=== PATIENT | male | born 1950 | race Caucasian/White ===

== ENCOUNTER 2018-03-16 14:36 | Outpatient (RCR) | payer MEDICARE, SELFPAY ==
[2018-03-16 16:04] LABS: AST(SGOT) 15 U/L (15-37); Alanine Aminotransfer ALT/SGPT 21 U/L (16-61); Albumin, Serum 3.5 g/dL (3.2-5.0); Alkaline Phosphatase 98 U/L (45-117); Bilirubin, Direct 0.08 mg/dL (0.00-0.30); Cholesterol 168 mg/dL (200); High Density Lipoprotein 34 mg/dL; Protein, Total 7.5 g/dL (6.4-8.2); Triglycerides 150 mg/dL; Very Low Density Lipoprotein 30 mg/dL (5-40)
== END 2018-03-30 23:59 ==
LOC: INT LAB 14:36
PROVIDERS: Family Provider Family Medicine; PCP Family Medicine; Visit Provider Physician Assistant Medical
DX: E78.5 Hyperlipidemia, unspecified (principal); Z79.899 Other long term (current) drug therapy
CPT/HCPCS: 36415; 80061; 80076

== ENCOUNTER → 2018-09-01 10:59 | Outpatient (CLI) | payer MEDICARE, SELFPAY ==
[2018-09-01 12:08] LABS: Absolute Lymphocyte Count 0.77 X10^3/ul (0.83-4.51); Absolute Neutrophil Count 3.5 X10^3/uL (2.0-7.7); Basophil# 0.01 X10^3/uL; Basophil% 0.2 % (0-1); Eosinophil# 0.18 X10^3/uL; Eosinophils% 3.6 % (0-5); Hematocrit 28.9 % (40-54); Hemoglobin 9.3 g/dl (13.0-16.5); Lymphocyte # 0.77 X10^3/ul (4.0); Lymphocyte % 15.6 % (19-41); Mean Corp Hgb Conc 32.2 g/gl (32-36); Mean Corpuscular Hgb 30.6 pg (27.0-32.0); Mean Corpuscular Volume 95.1 fL (80-94); Mean Platelet Vol. 10.5 fl (6.2-12.0); Monocyte# 0.44 X10^3/uL; Monocyte% 8.9 % (0-10); Neutrophil # 3.52 X10^3/uL (2.7-7.7); Neutrophil % 71.3 % (47-70); Platelet Count 175 K/mm3 (150-450); RBC Distribution Width CV 13.5 % (11.6-14.6); RBC Distribution Width SD 46.6 fl (35.1-43.9); Red Blood Count 3.04 M/mm3 (4.6-6.2); White Blood Count 4.9 K/mm3 (4.4-11.0)
[2018-09-01 12:10] LABS: POSITIVE COUNT NO; POSITIVE DIFFERENTIAL NO; POSITIVE MORPHOLOGY NO
[2018-09-01 12:13] LABS: Prothrombin Time (Protime)PT. 31.3 SECONDS (11.7-14.9)
[2018-09-01 12:27] LABS: Hemoglobin A1c 7.1 % (4.2-6.3)
[2018-09-01 12:28] LABS: AST(SGOT) 17 U/L (15-37); Alanine Aminotransfer ALT/SGPT 22 U/L (16-61); Albumin, Serum 3.2 g/dL (3.2-5.0); Alkaline Phosphatase 95 U/L (45-117); Anion Gap 9 (5-15); BUN 60 mg/dL (7-18); BUN/Creat Ratio 19.9 RATIO (10-20); Calcium,Total 8.3 mg/dL (8.5-10.1); Chloride 108 mmol/L (98-107); Cholesterol 144 mg/dL (200); Creatinine, Serum 3.01 mg/dL (0.70-1.30); EST Glomerular Filtration Rate 22 mL/min (>60); Est Glom Filt Rate - Afr Amer 27 mL/min (>60); Globulin 3.3 g/dL (2.2-4.2); Glucose 257 mg/dL (74-106); High Density Lipoprotein 28 mg/dL; Potassium 4.9 mmol/L (3.5-5.1); Protein, Total 6.5 g/dL (6.4-8.2); Sodium Level 142 mmol/L (136-145); Triglycerides 183 mg/dL; Very Low Density Lipoprotein 37 mg/dL (5-40)
== END ==
PROVIDERS: Internal Medicine Cardiovascular Disease; Physician Assistant Medical; Family Provider Family Medicine; PCP Family Medicine; Referring Provider Family Medicine; Visit Provider Family Medicine
DX: E11.59 Type 2 diabetes mellitus with other circulatory complications (principal); E66.01 Morbid (severe) obesity due to excess calories; E78.5 Hyperlipidemia, unspecified; N18.9 Chronic kidney disease, unspecified; D63.1 Anemia in chronic kidney disease; I12.9 Hypertensive chronic kidney disease with stage 1 through stage 4 chronic kidney disease, or unspecified chronic kidney disease; I48.0 Paroxysmal atrial fibrillation; Z79.01 Long term (current) use of anticoagulants
CPT/HCPCS: 80053; 80061; 82248; 83036; 85025; 85610

== ENCOUNTER → 2019-01-29 12:04 | Outpatient (CLI) | payer MEDICARE, SELFPAY ==
[2019-01-29 14:32] LABS: Hematocrit 34.6 % (40-54); Hemoglobin 11.4 g/dl (13.0-16.5); Mean Corp Hgb Conc 32.9 g/gl (32-36); Mean Corpuscular Hgb 31.2 pg (27.0-32.0); Mean Corpuscular Volume 94.8 fL (80-94); Mean Platelet Vol. 10.6 fl (6.2-12.0); Platelet Count 233 K/mm3 (150-450); RBC Distribution Width CV 12.5 % (11.6-14.6); Red Blood Count 3.65 M/mm3 (4.6-6.2); White Blood Count 6.8 K/mm3 (4.4-11.0)
[2019-01-29 14:33] LABS: Albumin, Serum 3.1 g/dL (3.2-5.0); BUN 63 mg/dL (7-18); Calcium,Total 8.7 mg/dL (8.5-10.1); Chloride 103 mmol/L (98-107); Creatinine, Serum 3.32 mg/dL (0.70-1.30); EST Glomerular Filtration Rate 20 mL/min (>60); Est Glom Filt Rate - Afr Amer 24 mL/min (>60); Glucose 79 mg/dL (74-106); Phosphorus 5.5 mg/dL (2.5-4.9); Sodium Level 140 mmol/L (136-145)
[2019-01-29 14:35] LABS: Scan Indicated on CBC? Y/N NO
[2019-01-29 14:37] LABS: PTHIN 242.8 pg/mL (18.4-80.1)
[2019-01-29 14:37] LABS: Vitamin D,25 Hydroxy 14.1 ng/mL (29.95-100.01)
== END ==
LOC: MTLAB 12:06
PROVIDERS: Family Provider Family Medicine; PCP Family Medicine; Referring Provider Internal Medicine Nephrology; Visit Provider Internal Medicine Nephrology
DX: N18.3 Chronic kidney disease, stage 3 (moderate) (principal)
CPT/HCPCS: 36415; 80069; 82043; 82306; 82570; 83970; 85027

== ENCOUNTER 2019-02-18 09:16 | Outpatient (RCR) | payer MEDICARE, SELFPAY ==
[2019-02-10 11:33] VITALS: BMI 38.0
[2019-02-11 17:02] LABS: International Normalized Ratio 1.8; Prothrombin Time (Protime)PT. 20.7 SECONDS (11.7-14.9)
[2019-02-18 10:00] LABS: International Normalized Ratio 1.9; Prothrombin Time (Protime)PT. 21.9 SECONDS (11.7-14.9)
== END 2019-02-18 10:00 | disposition home or self-care (01) ==
LOC: MTLAB 09:16
PROVIDERS: Family Provider Family Medicine; PCP Family Medicine; Referring Provider Internal Medicine Cardiovascular Disease; Visit Provider Internal Medicine Cardiovascular Disease
DX: I48.0 Paroxysmal atrial fibrillation (principal); Z79.01 Long term (current) use of anticoagulants
CPT/HCPCS: 36415; 85610

== ENCOUNTER → 2019-04-20 14:04 | Outpatient (CLI) | payer MEDICARE, SELFPAY ==
[2019-02-10 11:33] VITALS: BMI 38.0
--- NOTE | 2019-04-20 14:25 | US_ITS ---
STUDY: RENAL ULTRASOUND - COMPLETE REASON FOR EXAM: Male, 68 years old. Stage III chronic kidney disease. TECHNIQUE: Ultrasound evaluation of the kidneys was performed with real-time and static hawk-scale imaging. COMPARISON: April 04, 2015. FINDINGS: RIGHT KIDNEY: Normal location of the right kidney, which is normal in size. The right kidney measures 10.9 x 4.6 x 6.5 cm. There is a normal cortex of the right kidney. The renal cortex measures 1.6 cm. Right simple renal cysts measuring 2.6 x 2.3 x 2.3 cm and 2.3 x 2.2 x 1.9 cm.. 4 mm nonobstructing renal calculus. There is no right hydronephrosis. DISTAL RIGHT URETER: There is non-visualization of the distal right ureter. There is no demonstrated right ureterovesical junction calculus. There is a visualized right ureteral jet. LEFT KIDNEY: Normal location of the left kidney, which is normal in size. The left kidney measures 11.8 x 5.0 x 6.0 cm. There is a normal cortex of the left kidney. The renal cortex measures 1.7 cm. Left simple renal cyst measuring 4.0 x 3.9 x 3.2 cm. There are no left renal calculi. There is no left hydronephrosis. DISTAL LEFT URETER: There is non-visualization of the distal left ureter. There is no demonstrated left ureterovesical junction calculus. There is a visualized left ureteral jet. BLADDER: The distended urinary bladder has a volume of 271 ml. The empty urinary bladder has a volume of 297 ml. Debris is present within the bladder. There is a normal wall thickness of the distended urinary bladder. There is no demonstrated mass within the urinary bladder. There are no demonstrated bladder calculi. Prostate gland is enlarged measuring 5.2 x 4.8 x 4.0 cm. Prostate nodule measuring 1.7 x 1.4 x 1.4 cm. Splenomegaly with the spleen measuring 14.3 x 5.2 x 4.9 cm. Splenic calcifications suggestive of granulomas. US/Kidney and Bladder IMPRESSION: No hydronephrosis. Size of the kidneys not significantly changed since the prior study. Bilateral simple renal cysts. Small nonobstructing right renal calculus. Prostate gland enlargement. 1.7 cm prostate nodule. Consider correlation with prostate ultrasound or MRI. Significant post void residual. Debris is present within the bladder which could represent cystitis. Patient was unable to void as per senior mortgage loan processor worksheet. Mild splenomegaly. Electronically Signed: Bob Reis MD at 4:30 EDT , Service support ,
[2019-04-20 16:16] LABS: Anion Gap 10 (5-15); BUN 50 mg/dL (7-18); BUN/Creat Ratio 11.2 RATIO (10-20); Calcium,Total 8.8 mg/dL (8.5-10.1); Chloride 106 mmol/L (98-107); Creatinine, Serum 4.46 mg/dL (0.70-1.30); EST Glomerular Filtration Rate 14 mL/min (>60); Est Glom Filt Rate - Afr Amer 17 mL/min (>60); Glucose 166 mg/dL (74-106); Potassium 4.4 mmol/L (3.5-5.1); Sodium Level 139 mmol/L (136-145)
== END ==
LOC: US 14:06
PROVIDERS: Family Provider Family Medicine; PCP Family Medicine; Referring Provider Internal Medicine Nephrology; Visit Provider Internal Medicine Nephrology
DX: N18.3 Chronic kidney disease, stage 3 (moderate) (principal); Z79.01 Long term (current) use of anticoagulants; I48.0 Paroxysmal atrial fibrillation
CPT/HCPCS: 36415; 76770; 80048; 85610

== ENCOUNTER 2019-04-20 14:07 | Outpatient (RCR) | payer MEDICARE, SELFPAY ==
[2019-02-10 11:33] VITALS: BMI 38.0
[2019-04-20 16:00] LABS: Prothrombin Time (Protime)PT. 41.3 SECONDS (11.7-14.9)
[2019-04-20 16:10] LABS: International Normalized Ratio 4.2
== END 2019-04-20 15:00 | disposition home or self-care (01) ==
LOC: MTLAB 14:07
PROVIDERS: Family Provider Family Medicine; PCP Family Medicine; Referring Provider Internal Medicine Cardiovascular Disease; Visit Provider Internal Medicine Cardiovascular Disease
DX: I48.0 Paroxysmal atrial fibrillation (principal); Z79.01 Long term (current) use of anticoagulants
CPT/HCPCS: 85610

== ENCOUNTER 2019-04-26 13:55 | Inpatient (IN) | payer MEDICARE, SELFPAY ==
[2019-02-10 11:33] VITALS: BMI 38.0
[2019-04-26] VITALS (12 sets, daily range): BP systolic 110–150; BP diastolic 57–91; PULSE 65–123; RESP 14–20; TEMP 36.8–37.3; O2SAT 96–99; BMI 36.2; BMI 36.8
[2019-04-26] MEDS: 0.9% Normal Saline 1,000 ML 1000 ML IV (14:26)
[2019-04-26] MEDS: morphine 8 MG/ML Syringe IV (14:27)
[2019-04-26] MEDS: Ondansetron 4 MG/2 ML Vial IV (14:27)
--- NOTE | 2019-04-26 14:33 | RAD_ITS ---
STUDY: X-RAY - LEFT FOOT CLINICAL: Male, 68 years old. Injury. Pain and discoloration great toe. TECHNIQUE: 3 view(s) of the foot. COMPARISON: None. FINDINGS: Normal talus, calcaneus, and tarsal bones. Possible degenerative arthrosis at the first tarsometatarsal articulation Normal visualized subtalar, talonavicular, calcaneocuboid, tarsal and remaining tarsometatarsal articulations. Normal metatarsi. There is degenerative arthrosis of the metatarsophalangeal joint of the hallux with lateral periarticular spurring. Normal tibial and fibular sesamoid bones. Normal interphalangeal joint of the great toe. There is gas in the plantar aspect of the first distal phalanx, as well as generalized swelling of the great toe. Normal distal phalanx of the great toe. Normal second through fifth metatarsophalangeal joints. Normal interphalangeal joints and phalanges of the lesser toes. Mild soft tissue swelling also noted in the forefoot. Atherosclerotic vascular calcifications are present. There is no demonstrated fracture. RAD/Foot min 3 Views IMPRESSION: 1. Soft tissue swelling of the great toe with gas in the deep plantar soft tissues of the distal phalanx. There is no demonstrated acute fracture. 2. Atherosclerotic vascular calcifications noted. 3. 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 Electronically Signed: Jr Lynn MD at 15:15 EDT , Service support ,
--- NOTE | 2019-04-26 14:33 | RAD_ITS ---
STUDY: X-RAY CHEST REASON FOR EXAM: Male, 68 years old. Pain. TECHNIQUE: Single AP portable upright view of the chest. The patient is mildly rotated to the right and seen in a mildly more lordotic position today. COMPARISON: PA and lateral chest x-ray April 10, 2016. FINDINGS: The lungs are clear and moderately expanded. There is no demonstrated pleural abnormality. Normal size heart. Normal mediastinum and neftaly. Normal visualized pulmonary arteries. There is stable tortuosity of the descending thoracic aorta are parallel spinal curvature. Significant levoscoliosis of the lower thoracic spine again noted. There is stable mild degenerative osteoarthritis of the bilateral shoulders. There is no demonstrated abnormality of the visualized soft tissue structures of the upper abdomen. RAD/Chest 1 View (Portable) IMPRESSION: No acute cardiopulmonary disease. Stable lower thoracic levoscoliosis. Electronically Signed: Jr Lynn MD at 15:17 EDT , Service support ,
--- NOTE | 2019-04-26 14:34 | ED.VISSUMM ---
- ER Visit Summary Date of Service: 04/26/19 Chief Complaint: [] infected draining left great toe diabetes trauma 2 weeks ago History of Present Illness: The patient is a 68 M [] he has diabetes indicates 2 weeks ago he basically stumbled and fell at home suffered an injury to the left great toe, the toenail was very tender there is yellow fluid draining from a small pinhole the tip of the toe appears black and the pain is intractable, he also complains of diffuse whole body pain related to multiple chronic conditions, he has had no obvious fever no cough no chest pain no abdominal pain indicates he was 2 feet up working at home when he fell Physical Examination: [] Heart rate is 130 the vital signs are unremarkable temperature 99.1 General, no distress, but he is complaining of pain to the toe. Of any type of palpation or movement, he generally appears to have poor general conditioning and hygiene indicates he lives alone at home HEENT is generally unremarkable The neck is supple no adenopathy Cardiovascular, regular rate and rhythm Lungs, clear bilateral with decreased excursion Abdomen, soft nontender distended nontender Extremities, has brawny chronic edema to both lower extremities, the left great toe there appears to be a small pinhole draining yellow fluid, the toe was surrounded with yellow fluid it appears pale, it is quite tender the nail is abnormal, he cannot move the IP joint, the foot is otherwise unremarkable with no gross abnormalities,, one part of the tip of the toe appears black Neurologic, awake alert answering questions appropriately moving all 4 extremities Test Results: [] His white count is unremarkable, his hemoglobin is 9, off his baseline, the x-ray of the foot shows gas in the region of the great toe, IV antibiotics were started contact the hospitalist for admission podiatry will be seeing the patient shortly patient remains hemodynamic with stable Emergency Department Course and Treatment: [] Differentials rather extensive would certainly include sepsis necrosis infection complications from diabetes we have started IV fluids IV antibiotic screening labs I spoke with Dr. Hennessy and podiatry the plan is to continue the ED evaluation admit to medicine and podiatry will be seeing him in short order Treatment Plan: [] Disposition: [] Admit Impression: [] Sepsis, gas gangrene, left great toe, diabetic foot infection intractable pain This note was generated with [employer] software. It may contain incorrect words, spelling, and punctuation that were not noted in review of the chart prior to signing ED Disposition - Plan for ED Patient: Referrals: Billy Jaramillo DO [Primary Care Provider] -
[2019-04-26 14:48] LABS: Absolute Lymphocyte Count 0.54 X10^3/ul (0.83-4.51); Absolute Neutrophil Count 7.1 X10^3/uL (2.0-7.7); Basophil# 0.02 X10^3/uL; Basophil% 0.2 % (0-1); Differential Indicated SCAN CRITERIA MET; Eosinophil# 0.13 X10^3/uL; Eosinophils% 1.5 % (0-5); Hematocrit 27.2 % (40-54); Hemoglobin 8.9 g/dl (13.0-16.5); Lymphocyte # 0.54 X10^3/ul (4.0); Lymphocyte % 6.4 % (19-41); Mean Corp Hgb Conc 32.7 g/gl (32-36); Mean Corpuscular Hgb 29.6 pg (27.0-32.0); Mean Corpuscular Volume 90.4 fL (80-94); Mean Platelet Vol. 8.9 fl (6.2-12.0); Monocyte# 0.65 X10^3/uL; Monocyte% 7.7 % (0-10); Neutrophil % 83.8 % (47-70); POSITIVE COUNT NO; POSITIVE DIFFERENTIAL YES; POSITIVE MORPHOLOGY NO; Platelet Count 278 K/mm3 (150-450); RBC Distribution Width CV 13.2 % (11.6-14.6); RBC Distribution Width SD 43.8 fl (35.1-43.9); Red Blood Count 3.01 M/mm3 (4.6-6.2); White Blood Count 8.5 K/mm3 (4.4-11.0)
[2019-04-26 14:52] LABS: International Normalized Ratio 2.3; Prothrombin Time (Protime)PT. 25.2 SECONDS (11.7-14.9)
[2019-04-26 15:03] LABS: Anion Gap 9 (5-15); BUN 56 mg/dL (7-18); Calcium,Total 8.5 mg/dL (8.5-10.1); Chloride 108 mmol/L (98-107); Creatinine, Serum 4.67 mg/dL (0.70-1.30); EST Glomerular Filtration Rate 13 mL/min (>60); Est Glom Filt Rate - Afr Amer 16 mL/min (>60); Estimated Creatinine Clearance 11.69 ml/min; Glucose 180 mg/dL (74-106); Potassium 4.5 mmol/L (3.5-5.1); Sodium Level 140 mmol/L (136-145)
[2019-04-26 15:18] LABS: Lactic Acid 1.2 mmol/L (0.4-2.0)
[2019-04-26 15:38] LABS: Differential Comment SCANNED
--- NOTE | 2019-04-26 16:22 | EKG12_ITS ---
Test Reason : WOUND Blood Pressure : / mmHG Vent. Rate : 079 BPM Atrial Rate : 079 BPM P-R Int : 000 ms QRS Dur : 136 ms QT Int : 388 ms P-R-T Axes : 000 141 017 degrees QTc Int : 444 ms Atrial Flutter Low voltage QRS (Limb Leads) Right bundle branch block Abnormal ECG Confirmed by MACIEJ YOST, KIRSTEN ([id number]), fan mail editor MAINE HECTOR ([id number]) on 04/28/2019 9:22:39 AM Referred By: DANILO Confirmed By:KIRSTEN WING MD
--- NOTE | 2019-04-26 16:34 | PCM.HP.STD ---
Problem List (1) Diabetes mellitus Status: Acute Qualifiers: Diabetes mellitus type: type 2 Diabetes mellitus terminal system operator insulin use: without care home use Diabetes mellitus complication status: with unspecified complications Qualified Code(s): E11.8 - Type 2 diabetes mellitus with unspecified complications (2) Essential (primary) hypertension Status: Chronic (3) long-term (current) use of anticoagulants Status: Chronic (4) Paroxysmal atrial fibrillation Status: Chronic (5) Hyperlipidemia Status: Chronic Qualifiers: Hyperlipidemia type: unspecified Qualified Code(s): E78.5 - Hyperlipidemia, unspecified (6) Left foot infection Status: Acute (7) Gas gangrene Status: Acute History of Present Illness Date of Admission: 04/26/19 Chief Complaint: Left foot pain, swelling - 2 weeks The patient is a 68 year old M with past medical history of type II DM, hypertension, CKD stage III, paroxysmal atrial fibrillation on Coumadin, who fell off his trailer as he was trying to load a mower. Patient sustained pain to his left foot as well as to his back and neck. He noticed some pain and swelling of the left foot and did not pay attention to it. He went to visit in [place] and was advised to go to the hospital by a friend. He denied any fever but admits to chills. Denied any nausea or vomiting. Denied any discharge from the food. Admits to pain on ambulation. He states he has a high tolerance for pain and at the moment was lying it was not that bad. Denied any peripheral neuropathy or complications from diabetes. His last HbA1c was 8.7. Vitals in the ED show temperature of 90 8.5F, heart rate 81, blood pressure 110/57, respiratory rate was 15, SPO2 is 97% on room air. Admitting blood work showed RBC count of 8.5, hemoglobin 8.9, platelet count 278, INR 2.3, sodium 140, potassium 4.5, chloride 108, bicarbonate 23, BUN 56, creatinine 4.67, baseline creatinine 3.3, calcium is 1.2, troponin 0 0.015 Admitting chest x-ray shows no acute cardiopulmonary process. History of the left foot shows soft tissue swelling of the great toe with gas in the deep plantar soft tissues of the distal phalanx, no fracture seen. Past Medical History Past Medical History (Chronic Problems): Chronic Problems (Last Reviewed 02/10/19 @ 13:22 by Yousif Clark MD) Right bundle branch block (RBBB) (Chronic) Essential (primary) hypertension (Chronic) terminal system operator (current) use of anticoagulants (Chronic) Paroxysmal atrial fibrillation (Chronic) Hyperlipidemia (Chronic) Medical History: Medical History (Last Reviewed 02/10/19 @ 13:22 by Yousif Clark MD) Right bundle branch block (RBBB) (Chronic) I45.10 Essential (primary) hypertension (Chronic) I10 Paroxysmal atrial fibrillation (Chronic) I48.0 Hyperlipidemia (Chronic) E78.5 Arthritis M19.90 BPH (benign prostatic hyperplasia) N40.0 COPD (chronic obstructive pulmonary disease) J44.9 Chronic kidney disease, stage 3 N18.3 Chronic pain G89.29 Diabetic retinopathy E11.319 Obesity E66.9 Type 2 diabetes mellitus E11.9 Venous stasis dermatitis I87.2 Allergies No Known Allergies Allergy (Verified 04/26/19 13:56) Home Medications: Ambulatory Orders Medication Instructions Recorded albuterol sulfate 2.5 mg/3 mL 1.25 mg INHALATION Q4H PRN 01/30/19 (0.083 %) solution for nebulization clonidine HCl 0.1 mg tablet 0.1 mg PO BID 90 Days #180 tab 01/30/19 doxazosin 8 mg tablet 8 mg PO DAILY 30 Days #30 tab 01/30/19 furosemide 40 mg tablet 40 mg PO DAILY 90 Days #90 tab 01/30/19 glipizide 10 mg tablet 10 mg PO DAILY 01/30/19 hydrochlorothiazide 12.5 mg capsule 12.5 mg PO DAILY 30 Days #30 cap 01/30/19 hydrocodone 7.5 mg-acetaminophen 1 tab PO Q6H PRN 30 Days tab 01/30/19 750 mg tablet metoprolol tartrate 50 mg tablet 50 mg PO BID 90 Days #180 tab 01/30/19 theophylline ER 400 mg 400 mg PO DAILY 01/30/19 capsule,extended release 24 hr amlodipine 5 mg tablet 5 mg PO DAILY #90 tab 02/10/19 multivitamin tablet 1 tab PO DAILY 02/10/19 saw palmetto 500 mg capsule 500 mg PO BID 02/10/19 warfarin 2.5 mg tablet 2.5 mg PO .COMPLEX 02/18/19 Surgical History: Surgical History (Last Reviewed 02/10/19 @ 13:22 by Yousif Clark MD) History of cardioversion Onset Date: 05/30/14 Z98.890 History of tonsillectomy Z90.89 Surgical History: noncontributory Psychiatric History: No pertinent psych hx Lives: Alone Smoking Status: Current every day smoker Tobacco Use: Non-smoker Alcohol: None Drugs: None - *Family History Maternal History Items: Cancer - lung Paternal History Items: Unknown Sibling History Items: Cancer - sister had pancreatic cancer Review of Systems Constitutional: Reports: Chills, Malaise, Weakness, Fatigue. Denies: Fever, Weight Change Eyes: Denies: Blurred vision, Cataracts, Conjunctivae Inflammation, Pain, Redness, Vision Change HEENT: Denies: Difficulty Swallowing, Head Aches, Hearing Changes, Sinus Congestion, Sinus Drainage Cardiovascular: Denies: Chest Pain, Claudication, Orthopnea, Palpitations, Paroxysmal Noc. Dyspnea Respiratory: Denies: Cough, Hemoptysis, Shortness of breath at rest, Shortness of breath upon exertion, Sputum production Gastrointestinal: Denies: Abdominal Pain, Constipation, Hematemesis, Hematochezia, Nausea, Vomiting Genitourinary: Denies: Dysuria Musculoskeletal: Reports: Foot Pain, Joint stiffness, Joint swelling, Joint Tenderness. Denies: Joint Pain Skin: Denies: Dryness, Pruritis, Rash, Wounds Neurological: Denies: Difficulty swallowing, Focal weakness, Numbness, Tingling Psychiatric: Denies: Anxiety, Depression, Homicidal Ideations, Suicidal Ideations Hematologic/ Lymphatic: Denies: Easy Bruising, Easy Bleeding VTE Information - Inpt Only VTE Present on Admission: No VTE Pharm Prophylaxis ordered?: Yes Patient Problems: Active and Suspected Problems (Last Reviewed 02/10/19 @ 13:22 by Yousif Clark MD) Diabetes mellitus (Acute) Left foot infection (Acute) Gas gangrene (Acute) - Physical Exam General: Alert, Oriented x3, Cooperative, No apparent distress, - - obese HEENT: Atraumatic, PERRLA, EOMI, Normocephalic Oral: Moist Mucosa Neck: Supple Lungs: Normal air movement, Diminished - at the lung bases Cardiovascular: Regular rate, Regular Rhythm, Normal S1, Normal S2, No murmurs Abdomen: Bowel Sounds Present, Soft, Non Tender, No Hepato-splenomegaly, Obese Extremities: Edema - bilateral +1-2, Tenderness - and erythema of the left great toe with wound, gangrene and pus-filled swelling at the plantar surface of the distal phalange of 1st left toe. No extension of erythema beyonf the proximal phalange of 1st toe. Skin: No breakdown Musculoskeletal: No Tenderness to Palpation of Joints or Extremities Lymphatic: No Cervical, Supraclavicular, or Inguinal Adenopathy Neurological: Cranial nerves II-XII grossly intact, Neuro grossly intact Psych/Mental Status: Normal Affect, Appropriate Vital Signs Temp Pulse Resp BP Pulse Ox 98.5 F 81 15 110/57 L 97 04/26/19 16:23 04/26/19 16:23 04/26/19 16:23 04/26/19 16:23 04/26/19 16:23 Oxygen Delivery Method Room Air Weight: 89.811 kg Body Mass Index (BMI) 36.2 Laboratory Tests Past 24 Hrs 04/26/19 04/26/19 04/26/19 14:28 14:28 14:28 WBC 8.5 RBC 3.01 L Hgb 8.9 L Hct 27.2 L MCV 90.4 MCH 29.6 MCHC 32.7 RDW 13.2 RDW Differential 43.8 Plt Count 278 MPV 8.9 Immature Gran % (Auto) 0.400 Neut % (Auto) 83.8 H Lymph % (Auto) 6.4 L Barry % (Auto) 7.7 Eos % (Auto) 1.5 Baso % (Auto) 0.2 Absolute Neuts (auto) 7.1 Absolute Lymphs (auto) 0.54 L Total Counted Not Reportable Differential Comment SCANNED PT 25.2 H INR 2.3 Sodium 140 Potassium 4.5 Chloride 108 H Carbon Dioxide 23.0 Anion Gap 9 BUN 56 H Creatinine 4.67 H Estim Creat Clear Calc 11.69 Est GFR (MDRD) Af Amer 16 L Est GFR (MDRD) Non-Af 13 L BUN/Creatinine Ratio 12.0 Glucose 180 H Lactic Acid Calcium 8.5 Troponin I < 0.015 04/26/19 14:28 WBC RBC Hgb Hct MCV MCH MCHC RDW RDW Differential Plt Count MPV Immature Gran % (Auto) Neut % (Auto) Lymph % (Auto) Barry % (Auto) Eos % (Auto) Baso % (Auto) Absolute Neuts (auto) Absolute Lymphs (auto) Total Counted Differential Comment PT INR Sodium Potassium Chloride Carbon Dioxide Anion Gap BUN Creatinine Estim Creat Clear Calc Est GFR (MDRD) Af Amer Est GFR (MDRD) Non-Af BUN/Creatinine Ratio Glucose Lactic Acid 1.2 Calcium Troponin I Assessment/Plan All Active Problems (Last Reviewed 02/10/19 @ 13:22 by Yousif Clark MD) Diabetes mellitus (Acute) Left foot infection (Acute) Gas gangrene (Acute) 68 year old M with past medical history of type II DM, hypertension, CKD stage III, paroxysmal atrial fibrillation on Coumadin, who fell off his trailer as he was trying to load a mower who comes in with complaints of left 1st toe pain and swelling. 1. Acute left 1st toe diabetic foot infection with gas-gangrene, possible necrotising fascitis, no signs of sepsis Plan: Admit to PCU, monitor on telemetry, podiatry consult, IV fluids, IV antibiotics Will follow podiatry recommendations. Possible surgery tonight. Will get an EKG Patient is low-moderate risk for planned intervention; Revised cardiac risk score is 0.9%, Rodgers perioperative score of 0.31% 2. TYLOR on CKD stage III, likely prerenal secondary to dehydration/foot infection/medication side effect possible post renal TYLOR also with h/o BPH; plan creatinine is around 3.3 Home Lasix, hydrochlorothiazide on hold Plan: Continue on IV fluids, ultrasound of the kidneys and bladder, bladder scan, strict I's and O's, repeat blood work in a.m. 3. Microcytic microchromic anemia, unclear etiology, previous hemoglobin was 11.4 Plan: Stool for occult blood, trend H&H every 6, type and hold 2 units of blood 4. Type II DM, on oral hypoglycemic, blood sugars appear controlled will hold oral hypoglycemics, continue with Accu-Cheks with insulin sliding scale 5. Hypertension, continue on clonidine, amlodipine, metoprolol; hydrochlorothiazide on hold, will monitor vitals closely. 6. Paroxysmal atrial fibrillation, rate controlled, continue on metoprolol, hold warfarin 7. DVT prophylaxis -INR is therapeutic, will continue to hold Coumadin, repeat INR in a.m. Code Visit Inpatient E&M: 25846 Init Hosp L3
--- NOTE | 2019-04-26 17:09 | PCM.CONS.GEN ---
Problem List (1) Gas gangrene Status: Acute (2) Left foot infection Status: Acute (3) Type 2 diabetes mellitus with diabetic polyneuropathy Status: Chronic (4) Other specified peripheral vascular diseases Status: Suspected (5) Non-pressure chronic ulcer of other part of left foot with fat layer exposed Status: Acute Reason for Consult Date of Consultation: 04/26/19 Reason for Consultation: Infected left toe History of Present Illness: The patient is a 68 year old M was seen bedside for left foot infection. He reports a remote injury of approximately 1 week ago when he was loading a trailer into a truck. He fell and hit his foot including his toe. He denies known drainage or ulcer formation. He reports mild pain. He denies fever, chill, nausea, vomiting. He was prompted to go to the emergency room for evaluation when he was visiting his friend earlier today who noticed some discoloration of his toe. He is unable to bear weight on his forefoot due to discomfort. He denies claudication. He does have some loss of sensation. He denies previous ulcer formation. He reports his last hemoglobin A1c that he is aware was 8.5%. Past Medical History Past Medical History (Chronic Problems): Chronic Problems (Last Reviewed 02/10/19 @ 13:22 by Yousif Clark MD) Type 2 diabetes mellitus with diabetic polyneuropathy (Chronic) Right bundle branch block (RBBB) (Chronic) Essential (primary) hypertension (Chronic) [facility] (current) use of anticoagulants (Chronic) Paroxysmal atrial fibrillation (Chronic) Hyperlipidemia (Chronic) Medical History: Medical History (Last Reviewed 02/10/19 @ 13:22 by Yousif Clark MD) Right bundle branch block (RBBB) (Chronic) I45.10 Essential (primary) hypertension (Chronic) I10 Paroxysmal atrial fibrillation (Chronic) I48.0 Hyperlipidemia (Chronic) E78.5 Arthritis M19.90 BPH (benign prostatic hyperplasia) N40.0 COPD (chronic obstructive pulmonary disease) J44.9 Chronic kidney disease, stage 3 N18.3 Chronic pain G89.29 Diabetic retinopathy E11.319 Obesity E66.9 Type 2 diabetes mellitus E11.9 Venous stasis dermatitis I87.2 Allergies No Known Allergies Allergy (Verified 04/26/19 13:56) Home Medications: Ambulatory Orders Medication Instructions Recorded albuterol sulfate 2.5 mg/3 mL 1.25 mg INHALATION Q4H PRN 01/30/19 (0.083 %) solution for nebulization clonidine HCl 0.1 mg tablet 0.1 mg PO BID 90 Days #180 tab 01/30/19 doxazosin 8 mg tablet 8 mg PO DAILY 30 Days #30 tab 01/30/19 furosemide 40 mg tablet 40 mg PO DAILY 90 Days #90 tab 01/30/19 glipizide 10 mg tablet 10 mg PO DAILY 01/30/19 hydrochlorothiazide 12.5 mg capsule 12.5 mg PO DAILY 30 Days #30 cap 01/30/19 hydrocodone 7.5 mg-acetaminophen 1 tab PO Q6H PRN 30 Days tab 01/30/19 750 mg tablet metoprolol tartrate 50 mg tablet 50 mg PO BID 90 Days #180 tab 01/30/19 theophylline ER 400 mg 400 mg PO DAILY 01/30/19 capsule,extended release 24 hr amlodipine 5 mg tablet 5 mg PO DAILY #90 tab 02/10/19 multivitamin tablet 1 tab PO DAILY 02/10/19 saw palmetto 500 mg capsule 500 mg PO BID 02/10/19 warfarin 2.5 mg tablet 2.5 mg PO .COMPLEX 02/18/19 Surgical History: Surgical History (Last Reviewed 02/10/19 @ 13:22 by Yousif Clark MD) History of cardioversion Onset Date: 05/30/14 Z98.890 History of tonsillectomy Z90.89 Surgical History: noncontributory, tonsillectomy Psychiatric History: No pertinent psych hx Lives: Alone Smoking Status: Never smoker Tobacco Use: Non-smoker Alcohol: None Drugs: None - *Family History Maternal History Items: Cancer - lung, - - Denies known cardiac history Paternal History Items: Unknown Sibling History Items: Cancer - sister had pancreatic cancer Review of Systems Constitutional: Denies: Chills, Fever, Fatigue HEENT: Denies: Sore Throat Cardiovascular: Denies: Chest Pain, Claudication, Orthopnea Respiratory: Denies: Shortness of Breath Gastrointestinal: Denies: Constipation, Nausea, Vomiting Musculoskeletal: Reports: Foot Pain. Denies: Joint Tenderness, Leg Pain Skin: Reports: Skin Changes. Denies: Wounds Hematologic/ Lymphatic: Reports: Easy Bruising, Easy Bleeding Patient Problems: Active and Suspected Problems (Last Reviewed 02/10/19 @ 13:22 by Yousif Clark MD) Diabetes mellitus (Acute) Left foot infection (Acute) Gas gangrene (Acute) Other specified peripheral vascular diseases (Suspected) Non-pressure chronic ulcer of other part of left foot with fat layer exposed (Acute) - Physical Exam General: Alert HEENT: Atraumatic Extremities: Capillary Refill Less than 3 Seconds, No Calf Tenderness - Negative Yany and Demarco signs bilateral, Diminished Peripheral Pulses - 1/2 DP pulses bilateral and 0 / 2 PT pulses bilateral, Edema - Mild bilateral lower extremities, - - There is cyanosis to the distal plantar left hallux Skin: Ulcer/ Wound - There is deep ecchymotic fluctuance to the distal hallux plantar aspect with peripheral bulla formation. There is a small area of skin discontinuity that that probes into this site. Upon incision and drainage there is foul-smelling necrotic adipose plug. The post debridement measurement was 2.0 cm x 1.8 cm x 0.6 cm. After excisional debridement of fibronecrotic plug, biofilm, slough, devitalized subcutaneous tissue and irrigation there was hematogenous drainage noted and no additional purulence on expression. The bone was not exposed., - - No onycholysis of the left hallux Musculoskeletal: No Tenderness to Palpation of Joints or Extremities, Muscle Wasting - There is some bogginess and fluctuance to the distal plantar aspect of the hallux and not to the proximal part of the foot. The compartments to the left foot remains soft and also to the leg. Neurological: - - lack of epicritic sensation via light touch consistent with neuropathy Psych/Mental Status: Normal Affect, Appropriate Vital Signs Temp Pulse Resp BP Pulse Ox 98.5 F 81 15 110/57 L 97 04/26/19 16:23 04/26/19 16:23 04/26/19 16:23 04/26/19 16:23 04/26/19 16:23 Oxygen Delivery Method Room Air Weight: 89.811 kg Body Mass Index (BMI) 36.2 Laboratory Tests Past 24 Hrs 04/26/19 04/26/19 04/26/19 14:28 14:28 14:28 WBC 8.5 RBC 3.01 L Hgb 8.9 L Hct 27.2 L MCV 90.4 MCH 29.6 MCHC 32.7 RDW 13.2 RDW Differential 43.8 Plt Count 278 MPV 8.9 Immature Gran % (Auto) 0.400 Neut % (Auto) 83.8 H Lymph % (Auto) 6.4 L [place] % (Auto) 7.7 Eos % (Auto) 1.5 Baso % (Auto) 0.2 Absolute Neuts (auto) 7.1 Absolute Lymphs (auto) 0.54 L Total Counted Not Reportable Differential Comment SCANNED PT 25.2 H INR 2.3 Sodium 140 Potassium 4.5 Chloride 108 H Carbon Dioxide 23.0 Anion Gap 9 BUN 56 H Creatinine 4.67 H Estim Creat Clear Calc 11.69 Est GFR (MDRD) Af Amer 16 L Est GFR (MDRD) Non-Af 13 L BUN/Creatinine Ratio 12.0 Glucose 180 H Lactic Acid Calcium 8.5 Troponin I < 0.015 04/26/19 14:28 WBC RBC Hgb Hct MCV MCH MCHC RDW RDW Differential Plt Count MPV Immature Gran % (Auto) Neut % (Auto) Lymph % (Auto) [place] % (Auto) Eos % (Auto) Baso % (Auto) Absolute Neuts (auto) Absolute Lymphs (auto) Total Counted Differential Comment PT INR Sodium Potassium Chloride Carbon Dioxide Anion Gap BUN Creatinine Estim Creat Clear Calc Est GFR (MDRD) Af Amer Est GFR (MDRD) Non-Af BUN/Creatinine Ratio Glucose Lactic Acid 1.2 Calcium Troponin I Assessment/Plan All Active Problems (Last Reviewed 02/10/19 @ 13:22 by Yousif Clark MD) Diabetes mellitus (Acute) Left foot infection (Acute) Gas gangrene (Acute) Non-pressure chronic ulcer of other part of left foot with fat layer exposed (Acute) Left hallux infection including gas gangrene of the distal plantar aspect; this is a limb threatening Now left hallux ulcer with fat layer exposed Diabetes with neuropathy Peripheral vascular disease suspected Malnutrition suspected multiple comorbidities noted I reviewed and discussed his case. He appears to be running a low-grade temperature with tachycardia and otherwise his vital signs are stable. He does not demonstrate leukocytosis WBC 8.5), ESR 53, CRP pending, hemoglobin A1C 7.1%. Radiographs reveal soft tissue emphysema to the distal plantar aspect of the left hallux. There is no adjacent osseous destruction or acute fractures or dislocations noted. The soft tissue emphysema appears to be limited to the distal half of the hallux. Clinically, the distal plantar left hallux appears to be necrotic and infected. There is also a dysvascular appearance of the toe. Verbal and written consent was obtained for incision and drainage of the left hallux with debridement of nonviable soft tissue and irrigation. The preprocedure indications, planned procedure, benefits, risks, complications, and anticipated healing time and management were discussed in detail with the patient. No guarantees were made. He understands risks and complications include but are not limited to the following: Pain, swelling, scarring, delayed or nonhealing, continued infection, loss of limb, function, life, blood clot, allergic reaction, need for staged procedure is likely. I answered all his questions. The procedural consent and limb were signed and the limb was thoroughly cleansed with antimicrobial agent. A 15 blade scalpel was used to perform a 2 cm linear incision to the distal plantar aspect of the left hallux and blunt dissection was performed down to the necrotic area that corresponded with the soft tissue emphysema on x-ray. To follow odor and devitalized fibrous necrotic tissue was appreciated. This was excised with a 15 blade and forcep and was sent to microbiology for aerobic, anaerobic, acid-fast, fungal, and more MRSA PCR testing. The adjacent area was further excised of any devitalized and nonviable odorous tissues. Pressure was applied to maintain hemostasis. He tolerated this well and did not have any discomfort throughout the procedure due to his apparent neuropathy. Copious irrigation with 1 L of normal saline was next performed. He was having some hematogenous drainage however it was not uncontrolled. A dressing consisting of Betadine soaked wet-to-dry, Kerlix, and Aydin wrap were applied. I recommend proceeding with his admission for IV antibiotics and blood cultures. He was started on broad-spectrum coverage including vancomycin and Zosyn. Infectious disease will also be consulted which is greatly appreciated. He is a very immunocompromised patient given his diabetic and advanced kidney disease, and remains at risk for further limb loss and progressive systemic illness due to this condition. He understands he may require an operating room staged procedure for further debridement or amputation of part of the foot pending his clinical response over the next 1 to 3 days which will allow the tissue to demarcate, and noninvasive vascular studies. The noninvasive vascular studies will include thigh and leg pressures, ABIs, and systolic toe pressures and will be ordered while he is an inpatient. 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 I recommend heel weightbearing to the left foot with a surgical shoe; this will be ordered. To keep dressing clean, dry, and intact. To proceed with proper glycemic control and nutritional supplementation to optimize healing. Medical management and DVT prophylaxis per hospitalist is greatly appreciated. This case and care plan was discussed with Dr. Vu. I will follow him close while in house. Jael Paredes DPM, [facility] [phone]
--- NOTE | 2019-04-26 18:11 | ART_ITS ---
Reason For Study: PVD Procedure A bilateral lower extremity continuous wave Doppler with analog waveform analysis,segmental pressures,and ankle brachial indexes without exercise. Left Segmental Pressures Left brachial= 145mmHg. Left posterior tibial artery = 178mmHg. Left dorsalis pedis artery = >254mmHg. The left dorsalis pedis waveforms are triphasic. The left posterior tibial artery waveforms are triphasic. Right Segmental Pressures Right brachial= 142mmHg. Right posterior tibial artery = >254mmHg. Right dorsalis pedis artery = >254mmHg. Right digit = 152 mmHg. The right dorsalis pedis waveforms are triphasic. The right posterior tibial artery waveforms are triphasic. Indices The right ankle brachial index by the dorsalis pedis is NC. The right ankle brachial index by the posterior tibial artery is NC. The right digital-brachial index is 1.05. The left ankle brachial index by the dorsalis pedis is NC. The left ankle brachial index by the posterior tibial artery is 1.23. Interpretation Summary Triphasic Doppler waveforms are noted at ankle level bilaterally. Pulse-volume recording waveform amplitudes appear satisfactory at low-thigh, calf, and ankle levels bilaterally. Pulse-volume recording waveform amplitude at digital level appears satisfactory on the right, but was not determined on the left due to the presence of bandages. The resting right ankle-brachial index could not be determined due to the non-compressibility of the vasculature. The resting left ankle-brachial index is normal. The right digital-brachial index is normal. The left digital-brachial index could not be determined due to the presence of bandages. There is evidence of arterial calcification bilaterally, particularly on the right. However, arterial flow appears to be normal at all levels bilaterally, though the arterial status at digital level on the left was not assessed due to the presence of bandages. Ordering Physician: Jael Paredes Referring Physician: Billy Jaramillo Performed By: Alycia Leos RVT
--- NOTE | 2019-04-26 18:40 | PCM.RX.CS ---
Consult Pharmacy has been consulted to manage selected antiobiotic: Vancomycin Type of Consult: New start Suspected Infection: Other Prior Doses of Antibiotics Received/Current Regimen: Received 1250mg IV x1 in E.R. at 15:47 today Labs: Sodium 140 mmol/L (136-145) 04/26/19 14:28 Potassium 4.5 mmol/L (3.5-5.1) 04/26/19 14:28 Chloride 108 mmol/L (98-107) H 04/26/19 14:28 Carbon Dioxide 23.0 mmol/L (21.0-32.0) 04/26/19 14:28 Anion Gap 9 (5-15) 04/26/19 14:28 BUN 56 mg/dL (7-18) H 04/26/19 14:28 Creatinine 4.67 mg/dL (0.70-1.30) H 04/26/19 14:28 Est GFR (MDRD) Af Amer 16 mL/min (>60) L 04/26/19 14:28 Est GFR (MDRD) Non-Af 13 mL/min (>60) L 04/26/19 14:28 BUN/Creatinine Ratio 12.0 RATIO (10-20) 04/26/19 14:28 Glucose 180 mg/dL (74-106) H 04/26/19 14:28 Weight used for dosin kg Estimated Creatinine Clearance: 12 ml/min Goal Trough: 15-20 mcg/mL Pharmacy Plan for Drug Dosing: Following our protocol for patients with CrCl < 20ml/min (not on dialysis), we will get a random level in the morning of 04/28/19 and redose from there. Pharmacy Service will continue to monitor and adjust dosing as required. Follow-Up Labs: Trough Vancomycin - random level Labs to be done on [date and time ordered]: 04/28/19 06:00
[2019-04-26 18:42] LABS: Hematocrit 26.2 % (40-54); Hemoglobin 8.6 g/dl (13.0-16.5)
[2019-04-26 18:46] LABS: Ferritin 283 ng/mL (26-388); Iron 38 ug/dL (65-175); Iron Binding Capacity,Total 156 ug/dL (250-450); PERCENT IRON SATURATION 24.4 % (15.0-55.0)
[2019-04-26 18:49] LABS: Hemoglobin A1c 8.2 % (4.2-6.3)
[2019-04-26 19:06] LABS: M R Staph aureus DNA By PCR Negative (Negative); Probe Check PASS; Specimen Processing Control PASS; Staph aureus DNA By PCR NEGATIVE (Negative)
[2019-04-26] MEDS: 0.9% Normal Saline 1,000 ML 100 ML IV (19:13)
[2019-04-26 19:21] LABS: Bedside Glucose 138 mg/dL (70-110)
[2019-04-26 19:47] LABS: Bacteria 0 SEEN /hpf (None Seen); Mucous, Urine 0 SEEN /hpf (<or=2+); Red Blood Cells-Urine 0 SEEN /hpf (0-5); Squamous Epithelial Cells - UA 0 SEEN /hpf (0-5)
[2019-04-26 19:51] LABS: Color, Urine Yellow (Yellow); Glucose, Dipstick 50 mg/dl (Normal); Ketone-Dipstick Negative (Negative); Leukocyte Esterase-Dipstick 500 /ul (Negative); Nitrite-Dipstick Negative (Negative); Occult Blood-Urine 50 /ul (Negative); Protein-Dipstick 500 mg/dl (Negative); Specific Gravity, Urine 1.015 (1.002-1.030); Urine Bilirubin Dipstick Negative (Negative); Urine Clarity Cloudy (Clear); Urine Urobilinogen Normal (Normal)
[2019-04-26 19:57] LABS: White Blood Cells >100 SEEN /hpf (0-5)
[2019-04-26] MEDS: Metoprolol Tartrate 50 MG Tablet PO (22:23)
[2019-04-26] MEDS: cloNIDine HCl 0.1 MG Tablet PO (22:23)
[2019-04-26 22:36] LABS: Bedside Glucose 148 mg/dL (70-110)
[2019-04-27] VITALS (12 sets, daily range): BP systolic 123–153; BP diastolic 67–96; PULSE 74–120; RESP 16–18; TEMP 36.6–37.1; O2SAT 94–99
[2019-04-27 00:43] LABS: Hematocrit 26.4 % (40-54); Hemoglobin 8.8 g/dl (13.0-16.5)
--- NOTE | 2019-04-27 05:55 | US_ITS ---
STUDY: RENAL ULTRASOUND - COMPLETE REASON FOR EXAM: Male, 68 years old. Acute renal failure. TECHNIQUE: Ultrasound evaluation of the kidneys was performed with real-time and static hawk-scale imaging. COMPARISON: Ultrasound kidneys 04/04/2015 FINDINGS: RIGHT KIDNEY: 10.8 x 5.0 x 5.5 cm. Normal renal cortical thickness 1.3 cm. Normal echotexture. Right renal cyst measuring 2.3 cm, and 2.3 cm respectively. Simple cystic features. There is no apparent mass, or hydronephrosis. There is a 4 mm mid to lower pole nonobstructing calyceal calculus. LEFT KIDNEY: 12.1 x 4.4 x 5.5 cm. Normal renal cortical thickness 2.2 cm, normal echotexture. There is no mass, calculus or hydronephrosis. Left renal cyst measuring 4 x 4 x 2.7 cm. Simple cystic features. BLADDER: The urinary bladder is distended up to 325 mL, thickness of the wall 3 mm, normal. Minimal layering debris within the urinary bladder. The prostate measures up to 5.5 cm transverse, prostatomegaly. US/Kidney and Bladder IMPRESSION: Minimal urinary bladder debris. Correlate clinically for any evidence of microhematuria, or UTI. Bilateral sonographically simple appearing renal cysts. Nonobstructing calyceal calculus of the right kidney. Bilaterally no hydronephrosis, normal renal cortical thickness and echotexture. Electronically Signed: Donaldo Harp MD at 16:11 EDT Tel , Service support ,
[2019-04-27] MEDS: 0.9% Normal Saline 1,000 ML 100 ML IV (06:03)
[2019-04-27 07:06] LABS: Bedside Glucose 105 mg/dL (70-110)
[2019-04-27 07:46] LABS: International Normalized Ratio 2.6
[2019-04-27 07:48] LABS: Absolute Lymphocyte Count 0.76 X10^3/ul (0.83-4.51); Absolute Neutrophil Count 5.1 X10^3/uL (2.0-7.7); Basophil# 0.03 X10^3/uL; Basophil% 0.4 % (0-1); Eosinophil# 0.27 X10^3/uL; Eosinophils% 3.9 % (0-5); Hematocrit 25.9 % (40-54); Hemoglobin 8.2 g/dl (13.0-16.5); Lymphocyte # 0.76 X10^3/ul (4.0); Mean Corp Hgb Conc 31.7 g/gl (32-36); Mean Corpuscular Hgb 29.4 pg (27.0-32.0); Mean Corpuscular Volume 92.8 fL (80-94); Mean Platelet Vol. 9.3 fl (6.2-12.0); Monocyte# 0.66 X10^3/uL; Monocyte% 9.6 % (0-10); Neutrophil % 74.2 % (47-70); Platelet Count 281 K/mm3 (150-450); RBC Distribution Width CV 13.2 % (11.6-14.6); RBC Distribution Width SD 43.2 fl (35.1-43.9); Red Blood Count 2.79 M/mm3 (4.6-6.2); White Blood Count 6.9 K/mm3 (4.4-11.0)
[2019-04-27 07:56] LABS: POSITIVE COUNT NO; POSITIVE DIFFERENTIAL NO; POSITIVE MORPHOLOGY NO
[2019-04-27 08:04] LABS: ALB/GLOB Ratio 0.6 RATIO (0.9-2.4); AST(SGOT) 15 U/L (15-37); Alanine Aminotransfer ALT/SGPT 21 U/L (16-61); Albumin, Serum 2.4 g/dL (3.2-5.0); Alkaline Phosphatase 76 U/L (45-117); Anion Gap 8 (5-15); BUN 57 mg/dL (7-18); BUN/Creat Ratio 13.3 RATIO (10-20); Calcium,Total 8.2 mg/dL (8.5-10.1); Chloride 111 mmol/L (98-107); Creatinine, Serum 4.28 mg/dL (0.70-1.30); EST Glomerular Filtration Rate 15 mL/min (>60); Est Glom Filt Rate - Afr Amer 18 mL/min (>60); Estimated Creatinine Clearance 12.22 ml/min; Globulin 4.1 g/dL (2.2-4.2); Glucose 106 mg/dL (74-106); Potassium 4.5 mmol/L (3.5-5.1); Protein, Total 6.5 g/dL (6.4-8.2); Sodium Level 140 mmol/L (136-145)
[2019-04-27] MEDS: Metoprolol Tartrate 50 MG Tablet PO ×2 (10:13→22:17)
[2019-04-27] MEDS: Doxazosin 4 MG Tablet 8 MG PO (10:14)
[2019-04-27] MEDS: Multivitamins,Therapeutic Tablet 1 TABLET PO (10:14)
[2019-04-27] MEDS: amLODIPine 5 MG Tablet PO (10:15)
[2019-04-27] MEDS: cloNIDine HCl 0.1 MG Tablet PO ×2 (10:15→22:18)
--- NOTE | 2019-04-27 11:23 | CON.PCM_ITS ---
Problem List (1) Gas gangrene Status: Acute Reason for Consult: gas gangrene Consulted by: Dr. Sherman History of Present Illness: The patient is a 68 year old M who presented with 2 weeks of L toe pain, redness, swelling, and acute purulent drainage. No fever. Hurt his toe on his trailer when this all started. No recent abx. Came to ED, xray showed gas gangrene, admitted on vanc/zosyn, podiatry did bedside I&D. Feeling better. Full ROS performed and neg except as noted above. - Medical History Past Medical History (Chronic Problems): Chronic Problems (Last Reviewed 02/10/19 @ 13:22 by Yousif Clark MD) Type 2 diabetes mellitus with diabetic polyneuropathy (Chronic) Right bundle branch block (RBBB) (Chronic) Essential (primary) hypertension (Chronic) senior living (current) use of anticoagulants (Chronic) Paroxysmal atrial fibrillation (Chronic) Hyperlipidemia (Chronic) Allergies/Adverse Reactions: Allergies No Known Allergies Allergy (Verified 04/26/19 13:56) Home Medications: Ambulatory Orders Medication Instructions Recorded albuterol sulfate 2.5 mg/3 mL 1.25 mg INHALATION Q4H PRN 01/30/19 (0.083 %) solution for nebulization clonidine HCl 0.1 mg tablet 0.1 mg PO BID 90 Days #180 tab 01/30/19 doxazosin 8 mg tablet 8 mg PO DAILY 30 Days #30 tab 01/30/19 furosemide 40 mg tablet 40 mg PO DAILY 90 Days #90 tab 01/30/19 glipizide 10 mg tablet 10 mg PO DAILY 01/30/19 hydrochlorothiazide 12.5 mg capsule 12.5 mg PO DAILY 30 Days #30 cap 01/30/19 hydrocodone 7.5 mg-acetaminophen 1 tab PO Q6H PRN 30 Days tab 01/30/19 750 mg tablet metoprolol tartrate 50 mg tablet 50 mg PO BID 90 Days #180 tab 01/30/19 theophylline ER 400 mg 400 mg PO DAILY 01/30/19 capsule,extended release 24 hr amlodipine 5 mg tablet 5 mg PO DAILY #90 tab 02/10/19 multivitamin tablet 1 tab PO DAILY 02/10/19 saw palmetto 500 mg capsule 450 mg PO BID 02/10/19 warfarin 2.5 mg tablet 2.5 mg PO .COMPLEX 02/18/19 - Social History Tobacco Use: non-smoker Vital Signs Temp Pulse Resp BP Pulse Ox 98 F 116 H 16 143/88 H 99 04/27/19 09:56 04/27/19 10:13 04/27/19 09:56 04/27/19 10:13 04/27/19 09:56 Oxygen Delivery Method Room Air Weight: 92.7 kg Body Mass Index (BMI) 36.8 Microbiology Past 72 Hours 04/26/19 17:15 Gram Stain - Final Wound Abcess - Aerobic & Anaerobic Swabs 04/26/19 14:15 Gram Stain - Final Wound - Toe Laboratory Tests Past 24 Hrs 04/26/19 04/26/19 04/26/19 14:28 14:28 14:28 WBC 8.5 RBC 3.01 L Hgb 8.9 L Hct 27.2 L MCV 90.4 MCH 29.6 MCHC 32.7 RDW 13.2 RDW Differential 43.8 Plt Count 278 MPV 8.9 Immature Gran % (Auto) 0.400 Neut % (Auto) 83.8 H Lymph % (Auto) 6.4 L Love % (Auto) 7.7 Eos % (Auto) 1.5 Baso % (Auto) 0.2 Absolute Neuts (auto) 7.1 Absolute Lymphs (auto) 0.54 L Total Counted Not Reportable Differential Comment SCANNED PT 25.2 H INR 2.3 Sodium 140 Potassium 4.5 Chloride 108 H Carbon Dioxide 23.0 Anion Gap 9 BUN 56 H Creatinine 4.67 H Estim Creat Clear Calc 11.69 Est GFR (MDRD) Af Amer 16 L Est GFR (MDRD) Non-Af 13 L BUN/Creatinine Ratio 12.0 Glucose 180 H Hemoglobin A1c Lactic Acid Calcium 8.5 Iron TIBC Iron Saturation Ferritin Total Bilirubin AST ALT Alkaline Phosphatase Troponin I < 0.015 C-React Prot Ext Range Total Protein Albumin Globulin Albumin/Globulin Ratio Urine Color Urine Clarity Urine pH Ur Specific [place] Urine Protein Urine Glucose (UA) Urine Ketones Urine Occult Blood Urine Nitrite Urine Bilirubin Urine Urobilinogen Ur Leukocyte Esterase Urine RBC Urine WBC Ur Squamous Epith Cells Urine Bacteria Urine Mucus S.aureus Protein A PCR MRSA (PCR) Blood Type Antibody Screen Crossmatch 04/26/19 04/26/19 04/26/19 14:28 14:28 14:28 WBC RBC Hgb Hct MCV MCH MCHC RDW RDW Differential Plt Count MPV Immature Gran % (Auto) Neut % (Auto) Lymph % (Auto) Love % (Auto) Eos % (Auto) Baso % (Auto) Absolute Neuts (auto) Absolute Lymphs (auto) Total Counted Differential Comment PT INR Sodium Potassium Chloride Carbon Dioxide Anion Gap BUN Creatinine Estim Creat Clear Calc Est GFR (MDRD) Af Amer Est GFR (MDRD) Non-Af BUN/Creatinine Ratio Glucose Hemoglobin A1c 8.2 H Lactic Acid 1.2 Calcium Iron 38 L TIBC 156 L Iron Saturation 24.4 Ferritin 283 Total Bilirubin AST ALT Alkaline Phosphatase Troponin I C-React Prot Ext Range 84.80 H Total Protein Albumin Globulin Albumin/Globulin Ratio Urine Color Urine Clarity Urine pH Ur Specific [place] Urine Protein Urine Glucose (UA) Urine Ketones Urine Occult Blood Urine Nitrite Urine Bilirubin Urine Urobilinogen Ur Leukocyte Esterase Urine RBC Urine WBC Ur Squamous Epith Cells Urine Bacteria Urine Mucus S.aureus Protein A PCR MRSA (PCR) Blood Type Antibody Screen Crossmatch 04/26/19 04/26/19 04/26/19 17:15 18:32 18:32 WBC RBC Hgb 8.6 L Hct 26.2 L MCV MCH MCHC RDW RDW Differential Plt Count MPV Immature Gran % (Auto) Neut % (Auto) Lymph % (Auto) Love % (Auto) Eos % (Auto) Baso % (Auto) Absolute Neuts (auto) Absolute Lymphs (auto) Total Counted Differential Comment PT INR Sodium Potassium Chloride Carbon Dioxide Anion Gap BUN Creatinine Estim Creat Clear Calc Est GFR (MDRD) Af Amer Est GFR (MDRD) Non-Af BUN/Creatinine Ratio Glucose Hemoglobin A1c Lactic Acid Calcium Iron TIBC Iron Saturation Ferritin Total Bilirubin AST ALT Alkaline Phosphatase Troponin I C-React Prot Ext Range Total Protein Albumin Globulin Albumin/Globulin Ratio Urine Color Urine Clarity Urine pH Ur Specific [place] Urine Protein Urine Glucose (UA) Urine Ketones Urine Occult Blood Urine Nitrite Urine Bilirubin Urine Urobilinogen Ur Leukocyte Esterase Urine RBC Urine WBC Ur Squamous Epith Cells Urine Bacteria Urine Mucus S.aureus Protein A PCR NEGATIVE MRSA (PCR) Negative Blood Type O POSITIVE Antibody Screen NEGATIVE Crossmatch See Detail 04/26/19 04/27/19 04/27/19 19:41 00:20 07:15 WBC 6.9 RBC 2.79 L Hgb 8.8 L 8.2 L Hct 26.4 L 25.9 L MCV 92.8 MCH 29.4 MCHC 31.7 L RDW 13.2 RDW Differential 43.2 Plt Count 281 MPV 9.3 Immature Gran % (Auto) 0.900 Neut % (Auto) 74.2 H Lymph % (Auto) 11.0 L Love % (Auto) 9.6 Eos % (Auto) 3.9 Baso % (Auto) 0.4 Absolute Neuts (auto) 5.1 Absolute Lymphs (auto) 0.76 L Total Counted Not Reportable Differential Comment PT INR Sodium Potassium Chloride Carbon Dioxide Anion Gap BUN Creatinine Estim Creat Clear Calc Est GFR (MDRD) Af Amer Est GFR (MDRD) Non-Af BUN/Creatinine Ratio Glucose Hemoglobin A1c Lactic Acid Calcium Iron TIBC Iron Saturation Ferritin Total Bilirubin AST ALT Alkaline Phosphatase Troponin I C-React Prot Ext Range Total Protein Albumin Globulin Albumin/Globulin Ratio Urine Color Yellow Urine Clarity Cloudy Urine pH 6.0 Ur Specific [place] 1.015 Urine Protein 500 H Urine Glucose (UA) 50 H Urine Ketones Negative Urine Occult Blood 50 H Urine Nitrite Negative Urine Bilirubin Negative Urine Urobilinogen Normal Ur Leukocyte Esterase 500 H Urine RBC 0 SEEN Urine WBC >100 SEEN Ur Squamous Epith Cells 0 SEEN Urine Bacteria 0 SEEN Urine Mucus 0 SEEN S.aureus Protein A PCR MRSA (PCR) Blood Type Antibody Screen Crossmatch 04/27/19 04/27/19 07:15 07:15 WBC RBC Hgb Hct MCV MCH MCHC RDW RDW Differential Plt Count MPV Immature Gran % (Auto) Neut % (Auto) Lymph % (Auto) Love % (Auto) Eos % (Auto) Baso % (Auto) Absolute Neuts (auto) Absolute Lymphs (auto) Total Counted Differential Comment PT 28.0 H INR 2.6 Sodium 140 Potassium 4.5 Chloride 111 H Carbon Dioxide 21.0 Anion Gap 8 BUN 57 H Creatinine 4.28 H Estim Creat Clear Calc 12.22 Est GFR (MDRD) Af Amer 18 L Est GFR (MDRD) Non-Af 15 L BUN/Creatinine Ratio 13.3 Glucose 106 Hemoglobin A1c Lactic Acid Calcium 8.2 L Iron TIBC Iron Saturation Ferritin Total Bilirubin 0.40 AST 15 ALT 21 Alkaline Phosphatase 76 Troponin I C-React Prot Ext Range Total Protein 6.5 Albumin 2.4 L Globulin 4.1 Albumin/Globulin Ratio 0.6 L Urine Color Urine Clarity Urine pH Ur Specific [place] Urine Protein Urine Glucose (UA) Urine Ketones Urine Occult Blood Urine Nitrite Urine Bilirubin Urine Urobilinogen Ur Leukocyte Esterase Urine RBC Urine WBC Ur Squamous Epith Cells Urine Bacteria Urine Mucus S.aureus Protein A PCR MRSA (PCR) Blood Type Antibody Screen Crossmatch - Other Studies Radiology: [] reviewed Other Studies: [] Route of nutrition/ use of supplements: [] Nutritional Intake: [] IV Site: [] Estrella Catheter: [] - Physical Exam General: Alert, Oriented x3, Cooperative, No apparent distress HEENT: Atraumatic, PERRLA, EOMI Neck: Supple, No Nodes Lungs: Clear to auscultation, Normal air movement Cardiovascular: Regular rate, Regular Rhythm Abdomen: Soft, Non Tender, Non-Distended Extremities: Edema - mild Skin: Ulcer/ Wound - L foot wrapped s/p I&D IV Site: Peripheral, without redness Musculoskeletal: No Tenderness to Palpation of Joints or Extremities Neurological: Cranial nerves II-XII grossly intact - Assessment/Plan Antibiotics: [] Assessment/Plan: [] Active and Suspected Problems (Last Reviewed 02/10/19 @ 13:22 by Yousif Clark MD) Diabetes mellitus (Acute) Left foot infection (Acute) Gas gangrene (Acute) Other specified peripheral vascular diseases (Suspected) Non-pressure chronic ulcer of other part of left foot with fat layer exposed (Acute) L 1st toe gas gangrene - had bedside I&D by Dr. Lezama today. cxs pending. On vanc/zosyn, will add clinda for toxin effect. Will consult wound care for ongoing assistance. Staph pcr was neg. Will follow, thank you.
[2019-04-27] MEDS: Insulin Lispro 100 UNIT/ML INSULN.PEN SQ ×3 (12:36→22:19)
[2019-04-27 12:45] LABS: Bedside Glucose 203 mg/dL (70-110)
--- NOTE | 2019-04-27 12:55 | PCM.PN.HOSP ---
Patient Problems: Active and Suspected Problems (Last Reviewed 02/10/19 @ 13:22 by Yousif Clark MD) Diabetes mellitus (Acute) Left foot infection (Acute) Gas gangrene (Acute) Other specified peripheral vascular diseases (Suspected) Non-pressure chronic ulcer of other part of left foot with fat layer exposed (Acute) Subjective: Patient seen and examined. He was admitted with a complaint of left first toe pain and swelling. X-ray showed gas gangrene of the toe and he had bedside I&D done by podiatry. She is on IV vancomycin and Zosyn. ID consulted. Patient seen and examined. He has no complaints and feels well. Pain is well controlled. Review of systems otherwise negative. Labs and vitals reviewed. Vitals/I&O's: Vital Signs Temp Pulse Resp BP Pulse Ox 98 F 116 H 16 143/88 H 99 04/27/19 09:56 04/27/19 10:13 04/27/19 09:56 04/27/19 10:13 04/27/19 09:56 Oxygen Delivery Method Room Air Weight: 204 lb 5.896 oz Body Mass Index (BMI) 36.8 Intake and Output for Last 24 Hours 04/25/19 04/26/19 04/27/19 23:59 23:59 23:59 Intake Total 967.6 / 967.6 1251.3 / 1251.3 Output Total 525 / 525 520 / 520 Balance 442.6 / 442.6 731.3 / 731.3 General: Alert, Oriented x3, Cooperative, No apparent distress HEENT: Atraumatic, PERRLA, EOMI, Normocephalic Oral: Moist Mucosa Neck: Supple, No JVD, Negative Carotid Bruits Lungs: Clear to auscultation, Normal air movement, No rhonchi, No wheeze, No rales Cardiovascular: Regular rate, Regular Rhythm, Normal S1, Normal S2, No murmurs Abdomen: Bowel Sounds Present, Soft, Non Tender, Non-Distended, No Hepato-splenomegaly Extremities: No clubbing, No cyanosis, No edema, Capillary Refill Less than 3 Seconds Musculoskeletal: - - dressing intact on left foot Lymphatic: No Cervical, Supraclavicular, or Inguinal Adenopathy Neurological: Cranial nerves II-XII grossly intact Psych/Mental Status: Normal Affect, Appropriate, Alert and oriented to time, place, person, mood and affect Microbiology Past 72 Hours 04/26/19 17:15 Wound Abcess - Aerobic & Anaerobic Swabs Gram Stain - Final 04/26/19 17:15 Wound Abcess - Aerobic & Anaerobic Swabs Wound Culture - Preliminary Gram positive organism 04/26/19 14:15 Wound - Toe Gram Stain - Final 04/26/19 14:15 Wound - Toe Wound Culture - Preliminary Staphylococcus aureus Laboratory Results 04/26/19 14:28: WBC 8.5, RBC 3.01 L, Hgb 8.9 L, Hct 27.2 L, MCV 90.4, MCH 29.6, MCHC 32.7, RDW 13.2, RDW Differential 43.8, Plt Count 278, MPV 8.9, Immature Gran % (Auto) 0.400, Neut % (Auto) 83.8 H, Lymph % (Auto) 6.4 L, [place] % (Auto) 7.7, Eos % (Auto) 1.5, Baso % (Auto) 0.2, Absolute Neuts (auto) 7.1, Absolute Lymphs (auto) 0.54 L, Total Counted Not Reportable, Differential Comment SCANNED 04/26/19 14:28: PT 25.2 H, INR 2.3 04/26/19 14:28: Sodium 140, Potassium 4.5, Chloride 108 H, Carbon Dioxide 23.0, Anion Gap 9, BUN 56 H, Creatinine 4.67 H, Estim Creat Clear Calc 11.69, Est GFR (MDRD) Af Amer 16 L, Est GFR (MDRD) Non-Af 13 L, BUN/Creatinine Ratio 12.0, Glucose 180 H, Calcium 8.5, Troponin I < 0.015 04/26/19 14:28: Lactic Acid 1.2 04/26/19 14:28: Hemoglobin A1c 8.2 H 04/26/19 14:28: Iron 38 L, TIBC 156 L, Iron Saturation 24.4, Ferritin 283, C-React Prot Ext Range 84.80 H 04/26/19 17:15: S.aureus Protein A PCR NEGATIVE, MRSA (PCR) Negative 04/26/19 18:32: Blood Type O POSITIVE, Antibody Screen NEGATIVE, Crossmatch See Detail 04/26/19 18:32: Hgb 8.6 L, Hct 26.2 L 04/26/19 19:07: POC Glucose 138 H 04/26/19 19:41: Urine Color Yellow, Urine Clarity Cloudy, Urine pH 6.0, Ur Specific [place] 1.015, Urine Protein 500 H, Urine Glucose (UA) 50 H, Urine Ketones Negative, Urine Occult Blood 50 H, Urine Nitrite Negative, Urine Bilirubin Negative, Urine Urobilinogen Normal, Ur Leukocyte Esterase 500 H, Urine RBC 0 SEEN, Urine WBC >100 SEEN, Ur Squamous Epith Cells 0 SEEN, Urine Bacteria 0 SEEN, Urine Mucus 0 SEEN 04/26/19 22:18: POC Glucose 148 H 04/27/19 00:20: Hgb 8.8 L, Hct 26.4 L 04/27/19 06:48: POC Glucose 105 04/27/19 07:15: WBC 6.9, RBC 2.79 L, Hgb 8.2 L, Hct 25.9 L, MCV 92.8, MCH 29.4, MCHC 31.7 L, RDW 13.2, RDW Differential 43.2, Plt Count 281, MPV 9.3, Immature Gran % (Auto) 0.900, Neut % (Auto) 74.2 H, Lymph % (Auto) 11.0 L, [place] % (Auto) 9.6, Eos % (Auto) 3.9, Baso % (Auto) 0.4, Absolute Neuts (auto) 5.1, Absolute Lymphs (auto) 0.76 L, Total Counted Not Reportable 04/27/19 07:15: PT 28.0 H, INR 2.6 04/27/19 07:15: Sodium 140, Potassium 4.5, Chloride 111 H, Carbon Dioxide 21.0, Anion Gap 8, BUN 57 H, Creatinine 4.28 H, Estim Creat Clear Calc 12.22, Est GFR (MDRD) Af Amer 18 L, Est GFR (MDRD) Non-Af 15 L, BUN/Creatinine Ratio 13.3, Glucose 106, Calcium 8.2 L, Total Bilirubin 0.40, AST 15, ALT 21, Alkaline Phosphatase 76, Total Protein 6.5, Albumin 2.4 L, Globulin 4.1, Albumin/Globulin Ratio 0.6 L 04/27/19 12:27: POC Glucose 203 H Diagnostic Data Chest X-Ray 04/26/19 14:33 IMPRESSION: No acute cardiopulmonary disease. Stable lower thoracic levoscoliosis. Electronically Signed: Jr Lynn MD at 15:17 EDT , Service support , Foot X-Ray 04/26/19 14:33 IMPRESSION: 1. Soft tissue swelling of the great toe with gas in the deep plantar soft tissues of the distal phalanx. There is no demonstrated acute fracture. 2. Atherosclerotic vascular calcifications noted. 3. 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 Electronically Signed: Jr Lynn MD at 15:15 EDT , Service support , Current Medications Acetaminophen (Tylenol) 650 mg PO Q6H PRN PRN PRN Reason: Mild pain 1-3/Temp > 100.7 F Albuterol Sulfate (Ventolin Aerosols) 1.25 mg INHALATION Q4H PRN PRN Reason: SOB &/OR WHEEZING Amlodipine Besylate (Norvasc) 5 mg PO DAILY [facility] Last Admin: 04/27/19 10:15 Dose: 5 mg Clonidine (Catapres) 0.1 mg PO BID [facility] Last Admin: 04/27/19 10:15 Dose: 0.1 mg Dextrose (D50w Syringe) 0 gm IV X1 PRN; Protocol PRN Reason: Hypoglycemia Doxazosin Mesylate (Cardura) 8 mg PO DAILY [facility] Last Admin: 04/27/19 10:14 Dose: 8 mg Glucagon () 1 mg IM .X1 PRN PRN Reason: Hypoglycemia Piperacillin Sod/Tazobactam (Sod 3.375 gm/ Sodium Chloride) 50 mls @ 12.5 mls/hr IV Q12 [facility] Last Admin: 04/27/19 10:15 Dose: 12.5 mls/hr Vancomycin IV Pharmacy to Dose (1 ea/ Sodium Chloride) 500 mls @ 250 mls/hr IV X1 PRN; Protocol PRN Reason: Rx to Dose Clindamycin Phosphate 600 mg/ (Dextrose) 54 mls @ 100 mls/hr IV Q8 [facility] Insulin Human Lispro (Humalog Kwikpen (Bkc)) 0 unit SQ ACHS [facility]; Protocol Last Admin: 04/27/19 12:36 Dose: 1 u Metoprolol Tartrate (Lopressor (Beta Ester)) 50 mg PO BID [facility] Last Admin: 04/27/19 10:13 Dose: 50 mg Morphine Sulfate () 1 mg IV Q4H PRN PRN PRN Reason: Severe Pain (7-10/10) Multivitamins (Multivitamin) 1 tablet PO DAILY@0800 [facility] Last Admin: 04/27/19 10:14 Dose: 1 tablet Non-Formulary Medication (Theophylline Anhydrous [Juni-24]) 400 mg PO DAILY [facility] Nutritional Formula (Terry - Campbell Flavor) [facility] Last Admin: 04/27/19 10:13 Dose: 1 packet Ondansetron HCl (Zofran) 4 mg IV Q8H PRN PRN PRN Reason: NAUSEA/VOMITING Oxycodone HCl (Oxyir) 5 mg PO Q4H PRN PRN PRN Reason: Moderate Pain (4-6/10) Medical Necessity - Tobacco Use Smoking Status: Never smoker Tobacco Use: Non-smoker Assessment/Plan All Active Problems (Last Reviewed 02/10/19 @ 13:22 by Yousif Clark MD) Diabetes mellitus (Acute) Left foot infection (Acute) Gas gangrene (Acute) Non-pressure chronic ulcer of other part of left foot with fat layer exposed (Acute) 1. Acute left big toe infection and gas gangrene s/p bedside I&D by podiatry ID on board on IV vancomycin and IV zosyn; IV clindamycin added on blood and wound cultures pending staph PCR was negative MRI of foot ordred and is pending 2. Tylor on CKD 3 baseline CR is ~ 3.2. Cr was 4.67 on admission, and is now 4.28 also has BPH, which could be contributing to TYLOR on CKDlasix and HCTZ on hold renal USG ordered and is pending being hydrated with IVF 3. Anemia: Hemoglobin is 8.8 today. Was 8.6 on admission Hemoglobin is ~10 stool for occult blood ordered and is pending. will check iron panel. 2 units of PRBC ordered at admission and is on hold 4. Type 2 diabetes mellitus: home meds on hold. ISS. Accuchecks ACHS 5. Hypertension: Fairly controlled. On metoprolol, amlodipine and clonidine. HCTZ on hold on account of TYLOR. 6. Paroxysmal A. fib: Rate controlled. On metoprolol. Coumadin on hold account of I&D. INR today is 2.6. Code Visit Inpatient E&M: 76255 Subs Hosp L3
--- NOTE | 2019-04-27 13:01 | PN_ITS ---
Patient Problems: Active and Suspected Problems (Last Reviewed 02/10/19 @ 13:22 by Yousif Clark MD) Diabetes mellitus (Acute) Left foot infection (Acute) Gas gangrene (Acute) Other specified peripheral vascular diseases (Suspected) Non-pressure chronic ulcer of other part of left foot with fat layer exposed (Acute) Subjective: Patient seen and examined. He was admitted with a complaint of left first toe pain and swelling. X-ray showed gas gangrene of the toe and he had bedside I&D done by podiatry. She is on IV vancomycin and Zosyn. ID consulted. Patient seen and examined. He has no complaints and feels well. Pain is well controlled. Review of systems otherwise negative. Labs and vitals reviewed. Vitals/I&O's: Vital Signs Temp Pulse Resp BP Pulse Ox 98 F 116 H 16 143/88 H 99 04/27/19 09:56 04/27/19 10:13 04/27/19 09:56 04/27/19 10:13 04/27/19 09:56 Oxygen Delivery Method Room Air Weight: 204 lb 5.896 oz Body Mass Index (BMI) 36.8 Intake and Output for Last 24 Hours 04/25/19 04/26/19 04/27/19 23:59 23:59 23:59 Intake Total 967.6 / 967.6 1251.3 / 1251.3 Output Total 525 / 525 520 / 520 Balance 442.6 / 442.6 731.3 / 731.3 General: Alert, Oriented x3, Cooperative, No apparent distress HEENT: Atraumatic, PERRLA, EOMI, Normocephalic Oral: Moist Mucosa Neck: Supple, No JVD, Negative Carotid Bruits Lungs: Clear to auscultation, Normal air movement, No rhonchi, No wheeze, No rales Cardiovascular: Regular rate, Regular Rhythm, Normal S1, Normal S2, No murmurs Abdomen: Bowel Sounds Present, Soft, Non Tender, Non-Distended, No Hepato- splenomegaly Extremities: No clubbing, No cyanosis, No edema, Capillary Refill Less than 3 Seconds Musculoskeletal: - - dressing intact on left foot Lymphatic: No Cervical, Supraclavicular, or Inguinal Adenopathy Neurological: Cranial nerves II-XII grossly intact Psych/Mental Status: Normal Affect, Appropriate, Alert and oriented to time, place, person, mood and affect Microbiology Past 72 Hours 04/26/19 17:15 Wound Abcess - Aerobic & Anaerobic Swabs Gram Stain - Final 04/26/19 17:15 Wound Abcess - Aerobic & Anaerobic Swabs Wound Culture - Preliminary Gram positive organism 04/26/19 14:15 Wound - Toe Gram Stain - Final 04/26/19 14:15 Wound - Toe Wound Culture - Preliminary Staphylococcus aureus Laboratory Results 04/26/19 14:28: WBC 8.5, RBC 3.01 L, Hgb 8.9 L, Hct 27.2 L, MCV 90.4, MCH 29.6, MCHC 32.7, RDW 13.2, RDW Differential 43.8, Plt Count 278, MPV 8.9, Immature Gran % (Auto) 0.400, Neut % (Auto) 83.8 H, Lymph % (Auto) 6.4 L, [place] % (Auto) 7.7, Eos % (Auto) 1.5, Baso % (Auto) 0.2, Absolute Neuts (auto) 7.1, Absolute Lymphs (auto) 0.54 L, Total Counted Not Reportable, Differential Comment SCANNED 04/26/19 14:28: PT 25.2 H, INR 2.3 04/26/19 14:28: Sodium 140, Potassium 4.5, Chloride 108 H, Carbon Dioxide 23.0, Anion Gap 9, BUN 56 H, Creatinine 4.67 H, Estim Creat Clear Calc 11.69, Est GFR (MDRD) Af Amer 16 L, Est GFR (MDRD) Non-Af 13 L, BUN/Creatinine Ratio 12.0, Glucose 180 H, Calcium 8.5, Troponin I < 0.015 04/26/19 14:28: Lactic Acid 1.2 04/26/19 14:28: Hemoglobin A1c 8.2 H 04/26/19 14:28: Iron 38 L, TIBC 156 L, Iron Saturation 24.4, Ferritin 283, C- React Prot Ext Range 84.80 H 04/26/19 17:15: S.aureus Protein A PCR NEGATIVE, MRSA (PCR) Negative 04/26/19 18:32: Blood Type O POSITIVE, Antibody Screen NEGATIVE, Crossmatch See Detail 04/26/19 18:32: Hgb 8.6 L, Hct 26.2 L 04/26/19 19:07: POC Glucose 138 H 04/26/19 19:41: Urine Color Yellow, Urine Clarity Cloudy, Urine pH 6.0, Ur Specific [place] 1.015, Urine Protein 500 H, Urine Glucose (UA) 50 H, Urine Ketones Negative, Urine Occult Blood 50 H, Urine Nitrite Negative, Urine Bilirubin Negative, Urine Urobilinogen Normal, Ur Leukocyte Esterase 500 H, Urine RBC 0 SEEN, Urine WBC >100 SEEN, Ur Squamous Epith Cells 0 SEEN, Urine Bacteria 0 SEEN, Urine Mucus 0 SEEN 04/26/19 22:18: POC Glucose 148 H 04/27/19 00:20: Hgb 8.8 L, Hct 26.4 L 04/27/19 06:48: POC Glucose 105 04/27/19 07:15: WBC 6.9, RBC 2.79 L, Hgb 8.2 L, Hct 25.9 L, MCV 92.8, MCH 29.4, MCHC 31.7 L, RDW 13.2, RDW Differential 43.2, Plt Count 281, MPV 9.3, Immature Gran % (Auto) 0.900, Neut % (Auto) 74.2 H, Lymph % (Auto) 11.0 L, [place] % (Auto) 9.6, Eos % (Auto) 3.9, Baso % (Auto) 0.4, Absolute Neuts (auto) 5.1, Absolute Lymphs (auto) 0.76 L, Total Counted Not Reportable 04/27/19 07:15: PT 28.0 H, INR 2.6 04/27/19 07:15: Sodium 140, Potassium 4.5, Chloride 111 H, Carbon Dioxide 21.0, Anion Gap 8, BUN 57 H, Creatinine 4.28 H, Estim Creat Clear Calc 12.22, Est GFR (MDRD) Af Amer 18 L, Est GFR (MDRD) Non-Af 15 L, BUN/Creatinine Ratio 13.3, Glucose 106, Calcium 8.2 L, Total Bilirubin 0.40, AST 15, ALT 21, Alkaline Phosphatase 76, Total Protein 6.5, Albumin 2.4 L, Globulin 4.1, Albumin/Globulin Ratio 0.6 L 04/27/19 12:27: POC Glucose 203 H Diagnostic Data Chest X-Ray 04/26/19 14:33 IMPRESSION: No acute cardiopulmonary disease. Stable lower thoracic levoscoliosis. Electronically Signed: Jr Lynn MD at 15:17 EDT , Service support , Foot X-Ray 04/26/19 14:33 IMPRESSION: 1. Soft tissue swelling of the great toe with gas in the deep plantar soft tissues of the distal phalanx. There is no demonstrated acute fracture. 2. Atherosclerotic vascular calcifications noted. 3. 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 Electronically Signed: Jr Lynn MD at 15:15 EDT , Service support , Current Medications Acetaminophen (Tylenol) 650 mg PO Q6H PRN PRN PRN Reason: Mild pain 1-3/Temp > 100.7 F Albuterol Sulfate (Ventolin Aerosols) 1.25 mg INHALATION Q4H PRN PRN Reason: SOB &/OR WHEEZING Amlodipine Besylate (Norvasc) 5 mg PO DAILY [facility] Last Admin: 04/27/19 10:15 Dose: 5 mg Clonidine (Catapres) 0.1 mg PO BID [facility] Last Admin: 04/27/19 10:15 Dose: 0.1 mg Dextrose (D50w Syringe) 0 gm IV X1 PRN; Protocol PRN Reason: Hypoglycemia Doxazosin Mesylate (Cardura) 8 mg PO DAILY [facility] Last Admin: 04/27/19 10:14 Dose: 8 mg Glucagon () 1 mg IM .X1 PRN PRN Reason: Hypoglycemia Piperacillin Sod/Tazobactam (Sod 3.375 gm/ Sodium Chloride) 50 mls @ 12.5 mls/hr IV Q12 [facility] Last Admin: 04/27/19 10:15 Dose: 12.5 mls/hr Vancomycin IV Pharmacy to Dose (1 ea/ Sodium Chloride) 500 mls @ 250 mls/hr IV X1 PRN; Protocol PRN Reason: Rx to Dose Clindamycin Phosphate 600 mg/ (Dextrose) 54 mls @ 100 mls/hr IV Q8 [facility] Insulin Human Lispro (Humalog Kwikpen (Bkc)) 0 unit SQ ACHS [facility]; Protocol Last Admin: 04/27/19 12:36 Dose: 1 u Metoprolol Tartrate (Lopressor (Beta Ester)) 50 mg PO BID [facility] Last Admin: 04/27/19 10:13 Dose: 50 mg Morphine Sulfate () 1 mg IV Q4H PRN PRN PRN Reason: Severe Pain (7-10/10) Multivitamins (Multivitamin) 1 tablet PO DAILY@0800 [facility] Last Admin: 04/27/19 10:14 Dose: 1 tablet Non-Formulary Medication (Theophylline Anhydrous [Juni-24]) 400 mg PO DAILY [facility] Nutritional Formula (Terry - Brooke Flavor) 1 packet PO BIDCM [facility] Last Admin: 04/27/19 10:13 Dose: 1 packet Ondansetron HCl (Zofran) 4 mg IV Q8H PRN PRN PRN Reason: NAUSEA/VOMITING Oxycodone HCl (Oxyir) 5 mg PO Q4H PRN PRN PRN Reason: Moderate Pain (4-6/10) Medical Necessity - Tobacco Use Smoking Status: Never smoker Tobacco Use: Non-smoker Assessment/Plan All Active Problems (Last Reviewed 02/10/19 @ 13:22 by Yousif Clark MD) Diabetes mellitus (Acute) Left foot infection (Acute) Gas gangrene (Acute) Non-pressure chronic ulcer of other part of left foot with fat layer exposed (Acute) 1. Acute left big toe infection and gas gangrene * s/p bedside I&D by podiatry * ID on board * on IV vancomycin and IV zosyn; IV clindamycin added on * blood and wound cultures pending * staph PCR was negative * MRI of foot ordred and is pending * 2. Tylor on CKD 3 * baseline CR is ~ 3.2. Cr was 4.67 on admission, and is now 4.28 * also has BPH, which could be contributing to TYLOR on CKDlasix and HCTZ on hold * renal USG ordered and is pending * being hydrated with IVF * 3. Anemia: * Hemoglobin is 8.8 today. Was 8.6 on admission * Hemoglobin is ~10 * stool for occult blood ordered and is pending. * will check iron panel. 2 units of PRBC ordered at admission and is on hold * 4. Type 2 diabetes mellitus: home meds on hold. ISS. Accuchecks ACHS 5. Hypertension: Fairly controlled. On metoprolol, amlodipine and clonidine. HCTZ on hold on account of TYLOR. 6. Paroxysmal A. fib: Rate controlled. On metoprolol. Coumadin on hold account of I&D. INR today is 2.6. Code Visit Inpatient E&M: 13392 Subs Hosp L3
--- NOTE | 2019-04-27 15:30 | CASEMGMT ---
JORDYN BAE TIMBER RIDER CM to room to meet with patient for initial transition planning/care coordination assessment. JORDYN BAE introduced self and role at [facility]. Pt voices understanding and consents to assessment at this time. Pt resting in bed in no distress at this time. Pt is A/O at this time and answers all questions appropriately. Care providers, pharmacy, and demographics verified/updated at this time. PCP: Dr Jaramillo Specialists: [facility] [place]phrology Preferred Pharmacy: [facility] Insurance: [employer] [facility] Prescription Benefit: Living Will/HPOA: Yes Pt does not currently have LW/HCPOA and declines info at this time. LNOK: No contact number/names listed on demographics. Pt stated, I don't have anyone. I am all by myself. Did state he has a niece who lives in [place]. Pt did not want her listed as contact lens manufacturer. Gave name/number of friend/daron Bernardino Bear, who lives close to him, to list as emergency contact. Demographics updated. Living Arrangements: Lives alone in mobile home w/5 steps to enter. States is independent with ADL's. Transportation: Pt states drives self and states no transportation concerns at this time. States Lebron told him he could drive him home on discharge. DME: has the following DME: shower chair, cane, rails/grab bars, hand held shower, walker, nebulizer. Also has a glucometer. He states he has all the supplies need for it but that he has not used it for about 3 months. Pt states no need for further DME at this time. HHC/SNF: Has never been to a SNF or used HHC. Per Dr Sherman, pt will most likely need IV atb's on discharge. Awaiting blood and wound cultures. Discussed options for IV atb's. Pt states he wants to go home. Discussed HHC. Pt states he does not want anyone coming into his home, stating, My house is a pigpen. If they would walk in my home, they would condemn it. Pt states he would be interested in going to an out-pt facility for IV atb's, depending upon the frequency of atb's. Pt also states does not want to go to a SNF, stating, I want to go home to my babies. My puppies. Pt became tearful as he talked about 2 dogs he has, ages 10 and 17, and stated, my 10-yr-old puppy has never spent the night away from me before last night. Pt then stated, I should have not come to the hospital. I should have just went home with my puppies and . Pt then became tearful again, stating, My kidneys are failing me. My diabetes is failing me. I'm just getting into a down mood. Emotional support provided and allowed pt time to talk/share feelings. SW referral made d/t limited support. Pt states does not smoke or drink ETOH. CM to follow for further discharge planning/needs. Pt voices no further concerns/needs at this time. Advised pt to ask for CM if any further questions/concerns/needs arise. Voices understanding. PLAN: TBD. Awaiting blood and wound cultures. May need IV atb's on discharge. SNF vs HHC vs Out-pt IV atb's. Dhara CLAUDION RN CM
--- NOTE | 2019-04-27 15:40 | NURSING ---
Was asked to see patient per ID, but currently Fascione's orders are to keep dressing intact. will try to set up a time with podiatry to assess wound and take wound photos.
--- NOTE | 2019-04-27 16:04 | MRI_ITS ---
STUDY: MRI LEFT FOREFOOT WITHOUT CONTRAST REASON FOR EXAM: Male, 68 years old. Wound. Pain. TECHNIQUE: Standardized fat and water weighted pulse sequences were obtained in all 3 orthogonal planes. There is motion artifact. COMPARISON: X-ray April 26, 2019 FINDINGS: There is degenerative arthrosis of the metatarsophalangeal joint of the hallux. Normal tibial and fibular sesamoids, with normal sesamoids-first metatarsal articulations. Normal interphalangeal joint of the hallux. There is marrow edema of the distal phalanx of the great toe, series 5 images 08/26 and 09/25. There is focal soft tissue defect of the great toe. Normal medial and lateral heads of the flexor hallucis brevis tendons. Normal flexor and extensor hallucis longus tendons. Normal second through fifth metatarsophalangeal (MTP) joints. Normal interphalangeal joints of the second through fifth toes. Normal proximal, middle and distal phalanges of the second through fifth toes. Normal first through fourth intermetatarsal spaces. Normal flexor and extensor tendons of the second through fifth toes. Normal visualized metatarsi. Normal intrinsic muscles of the forefoot. MRI/Lower Ext/No Jt/w/o IMPRESSION: Osteomyelitis of the first distal phalanx with adjacent soft tissue ulcer. Electronically Signed: Dainel Patel MD at 21:27 EDT , Service support ,
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
--- NOTE | 2019-04-27 17:00 | RAD_ITS ---
STUDY: X-RAY - ORBITS REASON FOR EXAM: Male, 68 years old. This study is being performed as a clearance examination for exclusion of orbital metal, prior to the performance of an MRI examination. TECHNIQUE: 2 view(s) of the orbits were obtained. COMPARISON: None. FINDINGS: Normal bilateral orbits without a metallic orbital foreign body. Normal visualized facial bones. Normal paranasal sinuses. The soft tissue structures are unremarkable. RAD/Orbits for Foreign Body IMPRESSION: No demonstrated metallic orbital foreign body. The patient is cleared for an MRI examination. Electronically Signed: Ervin Cleveland MD at 17:53 EDT , Service support ,
[2019-04-27 17:21] LABS: Bedside Glucose 214 mg/dL (70-110)
[2019-04-27 22:31] LABS: Bedside Glucose 277 mg/dL (70-110)
[2019-04-28] VITALS (13 sets, daily range): BP systolic 119–156; BP diastolic 69–91; PULSE 55–116; RESP 14–18; TEMP 36.6–37; O2SAT 97–100
[2019-04-28 06:36] LABS: Bedside Glucose 144 mg/dL (70-110)
[2019-04-28 06:40] LABS: Absolute Lymphocyte Count 0.87 X10^3/ul (0.83-4.51); Absolute Neutrophil Count 4.6 X10^3/uL (2.0-7.7); Basophil# 0.03 X10^3/uL; Basophil% 0.5 % (0-1); Eosinophils% 4.6 % (0-5); Hematocrit 23.2 % (40-54); Hemoglobin 7.6 g/dl (13.0-16.5); Lymphocyte # 0.87 X10^3/ul (4.0); Lymphocyte % 13.2 % (19-41); Mean Corp Hgb Conc 32.8 g/gl (32-36); Mean Corpuscular Volume 91.7 fL (80-94); Mean Platelet Vol. 8.7 fl (6.2-12.0); Monocyte# 0.78 X10^3/uL; Monocyte% 11.8 % (0-10); Neutrophil # 4.57 X10^3/uL (2.7-7.7); Neutrophil % 69.3 % (47-70); Platelet Count 236 K/mm3 (150-450); RBC Distribution Width CV 13.5 % (11.6-14.6); RBC Distribution Width SD 45.4 fl (35.1-43.9); Red Blood Count 2.53 M/mm3 (4.6-6.2); White Blood Count 6.6 K/mm3 (4.4-11.0)
[2019-04-28 06:48] LABS: International Normalized Ratio 2.9; Prothrombin Time (Protime)PT. 30.4 SECONDS (11.7-14.9)
[2019-04-28 06:51] LABS: POSITIVE COUNT NO; POSITIVE DIFFERENTIAL NO; POSITIVE MORPHOLOGY NO
[2019-04-28 07:08] LABS: Anion Gap 10 (5-15); BUN 69 mg/dL (7-18); BUN/Creat Ratio 15.3 RATIO (10-20); Chloride 110 mmol/L (98-107); Creatinine, Serum 4.52 mg/dL (0.70-1.30); EST Glomerular Filtration Rate 14 mL/min (>60); Est Glom Filt Rate - Afr Amer 17 mL/min (>60); Estimated Creatinine Clearance 11.57 ml/min; Glucose 156 mg/dL (74-106); Potassium 4.7 mmol/L (3.5-5.1); Sodium Level 139 mmol/L (136-145)
[2019-04-28 07:30] LABS: Vancomycin, Random Level 8.1 ug/mL (0.0-15.0)
--- NOTE | 2019-04-28 09:23 | PCM.RX.CS ---
Consult Pharmacy has been consulted to manage selected antiobiotic: Vancomycin Type of Consult: Follow-up Suspected Infection: Other Prior Doses of Antibiotics Received/Current Regimen: Received 1250mg IV x1 on 04/26/19 at 15:47 Labs: Sodium 139 mmol/L (136-145) 04/28/19 06:26 Potassium 4.7 mmol/L (3.5-5.1) 04/28/19 06:26 Chloride 110 mmol/L (98-107) H 04/28/19 06:26 Carbon Dioxide 19.0 mmol/L (21.0-32.0) L 04/28/19 06:26 Anion Gap 10 (5-15) 04/28/19 06:26 BUN 69 mg/dL (7-18) H 04/28/19 06:26 Creatinine 4.52 mg/dL (0.70-1.30) H 04/28/19 06:26 Est GFR (MDRD) Af Amer 17 mL/min (>60) L 04/28/19 06:26 Est GFR (MDRD) Non-Af 14 mL/min (>60) L 04/28/19 06:26 BUN/Creatinine Ratio 15.3 RATIO (10-20) 04/28/19 06:26 Glucose 156 mg/dL (74-106) H 04/28/19 06:26 Random Vancomycin 8.1 ug/mL (0.0-15.0) 04/28/19 06:26 Microbiology: Microbiology 04/26/19 17:15 Wound Abcess - Aerobic & Anaerobic Swabs Gram Stain - Final 04/26/19 17:15 Wound Abcess - Aerobic & Anaerobic Swabs Wound Culture - Preliminary Staphylococcus aureus Coag Negative Staph 04/26/19 14:15 Wound - Toe Gram Stain - Final 04/26/19 14:15 Wound - Toe Wound Culture - Final Staphylococcus aureus Weight used for dosin.3 kg Estimated Creatinine Clearance: 12 ml/min Goal Trough: 15-20 mcg/mL Pharmacy Plan for Drug Dosing: Random level obtained this morning came back as 8.1 mg/L. Per our protocol for dosing vancomycin in patient's with CrCl < 20 and not on hemodialysis, a dose of 1500mg IV x1 (based on the patient's weight of 94.3 kg) will be ordered to be given today. Another random level will be ordered to be drawn tomorrow, and any further dosing will be based off that result. Pharmacy Service will continue to monitor and adjust dosing as required. Follow-Up Labs: Trough Vancomycin - RANDOM LEVEL Labs to be done on [date and time ordered]: 04/29/19 10:00
[2019-04-28] MEDS: Metoprolol Tartrate 50 MG Tablet PO ×2 (09:29→21:26)
[2019-04-28] MEDS: Doxazosin 4 MG Tablet 8 MG PO (09:29)
[2019-04-28] MEDS: cloNIDine HCl 0.1 MG Tablet PO ×2 (09:29→21:24)
[2019-04-28] MEDS: Multivitamins,Therapeutic Tablet 1 TABLET PO (09:29)
[2019-04-28] MEDS: amLODIPine 5 MG Tablet PO (09:29)
--- NOTE | 2019-04-28 11:26 | PCM.PROGNOTE ---
Patient Problems: Active and Suspected Problems (Last Reviewed 04/28/19 @ 11:35 by Omer Castellano MD) PAD (peripheral artery disease) (Acute) Osteomyelitis (Acute) Diabetes mellitus (Acute) Left foot infection (Acute) Gas gangrene (Acute) Other specified peripheral vascular diseases (Suspected) Non-pressure chronic ulcer of other part of left foot with fat layer exposed (Acute) Subjective: 11:30 am I spoke to patient on phone this morning and reviewed MRI results which are consistent with osteomyelitis of the distal phalanx. He was also seen by vascular surgery, Dr. Castellano, this morning who did not recommend acute intervention at this time. We discussed hallux amputation versus antibiotic medical management of his bone infection. His kidney disease is noted. I recommend the amputation if he is amendable to proceed tomorrow afternoon. This will be discussed with the medicine team and he will be seen clinically this afternoon. inpatient round 17:35 pm: This 68-year-old male with multiple comorbidities was seen bedside for left hallux infection and ulcer. He is now diagnosed with osteomyelitis secondary to MRI and clinically his acute cellulitis is stabilizing however his toe aspect appears non-salvageable. I recommend operating room partial versus full amputation and he is amenable to proceed. He denies fever, chill, nausea, vomiting, loss of appetite. He is eating dinner comfortably bedside today. His pain is rated as a 2 out of 10. - Physical Exam General: Alert, Oriented x3, Cooperative HEENT: Atraumatic Extremities: No cyanosis, Capillary Refill Less than 3 Seconds - Digits 2, 3, 4, 5 left foot and less than 5 seconds to the left hallux, No Calf Tenderness - Negative Yany and Demarco sign bilateral, Diminished Peripheral Pulses, Edema - Mild, Tenderness - Pain with ulcer manipulation distal left hallux Skin: Ulcer/ Wound - The erythema and streaking have receded to the left hallux. There is continued necrotic eschar to the plantar distal left hallux. There is exposed deep tissue. The peripheral skin is hairless and atrophic without maceration. The distal left hallux appears to be dysvascular and nonsalvageable. There is no blisters Musculoskeletal: No Tenderness to Palpation of Joints or Extremities, Muscle Wasting Neurological: - - Lack of epicritic sensation to light touch consistent with neuropathy Psych/Mental Status: Normal Affect, Appropriate Vital Signs Temp Pulse Resp BP Pulse Ox 98.2 F 70 14 140/77 H 100 04/28/19 09:22 04/28/19 09:29 04/28/19 09:22 04/28/19 09:29 04/28/19 09:41 Oxygen Delivery Method Room Air Weight: 94.3 kg Body Mass Index (BMI) 36.8 Intake and Output for Last 24 Hours 04/26/19 04/27/19 04/28/19 23:59 23:59 23:59 Intake Total 967.6 / 967.6 1491.3 / 1491.3 2436 / 2436 Output Total 525 / 525 1170 / 1170 1325 / 1325 Balance 442.6 / 442.6 321.3 / 321.3 1111 / 1111 Microbiology Past 72 Hours 04/26/19 17:15 Gram Stain - Final Wound Abcess - Aerobic & Anaerobic Swabs Wound Culture - Preliminary Staphylococcus aureus Coag Negative Staph Anaerobic Culture - Preliminary Checking for anaerobes, further studies to follow. 04/26/19 14:15 Gram Stain - Final Wound - Toe Wound Culture - Final Staphylococcus aureus Laboratory Tests Past 24 Hrs 04/28/19 04/28/19 04/28/19 06:26 06:26 06:26 WBC 6.6 RBC 2.53 L Hgb 7.6 L Hct 23.2 L MCV 91.7 MCH 30.0 MCHC 32.8 RDW 13.5 RDW Differential 45.4 H Plt Count 236 MPV 8.7 Immature Gran % (Auto) 0.600 Neut % (Auto) 69.3 Lymph % (Auto) 13.2 L [place] % (Auto) 11.8 H Eos % (Auto) 4.6 Baso % (Auto) 0.5 Absolute Neuts (auto) 4.6 Absolute Lymphs (auto) 0.87 Total Counted Not Reportable PT 30.4 H INR 2.9 Sodium Potassium Chloride Carbon Dioxide Anion Gap BUN Creatinine Estim Creat Clear Calc Est GFR (MDRD) Af Amer Est GFR (MDRD) Non-Af BUN/Creatinine Ratio Glucose Calcium Random Vancomycin 8.1 04/28/19 06:26 WBC RBC Hgb Hct MCV MCH MCHC RDW RDW Differential Plt Count MPV Immature Gran % (Auto) Neut % (Auto) Lymph % (Auto) [place] % (Auto) Eos % (Auto) Baso % (Auto) Absolute Neuts (auto) Absolute Lymphs (auto) Total Counted PT INR Sodium 139 Potassium 4.7 Chloride 110 H Carbon Dioxide 19.0 L Anion Gap 10 BUN 69 H Creatinine 4.52 H Estim Creat Clear Calc 11.57 Est GFR (MDRD) Af Amer 17 L Est GFR (MDRD) Non-Af 14 L BUN/Creatinine Ratio 15.3 Glucose 156 H Calcium 8.0 L Random Vancomycin POC Glucose 04/28/19 04/27/19 04/27/19 06:30 22:21 17:01 POC Glucose 144 H 277 H 214 H 04/27/19 12:27 POC Glucose 203 H Medical Necessity - Tobacco Use Smoking Status: Never smoker Tobacco Use: Non-smoker Assessment/Plan All Active Problems (Last Reviewed 04/28/19 @ 11:35 by Omer Castellano MD) PAD (peripheral artery disease) (Acute) Osteomyelitis (Acute) Diabetes mellitus (Acute) Left foot infection (Acute) Gas gangrene (Acute) Non-pressure chronic ulcer of other part of left foot with fat layer exposed (Acute) Left hallux infection with ulcer including gas gangrene of the distal plantar aspect ; status post bedside debridement and drainage Osteomyelitis left distal phalanx Diabetes with neuropathy Peripheral vascular disease suspected; hallux appears dysvascular and noncompressible vessels and small vessel disease no intervention planned with vascular surgery at this time; Malnutrition suspected multiple comorbidities noted I reviewed and discussed his case. He is afebrile and his vital signs remained stable. His blood cultures are also negative at this time. He continues on vancomycin, clindamycin, and Zosyn per infectious disease which is greatly appreciated. MRI supports osteomyelitis diagnosis. He has status post bedside debridement and incision and drainage performed Friday with resolution of adjacent erythema. This infection and dysvascular distal hallux appears to have demarcated and I recommend moving forward with a definitive surgical amputation of the toe. A dressing was reapplied this evening. The preoperative indication, planned procedure, possible benefits, risks, complications, and anticipated healing time management were discussed in detail with the patient. The noninvasive vascular he understands complications and risks include but are not limited to the following: scar, swelling, lack of sensation, delayed healing, infection, pain, loss of limb, function, life, allergic reaction, blood clot. He understands he is at continued risk for limb loss and ongoing systemic illness due to this condition. Surgical consents and limb will be signed. The surgery is tentatively scheduled for tomorrow 3:30 PM. Preoperative orders will be placed including n.p.o., hold a.m. oral medication it is okay to continue anticoagulation medication during the surgical interventions timeframe. I answered all of his questions. I recommend heel weightbearing to the left foot with a surgical shoe. To proceed with proper glycemic control and nutritional supplementation to optimize healing. Medical management and DVT prophylaxis per hospitalist is greatly appreciated. Jael Paredes DPM, [facility] [phone]
--- NOTE | 2019-04-28 11:33 | PCM.CONS.GEN ---
Problem List (1) PAD (peripheral artery disease) Status: Acute (2) Left foot infection Status: Acute Reason for Consult Date of Consultation: 04/28/19 Reason for Consultation: PAD History of Present Illness: The patient is a 68 year old M admitted jumped off his truck or something in developed wound on the left great toe. Difficulty where the wound was seen at this has progressed and worsened in patient is come in now. Being seen by podiatry had an MRI that shows some ostial and at that toe and some concern for PAD. Vascular surgery consult for evaluation of this. He did have PVRs that showed some noncompressibility throughout which is consistent with some of his diabetes. The right ankle both vessels were noncompressible but triphasic flow. The left ankle one was noncompressible and the other had a KEVIN of 1.23. Again all 4 vessels appear to be mostly triphasic flow at the ankle. She does appear to have adequate flow into the ankle. Right digital brachial index was normal at 1.05. Could not do the left secondary to the ulcer and bandage. But it does appear that he has adequate perfusion out. No known chronic kidney disease that he knows but his creatinines over 4 at this point. No coronary history. Patient has A. fib is on Coumadin. No stroke TIA or amaurosis. Patient never smoked. Hypertension on meds. Has been diabetics about 10 years since around 2007. Was on a statin in the past but is off this now. No prior peripheral vascular interventions. No history of claudication or rest pain. No real neuropathy that he reports. [] Past Medical History Past Medical History (Chronic Problems): Chronic Problems (Last Reviewed 04/28/19 @ 11:35 by Omer Castellano MD) Type 2 diabetes mellitus with diabetic polyneuropathy (Chronic) Right bundle branch block (RBBB) (Chronic) Essential (primary) hypertension (Chronic) intermediate (current) use of anticoagulants (Chronic) Paroxysmal atrial fibrillation (Chronic) Hyperlipidemia (Chronic) Medical History: Medical History (Last Reviewed 04/28/19 @ 11:35 by Omer Castellano MD) Right bundle branch block (RBBB) (Chronic) I45.10 Essential (primary) hypertension (Chronic) I10 Paroxysmal atrial fibrillation (Chronic) I48.0 Hyperlipidemia (Chronic) E78.5 Arthritis M19.90 BPH (benign prostatic hyperplasia) N40.0 COPD (chronic obstructive pulmonary disease) J44.9 Chronic kidney disease, stage 3 N18.3 Chronic pain G89.29 Diabetic retinopathy E11.319 Obesity E66.9 Type 2 diabetes mellitus E11.9 Venous stasis dermatitis I87.2 Allergies No Known Allergies Allergy (Verified 04/26/19 13:56) Home Medications: Ambulatory Orders Medication Instructions Recorded albuterol sulfate 2.5 mg/3 mL 1.25 mg INHALATION Q4H PRN 01/30/19 (0.083 %) solution for nebulization clonidine HCl 0.1 mg tablet 0.1 mg PO BID 90 Days #180 tab 01/30/19 doxazosin 8 mg tablet 8 mg PO DAILY 30 Days #30 tab 01/30/19 furosemide 40 mg tablet 40 mg PO DAILY 90 Days #90 tab 01/30/19 glipizide 10 mg tablet 10 mg PO DAILY 01/30/19 hydrochlorothiazide 12.5 mg capsule 12.5 mg PO DAILY 30 Days #30 cap 01/30/19 hydrocodone 7.5 mg-acetaminophen 1 tab PO Q6H PRN 30 Days tab 01/30/19 750 mg tablet metoprolol tartrate 50 mg tablet 50 mg PO BID 90 Days #180 tab 01/30/19 theophylline ER 400 mg 400 mg PO DAILY 01/30/19 capsule,extended release 24 hr amlodipine 5 mg tablet 5 mg PO DAILY #90 tab 02/10/19 multivitamin tablet 1 tab PO DAILY 02/10/19 saw palmetto 500 mg capsule 450 mg PO BID 02/10/19 warfarin 2.5 mg tablet 2.5 mg PO .COMPLEX 02/18/19 Surgical History: Surgical History (Last Reviewed 04/28/19 @ 11:36 by Omer Castellano MD) History of cardioversion Onset Date: 05/30/14 Z98.890 History of tonsillectomy Z90.89 Surgical History: noncontributory, tonsillectomy Psychiatric History: No pertinent psych hx Lives: Alone Smoking Status: Never smoker Tobacco Use: Non-smoker Alcohol: None Drugs: None - *Family History Maternal History Items: Cancer - lung, - - Denies known cardiac history Paternal History Items: Unknown Sibling History Items: Cancer - sister had pancreatic cancer Review of Systems Constitutional: Denies: Chills, Fever, Weight Change HEENT: Denies: Head Aches, Sinus Congestion, Sinus Drainage Cardiovascular: Denies: Chest Pain, Palpitations Respiratory: Denies: Cough, Shortness of breath at rest, Sputum production Gastrointestinal: Denies: Abdominal Pain, Nausea, Vomiting Genitourinary: Denies: Dysuria Skin: Reports: - - Left great toe gangrene Patient Problems: Active and Suspected Problems (Last Reviewed 04/28/19 @ 11:35 by Omer Castellano MD) PAD (peripheral artery disease) (Acute) Osteomyelitis (Acute) Diabetes mellitus (Acute) Left foot infection (Acute) Gas gangrene (Acute) Other specified peripheral vascular diseases (Suspected) Non-pressure chronic ulcer of other part of left foot with fat layer exposed (Acute) - Physical Exam General: Alert, Oriented x3 HEENT: Atraumatic, PERRLA Oral: Moist Mucosa Neck: Supple, Negative Carotid Bruits Lungs: Clear to auscultation Cardiovascular: Regular rate Abdomen: Bowel Sounds Present Extremities: No clubbing, - - Palpable radial pulses Difficult to feel pedal pulses good perfusion noted. Dressing intact left great toe Vital Signs Temp Pulse Resp BP Pulse Ox 98.2 F 70 14 140/77 H 100 04/28/19 09:22 04/28/19 09:29 04/28/19 09:22 04/28/19 09:29 04/28/19 09:41 Oxygen Delivery Method Room Air Weight: 207 lb 14.334 oz Body Mass Index (BMI) 36.8 Intake and Output for Last 24 Hours 04/26/19 04/27/19 04/28/19 23:59 23:59 23:59 Intake Total 967.6 / 967.6 1491.3 / 1491.3 2436 / 2436 Output Total 525 / 525 1170 / 1170 1325 / 1325 Balance 442.6 / 442.6 321.3 / 321.3 1111 / 1111 Microbiology Past 72 Hours 04/26/19 17:15 Gram Stain - Final Wound Abcess - Aerobic & Anaerobic Swabs Wound Culture - Preliminary Staphylococcus aureus Coag Negative Staph Anaerobic Culture - Preliminary Checking for anaerobes, further studies to follow. 04/26/19 14:15 Gram Stain - Final Wound - Toe Wound Culture - Final Staphylococcus aureus Laboratory Tests Past 24 Hrs 04/28/19 04/28/19 04/28/19 06:26 06:26 06:26 WBC 6.6 RBC 2.53 L Hgb 7.6 L Hct 23.2 L MCV 91.7 MCH 30.0 MCHC 32.8 RDW 13.5 RDW Differential 45.4 H Plt Count 236 MPV 8.7 Immature Gran % (Auto) 0.600 Neut % (Auto) 69.3 Lymph % (Auto) 13.2 L [place] % (Auto) 11.8 H Eos % (Auto) 4.6 Baso % (Auto) 0.5 Absolute Neuts (auto) 4.6 Absolute Lymphs (auto) 0.87 Total Counted Not Reportable PT 30.4 H INR 2.9 Sodium Potassium Chloride Carbon Dioxide Anion Gap BUN Creatinine Estim Creat Clear Calc Est GFR (MDRD) Af Amer Est GFR (MDRD) Non-Af BUN/Creatinine Ratio Glucose Calcium Random Vancomycin 8.1 04/28/19 06:26 WBC RBC Hgb Hct MCV MCH MCHC RDW RDW Differential Plt Count MPV Immature Gran % (Auto) Neut % (Auto) Lymph % (Auto) [place] % (Auto) Eos % (Auto) Baso % (Auto) Absolute Neuts (auto) Absolute Lymphs (auto) Total Counted PT INR Sodium 139 Potassium 4.7 Chloride 110 H Carbon Dioxide 19.0 L Anion Gap 10 BUN 69 H Creatinine 4.52 H Estim Creat Clear Calc 11.57 Est GFR (MDRD) Af Amer 17 L Est GFR (MDRD) Non-Af 14 L BUN/Creatinine Ratio 15.3 Glucose 156 H Calcium 8.0 L Random Vancomycin POC Glucose 04/28/19 04/27/19 04/27/19 06:30 22:21 17:01 POC Glucose 144 H 277 H 214 H 04/27/19 12:27 POC Glucose 203 H Assessment/Plan All Active Problems (Last Reviewed 04/28/19 @ 11:35 by Omer Castellano MD) PAD (peripheral artery disease) (Acute) Osteomyelitis (Acute) Diabetes mellitus (Acute) Left foot infection (Acute) Gas gangrene (Acute) Non-pressure chronic ulcer of other part of left foot with fat layer exposed (Acute) Patient with left great toe osteo-and gangrene. And concern for PAD PAD. Appears that he has triphasic flow with good waveform out through the foot. An adequate digital brachial index on the right. Unable to check on the left. It appears that he probably has adequate perfusion if needed for toe amputation on this side. If there is any poor bleeding or difficulty healing would try to proceed with a angiogram. But with a creatinine at 4 at this point and triphasic flow would be very reluctant to do any type of angiogram. We will continue to follow along as needed let us know if there is any poor healing. I will touch base with podiatry.
[2019-04-28] MEDS: Insulin Lispro 100 UNIT/ML INSULN.PEN SQ ×3 (12:08→21:25)
[2019-04-28 12:31] LABS: Bedside Glucose 218 mg/dL (70-110)
--- NOTE | 2019-04-28 14:01 | NURSING ---
wound photo: left great toe
--- NOTE | 2019-04-28 14:04 | PCM.PN.HOSP ---
Patient Problems: Active and Suspected Problems (Last Reviewed 04/28/19 @ 11:35 by Omer Castellano MD) PAD (peripheral artery disease) (Acute) Osteomyelitis (Acute) Diabetes mellitus (Acute) Left foot infection (Acute) Gas gangrene (Acute) Other specified peripheral vascular diseases (Suspected) Non-pressure chronic ulcer of other part of left foot with fat layer exposed (Acute) Subjective: Patient seen and examined. He had no complaints this morning. Review of systems otherwise negative. Labs and vitals reviewed. Hemoglobin noted to have dropped to 7.6 today. Is asymptomatic. Arterial studies done showed right digital brachial index of 1.05 and left ankle-brachial index of 1.23. Vitals/I&O's: Vital Signs Temp Pulse Resp BP Pulse Ox 98.2 F 70 14 140/77 H 100 04/28/19 09:22 04/28/19 09:29 04/28/19 09:22 04/28/19 09:04/28/19 09:41 Oxygen Delivery Method Room Air Weight: 207 lb 14.334 oz Body Mass Index (BMI) 36.8 Intake and Output for Last 24 Hours 04/26/19 04/27/19 04/28/19 23:59 23:59 23:59 Intake Total 967.6 / 967.6 1491.3 / 1491.3 2676 / 2676 Output Total 525 / 525 1170 / 1170 1325 / 1325 Balance 442.6 / 442.6 321.3 / 321.3 1351 / 1351 General: Alert, Oriented x3, Cooperative, No apparent distress HEENT: Atraumatic, PERRLA, EOMI, Normocephalic Oral: Moist Mucosa Neck: Supple, No JVD, Negative Carotid Bruits Lungs: Clear to auscultation, Normal air movement, No rhonchi, No wheeze, No rales Cardiovascular: Regular rate, Regular Rhythm, Normal S1, Normal S2, No murmurs Abdomen: Bowel Sounds Present, Soft, Non Tender, Non-Distended, No Hepato-splenomegaly Extremities: No clubbing, No cyanosis, No edema Musculoskeletal: - - dressing intact on left foot Lymphatic: No Cervical, Supraclavicular, or Inguinal Adenopathy Neurological: Cranial nerves II-XII grossly intact Psych/Mental Status: Normal Affect, Appropriate, Alert and oriented to time, place, person, mood and affect Microbiology Past 72 Hours 04/26/19 17:15 Wound Abcess - Aerobic & Anaerobic Swabs Gram Stain - Final 04/26/19 17:15 Wound Abcess - Aerobic & Anaerobic Swabs Wound Culture - Preliminary Staphylococcus aureus Coag Negative Staph 04/26/19 17:15 Wound Abcess - Aerobic & Anaerobic Swabs Anaerobic Culture - Preliminary Checking for anaerobes, further studies to follow. 04/26/19 14:15 Wound - Toe Gram Stain - Final 04/26/19 14:15 Wound - Toe Wound Culture - Final Staphylococcus aureus Laboratory Results 04/27/19 17:01: POC Glucose 214 H 04/27/19 22:21: POC Glucose 277 H 04/28/19 06:26: PT 30.4 H, INR 2.9 04/28/19 06:26: Random Vancomycin 8.1 04/28/19 06:26: WBC 6.6, RBC 2.53 L, Hgb 7.6 L, Hct 23.2 L, MCV 91.7, MCH 30.0, MCHC 32.8, RDW 13.5, RDW Differential 45.4 H, Plt Count 236, MPV 8.7, Immature Gran % (Auto) 0.600, Neut % (Auto) 69.3, Lymph % (Auto) 13.2 L, [place] % (Auto) 11.8 H, Eos % (Auto) 4.6, Baso % (Auto) 0.5, Absolute Neuts (auto) 4.6, Absolute Lymphs (auto) 0.87, Total Counted Not Reportable 04/28/19 06:26: Sodium 139, Potassium 4.7, Chloride 110 H, Carbon Dioxide 19.0 L, Anion Gap 10, BUN 69 H, Creatinine 4.52 H, Estim Creat Clear Calc 11.57, Est GFR (MDRD) Af Amer 17 L, Est GFR (MDRD) Non-Af 14 L, BUN/Creatinine Ratio 15.3, Glucose 156 H, Calcium 8.0 L 04/28/19 06:30: POC Glucose 144 H 04/28/19 12:04: POC Glucose 218 H Current Medications Acetaminophen (Tylenol) 650 mg PO Q6H PRN PRN PRN Reason: Mild pain 1-3/Temp > 100.7 F Albuterol Sulfate (Ventolin Aerosols) 1.25 mg INHALATION Q4H PRN PRN Reason: SOB &/OR WHEEZING Amlodipine Besylate (Norvasc) 5 mg PO DAILY [facility] Last Admin: 04/28/19 09:29 Dose: 5 mg Clonidine (Catapres) 0.1 mg PO BID [facility] Last Admin: 04/28/19 09:29 Dose: 0.1 mg Dextrose (D50w Syringe) 0 gm IV X1 PRN; Protocol PRN Reason: Hypoglycemia Doxazosin Mesylate (Cardura) 8 mg PO DAILY [facility] Last Admin: 04/28/19 09:29 Dose: 8 mg Glucagon () 1 mg IM .X1 PRN PRN Reason: Hypoglycemia Piperacillin Sod/Tazobactam (Sod 3.375 gm/ Sodium Chloride) 50 mls @ 12.5 mls/hr IV Q12 [facility] Last Admin: 04/28/19 12:08 Dose: 12.5 mls/hr Vancomycin IV Pharmacy to Dose (1 ea/ Sodium Chloride) 500 mls @ 250 mls/hr IV X1 PRN; Protocol PRN Reason: Rx to Dose Clindamycin Phosphate 600 mg/ (Dextrose) 54 mls @ 100 mls/hr IV Q8 [facility] Last Admin: 04/28/19 05:08 Dose: 100 mls/hr Insulin Human Lispro (Humalog Kwikpen (Bkc)) 0 unit SQ ACHS [facility]; Protocol Last Admin: 04/28/19 12:08 Dose: 1 u Metoprolol Tartrate (Lopressor (Beta Ester)) 50 mg PO BID [facility] Last Admin: 04/28/19 09:29 Dose: 50 mg Morphine Sulfate () 1 mg IV Q4H PRN PRN PRN Reason: Severe Pain (7-10/10) Multivitamins (Multivitamin) 1 tablet PO DAILY@0800 [facility] Last Admin: 04/28/19 09:29 Dose: 1 tablet Non-Formulary Medication (Theophylline Anhydrous [Juni-24]) 400 mg PO DAILY [facility] Nutritional Formula (Terry - [place] Flavor) 1 packet PO BIDCM [facility] Last Admin: 04/28/19 09:29 Dose: 1 packet Ondansetron HCl (Zofran) 4 mg IV Q8H PRN PRN PRN Reason: NAUSEA/VOMITING Oxycodone HCl (Oxyir) 5 mg PO Q4H PRN PRN PRN Reason: Moderate Pain (4-6/10) Medical Necessity - Tobacco Use Smoking Status: Never smoker Tobacco Use: Non-smoker Assessment/Plan All Active Problems (Last Reviewed 04/28/19 @ 11:35 by Omer Castellano MD) PAD (peripheral artery disease) (Acute) Osteomyelitis (Acute) Diabetes mellitus (Acute) Left foot infection (Acute) Gas gangrene (Acute) Non-pressure chronic ulcer of other part of left foot with fat layer exposed (Acute) 1. Acute left big toe infection and gas gangrene s/p bedside I&D by podiatry ID on board on IV vancomycin and IV zosyn as well as IV clindamycin Wound culture Staphylococcus aureus and coagulase-negative staph. Blood culture pending. MRI of foot: osteomyelitis of hte first distal phalanx with adjacent soft tissue ulcer. podiatry and ID on board 2. Peripheral artery disease: PVRs done showed right ankle noncompressibility. He had a KEVIN of 1.23 on the left side. Right digital brachial index was 1.05. Vascular surgery consulted-Per vascular surgery note, to try to have an angiogram if there is poor bleeding or difficulty healing but per vascular surgery would be reluctant to do this on account of elevated creatinine. 3. Tylor on CKD 3 baseline CR is ~ 3.2. Cr was 4.67 on admission, and is now 4.28 also has BPH, which could be contributing to TYLOR on CKD. lasix and HCTZ on hold renal USG: Minimal urinary bladder debris, simple appearing renal cyst, nonobstructing calyceal calculus of the right kidney and no hydronephrosis. Normal renal cortical thickness and echotexture. being hydrated with IVF will consult nephrology o/a of kidney function not improving 4. Anemia: Hemoglobin has dropped to 7.6 today. iron panel showed anemia of chronic disease. Hemoglobin is ~10 stool for occult blood ordered and is pending. if Hb drops to <7, will transfuse with 2 units of pRBC 5. Type 2 diabetes mellitus: home meds on hold. ISS. Accuchecks ACHS 6. Hypertension: Fairly controlled. On metoprolol, amlodipine and clonidine. HCTZ on hold on account of TYLOR. 6. Paroxysmal A. fib: Rate controlled. On metoprolol. Coumadin on hold account of I&D. INR today is 2.9. Code Visit Inpatient E&M: 31079 Subs Hosp L3
--- NOTE | 2019-04-28 14:16 | PN_ITS ---
Patient Problems: Active and Suspected Problems (Last Reviewed 04/28/19 @ 11:35 by Omer Castellano MD) PAD (peripheral artery disease) (Acute) Osteomyelitis (Acute) Diabetes mellitus (Acute) Left foot infection (Acute) Gas gangrene (Acute) Other specified peripheral vascular diseases (Suspected) Non-pressure chronic ulcer of other part of left foot with fat layer exposed (Acute) Subjective: Patient seen and examined. He had no complaints this morning. Review of systems otherwise negative. Labs and vitals reviewed. Hemoglobin noted to have dropped to 7.6 today. Is asymptomatic. Arterial studies done showed right digital brachial index of 1.05 and left ankle-brachial index of 1.23. Vitals/I&O's: Vital Signs Temp Pulse Resp BP Pulse Ox 98.2 F 70 14 140/77 H 100 04/28/19 09:22 04/28/19 09:29 04/28/19 09:22 04/28/19 09:04/28/19 09:41 Oxygen Delivery Method Room Air Weight: 207 lb 14.334 oz Body Mass Index (BMI) 36.8 Intake and Output for Last 24 Hours 04/26/19 04/27/19 04/28/19 23:59 23:59 23:59 Intake Total 967.6 / 967.6 1491.3 / 1491.3 2676 / 2676 Output Total 525 / 525 1170 / 1170 1325 / 1325 Balance 442.6 / 442.6 321.3 / 321.3 1351 / 1351 General: Alert, Oriented x3, Cooperative, No apparent distress HEENT: Atraumatic, PERRLA, EOMI, Normocephalic Oral: Moist Mucosa Neck: Supple, No JVD, Negative Carotid Bruits Lungs: Clear to auscultation, Normal air movement, No rhonchi, No wheeze, No rales Cardiovascular: Regular rate, Regular Rhythm, Normal S1, Normal S2, No murmurs Abdomen: Bowel Sounds Present, Soft, Non Tender, Non-Distended, No Hepato- splenomegaly Extremities: No clubbing, No cyanosis, No edema Musculoskeletal: - - dressing intact on left foot Lymphatic: No Cervical, Supraclavicular, or Inguinal Adenopathy Neurological: Cranial nerves II-XII grossly intact Psych/Mental Status: Normal Affect, Appropriate, Alert and oriented to time, place, person, mood and affect Microbiology Past 72 Hours 04/26/19 17:15 Wound Abcess - Aerobic & Anaerobic Swabs Gram Stain - Final 04/26/19 17:15 Wound Abcess - Aerobic & Anaerobic Swabs Wound Culture - Preliminary Staphylococcus aureus Coag Negative Staph 04/26/19 17:15 Wound Abcess - Aerobic & Anaerobic Swabs Anaerobic Culture - Preliminary Checking for anaerobes, further studies to follow. 04/26/19 14:15 Wound - Toe Gram Stain - Final 04/26/19 14:15 Wound - Toe Wound Culture - Final Staphylococcus aureus Laboratory Results 04/27/19 17:01: POC Glucose 214 H 04/27/19 22:21: POC Glucose 277 H 04/28/19 06:26: PT 30.4 H, INR 2.9 04/28/19 06:26: Random Vancomycin 8.1 04/28/19 06:26: WBC 6.6, RBC 2.53 L, Hgb 7.6 L, Hct 23.2 L, MCV 91.7, MCH 30.0, MCHC 32.8, RDW 13.5, RDW Differential 45.4 H, Plt Count 236, MPV 8.7, Immature Gran % (Auto) 0.600, Neut % (Auto) 69.3, Lymph % (Auto) 13.2 L, [place] % (Auto) 11.8 H, Eos % (Auto) 4.6, Baso % (Auto) 0.5, Absolute Neuts (auto) 4.6, Absolute Lymphs (auto) 0.87, Total Counted Not Reportable 04/28/19 06:26: Sodium 139, Potassium 4.7, Chloride 110 H, Carbon Dioxide 19.0 L , Anion Gap 10, BUN 69 H, Creatinine 4.52 H, Estim Creat Clear Calc 11.57, Est GFR (MDRD) Af Amer 17 L, Est GFR (MDRD) Non-Af 14 L, BUN/Creatinine Ratio 15.3, Glucose 156 H, Calcium 8.0 L 04/28/19 06:30: POC Glucose 144 H 04/28/19 12:04: POC Glucose 218 H Current Medications Acetaminophen (Tylenol) 650 mg PO Q6H PRN PRN PRN Reason: Mild pain 1-3/Temp > 100.7 F Albuterol Sulfate (Ventolin Aerosols) 1.25 mg INHALATION Q4H PRN PRN Reason: SOB &/OR WHEEZING Amlodipine Besylate (Norvasc) 5 mg PO DAILY [facility] Last Admin: 04/28/19 09:29 Dose: 5 mg Clonidine (Catapres) 0.1 mg PO BID [facility] Last Admin: 04/28/19 09:29 Dose: 0.1 mg Dextrose (D50w Syringe) 0 gm IV X1 PRN; Protocol PRN Reason: Hypoglycemia Doxazosin Mesylate (Cardura) 8 mg PO DAILY [facility] Last Admin: 04/28/19 09:29 Dose: 8 mg Glucagon () 1 mg IM .X1 PRN PRN Reason: Hypoglycemia Piperacillin Sod/Tazobactam (Sod 3.375 gm/ Sodium Chloride) 50 mls @ 12.5 mls/hr IV Q12 [facility] Last Admin: 04/28/19 12:08 Dose: 12.5 mls/hr Vancomycin IV Pharmacy to Dose (1 ea/ Sodium Chloride) 500 mls @ 250 mls/hr IV X1 PRN; Protocol PRN Reason: Rx to Dose Clindamycin Phosphate 600 mg/ (Dextrose) 54 mls @ 100 mls/hr IV Q8 [facility] Last Admin: 04/28/19 05:08 Dose: 100 mls/hr Insulin Human Lispro (Humalog Kwikpen (Bkc)) 0 unit SQ ACHS [facility]; Protocol Last Admin: 04/28/19 12:08 Dose: 1 u Metoprolol Tartrate (Lopressor (Beta Ester)) 50 mg PO BID [facility] Last Admin: 04/28/19 09:29 Dose: 50 mg Morphine Sulfate () 1 mg IV Q4H PRN PRN PRN Reason: Severe Pain (7-10/10) Multivitamins (Multivitamin) 1 tablet PO DAILY@0800 [facility] Last Admin: 04/28/19 09:29 Dose: 1 tablet Non-Formulary Medication (Theophylline Anhydrous [Juni-24]) 400 mg PO DAILY [facility] Nutritional Formula (Terry - [place] Flavor) 1 packet PO BIDCM [facility] Last Admin: 04/28/19 09:29 Dose: 1 packet Ondansetron HCl (Zofran) 4 mg IV Q8H PRN PRN PRN Reason: NAUSEA/VOMITING Oxycodone HCl (Oxyir) 5 mg PO Q4H PRN PRN PRN Reason: Moderate Pain (4-6/10) Medical Necessity - Tobacco Use Smoking Status: Never smoker Tobacco Use: Non-smoker Assessment/Plan All Active Problems (Last Reviewed 04/28/19 @ 11:35 by Omer Castellano MD) PAD (peripheral artery disease) (Acute) Osteomyelitis (Acute) Diabetes mellitus (Acute) Left foot infection (Acute) Gas gangrene (Acute) Non-pressure chronic ulcer of other part of left foot with fat layer exposed (Acute) 1. Acute left big toe infection and gas gangrene * s/p bedside I&D by podiatry * ID on board * on IV vancomycin and IV zosyn as well as IV clindamycin * Wound culture Staphylococcus aureus and coagulase-negative staph. Blood culture pending. * MRI of foot: osteomyelitis of hte first distal phalanx with adjacent soft tissue ulcer. * podiatry and ID on board * 2. Peripheral artery disease: * PVRs done showed right ankle noncompressibility. * He had a KEVIN of 1.23 on the left side. Right digital brachial index was 1.05. * Vascular surgery consulted-Per vascular surgery note, to try to have an angiogram if there is poor bleeding or difficulty healing but per vascular surgery would be reluctant to do this on account of elevated creatinine. * 3. Tylor on CKD 3 * baseline CR is ~ 3.2. Cr was 4.67 on admission, and is now 4.28 * also has BPH, which could be contributing to TYLOR on CKD. lasix and HCTZ on hold * renal USG: Minimal urinary bladder debris, simple appearing renal cyst, nonobstructing calyceal calculus of the right kidney and no hydronephrosis. Normal renal cortical thickness and echotexture. * being hydrated with IVF * will consult nephrology o/a of kidney function not improving * 4. Anemia: * Hemoglobin has dropped to 7.6 today. * iron panel showed anemia of chronic disease. * Hemoglobin is ~10 * stool for occult blood ordered and is pending. * if Hb drops to <7, will transfuse with 2 units of pRBC * 5. Type 2 diabetes mellitus: home meds on hold. ISS. Accuchecks ACHS 6. Hypertension: Fairly controlled. On metoprolol, amlodipine and clonidine. HCTZ on hold on account of TYLOR. 6. Paroxysmal A. fib: Rate controlled. On metoprolol. Coumadin on hold account of I&D. INR today is 2.9. Code Visit Inpatient E&M: 41696 Subs Hosp L3
--- NOTE | 2019-04-28 14:53 | CASEMGMT ---
SW attempted to talk with patient regarding being depressed. However, he had a visitor. JEANCARLOS will check back. Alicja FIELDS MSW
--- NOTE | 2019-04-28 15:22 | PCM.PN.ID ---
Patient Problems: Active and Suspected Problems (Last Reviewed 04/28/19 @ 11:35 by Omer Castellano MD) PAD (peripheral artery disease) (Acute) Osteomyelitis (Acute) Diabetes mellitus (Acute) Left foot infection (Acute) Gas gangrene (Acute) Other specified peripheral vascular diseases (Suspected) Non-pressure chronic ulcer of other part of left foot with fat layer exposed (Acute) Subjective: Feeling ok, no fever. Mild loose stool with abx. Foot pain stable. - Physical Exam General: Alert, Cooperative, No apparent distress Lungs: Clear to auscultation, Normal air movement Cardiovascular: Regular rate, Regular Rhythm Abdomen: Soft, Non Tender, Non-Distended Skin: Ulcer/ Wound - foot wrapped Vital Signs Temp Pulse Resp BP Pulse Ox 98.2 F 70 14 140/77 H 100 04/28/19 09:22 04/28/19 09:29 04/28/19 09:22 04/28/19 09:29 04/28/19 09:41 Oxygen Delivery Method Room Air Weight: 94.3 kg Body Mass Index (BMI) 36.8 Intake and Output for Last 24 Hours 04/26/19 04/27/19 04/28/19 23:59 23:59 23:59 Intake Total 967.6 / 967.6 1491.3 / 1491.3 2676 / 2676 Output Total 525 / 525 1170 / 1170 1325 / 1325 Balance 442.6 / 442.6 321.3 / 321.3 1351 / 1351 Microbiology Past 72 Hours 04/26/19 17:15 Gram Stain - Final Wound Abcess - Aerobic & Anaerobic Swabs Wound Culture - Preliminary Staphylococcus aureus Coag Negative Staph Anaerobic Culture - Preliminary Checking for anaerobes, further studies to follow. 04/26/19 14:15 Gram Stain - Final Wound - Toe Wound Culture - Final Staphylococcus aureus Laboratory Tests Past 24 Hrs 04/28/19 04/28/19 04/28/19 06:26 06:26 06:26 WBC 6.6 RBC 2.53 L Hgb 7.6 L Hct 23.2 L MCV 91.7 MCH 30.0 MCHC 32.8 RDW 13.5 RDW Differential 45.4 H Plt Count 236 MPV 8.7 Immature Gran % (Auto) 0.600 Neut % (Auto) 69.3 Lymph % (Auto) 13.2 L [place] % (Auto) 11.8 H Eos % (Auto) 4.6 Baso % (Auto) 0.5 Absolute Neuts (auto) 4.6 Absolute Lymphs (auto) 0.87 Total Counted Not Reportable PT 30.4 H INR 2.9 Sodium Potassium Chloride Carbon Dioxide Anion Gap BUN Creatinine Estim Creat Clear Calc Est GFR (MDRD) Af Amer Est GFR (MDRD) Non-Af BUN/Creatinine Ratio Glucose Calcium Random Vancomycin 8.1 04/28/19 06:26 WBC RBC Hgb Hct MCV MCH MCHC RDW RDW Differential Plt Count MPV Immature Gran % (Auto) Neut % (Auto) Lymph % (Auto) [place] % (Auto) Eos % (Auto) Baso % (Auto) Absolute Neuts (auto) Absolute Lymphs (auto) Total Counted PT INR Sodium 139 Potassium 4.7 Chloride 110 H Carbon Dioxide 19.0 L Anion Gap 10 BUN 69 H Creatinine 4.52 H Estim Creat Clear Calc 11.57 Est GFR (MDRD) Af Amer 17 L Est GFR (MDRD) Non-Af 14 L BUN/Creatinine Ratio 15.3 Glucose 156 H Calcium 8.0 L Random Vancomycin POC Glucose 04/28/19 04/28/19 04/27/19 12:04 06:30 22:21 POC Glucose 218 H 144 H 277 H 04/27/19 17:01 POC Glucose 214 H Medical Necessity - Tobacco Use Smoking Status: Never smoker Tobacco Use: Non-smoker Route of nutrition/ use of supplements: [] Nutritional Intake: [] IV Site: [] Estrlela Catheter: [] - Assessment/Plan Antibiotics: [] Assessment/Plan: [] Active and Suspected Problems (Last Reviewed 02/10/19 @ 13:22 by Yousif Clark MD) Diabetes mellitus (Acute) Left foot infection (Acute) Gas gangrene (Acute) Other specified peripheral vascular diseases (Suspected) Non-pressure chronic ulcer of other part of left foot with fat layer exposed (Acute) L 1st toe gas gangrene - had bedside I&D by Dr. Lezama 04/27. OR planned. Cont vanc/zosyn/clinda. Wound cx with staph aureus and CoNS. Will follow
[2019-04-28 17:06] LABS: Bedside Glucose 324 mg/dL (70-110)
[2019-04-28 21:56] LABS: Bedside Glucose 235 mg/dL (70-110)
[2019-04-29] VITALS (19 sets, daily range): BP systolic 93–166; BP diastolic 51–98; PULSE 52–113; RESP 16–20; TEMP 36.1–36.8; O2SAT 95–100; BMI 38.2; BMI 39.1; BMI 38.9
[2019-04-29] MEDS: amLODIPine 5 MG Tablet PO (03:43)
--- NOTE | 2019-04-29 05:55 | EKG12_ITS ---
Test Reason : AM EKG Blood Pressure : / mmHG Vent. Rate : 078 BPM Atrial Rate : 220 BPM P-R Int : 000 ms QRS Dur : 146 ms QT Int : 402 ms P-R-T Axes : 000 128 002 degrees QTc Int : 458 ms Atrial flutter with variable A-V block Right bundle branch block Abnormal ECG Confirmed by MACIEJ YOST, KIRSTEN ([id number]), editor continuity and script NIESHA HILLIARD ([id number]) on 05/03/2019 3:05:57 PM Referred By: Jael Paredes Confirmed By:KIRSTEN WING MD
[2019-04-29 06:11] LABS: International Normalized Ratio 2.5; Prothrombin Time (Protime)PT. 27.3 SECONDS (11.7-14.9)
[2019-04-29 06:12] LABS: Absolute Lymphocyte Count 0.69 X10^3/ul (0.83-4.51); Absolute Neutrophil Count 5.3 X10^3/uL (2.0-7.7); Basophil# 0.05 X10^3/uL; Basophil% 0.7 % (0-1); Eosinophils% 4.3 % (0-5); Hematocrit 24.3 % (40-54); Hemoglobin 8.1 g/dl (13.0-16.5); Lymphocyte # 0.69 X10^3/ul (4.0); Lymphocyte % 9.8 % (19-41); Mean Corp Hgb Conc 33.3 g/gl (32-36); Mean Corpuscular Hgb 30.3 pg (27.0-32.0); Monocyte# 0.68 X10^3/uL; Monocyte% 9.7 % (0-10); Neutrophil # 5.25 X10^3/uL (2.7-7.7); Neutrophil % 74.8 % (47-70); Partial Thromboplast Time 54.6 Seconds (24.1-36.2); Platelet Count 253 K/mm3 (150-450); RBC Distribution Width CV 13.3 % (11.6-14.6); RBC Distribution Width SD 43.9 fl (35.1-43.9); Red Blood Count 2.67 M/mm3 (4.6-6.2)
[2019-04-29 06:23] LABS: Anion Gap 12 (5-15); BUN 78 mg/dL (7-18); BUN/Creat Ratio 17.3 RATIO (10-20); Calcium,Total 8.1 mg/dL (8.5-10.1); Chloride 109 mmol/L (98-107); Creatinine, Serum 4.52 mg/dL (0.70-1.30); EST Glomerular Filtration Rate 14 mL/min (>60); Est Glom Filt Rate - Afr Amer 17 mL/min (>60); Estimated Creatinine Clearance 11.57 ml/min; Glucose 175 mg/dL (74-106); Sodium Level 138 mmol/L (136-145)
[2019-04-29 06:31] LABS: POSITIVE COUNT NO; POSITIVE DIFFERENTIAL NO; POSITIVE MORPHOLOGY NO
[2019-04-29] MEDS: Insulin Lispro 100 UNIT/ML INSULN.PEN SQ ×4 (06:40→22:00)
[2019-04-29 06:45] LABS: Bedside Glucose 171 mg/dL (70-110)
[2019-04-29] MEDS: Multivitamins,Therapeutic Tablet 1 TABLET PO (07:58)
[2019-04-29 07:59] LABS: Hemoglobin A1c 8.2 % (4.2-6.3)
[2019-04-29 08:44] LABS: Vancomycin, Random Level 16.3 ug/mL (0.0-15.0)
[2019-04-29] MEDS: Metoprolol Tartrate 50 MG Tablet PO ×2 (10:03→22:09)
--- NOTE | 2019-04-29 10:33 | PCM.PN.ID ---
Patient Problems: Active and Suspected Problems (Last Reviewed 04/28/19 @ 11:35 by Omer Castellano MD) PAD (peripheral artery disease) (Acute) Osteomyelitis (Acute) Diabetes mellitus (Acute) Left foot infection (Acute) Gas gangrene (Acute) Other specified peripheral vascular diseases (Suspected) Non-pressure chronic ulcer of other part of left foot with fat layer exposed (Acute) Subjective: Feeling ok but increasing diarrhea. No fever. - Physical Exam General: Alert, Cooperative, No apparent distress Lungs: Clear to auscultation, Normal air movement Cardiovascular: Regular rate, Regular Rhythm Abdomen: Soft, Non Tender, Non-Distended Skin: Ulcer/ Wound - foot wrapped Vital Signs Temp Pulse Resp BP Pulse Ox 97.5 F L 71 18 153/87 H 98 04/29/19 09:20 04/29/19 10:03 04/29/19 09:20 04/29/19 10:03 04/29/19 09:20 Oxygen Delivery Method Room Air Weight: 96.5 kg Body Mass Index (BMI) 38.2 Intake and Output for Last 24 Hours 04/27/19 04/28/19 04/29/19 23:59 23:59 23:59 Intake Total 1491.3 / 1491.3 4111.7 / 4111.7 526.3 / 526.3 Output Total 1170 / 1170 1325 / 1325 350 / 350 Balance 321.3 / 321.3 2786.7 / 2786.7 176.3 / 176.3 Microbiology Past 72 Hours 04/26/19 17:15 Gram Stain - Final Wound Abcess - Aerobic & Anaerobic Swabs Wound Culture - Final Staphylococcus aureus Staphylococcus epidermidis Anaerobic Culture - Preliminary Checking for anaerobes, further studies to follow. 04/29/19 03:23 Stool Occult Blood (PEREZ) - Final Stool Occult Blood Positive 04/26/19 14:15 Gram Stain - Final Wound - Toe Wound Culture - Final Staphylococcus aureus Laboratory Tests Past 24 Hrs 04/29/19 04/29/19 04/29/19 05:44 05:44 05:44 WBC 7.0 RBC 2.67 L Hgb 8.1 L Hct 24.3 L MCV 91.0 MCH 30.3 MCHC 33.3 RDW 13.3 RDW Differential 43.9 Plt Count 253 MPV 9.0 Immature Gran % (Auto) 0.700 Neut % (Auto) 74.8 H Lymph % (Auto) 9.8 L [place] % (Auto) 9.7 Eos % (Auto) 4.3 Baso % (Auto) 0.7 Absolute Neuts (auto) 5.3 Absolute Lymphs (auto) 0.69 L Total Counted Not Reportable PT 27.3 H INR 2.5 APTT 54.6 H Sodium 138 Potassium 5.0 Chloride 109 H Carbon Dioxide 17.0 L Anion Gap 12 BUN 78 H Creatinine 4.52 H Estim Creat Clear Calc 11.57 Est GFR (MDRD) Af Amer 17 L Est GFR (MDRD) Non-Af 14 L BUN/Creatinine Ratio 17.3 Glucose 175 H Hemoglobin A1c Calcium 8.1 L Random Vancomycin 04/29/19 04/29/19 05:44 08:26 WBC RBC Hgb Hct MCV MCH MCHC RDW RDW Differential Plt Count MPV Immature Gran % (Auto) Neut % (Auto) Lymph % (Auto) [place] % (Auto) Eos % (Auto) Baso % (Auto) Absolute Neuts (auto) Absolute Lymphs (auto) Total Counted PT INR APTT Sodium Potassium Chloride Carbon Dioxide Anion Gap BUN Creatinine Estim Creat Clear Calc Est GFR (MDRD) Af Amer Est GFR (MDRD) Non-Af BUN/Creatinine Ratio Glucose Hemoglobin A1c 8.2 H Calcium Random Vancomycin 16.3 H POC Glucose 04/29/19 04/28/19 04/28/19 06:38 21:23 16:53 POC Glucose 171 H 235 H 324 H 04/28/19 12:04 POC Glucose 218 H Medical Necessity - Tobacco Use Smoking Status: Never smoker Tobacco Use: Non-smoker Route of nutrition/ use of supplements: [] Nutritional Intake: [] IV Site: [] Estrella Catheter: [] - Assessment/Plan Antibiotics: [] Assessment/Plan: [] Active and Suspected Problems (Last Reviewed 02/10/19 @ 13:22 by Yousif Clark MD) Diabetes mellitus (Acute) Left foot infection (Acute) Gas gangrene (Acute) Other specified peripheral vascular diseases (Suspected) Non-pressure chronic ulcer of other part of left foot with fat layer exposed (Acute) L 1st toe gas gangrene - had bedside I&D by Dr. Lezama 04/27. OR planned. On vanc/zosyn/clinda. Wound cx with MSSA and MSSE. Will narrow to clinda/cefazolin. Cdiff sent. TYOLR on CKD - neph consulted Will follow
[2019-04-29] MEDS: amLODIPine 10 MG Tablet PO (10:43)
--- NOTE | 2019-04-29 11:24 | NURSING ---
Pt is scheduled for a left hallux amputation today with Dr Paredes today. will leave dressing in place.
[2019-04-29] MEDS: Cefazolin 1 GM/50 ML BAG IV (11:38)
[2019-04-29 11:46] LABS: Bedside Glucose 242 mg/dL (70-110)
--- NOTE | 2019-04-29 12:23 | PCM.PN.HOSP ---
Patient Problems: Active and Suspected Problems (Last Reviewed 04/29/19 @ 16:02 by Lakshmi Claudio PA-C) PAD (peripheral artery disease) (Acute) TYLOR (acute kidney injury) (Acute) Osteomyelitis (Acute) Diabetes mellitus (Acute) Left foot infection (Acute) Gas gangrene (Acute) Other specified peripheral vascular diseases (Suspected) Non-pressure chronic ulcer of other part of left foot with fat layer exposed (Acute) Subjective: Patient seen and examined. He complains of frequent diarrhea overnight. Review of systems otherwise negative. He is to go for partial amputation of his big toe today. Labs and vitals reviewed. Vitals/I&O's: Vital Signs Temp Pulse Resp BP Pulse Ox 97.5 F L 60 18 153/87 H 98 04/29/19 09:20 04/29/19 12:07 04/29/19 09:20 04/29/19 10:03 04/29/19 09:20 Oxygen Delivery Method Room Air Weight: 212 lb 11.937 oz Body Mass Index (BMI) 39.1 Intake and Output for Last 24 Hours 04/27/19 04/28/19 04/29/19 23:59 23:59 23:59 Intake Total 1491.3 / 1491.3 4111.7 / 4111.7 826.3 / 826.3 Output Total 1170 / 1170 1325 / 1325 950 / 950 Balance 321.3 / 321.3 2786.7 / 2786.7 -123.7 / -123.7 General: Alert, Oriented x3, Cooperative, No apparent distress HEENT: Atraumatic, PERRLA, EOMI, Normocephalic Oral: Moist Mucosa Neck: Supple, No JVD, Negative Carotid Bruits Lungs: Clear to auscultation, Normal air movement, No rhonchi, No wheeze, No rales Cardiovascular: Regular rate, Regular Rhythm, Normal S1, Normal S2, No murmurs Abdomen: Bowel Sounds Present, Soft, Non Tender, Non-Distended, No Hepato-splenomegaly Extremities: No clubbing, No cyanosis, No edema Musculoskeletal: - - dressing intact on left foot Lymphatic: No Cervical, Supraclavicular, or Inguinal Adenopathy Neurological: Cranial nerves II-XII grossly intact Psych/Mental Status: Normal Affect, Appropriate, Alert and oriented to time, place, person, mood and affect Microbiology Past 72 Hours 04/26/19 17:15 Wound Abcess - Aerobic & Anaerobic Swabs Gram Stain - Final 04/26/19 17:15 Wound Abcess - Aerobic & Anaerobic Swabs Wound Culture - Final Staphylococcus aureus Staphylococcus epidermidis 04/26/19 17:15 Wound Abcess - Aerobic & Anaerobic Swabs Anaerobic Culture - Preliminary Checking for anaerobes, further studies to follow. 04/29/19 03:23 Stool Stool Occult Blood (PEREZ) - Final Occult Blood Positive 04/26/19 14:15 Wound - Toe Gram Stain - Final 04/26/19 14:15 Wound - Toe Wound Culture - Final Staphylococcus aureus Laboratory Results 04/28/19 12:04: POC Glucose 218 H 04/28/19 16:53: POC Glucose 324 H 04/28/19 21:23: POC Glucose 235 H 04/29/19 05:44: PT 27.3 H, INR 2.5, APTT 54.6 H 04/29/19 05:44: WBC 7.0, RBC 2.67 L, Hgb 8.1 L, Hct 24.3 L, MCV 91.0, MCH 30.3, MCHC 33.3, RDW 13.3, RDW Differential 43.9, Plt Count 253, MPV 9.0, Immature Gran % (Auto) 0.700, Neut % (Auto) 74.8 H, Lymph % (Auto) 9.8 L, [place] % (Auto) 9.7, Eos % (Auto) 4.3, Baso % (Auto) 0.7, Absolute Neuts (auto) 5.3, Absolute Lymphs (auto) 0.69 L, Total Counted Not Reportable 04/29/19 05:44: Sodium 138, Potassium 5.0, Chloride 109 H, Carbon Dioxide 17.0 L, Anion Gap 12, BUN 78 H, Creatinine 4.52 H, Estim Creat Clear Calc 11.57, Est GFR (MDRD) Af Amer 17 L, Est GFR (MDRD) Non-Af 14 L, BUN/Creatinine Ratio 17.3, Glucose 175 H, Calcium 8.1 L 04/29/19 05:44: Hemoglobin A1c 8.2 H 04/29/19 06:38: POC Glucose 171 H 04/29/19 08:26: Random Vancomycin 16.3 H 04/29/19 11:34: POC Glucose 242 H Current Medications Acetaminophen (Tylenol) 650 mg PO Q6H PRN PRN PRN Reason: Mild pain 1-3/Temp > 100.7 F Albuterol Sulfate (Ventolin Aerosols) 1.25 mg INHALATION Q4H PRN PRN Reason: SOB &/OR WHEEZING Amlodipine Besylate (Norvasc) 10 mg PO DAILY [facility] Last Admin: 04/29/19 10:43 Dose: 10 mg Clonidine (Catapres) 0.1 mg PO BID [facility] Last Admin: 04/29/19 10:38 Dose: Not Given Dextrose (D50w Syringe) 0 gm IV X1 PRN; Protocol PRN Reason: Hypoglycemia Doxazosin Mesylate (Cardura) 8 mg PO DAILY [facility] Last Admin: 04/29/19 10:37 Dose: Not Given Glucagon () 1 mg IM .X1 PRN PRN Reason: Hypoglycemia Clindamycin Phosphate 600 mg/ (Dextrose) 54 mls @ 100 mls/hr IV Q8 [facility] Last Admin: 04/29/19 05:08 Dose: 100 mls/hr Cefazolin Sodium () 1 gm in 50 mls @ 100 mls/hr IV Q24 [facility] Last Admin: 04/29/19 11:38 Dose: 100 mls/hr Insulin Human Lispro (Humalog Kwikpen (Bkc)) 0 unit SQ ACHS [facility]; Protocol Last Admin: 04/29/19 11:38 Dose: 2 u Metoprolol Tartrate (Lopressor (Beta Ester)) 50 mg PO BID [facility] Last Admin: 04/29/19 10:03 Dose: 50 mg Morphine Sulfate () 1 mg IV Q4H PRN PRN PRN Reason: Severe Pain (7-10/10) Multivitamins (Multivitamin) 1 tablet PO DAILY@0800 [facility] Last Admin: 04/29/19 07:58 Dose: 1 tablet Nutritional Formula (Terry - [place] Flavor) 1 packet PO BIDCM [facility] Last Admin: 04/29/19 07:58 Dose: 1 packet Ondansetron HCl (Zofran) 4 mg IV Q8H PRN PRN PRN Reason: NAUSEA/VOMITING Oxycodone HCl (Oxyir) 5 mg PO Q4H PRN PRN PRN Reason: Moderate Pain (4-6/10) Medical Necessity - Tobacco Use Smoking Status: Never smoker Tobacco Use: Non-smoker Assessment/Plan All Active Problems (Last Reviewed 04/29/19 @ 16:02 by Lakshmi Claudio PA-C) PAD (peripheral artery disease) (Acute) TYLOR (acute kidney injury) (Acute) Osteomyelitis (Acute) Diabetes mellitus (Acute) Left foot infection (Acute) Gas gangrene (Acute) Non-pressure chronic ulcer of other part of left foot with fat layer exposed (Acute) 1. Acute left big toe infection and gas gangrene s/p bedside I&D by podiatry ID on board wound cultured MSSA nad MSSE: antibiotics narrowed to IV vancomycin and cefazolin. MRI of foot: osteomyelitis of hte first distal phalanx with adjacent soft tissue ulcer. for left big toe partial amputation by podiatry today 2. Peripheral artery disease: PVRs done showed right ankle noncompressibility. He had a KEVIN of 1.23 on the left side. Right digital brachial index was 1.05. Vascular surgery consulted-Per vascular surgery note, to try to have an angiogram if there is poor bleeding or difficulty healing but per vascular surgery would be reluctant to do this on account of elevated creatinine. to follow up with vascular surgery on discharge 3. Tylor on CKD 3 baseline CR is ~ 3.2. Cr was 4.67 on admission, and is now 4.52 also has BPH, which could be contributing to TYLOR on CKD. lasix and HCTZ on hold renal USG: Minimal urinary bladder debris, simple appearing renal cyst, nonobstructing calyceal calculus of the right kidney and no hydronephrosis. Normal renal cortical thickness and echotexture. being hydrated with [facility] nephrology on board 4. Anemia of chronic disease iron panel showed anemia of chronic disease. Hemoglobin is 8.1 today, baseline is ~ 10 stool for occult blood is positive. if Hb drops to <7, will transfuse with 2 units of pRBC in light of positive occult blood, will consult general surgery 5. Non-anion gap acidosis: Bicarb is 17 anion gap is 12. This is likely due to TYLOR and CKD. Nephrology on board. Will monitor. 6. Type 2 diabetes mellitus: home meds on hold. ISS. Accuchecks ACHS 7. Hypertension: Fairly controlled. On metoprolol, amlodipine and clonidine. HCTZ on hold on account of TYLOR. 9. Paroxysmal A. fib: Rate controlled. On metoprolol. Coumadin on hold account of I&D. INR today is 2.5 Code Visit Inpatient E&M: 61336 Subs Hosp L3
--- NOTE | 2019-04-29 12:23 | PCM.CONS.R ---
Problem List (1) TYLOR (acute kidney injury) Status: Acute Consultation - Renal 04/29/19 PCP/ Referring MD: Requesting physician: Dr Sherman Primary care physician: Billy Jaramillo DO Reason for Consultation:: TYLOR - History of Present Illness History of Present Illness: The patient is a 68 year old M who was admitted to hospital 3 days ago with left big toe infection. renal consulted for TYLOR. he is known to me from office. known history of CKD stage 3 in the past due to diabetes and HTN. some proteinuria. creatinine was around 2 in 2017. lost of follow up for 2 years and came back to office 2 months ago with creatinine of 3.1 to 3.2. still had proteinuria and associated LE edema. renal USG was ordered due to obstructive symptoms and this did not show any hydronephrosis. sustained injury to his left foot and now has osteo. was on vanco, abx changed to cefazolin today. no urinary complaints. LE edema actually looks better than before. - Allergies Allergies: Allergies No Known Allergies Allergy (Verified 04/26/19 13:56) - Current Medications Current Medications: Current Medications Acetaminophen (Tylenol) 650 mg PO Q6H PRN PRN PRN Reason: Mild pain 1-3/Temp > 100.7 F Albuterol Sulfate (Ventolin Aerosols) 1.25 mg INHALATION Q4H PRN PRN Reason: SOB &/OR WHEEZING Amlodipine Besylate (Norvasc) 10 mg PO DAILY [facility] Last Admin: 04/29/19 10:43 Dose: 10 mg Clonidine (Catapres) 0.1 mg PO BID [facility] Last Admin: 04/29/19 10:38 Dose: Not Given Dextrose (D50w Syringe) 0 gm IV X1 PRN; Protocol PRN Reason: Hypoglycemia Doxazosin Mesylate (Cardura) 8 mg PO DAILY [facility] Last Admin: 04/29/19 10:37 Dose: Not Given Glucagon () 1 mg IM .X1 PRN PRN Reason: Hypoglycemia Clindamycin Phosphate 600 mg/ (Dextrose) 54 mls @ 100 mls/hr IV Q8 [facility] Last Admin: 04/29/19 05:08 Dose: 100 mls/hr Cefazolin Sodium () 1 gm in 50 mls @ 100 mls/hr IV Q24 [facility] Last Admin: 04/29/19 11:38 Dose: 100 mls/hr Insulin Human Lispro (Humalog Kwikpen (Bkc)) 0 unit SQ ACHS [facility]; Protocol Last Admin: 04/29/19 11:38 Dose: 2 u Metoprolol Tartrate (Lopressor (Beta Ester)) 50 mg PO BID [facility] Last Admin: 04/29/19 10:03 Dose: 50 mg Morphine Sulfate () 1 mg IV Q4H PRN PRN PRN Reason: Severe Pain (7-10/10) Multivitamins (Multivitamin) 1 tablet PO DAILY@0800 [facility] Last Admin: 04/29/19 07:58 Dose: 1 tablet Nutritional Formula (Terry - [place] Flavor) 1 packet PO BIDCM [facility] Last Admin: 04/29/19 07:58 Dose: 1 packet Ondansetron HCl (Zofran) 4 mg IV Q8H PRN PRN PRN Reason: NAUSEA/VOMITING Oxycodone HCl (Oxyir) 5 mg PO Q4H PRN PRN PRN Reason: Moderate Pain (4-6/10) - Past Medical History Past Medical History (Chronic Problems): Chronic Problems (Last Reviewed 04/28/19 @ 11:35 by Omer Castellano MD) Type 2 diabetes mellitus with diabetic polyneuropathy (Chronic) Right bundle branch block (RBBB) (Chronic) Essential (primary) hypertension (Chronic) 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) Paroxysmal atrial fibrillation (Chronic) Hyperlipidemia (Chronic) - Past Surgical History Surgical History: noncontributory, tonsillectomy - Social History Smoking Status: Never smoker Alcohol: None Drugs: None - Family History Maternal History Items: Cancer - lung, - - Denies known cardiac history Paternal History Items: Unknown Sibling History Items: Cancer - sister had pancreatic cancer Review of Systems Constitutional: Denies: Chills, Fever, Weight Change HEENT: Denies: Head Aches, Sinus Congestion, Sinus Drainage Cardiovascular: Denies: Chest Pain, Palpitations Respiratory: Denies: Cough, Shortness of breath at rest, Sputum production Gastrointestinal: Denies: Abdominal Pain, Nausea, Vomiting Genitourinary: Denies: Dysuria Musculoskeletal: Denies: Joint Pain, Joint Tenderness Skin: Denies: Rash, Wounds Neurological: Denies: Numbness, Tingling, Focal weakness Psychiatric: Denies: Anxiety, Depression, Homicidal Ideations, Suicidal Ideations Hematologic/ Lymphatic: Denies: Easy Bruising, Easy Bleeding Patient Problems: Active and Suspected Problems (Last Reviewed 04/28/19 @ 11:35 by Omer Csatellano MD) PAD (peripheral artery disease) (Acute) TYLOR (acute kidney injury) (Acute) Osteomyelitis (Acute) Diabetes mellitus (Acute) Left foot infection (Acute) Gas gangrene (Acute) Other specified peripheral vascular diseases (Suspected) Non-pressure chronic ulcer of other part of left foot with fat layer exposed (Acute) - Physical Exam General: Alert - left big toe infection, Oriented x3, Cooperative HEENT: Atraumatic, PERRLA, EOMI, Normocephalic Neck: Supple, No JVD, Negative Carotid Bruits Lungs: Clear to auscultation, Normal air movement Cardiovascular: Regular rate, No murmurs Abdomen: Bowel Sounds Present, Soft, Non Tender Extremities: No edema, Capillary Refill Less than 3 Seconds Skin: No rashes, No breakdown Musculoskeletal: No Tenderness to Palpation of Joints or Extremities Neurological: Cranial nerves II-XII grossly intact Psych/Mental Status: Normal Affect, Appropriate Vital Signs Temp Pulse Resp BP Pulse Ox 97.5 F L 60 18 153/87 H 98 04/29/19 09:20 04/29/19 12:07 04/29/19 09:20 04/29/19 10:03 04/29/19 09:20 Oxygen Delivery Method Room Air Weight: 96.5 kg Body Mass Index (BMI) 39.1 Intake and Output for Last 24 Hours 04/27/19 04/28/19 04/29/19 23:59 23:59 23:59 Intake Total 1491.3 / 1491.3 4111.7 / 4111.7 826.3 / 826.3 Output Total 1170 / 1170 1325 / 1325 950 / 950 Balance 321.3 / 321.3 2786.7 / 2786.7 -123.7 / -123.7 Microbiology Past 72 Hours 04/26/19 17:15 Gram Stain - Final Wound Abcess - Aerobic & Anaerobic Swabs Wound Culture - Final Staphylococcus aureus Staphylococcus epidermidis Anaerobic Culture - Preliminary Checking for anaerobes, further studies to follow. 04/29/19 03:23 Stool Occult Blood (PEREZ) - Final Stool Occult Blood Positive 04/26/19 14:15 Gram Stain - Final Wound - Toe Wound Culture - Final Staphylococcus aureus Laboratory Tests Past 24 Hrs 04/29/19 04/29/19 04/29/19 05:44 05:44 05:44 WBC 7.0 RBC 2.67 L Hgb 8.1 L Hct 24.3 L MCV 91.0 MCH 30.3 MCHC 33.3 RDW 13.3 RDW Differential 43.9 Plt Count 253 MPV 9.0 Immature Gran % (Auto) 0.700 Neut % (Auto) 74.8 H Lymph % (Auto) 9.8 L [place] % (Auto) 9.7 Eos % (Auto) 4.3 Baso % (Auto) 0.7 Absolute Neuts (auto) 5.3 Absolute Lymphs (auto) 0.69 L Total Counted Not Reportable PT 27.3 H INR 2.5 APTT 54.6 H Sodium 138 Potassium 5.0 Chloride 109 H Carbon Dioxide 17.0 L Anion Gap 12 BUN 78 H Creatinine 4.52 H Estim Creat Clear Calc 11.57 Est GFR (MDRD) Af Amer 17 L Est GFR (MDRD) Non-Af 14 L BUN/Creatinine Ratio 17.3 Glucose 175 H Hemoglobin A1c Calcium 8.1 L Random Vancomycin 04/29/19 04/29/19 05:44 08:26 WBC RBC Hgb Hct MCV MCH MCHC RDW RDW Differential Plt Count MPV Immature Gran % (Auto) Neut % (Auto) Lymph % (Auto) [place] % (Auto) Eos % (Auto) Baso % (Auto) Absolute Neuts (auto) Absolute Lymphs (auto) Total Counted PT INR APTT Sodium Potassium Chloride Carbon Dioxide Anion Gap BUN Creatinine Estim Creat Clear Calc Est GFR (MDRD) Af Amer Est GFR (MDRD) Non-Af BUN/Creatinine Ratio Glucose Hemoglobin A1c 8.2 H Calcium Random Vancomycin 16.3 H POC Glucose 04/29/19 04/29/19 04/28/19 11:34 06:38 21:23 POC Glucose 242 H 171 H 235 H 04/28/19 04/28/19 16:53 12:04 POC Glucose 324 H 218 H Assessment/Plan All Active Problems (Last Reviewed 04/28/19 @ 11:35 by Omer Castellano MD) PAD (peripheral artery disease) (Acute) TYLOR (acute kidney injury) (Acute) Osteomyelitis (Acute) Diabetes mellitus (Acute) Left foot infection (Acute) Gas gangrene (Acute) Non-pressure chronic ulcer of other part of left foot with fat layer exposed (Acute) TYLOR CKD 4 baseline creatinine was in 2 as of 2017. early this year presented with creatinine os 3.2. now in mid 4s. proteinuria of about 3.5 gm. renal USG looks ok. will check SPEP. likely progression of kidney disease vs worsening in setting of infection. he is off vancomycin already. no acute indications for dialysis right now. will follow HTN. generally poorly controlled. values are ok now proteinuria. SPEP ordered
--- NOTE | 2019-04-29 12:28 | CON.PCM_ITS ---
Problem List (1) TYLOR (acute kidney injury) Status: Acute Consultation - Renal 04/29/19 PCP/ Referring MD: Requesting physician: Dr Sherman Primary care physician: Billy Jaramillo DO Reason for Consultation:: TYLOR - History of Present Illness History of Present Illness: The patient is a 68 year old M who was admitted to hospital 3 days ago with left big toe infection. renal consulted for TYLOR. he is known to me from office. known history of CKD stage 3 in the past due to diabetes and HTN. some proteinuria. creatinine was around 2 in 2017. lost of follow up for 2 years and came back to office 2 months ago with creatinine of 3.1 to 3.2. still had proteinuria and associated LE edema. renal USG was ordered due to obstructive symptoms and this did not show any hydronephrosis. sustained injury to his left foot and now has osteo. was on vanco, abx changed to cefazolin today. no urinary complaints. LE edema actually looks better than before. - Allergies Allergies: Allergies No Known Allergies Allergy (Verified 04/26/19 13:56) - Current Medications Current Medications: Current Medications Acetaminophen (Tylenol) 650 mg PO Q6H PRN PRN PRN Reason: Mild pain 1-3/Temp > 100.7 F Albuterol Sulfate (Ventolin Aerosols) 1.25 mg INHALATION Q4H PRN PRN Reason: SOB &/OR WHEEZING Amlodipine Besylate (Norvasc) 10 mg PO DAILY [facility] Last Admin: 04/29/19 10:43 Dose: 10 mg Clonidine (Catapres) 0.1 mg PO BID [facility] Last Admin: 04/29/19 10:38 Dose: Not Given Dextrose (D50w Syringe) 0 gm IV X1 PRN; Protocol PRN Reason: Hypoglycemia Doxazosin Mesylate (Cardura) 8 mg PO DAILY [facility] Last Admin: 04/29/19 10:37 Dose: Not Given Glucagon () 1 mg IM .X1 PRN PRN Reason: Hypoglycemia Clindamycin Phosphate 600 mg/ (Dextrose) 54 mls @ 100 mls/hr IV Q8 [facility] Last Admin: 04/29/19 05:08 Dose: 100 mls/hr Cefazolin Sodium () 1 gm in 50 mls @ 100 mls/hr IV Q24 [facility] Last Admin: 04/29/19 11:38 Dose: 100 mls/hr Insulin Human Lispro (Humalog Kwikpen (Bkc)) 0 unit SQ ACHS [facility]; Protocol Last Admin: 04/29/19 11:38 Dose: 2 u Metoprolol Tartrate (Lopressor (Beta Ester)) 50 mg PO BID [facility] Last Admin: 04/29/19 10:03 Dose: 50 mg Morphine Sulfate () 1 mg IV Q4H PRN PRN PRN Reason: Severe Pain (7-10/10) Multivitamins (Multivitamin) 1 tablet PO DAILY@0800 [facility] Last Admin: 04/29/19 07:58 Dose: 1 tablet Nutritional Formula (Terry - [place] Flavor) 1 packet PO BIDCM [facility] Last Admin: 04/29/19 07:58 Dose: 1 packet Ondansetron HCl (Zofran) 4 mg IV Q8H PRN PRN PRN Reason: NAUSEA/VOMITING Oxycodone HCl (Oxyir) 5 mg PO Q4H PRN PRN PRN Reason: Moderate Pain (4-6/10) - Past Medical History Past Medical History (Chronic Problems): Chronic Problems (Last Reviewed 04/28/19 @ 11:35 by Omer Castellano MD) Type 2 diabetes mellitus with diabetic polyneuropathy (Chronic) Right bundle branch block (RBBB) (Chronic) Essential (primary) hypertension (Chronic) 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) Paroxysmal atrial fibrillation (Chronic) Hyperlipidemia (Chronic) - Past Surgical History Surgical History: noncontributory, tonsillectomy - Social History Smoking Status: Never smoker Alcohol: None Drugs: None - Family History Maternal History Items: Cancer - lung, - - Denies known cardiac history Paternal History Items: Unknown Sibling History Items: Cancer - sister had pancreatic cancer Review of Systems Constitutional: Denies: Chills, Fever, Weight Change HEENT: Denies: Head Aches, Sinus Congestion, Sinus Drainage Cardiovascular: Denies: Chest Pain, Palpitations Respiratory: Denies: Cough, Shortness of breath at rest, Sputum production Gastrointestinal: Denies: Abdominal Pain, Nausea, Vomiting Genitourinary: Denies: Dysuria Musculoskeletal: Denies: Joint Pain, Joint Tenderness Skin: Denies: Rash, Wounds Neurological: Denies: Numbness, Tingling, Focal weakness Psychiatric: Denies: Anxiety, Depression, Homicidal Ideations, Suicidal Ideations Hematologic/ Lymphatic: Denies: Easy Bruising, Easy Bleeding Patient Problems: Active and Suspected Problems (Last Reviewed 04/28/19 @ 11:35 by Omer Castellano MD) PAD (peripheral artery disease) (Acute) TYLOR (acute kidney injury) (Acute) Osteomyelitis (Acute) Diabetes mellitus (Acute) Left foot infection (Acute) Gas gangrene (Acute) Other specified peripheral vascular diseases (Suspected) Non-pressure chronic ulcer of other part of left foot with fat layer exposed (Acute) - Physical Exam General: Alert - left big toe infection, Oriented x3, Cooperative HEENT: Atraumatic, PERRLA, EOMI, Normocephalic Neck: Supple, No JVD, Negative Carotid Bruits Lungs: Clear to auscultation, Normal air movement Cardiovascular: Regular rate, No murmurs Abdomen: Bowel Sounds Present, Soft, Non Tender Extremities: No edema, Capillary Refill Less than 3 Seconds Skin: No rashes, No breakdown Musculoskeletal: No Tenderness to Palpation of Joints or Extremities Neurological: Cranial nerves II-XII grossly intact Psych/Mental Status: Normal Affect, Appropriate Vital Signs Temp Pulse Resp BP Pulse Ox 97.5 F L 60 18 153/87 H 98 04/29/19 09:20 04/29/19 12:07 04/29/19 09:20 04/29/19 10:03 04/29/19 09:20 Oxygen Delivery Method Room Air Weight: 96.5 kg Body Mass Index (BMI) 39.1 Intake and Output for Last 24 Hours 04/27/19 04/28/19 04/29/19 23:59 23:59 23:59 Intake Total 1491.3 / 1491.3 4111.7 / 4111.7 826.3 / 826.3 Output Total 1170 / 1170 1325 / 1325 950 / 950 Balance 321.3 / 321.3 2786.7 / 2786.7 -123.7 / -123.7 Microbiology Past 72 Hours 04/26/19 17:15 Gram Stain - Final Wound Abcess - Aerobic & Anaerobic Swabs Wound Culture - Final Staphylococcus aureus Staphylococcus epidermidis Anaerobic Culture - Preliminary Checking for anaerobes, further studies to follow. 04/29/19 03:23 Stool Occult Blood (PEREZ) - Final Stool Occult Blood Positive 04/26/19 14:15 Gram Stain - Final Wound - Toe Wound Culture - Final Staphylococcus aureus Laboratory Tests Past 24 Hrs 04/29/19 04/29/19 04/29/19 05:44 05:44 05:44 WBC 7.0 RBC 2.67 L Hgb 8.1 L Hct 24.3 L MCV 91.0 MCH 30.3 MCHC 33.3 RDW 13.3 RDW Differential 43.9 Plt Count 253 MPV 9.0 Immature Gran % (Auto) 0.700 Neut % (Auto) 74.8 H Lymph % (Auto) 9.8 L [place] % (Auto) 9.7 Eos % (Auto) 4.3 Baso % (Auto) 0.7 Absolute Neuts (auto) 5.3 Absolute Lymphs (auto) 0.69 L Total Counted Not Reportable PT 27.3 H INR 2.5 APTT 54.6 H Sodium 138 Potassium 5.0 Chloride 109 H Carbon Dioxide 17.0 L Anion Gap 12 BUN 78 H Creatinine 4.52 H Estim Creat Clear Calc 11.57 Est GFR (MDRD) Af Amer 17 L Est GFR (MDRD) Non-Af 14 L BUN/Creatinine Ratio 17.3 Glucose 175 H Hemoglobin A1c Calcium 8.1 L Random Vancomycin 04/29/19 04/29/19 05:44 08:26 WBC RBC Hgb Hct MCV MCH MCHC RDW RDW Differential Plt Count MPV Immature Gran % (Auto) Neut % (Auto) Lymph % (Auto) [place] % (Auto) Eos % (Auto) Baso % (Auto) Absolute Neuts (auto) Absolute Lymphs (auto) Total Counted PT INR APTT Sodium Potassium Chloride Carbon Dioxide Anion Gap BUN Creatinine Estim Creat Clear Calc Est GFR (MDRD) Af Amer Est GFR (MDRD) Non-Af BUN/Creatinine Ratio Glucose Hemoglobin A1c 8.2 H Calcium Random Vancomycin 16.3 H POC Glucose 04/29/19 04/29/19 04/28/19 11:34 06:38 21:23 POC Glucose 242 H 171 H 235 H 04/28/19 04/28/19 16:53 12:04 POC Glucose 324 H 218 H Assessment/Plan All Active Problems (Last Reviewed 04/28/19 @ 11:35 by Omer Castellano MD) PAD (peripheral artery disease) (Acute) TYLOR (acute kidney injury) (Acute) Osteomyelitis (Acute) Diabetes mellitus (Acute) Left foot infection (Acute) Gas gangrene (Acute) Non-pressure chronic ulcer of other part of left foot with fat layer exposed (Acute) TYLOR CKD 4 baseline creatinine was in 2 as of 2017. early this year presented with creatinine os 3.2. now in mid 4s. proteinuria of about 3.5 gm. renal USG looks ok. will check SPEP. likely progression of kidney disease vs worsening in setting of infection. he is off vancomycin already. no acute indications for dialysis right now. will follow HTN. generally poorly controlled. values are ok now proteinuria. SPEP ordered
--- NOTE | 2019-04-29 12:34 | PN_ITS ---
Patient Problems: Active and Suspected Problems (Last Reviewed 04/29/19 @ 16:02 by Lakshmi Claudio PA-C) PAD (peripheral artery disease) (Acute) TYLOR (acute kidney injury) (Acute) Osteomyelitis (Acute) Diabetes mellitus (Acute) Left foot infection (Acute) Gas gangrene (Acute) Other specified peripheral vascular diseases (Suspected) Non-pressure chronic ulcer of other part of left foot with fat layer exposed (Acute) Subjective: Patient seen and examined. He complains of frequent diarrhea overnight. Review of systems otherwise negative. He is to go for partial amputation of his big toe today. Labs and vitals reviewed. Vitals/I&O's: Vital Signs Temp Pulse Resp BP Pulse Ox 97.5 F L 60 18 153/87 H 98 04/29/19 09:20 04/29/19 12:07 04/29/19 09:20 04/29/19 10:03 04/29/19 09:20 Oxygen Delivery Method Room Air Weight: 212 lb 11.937 oz Body Mass Index (BMI) 39.1 Intake and Output for Last 24 Hours 04/27/19 04/28/19 04/29/19 23:59 23:59 23:59 Intake Total 1491.3 / 1491.3 4111.7 / 4111.7 826.3 / 826.3 Output Total 1170 / 1170 1325 / 1325 950 / 950 Balance 321.3 / 321.3 2786.7 / 2786.7 -123.7 / -123.7 General: Alert, Oriented x3, Cooperative, No apparent distress HEENT: Atraumatic, PERRLA, EOMI, Normocephalic Oral: Moist Mucosa Neck: Supple, No JVD, Negative Carotid Bruits Lungs: Clear to auscultation, Normal air movement, No rhonchi, No wheeze, No r ales Cardiovascular: Regular rate, Regular Rhythm, Normal S1, Normal S2, No murmurs Abdomen: Bowel Sounds Present, Soft, Non Tender, Non-Distended, No Hepato- splenomegaly Extremities: No clubbing, No cyanosis, No edema Musculoskeletal: - - dressing intact on left foot Lymphatic: No Cervical, Supraclavicular, or Inguinal Adenopathy Neurological: Cranial nerves II-XII grossly intact Psych/Mental Status: Normal Affect, Appropriate, Alert and oriented to time, place, person, mood and affect Microbiology Past 72 Hours 04/26/19 17:15 Wound Abcess - Aerobic & Anaerobic Swabs Gram Stain - Final 04/26/19 17:15 Wound Abcess - Aerobic & Anaerobic Swabs Wound Culture - Final Staphylococcus aureus Staphylococcus epidermidis 04/26/19 17:15 Wound Abcess - Aerobic & Anaerobic Swabs Anaerobic Culture - Preliminary Checking for anaerobes, further studies to follow. 04/29/19 03:23 Stool Stool Occult Blood (PEREZ) - Final Occult Blood Positive 04/26/19 14:15 Wound - Toe Gram Stain - Final 04/26/19 14:15 Wound - Toe Wound Culture - Final Staphylococcus aureus Laboratory Results 04/28/19 12:04: POC Glucose 218 H 04/28/19 16:53: POC Glucose 324 H 04/28/19 21:23: POC Glucose 235 H 04/29/19 05:44: PT 27.3 H, INR 2.5, APTT 54.6 H 04/29/19 05:44: WBC 7.0, RBC 2.67 L, Hgb 8.1 L, Hct 24.3 L, MCV 91.0, MCH 30.3, MCHC 33.3, RDW 13.3, RDW Differential 43.9, Plt Count 253, MPV 9.0, Immature Gran % (Auto) 0.700, Neut % (Auto) 74.8 H, Lymph % (Auto) 9.8 L, [place] % (Auto) 9.7, Eos % (Auto) 4.3, Baso % (Auto) 0.7, Absolute Neuts (auto) 5.3, Absolute Lymphs (auto) 0.69 L, Total Counted Not Reportable 04/29/19 05:44: Sodium 138, Potassium 5.0, Chloride 109 H, Carbon Dioxide 17.0 L , Anion Gap 12, BUN 78 H, Creatinine 4.52 H, Estim Creat Clear Calc 11.57, Est GFR (MDRD) Af Amer 17 L, Est GFR (MDRD) Non-Af 14 L, BUN/Creatinine Ratio 17.3, Glucose 175 H, Calcium 8.1 L 04/29/19 05:44: Hemoglobin A1c 8.2 H 04/29/19 06:38: POC Glucose 171 H 04/29/19 08:26: Random Vancomycin 16.3 H 04/29/19 11:34: POC Glucose 242 H Current Medications Acetaminophen (Tylenol) 650 mg PO Q6H PRN PRN PRN Reason: Mild pain 1-3/Temp > 100.7 F Albuterol Sulfate (Ventolin Aerosols) 1.25 mg INHALATION Q4H PRN PRN Reason: SOB &/OR WHEEZING Amlodipine Besylate (Norvasc) 10 mg PO DAILY [facility] Last Admin: 04/29/19 10:43 Dose: 10 mg Clonidine (Catapres) 0.1 mg PO BID [facility] Last Admin: 04/29/19 10:38 Dose: Not Given Dextrose (D50w Syringe) 0 gm IV X1 PRN; Protocol PRN Reason: Hypoglycemia Doxazosin Mesylate (Cardura) 8 mg PO DAILY [facility] Last Admin: 04/29/19 10:37 Dose: Not Given Glucagon () 1 mg IM .X1 PRN PRN Reason: Hypoglycemia Clindamycin Phosphate 600 mg/ (Dextrose) 54 mls @ 100 mls/hr IV Q8 [facility] Last Admin: 04/29/19 05:08 Dose: 100 mls/hr Cefazolin Sodium () 1 gm in 50 mls @ 100 mls/hr IV Q24 [facility] Last Admin: 04/29/19 11:38 Dose: 100 mls/hr Insulin Human Lispro (Humalog Kwikpen (Bkc)) 0 unit SQ ACHS [facility]; Protocol Last Admin: 04/29/19 11:38 Dose: 2 u Metoprolol Tartrate (Lopressor (Beta Ester)) 50 mg PO BID [facility] Last Admin: 04/29/19 10:03 Dose: 50 mg Morphine Sulfate () 1 mg IV Q4H PRN PRN PRN Reason: Severe Pain (7-10/10) Multivitamins (Multivitamin) 1 tablet PO DAILY@0800 [facility] Last Admin: 04/29/19 07:58 Dose: 1 tablet Nutritional Formula (Terry - Marin Flavor) 1 packet PO BIDCM [facility] Last Admin: 04/29/19 07:58 Dose: 1 packet Ondansetron HCl (Zofran) 4 mg IV Q8H PRN PRN PRN Reason: NAUSEA/VOMITING Oxycodone HCl (Oxyir) 5 mg PO Q4H PRN PRN PRN Reason: Moderate Pain (4-6/10) Medical Necessity - Tobacco Use Smoking Status: Never smoker Tobacco Use: Non-smoker Assessment/Plan All Active Problems (Last Reviewed 04/29/19 @ 16:02 by Lakshmi Claudio PA-C) PAD (peripheral artery disease) (Acute) TYLOR (acute kidney injury) (Acute) Osteomyelitis (Acute) Diabetes mellitus (Acute) Left foot infection (Acute) Gas gangrene (Acute) Non-pressure chronic ulcer of other part of left foot with fat layer exposed (Acute) 1. Acute left big toe infection and gas gangrene * s/p bedside I&D by podiatry * ID on board * wound cultured MSSA nad MSSE: antibiotics narrowed to IV vancomycin and cefazolin. * MRI of foot: osteomyelitis of hte first distal phalanx with adjacent soft tissue ulcer. * for left big toe partial amputation by podiatry today * 2. Peripheral artery disease: * PVRs done showed right ankle noncompressibility. * He had a KEVIN of 1.23 on the left side. Right digital brachial index was 1.05. * Vascular surgery consulted-Per vascular surgery note, to try to have an angiogram if there is poor bleeding or difficulty healing but per vascular surgery would be reluctant to do this on account of elevated creatinine. * to follow up with vascular surgery on discharge * 3. Tylor on CKD 3 * baseline CR is ~ 3.2. Cr was 4.67 on admission, and is now 4.52 * also has BPH, which could be contributing to TYLOR on CKD. lasix and HCTZ on hold * renal USG: Minimal urinary bladder debris, simple appearing renal cyst, nonobstructing calyceal calculus of the right kidney and no hydronephrosis. Normal renal cortical thickness and echotexture. * being hydrated with IVF * nephrology on board * 4. Anemia of chronic disease * iron panel showed anemia of chronic disease. * Hemoglobin is 8.1 today, baseline is ~ 10 * stool for occult blood is positive. * if Hb drops to <7, will transfuse with 2 units of pRBC * in light of positive occult blood, will consult general surgery * 5. Non-anion gap acidosis: Bicarb is 17 anion gap is 12. This is likely due to TYLOR and CKD. Nephrology on board. Will monitor. 6. Type 2 diabetes mellitus: home meds on hold. ISS. Accuchecks ACHS 7. Hypertension: Fairly controlled. On metoprolol, amlodipine and clonidine. HCTZ on hold on account of TYLOR. 9. Paroxysmal A. fib: Rate controlled. On metoprolol. Coumadin on hold account of I&D. INR today is 2.5 Code Visit Inpatient E&M: 11881 Subs Hosp L3
--- NOTE | 2019-04-29 13:12 | PCM.CONS.GEN ---
Problem List (1) Anemia Status: Acute (2) Heme positive stool Status: Acute Reason for Consult Date of Consultation: 04/29/19 Reason for Consultation: Acute anemia. Heme positive stools. History of Present Illness: The patient is a 68 year old M who presented with a left great toe infection. Patient is a known diabetic. He has never had any infection in his feet before. Patient is noted to have osteomyelitis and gas gangrene. Patient is scheduled for left great toe amputation today. Patient notes for 2 days he has had diarrhea. He thought this may be from the antibiotics. Patient denies bright red blood, melanotic stools. He notes 30 pound unintentional weight loss since January. He denies family history of inflammatory bowel disease or colon cancer. He denies ever having previous scopes. Patient had stool collected which demonstrated heme positive stools. He denies abdominal pain/discomfort. Patient is maintained on Coumadin for arterial fibrillation. Dr. Clark is his slot service specialist. 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) Paroxysmal atrial fibrillation (Chronic) Hyperlipidemia (Chronic) Medical History: Medical History (Last Reviewed 04/29/19 @ 16:02 by Lakshmi Claudio PA-C) Right bundle branch block (RBBB) (Chronic) I45.10 Essential (primary) hypertension (Chronic) I10 Paroxysmal atrial fibrillation (Chronic) I48.0 Hyperlipidemia (Chronic) E78.5 Arthritis M19.90 BPH (benign prostatic hyperplasia) N40.0 COPD (chronic obstructive pulmonary disease) J44.9 Chronic kidney disease, stage 3 N18.3 Chronic pain G89.29 Diabetic retinopathy E11.319 Obesity E66.9 Type 2 diabetes mellitus E11.9 Venous stasis dermatitis I87.2 Allergies No Known Allergies Allergy (Verified 04/26/19 13:56) Home Medications: Ambulatory Orders Medication Instructions Recorded albuterol sulfate 2.5 mg/3 mL 1.25 mg INHALATION Q4H PRN 01/30/19 (0.083 %) solution for nebulization clonidine HCl 0.1 mg tablet 0.1 mg PO BID 90 Days #180 tab 03/02/19 doxazosin 8 mg tablet 8 mg PO DAILY 30 Days #30 tab 01/30/19 furosemide 40 mg tablet 40 mg PO DAILY 90 Days #90 tab 01/30/19 glipizide 10 mg tablet 10 mg PO DAILY 01/30/19 hydrochlorothiazide 12.5 mg capsule 12.5 mg PO DAILY 30 Days #30 cap 01/30/19 hydrocodone 7.5 mg-acetaminophen 1 tab PO Q6H PRN 30 Days tab 01/30/19 750 mg tablet metoprolol tartrate 50 mg tablet 50 mg PO BID 90 Days #180 tab 01/30/19 theophylline ER 400 mg 400 mg PO DAILY 01/30/19 capsule,extended release 24 hr amlodipine 5 mg tablet 5 mg PO DAILY #90 tab 02/10/19 multivitamin tablet 1 tab PO DAILY 02/10/19 saw palmetto 500 mg capsule 450 mg PO BID 02/10/19 warfarin 2.5 mg tablet 2.5 mg PO .COMPLEX 02/18/19 Surgical History: Surgical History (Last Reviewed 04/29/19 @ 16:02 by Lakshmi Claudio PA-C) History of cardioversion Onset Date: 05/30/14 Z98.890 History of tonsillectomy Z90.89 Surgical History: tonsillectomy, - - Hand surgery Lives: Alone Smoking Status: Never smoker Tobacco Use: Non-smoker Alcohol: None Drugs: None - *Family History Maternal History Items: Cancer - lung, - - Denies known cardiac history Paternal History Items: Unknown Sibling History Items: Cancer - sister had pancreatic cancer Review of Systems Constitutional: Reports: Weight Change. Denies: Chills, Fever HEENT: Denies: Head Aches, Sinus Congestion, Sinus Drainage Cardiovascular: Denies: Chest Pain, Palpitations Respiratory: Denies: Cough, Shortness of breath at rest, Sputum production Gastrointestinal: Reports: Diarrhea Genitourinary: Denies: Dysuria Musculoskeletal: Reports: Foot Pain Skin: Reports: Wounds - left great toe. Denies: Rash Neurological: Denies: Numbness, Tingling, Focal weakness Psychiatric: Denies: Anxiety, Depression, Homicidal Ideations, Suicidal Ideations Hematologic/ Lymphatic: Reports: Anemia. Denies: Hx of blood clot, Hx of blood transfusion Patient Problems: Active and Suspected Problems (Last Reviewed 04/28/19 @ 11:35 by Omer Castellano MD) PAD (peripheral artery disease) (Acute) TYLOR (acute kidney injury) (Acute) Anemia (Acute) Heme positive stool (Acute) Osteomyelitis (Acute) Diabetes mellitus (Acute) Left foot infection (Acute) Gas gangrene (Acute) Other specified peripheral vascular diseases (Suspected) Non-pressure chronic ulcer of other part of left foot with fat layer exposed (Acute) - Physical Exam General: Alert, Oriented x3, Cooperative HEENT: Atraumatic, PERRLA, EOMI, Normocephalic Neck: Supple, No JVD, Negative Carotid Bruits Lungs: Clear to auscultation, Normal air movement Cardiovascular: Regular rate, No murmurs Abdomen: Bowel Sounds Present, Soft, Non Tender, Obese Extremities: No edema, Capillary Refill Less than 3 Seconds Skin: No rashes, Ulcer/ Wound - left great toe Musculoskeletal: No Tenderness to Palpation of Joints or Extremities Neurological: Neuro grossly intact Psych/Mental Status: Normal Affect, Appropriate Vital Signs Temp Pulse Resp BP Pulse Ox 97.5 F L 60 18 153/87 H 98 04/29/19 09:20 04/29/19 12:07 04/29/19 09:20 04/29/19 10:03 04/29/19 09:20 Oxygen Delivery Method Room Air Weight: 212 lb 11.937 oz Body Mass Index (BMI) 39.1 Intake and Output for Last 24 Hours 04/27/19 04/28/19 04/29/19 23:59 23:59 23:59 Intake Total 1491.3 / 1491.3 4111.7 / 4111.7 826.3 / 826.3 Output Total 1170 / 1170 1325 / 1325 950 / 950 Balance 321.3 / 321.3 2786.7 / 2786.7 -123.7 / -123.7 Microbiology Past 72 Hours 04/26/19 17:15 Gram Stain - Final Wound Abcess - Aerobic & Anaerobic Swabs Wound Culture - Final Staphylococcus aureus Staphylococcus epidermidis Anaerobic Culture - Preliminary Checking for anaerobes, further studies to follow. 04/29/19 03:23 Stool Occult Blood (PEREZ) - Final Stool Occult Blood Positive 04/26/19 14:15 Gram Stain - Final Wound - Toe Wound Culture - Final Staphylococcus aureus Laboratory Tests Past 24 Hrs 04/29/19 04/29/19 04/29/19 05:44 05:44 05:44 WBC 7.0 RBC 2.67 L Hgb 8.1 L Hct 24.3 L MCV 91.0 MCH 30.3 MCHC 33.3 RDW 13.3 RDW Differential 43.9 Plt Count 253 MPV 9.0 Immature Gran % (Auto) 0.700 Neut % (Auto) 74.8 H Lymph % (Auto) 9.8 L [place] % (Auto) 9.7 Eos % (Auto) 4.3 Baso % (Auto) 0.7 Absolute Neuts (auto) 5.3 Absolute Lymphs (auto) 0.69 L Total Counted Not Reportable PT 27.3 H INR 2.5 APTT 54.6 H Sodium 138 Potassium 5.0 Chloride 109 H Carbon Dioxide 17.0 L Anion Gap 12 BUN 78 H Creatinine 4.52 H Estim Creat Clear Calc 11.57 Est GFR (MDRD) Af Amer 17 L Est GFR (MDRD) Non-Af 14 L BUN/Creatinine Ratio 17.3 Glucose 175 H Hemoglobin A1c Calcium 8.1 L Random Vancomycin 04/29/19 04/29/19 05:44 08:26 WBC RBC Hgb Hct MCV MCH MCHC RDW RDW Differential Plt Count MPV Immature Gran % (Auto) Neut % (Auto) Lymph % (Auto) [place] % (Auto) Eos % (Auto) Baso % (Auto) Absolute Neuts (auto) Absolute Lymphs (auto) Total Counted PT INR APTT Sodium Potassium Chloride Carbon Dioxide Anion Gap BUN Creatinine Estim Creat Clear Calc Est GFR (MDRD) Af Amer Est GFR (MDRD) Non-Af BUN/Creatinine Ratio Glucose Hemoglobin A1c 8.2 H Calcium Random Vancomycin 16.3 H POC Glucose 04/29/19 04/29/19 04/28/19 11:34 06:38 21:23 POC Glucose 242 H 171 H 235 H 04/28/19 16:53 POC Glucose 324 H Assessment/Plan All Active Problems (Last Reviewed 04/28/19 @ 11:35 by Omer Castellano MD) PAD (peripheral artery disease) (Acute) TYLOR (acute kidney injury) (Acute) Anemia (Acute) Heme positive stool (Acute) Osteomyelitis (Acute) Diabetes mellitus (Acute) Left foot infection (Acute) Gas gangrene (Acute) Non-pressure chronic ulcer of other part of left foot with fat layer exposed (Acute) I have been consulted in conjunction with Dr. Castellanos. Impression: Acute anemia. Heme positive stools Plan: Patient has been discussed with Dr. Castellanos. Dr. Castellanos will plan to perform an upper and lower scope with possible biopsies. Procedure details, risks and benefits have been explained to the patient. Patient has had the opportunity to ask and have questions answered. Patient verbally understands and agrees with the plan. Golytely will be utilized for bowel prep. Procedures will plan to be completed early next week. Plan to continue to hold Coumadin until after scopes. Thank you for allowing us to participate in this patient's care. Code Visit Office Visits / Consults: [id number] IP Consult L3
--- NOTE | 2019-04-29 14:10 | RAD_ITS ---
STUDY: X-RAY - LEFT FOOT CLINICAL: Male, 68 years old. Left hallux amputation TECHNIQUE: 2 intraoperative views view(s) of the foot. COMPARISON: None. FINDINGS: Intraoperative views demonstrate partial amputation of the first toe at the level of the head of the proximal phalanx. There is poor cortical definition of the metatarsi likely due to motion. Bony details are limited. RAD/Foot 2 Views IMPRESSION: Intraoperative views demonstrate partial amputation of the first toe at the level of the head of the proximal phalanx. Electronically Signed: Curtis Rye DO at 18:21 EDT Tel [phone], Service support ,
--- NOTE | 2019-04-29 15:30 | BON_PTH ---
PATIENT: LEANDER DRAKE LOC: [facility] U#:[id number] AGE/SX: 68/M ROOM: [facility] RE04/26/[address]: Dr. Leobardo Alonzo MD : 1950 BED: 1 DIS: 05/05/2019 SPEC #: [id number] RECD: 04/30/19 08:06 STATUS: DIAZ REQ #: [id number] ESTRELLITA: 04/29/19 15:[address]: Jael Paredes DEPT: SURGICAL PATHOLOGY RECD BY: Garrett Randolph ENTERED: 04/30/19 14:13 SP TYPE: Bone OTHR DR: MD Dr. Omer Alcantar MD Dr. Jeanna Fascione, DPM DO Dr. Jhonatan Garcia MD Dr. Robert Leininger, MD Tissues: Bone of foot, NOS Procedures: Decalcification bone/plaque Surgery Specimen Level IV Comments: @ Ordering doctor for DEC edited from to @ delphine KOCH at 05/03/19723 @ Ordering doctor for SUIV edited from to @ by AUGUST at 05/03/19 @ Submitting doctor edited from to @ delphine KOCH at 05/03/1924 HEADER OPERATION: Amputation hallux PRE-OP DIAGNOSIS: Osteomyelitis of left hallux TISSUE SUBMITTED: Hallux left foot MICROSCOPIC DIAGNOSIS Hallux, left foot: Ulceration with associated acute and chronic inflammation and granulation. Bone with acute osteomyelitis. Bone, skin and soft tissue at margin of resection with reparative and reactive change. AM:silke 05/05/19 MICROSCOPIC DESCRIPTION Slides are reviewed. GROSS DESCRIPTION Received in fixative is one container labeled with the patient's name and designated hallux left foot. The specimen consists of an amputated distal toe measuring 3.5 x 3.5 x 2.5 cm. The plantar surface contains an ulcer measuring 2.6 x 2 x 1.2 cm. The nail is slightly discolored. The skin, bone and soft tissue at the margin of resection appears to be grossly unremarkable. Rice Farmer sections are submitted in two cassettes as follows: 1 - bone, skin and soft tissue at margin of resection after decalcification, 2 - ulcer, skin, soft tissue and underlying bone after decalcification. / AM:silke 04/30/19 TC:2 CPT: 90547, 99586
[2019-04-29] MEDS: Bupivacaine Mpf 0.5% 30 ML VIAL (15:45)
--- NOTE | 2019-04-29 16:28 | OP.PCM_ITS ---
Problem List (1) Non-pressure chronic ulcer of other part of left foot with fat layer exposed Status: Acute Report of Operation Date of Procedure: 04/29/19 Pre-Operative Diagnosis: Osteomyelitis distal left phalanx. Unsalvageable distal hallux with ulcer secondary to gas infection Post-Operative Diagnosis: Osteomyelitis distal left phalanx. Unsalvageable distal hallux with ulcer secondary to gas infection Surgery/Procedure Performed:: Partial left hallux amputation Description of Surgical Findings:: Hemostasis: No tourniquet utilized, anatomic dissection performed, controlled Materials: 3-0 Vicryl, 2-0 and 3-0 Prolene Complications: None The patient tolerated the procedure anesthesia well. He was transported to the PACU vital signs stable vascular status intact to the left lower extremity. Postoperative x-rays were obtained while in the operating room demonstrating adequate partial hallux amputation without acute injuries or foreign body. He will be transferred back to the progressive care unit upon continued stability. He continues on IV antibiotics. Postoperative orders were entered electronically. business continuity management director: none - Surgeon: Jael Paredes DPM. Textile Machine Mechanic: Brett Rosado PGY1 Type of Anesthesia:: Local MAC Specimen's removed: Left distal phalanx of hallux bone sent to microbiology: Aerobic, anaerobic, acid-fast, fungal. Left distal hallux soft tissue and bone sent to pathology Description of Procedure: Indications: This 68-year-old male with significant past medical history of diabetes with neuropathy, kidney disease, atrial fibrillation, hypertension, and vessel calcification has been treated for a left hallux infection complicated with a re cent trauma. He had a bedside incision and drainage performed approximately 3 days ago in which the cellulitis has receded. He has dysvascular distal left hallux appearance and continued tissue devitalization in combination with exposed deeper bone and MRI that supports osteomyelitis. This is painful to palpate. Radiographs did not demonstrate osseous destruction however there was increased T2 intensity to the distal phalanx that corresponded with decreased intensity in T1. He is on IV antibiotics including clindamycin, vancomycin, and Zosyn under the management of infectious disease. He has been undergoing traditional wound care as well while in house. Now the toe is demarcated and I recommended partial hallux amputation to remove the nidus of infection. He is not a great long-term antibiotic candidate due to his kidney disease and now his recent C. difficile work-up status is noted. The preoperative indication, planned procedure, possible benefits, risks, complication, and anticipated healing time is were discussed in detail with patient. He understands and elects to proceed with surgery at this time. No guarantees were made. He understands risks and complications may include but are not limited to the following: Pain, swelling, scarring, continued loss of sensation, delayed or nonhealing, continued infection, loss of further limb, function or life, blood clot, transfer lesion or ulcer, or allergic reaction. Surgical consent and limb were signed. Preoperative risk was low to moderate and medical management per primary team is appreciated. His preoperative diagnostic data was also reviewed. Procedure in detail: The patient was transported to the operating room via cart and placed on the operating table in supine position. Final verification of patient, surgery, limb designation was performed via the timeout procedure. Well-padded pneumatic left ankle tourniquet was placed however this was not utilized. Local anesthetic was administered by the podiatry team. MAC sedation was initiated by the anesthesia team. He continued on IV antibiotics that he was already receiving on the progressive care unit floor. The left lower extremity was prepped and draped in the usual aseptic manner and surgery began as the following: First, a fishmouth incision was made to the left hallux at the hallux interphalangeal joint level down to bone. The distal hallux was disarticulated at the interphalangeal joint level with a 15 blade and was removed in toto from the table. Pathology and microbiology specimens were sent as noted. At this point the wound site appeared very clean and the articular surface bone was firm without discoloration and appears healthy. This was irrigated copiously with normal saline. At this time gloves and previously used instrumentation was removed from the table and new drapery was applied around the surgical site. A clean TPS blade was next used to resect the head of the proximal phalanx in a beveled manner to allow a non-tension flap closure and to get well behind the anticipated infection margin. All tendons were pulled out to length and resected utilizing surgical scissor. Minimal deep closure was performed with Vicryl suture. The flap was remodeled utilizing no touch technique and the skin edges were reapproximated with Prolene suture utilizing vertical mattress and simple suture techniques. Capillary fill time is brisk to the dorsal and plantar flap and no pulsatile bleeding was noted. At the level of resection it was also noted that there was adequate bleeding to suggest potential healing. A postoperative dressing consisting of Adaptic soaked in Betadine, gauze, Kerlix were applied. A postoperative x-ray was obtained prior to dressing application and this demonstrated adequate partial hallux amputation without foreign body or new acute injuries noted. After procedure: Patient tolerated the procedure anesthesia well. He was transferred to the PACU vital signs stable vascular status intact to left lower extremity. He will be transferred back to the progressive care unit upon continued stability which she will continue with medical management and IV antibiotics. He can resume Coumadin from a surgical standpoint any time; it was noted his INR was 2.5 earlier today. Is also noted he is currently being worked up for C. difficile due to his complaint of diarrhea. He will wear surgical shoe and only place weight on the heel for transfers with an assistive device. He will continue with nutritional supplementation and proper glycemic control to optimize healing. Therapy will assess him to see if penitentiary temporary placement is appropriate. I will continue to follow him close while in house. All of his postoperative orders were entered electronically. Jael Paredes DPM, [facility] - Complications none - Admit VTE Documentation VTE Present on Admission: Yes VTE Mechan Device Prophylaxis: SCD's VTE Pharm Prophylaxis ordered?: Yes
[2019-04-29 17:40] LABS: Bedside Glucose 221 mg/dL (70-110)
[2019-04-29] MEDS: cloNIDine HCl 0.1 MG Tablet PO (22:08)
[2019-04-29] MEDS: oxyCODONE 5 MG Tablet PO (22:09)
[2019-04-29 23:15] LABS: Bedside Glucose 341 mg/dL (70-110)
[2019-04-30] VITALS (11 sets, daily range): BP systolic 130–155; BP diastolic 79–83; PULSE 73–111; RESP 20–21; TEMP 36.7–37; O2SAT 96–98
[2019-04-30] MEDS: 0.9% NaCl Peripheral Flush Adult/Peds IV ×2 (01:18→01:20)
[2019-04-30] MEDS: Morphine 2 MG/ML Syringe 1 MG IV (01:18)
[2019-04-30] MEDS: oxyCODONE 5 MG Tablet PO ×2 (04:27→16:15)
[2019-04-30 06:20] LABS: Absolute Lymphocyte Count 0.76 X10^3/ul (0.83-4.51); Absolute Neutrophil Count 6.1 X10^3/uL (2.0-7.7); Basophil# 0.02 X10^3/uL; Basophil% 0.3 % (0-1); Eosinophil# 0.32 X10^3/uL; Hematocrit 24.9 % (40-54); Hemoglobin 8.3 g/dl (13.0-16.5); Lymphocyte # 0.76 X10^3/ul (4.0); Lymphocyte % 9.6 % (19-41); Mean Corp Hgb Conc 33.3 g/gl (32-36); Mean Corpuscular Hgb 30.2 pg (27.0-32.0); Mean Corpuscular Volume 90.5 fL (80-94); Mean Platelet Vol. 8.9 fl (6.2-12.0); Monocyte# 0.64 X10^3/uL; Monocyte% 8.1 % (0-10); Neutrophil # 6.12 X10^3/uL (2.7-7.7); Neutrophil % 77.1 % (47-70); Platelet Count 271 K/mm3 (150-450); RBC Distribution Width CV 13.3 % (11.6-14.6); RBC Distribution Width SD 43.5 fl (35.1-43.9); Red Blood Count 2.75 M/mm3 (4.6-6.2); White Blood Count 7.9 K/mm3 (4.4-11.0)
[2019-04-30 06:23] LABS: POSITIVE COUNT NO; POSITIVE DIFFERENTIAL NO; POSITIVE MORPHOLOGY NO
[2019-04-30 06:40] LABS: Anion Gap 10 (5-15); BUN 83 mg/dL (7-18); BUN/Creat Ratio 17.2 RATIO (10-20); Calcium,Total 8.2 mg/dL (8.5-10.1); Chloride 108 mmol/L (98-107); Creatinine, Serum 4.82 mg/dL (0.70-1.30); EST Glomerular Filtration Rate 13 mL/min (>60); Est Glom Filt Rate - Afr Amer 16 mL/min (>60); Estimated Creatinine Clearance 10.85 ml/min; Glucose 215 mg/dL (74-106); Potassium 4.8 mmol/L (3.5-5.1); Sodium Level 136 mmol/L (136-145)
[2019-04-30] MEDS: Insulin Lispro 100 UNIT/ML INSULN.PEN SQ ×4 (06:44→22:20)
[2019-04-30] MEDS: Doxazosin 4 MG Tablet 8 MG PO (08:16)
[2019-04-30] MEDS: Multivitamins,Therapeutic Tablet 1 TABLET PO (08:16)
[2019-04-30] MEDS: Metoprolol Tartrate 50 MG Tablet PO ×2 (08:17→22:20)
[2019-04-30] MEDS: cloNIDine HCl 0.1 MG Tablet PO ×2 (08:17→22:20)
[2019-04-30] MEDS: amLODIPine 10 MG Tablet PO (08:17)
[2019-04-30 08:31] LABS: Bedside Glucose 199 mg/dL (70-110)
[2019-04-30] MEDS: Cefazolin 1 GM/50 ML BAG IV (10:58)
--- NOTE | 2019-04-30 11:10 | PCM.PN.SRG ---
Patient Problems: Active and Suspected Problems (Last Reviewed 04/29/19 @ 16:02 by Lakshmi Claudio PA-C) PAD (peripheral artery disease) (Acute) TYLOR (acute kidney injury) (Acute) Anemia (Acute) Heme positive stool (Acute) Diabetes mellitus (Acute) Left foot infection (Acute) Gas gangrene (Acute) Other specified peripheral vascular diseases (Suspected) Non-pressure chronic ulcer of other part of left foot with fat layer exposed (Acute) Subjective: Patient's hemoglobin stable at 8.3. Patient did have a loose bowel movement no mention of any blood. Did discuss with Dr. Guardado at that patient would still be here on Friday. We will plan for EGD and colonoscopy at that time as long as INR is around 1.5. - Physical Exam General: Alert, Oriented x3, Cooperative, No apparent distress Lungs: Normal air movement Cardiovascular: Regular rate Abdomen: Soft, Non Tender, Non-Distended, Passing Flatus Neurological: Cranial nerves II-XII grossly intact Psych/Mental Status: Normal Affect Vital Signs Temp Pulse Resp BP Pulse Ox 98.6 F 87 20 H 148/83 H 96 04/30/19 04:07 04/30/19 08:17 04/30/19 04:07 04/30/19 04:07 04/30/19 04:07 Oxygen Delivery Method Room Air Weight: 212 lb 15.465 oz Body Mass Index (BMI) 38.9 Intake and Output for Last 24 Hours 04/28/19 04/29/19 04/30/19 23:59 23:59 23:59 Intake Total 4111.7 / 4111.7 1970.8 / 1970.8 156.6 / 156.6 Output Total 1325 / 1325 1500 / 1500 Balance 2786.7 / 2786.7 470.8 / 470.8 156.6 / 156.6 Microbiology Past 72 Hours 04/29/19 16:00 Gram Stain - Final Tissue - Left Foot 04/29/19 14:19 C. difficile DNA Amplification - Final Stool 04/26/19 14:25 Blood Culture - Preliminary Blood Culture (Wb) - Anticubital Left No growth in 48 hours. 04/26/19 17:15 Gram Stain - Final Wound Abcess - Aerobic & Anaerobic Swabs Wound Culture - Final Staphylococcus aureus Staphylococcus epidermidis Anaerobic Culture - Preliminary Checking for anaerobes, further studies to follow. 04/29/19 03:23 Stool Occult Blood (PEREZ) - Final Stool Occult Blood Positive 04/26/19 14:15 Gram Stain - Final Wound - Toe Wound Culture - Final Staphylococcus aureus Laboratory Tests Past 24 Hrs 04/26/19 04/30/19 04/30/19 18:32 06:00 06:00 WBC 7.9 RBC 2.75 L Hgb 8.3 L Hct 24.9 L MCV 90.5 MCH 30.2 MCHC 33.3 RDW 13.3 RDW Differential 43.5 Plt Count 271 MPV 8.9 Immature Gran % (Auto) 0.900 Neut % (Auto) 77.1 H Lymph % (Auto) 9.6 L [place] % (Auto) 8.1 Eos % (Auto) 4.0 Baso % (Auto) 0.3 Absolute Neuts (auto) 6.1 Absolute Lymphs (auto) 0.76 L Total Counted Not Reportable Sodium 136 Potassium 4.8 Chloride 108 H Carbon Dioxide 18.0 L Anion Gap 10 BUN 83 H Creatinine 4.82 H Estim Creat Clear Calc 10.85 Est GFR (MDRD) Af Amer 16 L Est GFR (MDRD) Non-Af 13 L BUN/Creatinine Ratio 17.2 Glucose 215 H Calcium 8.2 L Total Protein (PEP) IgG IgA IgM Albumin (FLORESITA) Albumin/Globulin (FLORESITA) Fnjri-9-Pmypkmwda FLORESITA Bwdzb-4-Lqyjtzkkw LFORESITA Beta-Globulins (FLORESITA) Gamma Globulins (FLORESITA) FLORESITA M-Kale Crossmatch See Detail 04/30/19 06:00 WBC RBC Hgb Hct MCV MCH MCHC RDW RDW Differential Plt Count MPV Immature Gran % (Auto) Neut % (Auto) Lymph % (Auto) [place] % (Auto) Eos % (Auto) Baso % (Auto) Absolute Neuts (auto) Absolute Lymphs (auto) Total Counted Sodium Potassium Chloride Carbon Dioxide Anion Gap BUN Creatinine Estim Creat Clear Calc Est GFR (MDRD) Af Amer Est GFR (MDRD) Non-Af BUN/Creatinine Ratio Glucose Calcium Total Protein (PEP) Pending IgG Pending IgA Pending IgM Pending Albumin (FLORESITA) Pending Albumin/Globulin (FLORESITA) Pending Dbrqq-1-Xgtthmilt FLORESITA Pending Ygeaj-0-Unkluvake FLORESITA Pending Beta-Globulins (FLORESITA) Pending Gamma Globulins (FLORESITA) Pending FLORESITA M-Kale Pending Crossmatch POC Glucose 04/30/19 04/29/19 04/29/19 06:41 21:58 17:21 POC Glucose 199 H 341 H 221 H 04/29/19 11:34 POC Glucose 242 H Medical Necessity - Tobacco Use Smoking Status: Never smoker Tobacco Use: Non-smoker Assessment/Plan All Active Problems (Last Reviewed 04/29/19 @ 16:02 by Lakshmi Claudio PA-C) PAD (peripheral artery disease) (Acute) TYLOR (acute kidney injury) (Acute) Anemia (Acute) Heme positive stool (Acute) Osteomyelitis (Acute) Diabetes mellitus (Acute) Left foot infection (Acute) Gas gangrene (Acute) Non-pressure chronic ulcer of other part of left foot with fat layer exposed (Acute) 68-year-old male with anemia/positive fecal occult blood, status post toe amputation due to gas gangrene on Coumadin for A. fib which has been held 1. We will plan to do EGD and colonoscopy on Friday about 10:45 AM. We will plan to prep on Friday as long as his INR has trended down to around 1.5. We will do the GoLYTELY prep and only clears on Friday and try to avoid high-fiber foods until then. I have discussed the above with the patient. I have offered the patient colonoscopy for evaluation. I have explained the risks/benefits of the procedure and described the procedure. I have discussed the risks with the patient, including but not limited to: infection, bleeding, perforation of the GI tract requiring emergency surgery, inability to complete the procedure, injury to any internal organs, complications of anesthesia, etc. - the patient understands and agrees to proceed. I have answered all the patient's questions to the patient's satisfaction and the patient has no further questions. Dr. Savage will be covering this weekend. Nina Castellanos M.D. Pager: [phone] [facility] [address] [place] [address], [facility], [address] [place] [address] Office: [phone] Code Visit Inpatient E&M: 65842 [facility] Hosp L1
--- NOTE | 2019-04-30 11:13 | PN.SURG_ITS ---
Patient Problems: Active and Suspected Problems (Last Reviewed 04/29/19 @ 16:02 by Lakshmi Claudio PA-C) PAD (peripheral artery disease) (Acute) TYLOR (acute kidney injury) (Acute) Anemia (Acute) Heme positive stool (Acute) Diabetes mellitus (Acute) Left foot infection (Acute) Gas gangrene (Acute) Other specified peripheral vascular diseases (Suspected) Non-pressure chronic ulcer of other part of left foot with fat layer exposed (Acute) Subjective: Patient's hemoglobin stable at 8.3. Patient did have a loose bowel movement no mention of any blood. Did discuss with Dr. Guardado at that patient would still be here on Friday. We will plan for EGD and colonoscopy at that time as long as INR is around 1.5. - Physical Exam General: Alert, Oriented x3, Cooperative, No apparent distress Lungs: Normal air movement Cardiovascular: Regular rate Abdomen: Soft, Non Tender, Non-Distended, Passing Flatus Neurological: Cranial nerves II-XII grossly intact Psych/Mental Status: Normal Affect Vital Signs Temp Pulse Resp BP Pulse Ox 98.6 F 87 20 H 148/83 H 96 04/30/19 04:07 04/30/19 08:17 04/30/19 04:07 04/30/19 04:07 04/30/19 04:07 Oxygen Delivery Method Room Air Weight: 212 lb 15.465 oz Body Mass Index (BMI) 38.9 Intake and Output for Last 24 Hours 04/28/19 04/29/19 04/30/19 23:59 23:59 23:59 Intake Total 4111.7 / 4111.7 1970.8 / 1970.8 156.6 / 156.6 Output Total 1325 / 1325 1500 / 1500 Balance 2786.7 / 2786.7 470.8 / 470.8 156.6 / 156.6 Microbiology Past 72 Hours 04/29/19 16:00 Gram Stain - Final Tissue - Left Foot 04/29/19 14:19 C. difficile DNA Amplification - Final Stool 04/26/19 14:25 Blood Culture - Preliminary Blood Culture (Wb) - Anticubital Left No growth in 48 hours. 04/26/19 17:15 Gram Stain - Final Wound Abcess - Aerobic & Anaerobic Swabs Wound Culture - Final Staphylococcus aureus Staphylococcus epidermidis Anaerobic Culture - Preliminary Checking for anaerobes, further studies to follow. 04/29/19 03:23 Stool Occult Blood (PEREZ) - Final Stool Occult Blood Positive 04/26/19 14:15 Gram Stain - Final Wound - Toe Wound Culture - Final Staphylococcus aureus Laboratory Tests Past 24 Hrs 04/26/19 04/30/19 04/30/19 18:32 06:00 06:00 WBC 7.9 RBC 2.75 L Hgb 8.3 L Hct 24.9 L MCV 90.5 MCH 30.2 MCHC 33.3 RDW 13.3 RDW Differential 43.5 Plt Count 271 MPV 8.9 Immature Gran % (Auto) 0.900 Neut % (Auto) 77.1 H Lymph % (Auto) 9.6 L [place] % (Auto) 8.1 Eos % (Auto) 4.0 Baso % (Auto) 0.3 Absolute Neuts (auto) 6.1 Absolute Lymphs (auto) 0.76 L Total Counted Not Reportable Sodium 136 Potassium 4.8 Chloride 108 H Carbon Dioxide 18.0 L Anion Gap 10 BUN 83 H Creatinine 4.82 H Estim Creat Clear Calc 10.85 Est GFR (MDRD) Af Amer 16 L Est GFR (MDRD) Non-Af 13 L BUN/Creatinine Ratio 17.2 Glucose 215 H Calcium 8.2 L Total Protein (PEP) IgG IgA IgM Albumin (FLORESITA) Albumin/Globulin (FLORESITA) Xgpkb-3-Upjhyvszr FLORESITA Cihsh-6-Euwserpra FLORESITA Beta-Globulins (FLORESITA) Gamma Globulins (FLORESITA) FLORESITA M-Kale Crossmatch See Detail 04/30/19 06:00 WBC RBC Hgb Hct MCV MCH MCHC RDW RDW Differential Plt Count MPV Immature Gran % (Auto) Neut % (Auto) Lymph % (Auto) [place] % (Auto) Eos % (Auto) Baso % (Auto) Absolute Neuts (auto) Absolute Lymphs (auto) Total Counted Sodium Potassium Chloride Carbon Dioxide Anion Gap BUN Creatinine Estim Creat Clear Calc Est GFR (MDRD) Af Amer Est GFR (MDRD) Non-Af BUN/Creatinine Ratio Glucose Calcium Total Protein (PEP) Pending IgG Pending IgA Pending IgM Pending Albumin (FLORESITA) Pending Albumin/Globulin (FLORESITA) Pending Iqbfz-8-Nkzsuwlkb FLORESITA Pending Jdzba-4-Kcofrtwpb FLORESITA Pending Beta-Globulins (FLORESITA) Pending Gamma Globulins (FLORESITA) Pending FLORESITA M-Kale Pending Crossmatch POC Glucose 04/30/19 04/29/19 04/29/19 06:41 21:58 17:21 POC Glucose 199 H 341 H 221 H 04/29/19 11:34 POC Glucose 242 H Medical Necessity - Tobacco Use Smoking Status: Never smoker Tobacco Use: Non-smoker Assessment/Plan All Active Problems (Last Reviewed 04/29/19 @ 16:02 by Lakshmi Claudio PA-C) PAD (peripheral artery disease) (Acute) TYLOR (acute kidney injury) (Acute) Anemia (Acute) Heme positive stool (Acute) Osteomyelitis (Acute) Diabetes mellitus (Acute) Left foot infection (Acute) Gas gangrene (Acute) Non-pressure chronic ulcer of other part of left foot with fat layer exposed (Acute) 68-year-old male with anemia/positive fecal occult blood, status post toe amputation due to gas gangrene on Coumadin for A. fib which has been held 1. We will plan to do EGD and colonoscopy on Friday about 10:45 AM. We will plan to prep on Friday as long as his INR has trended down to around 1.5. We will do the GoLYTELY prep and only clears on Friday and try to avoid high-fiber foods until then. I have discussed the above with the patient. I have offered the patient colonoscopy for evaluation. I have explained the risks/benefits of the procedure and described the procedure. I have discussed the risks with the patient, including but not l imited to: infection, bleeding, perforation of the GI tract requiring emergency surgery, inability to complete the procedure, injury to any internal organs, complications of anesthesia, etc. - the patient understands and agrees to proceed. I have answered all the patient's questions to the patient's satisfaction and the patient has no further questions. Dr. Savage will be covering this weekend. Nina Castellanos M.D. Pager: [phone] [facility] [address] [place] [address], [facility], [address] [place] [address] Office: [phone] Code Visit Inpatient E&M: [id number] [facility] Hosp L1
[2019-04-30 11:41] LABS: Bedside Glucose 292 mg/dL (70-110)
--- NOTE | 2019-04-30 12:01 | PN.RENAL_ITS ---
Patient Problems: Active and Suspected Problems (Last Reviewed 04/29/19 @ 16:02 by Lakshmi Claudio PA-C) PAD (peripheral artery disease) (Acute) TYLOR (acute kidney injury) (Acute) Anemia (Acute) Heme positive stool (Acute) Diabetes mellitus (Acute) Left foot infection (Acute) Gas gangrene (Acute) Other specified peripheral vascular diseases (Suspected) Non-pressure chronic ulcer of other part of left foot with fat layer exposed (Acute) Subjective: No new complaints - Physical Exam General: Alert, Oriented x3, Cooperative HEENT: Atraumatic, PERRLA, EOMI, Normocephalic Neck: Supple, No JVD, Negative Carotid Bruits Lungs: Clear to auscultation, Normal air movement Cardiovascular: Regular rate, No murmurs Abdomen: Bowel Sounds Present, Soft, Non Tender Extremities: No edema, Capillary Refill Less than 3 Seconds Skin: No rashes, No breakdown Musculoskeletal: No Tenderness to Palpation of Joints or Extremities Neurological: Cranial nerves II-XII grossly intact Psych/Mental Status: Normal Affect, Appropriate Vital Signs Temp Pulse Resp BP Pulse Ox 98.6 F 87 20 H 148/83 H 96 04/30/19 04:07 04/30/19 08:17 04/30/19 04:07 04/30/19 04:07 04/30/19 04:07 Oxygen Delivery Method Room Air Weight: 96.6 kg Body Mass Index (BMI) 38.9 Intake and Output for Last 24 Hours 04/28/19 04/29/19 04/30/19 23:59 23:59 23:59 Intake Total 4111.7 / 4111.7 1970.8 / 1970.8 156.6 / 156.6 Output Total 1325 / 1325 1500 / 1500 Balance 2786.7 / 2786.7 470.8 / 470.8 156.6 / 156.6 Microbiology Past 72 Hours 04/29/19 16:00 Gram Stain - Final Tissue - Left Foot 04/29/19 14:19 C. difficile DNA Amplification - Final Stool 04/26/19 14:25 Blood Culture - Preliminary Blood Culture (Wb) - Anticubital Left No growth in 48 hours. 04/26/19 17:15 Gram Stain - Final Wound Abcess - Aerobic & Anaerobic Swabs Wound Culture - Final Staphylococcus aureus Staphylococcus epidermidis Anaerobic Culture - Preliminary Checking for anaerobes, further studies to follow. 04/29/19 03:23 Stool Occult Blood (PEREZ) - Final Stool Occult Blood Positive 04/26/19 14:15 Gram Stain - Final Wound - Toe Wound Culture - Final Staphylococcus aureus Laboratory Tests Past 24 Hrs 04/26/19 04/30/19 04/30/19 18:32 06:00 06:00 WBC 7.9 RBC 2.75 L Hgb 8.3 L Hct 24.9 L MCV 90.5 MCH 30.2 MCHC 33.3 RDW 13.3 RDW Differential 43.5 Plt Count 271 MPV 8.9 Immature Gran % (Auto) 0.900 Neut % (Auto) 77.1 H Lymph % (Auto) 9.6 L [place] % (Auto) 8.1 Eos % (Auto) 4.0 Baso % (Auto) 0.3 Absolute Neuts (auto) 6.1 Absolute Lymphs (auto) 0.76 L Total Counted Not Reportable Sodium 136 Potassium 4.8 Chloride 108 H Carbon Dioxide 18.0 L Anion Gap 10 BUN 83 H Creatinine 4.82 H Estim Creat Clear Calc 10.85 Est GFR (MDRD) Af Amer 16 L Est GFR (MDRD) Non-Af 13 L BUN/Creatinine Ratio 17.2 Glucose 215 H Calcium 8.2 L Total Protein (PEP) IgG IgA IgM Albumin (FLORESITA) Albumin/Globulin (FLORESITA) Dotgv-3-Eqcakunvi FLORESITA Rtnyc-6-Rizrrputj FLORESITA Beta-Globulins (FLORESITA) Gamma Globulins (FLORESITA) FLORESITA M-Kale Crossmatch See Detail 04/30/19 06:00 WBC RBC Hgb Hct MCV MCH MCHC RDW RDW Differential Plt Count MPV Immature Gran % (Auto) Neut % (Auto) Lymph % (Auto) [place] % (Auto) Eos % (Auto) Baso % (Auto) Absolute Neuts (auto) Absolute Lymphs (auto) Total Counted Sodium Potassium Chloride Carbon Dioxide Anion Gap BUN Creatinine Estim Creat Clear Calc Est GFR (MDRD) Af Amer Est GFR (MDRD) Non-Af BUN/Creatinine Ratio Glucose Calcium Total Protein (PEP) Pending IgG Pending IgA Pending IgM Pending Albumin (FLORESITA) Pending Albumin/Globulin (FLORESITA) Pending Jrezu-1-Ilnhunveg FLORESITA Pending Mbsei-2-Wrzhtgpty FLORESITA Pending Beta-Globulins (FLORESITA) Pending Gamma Globulins (FLORESITA) Pending FLORESITA M-Kale Pending Crossmatch POC Glucose 04/30/19 04/30/19 04/29/19 11:34 06:41 21:58 POC Glucose 292 H 199 H 341 H 04/29/19 17:21 POC Glucose 221 H Medical Necessity - Tobacco Use Smoking Status: Never smoker Tobacco Use: Non-smoker Assessment/Plan All Active Problems (Last Reviewed 04/29/19 @ 16:02 by Lakshmi Claudio PA-C) PAD (peripheral artery disease) (Acute) TYLOR (acute kidney injury) (Acute) Anemia (Acute) Heme positive stool (Acute) Osteomyelitis (Acute) Diabetes mellitus (Acute) Left foot infection (Acute) Gas gangrene (Acute) Non-pressure chronic ulcer of other part of left foot with fat layer exposed (Acute) TYLOR CKD 4 baseline creatinine was in 2 as of 2017. early this year presented with creatinine of 3.2. now in mid 4s. proteinuria of about 3.5 gm. renal USG looks ok. will check SPEP. likely progression of kidney disease vs worsening in setting of infection. he is off vancomycin already. no acute indications for di alysis right now. will follow HTN. generally poorly controlled. values are ok now proteinuria. SPEP ordered
--- NOTE | 2019-04-30 13:57 | PN_ITS ---
Patient Problems: Active and Suspected Problems (Last Reviewed 04/29/19 @ 16:02 by Lakshmi Claudio PA-C) PAD (peripheral artery disease) (Acute) TYLOR (acute kidney injury) (Acute) Anemia (Acute) Heme positive stool (Acute) Diabetes mellitus (Acute) Left foot infection (Acute) Gas gangrene (Acute) Other specified peripheral vascular diseases (Suspected) Non-pressure chronic ulcer of other part of left foot with fat layer exposed (Acute) Subjective: This 68-year-old male with multiple comorbidities was seen bedside postoperative day #1 for partial left hallux amputation secondary to osteomyelitis. he denies fever, chill, nausea, vomiting, loss of appetite, calf pain, chest pain, shortness of breath. He relates increased fatigue and he just woke up recently this afternoon. - Physical Exam General: Alert, Oriented x3, Cooperative Extremities: No cyanosis, Capillary Refill Less than 3 Seconds - All digits of the left foot and capillary fill time is less than 3 seconds to the dorsal amputation site and less than 4 seconds to the plantar aspect, No Calf Tenderness - Negative Yany and Demarco sign bilateral, Diminished Peripheral Pulses, Edema - Decreased left forefoot, - - Compartment soft to palpate left foot Skin: Incision - Incision amputation site is well coapted and aligned without gapping, necrosis, erythema, streaking, odor, or signs of infection. Musculoskeletal: No Tenderness to Palpation of Joints or Extremities, Muscle Wasting, - - Partial left hallux amputation Neurological: - - Lack of epicritic sensation light touch consistent with neuropathy Psych/Mental Status: Normal Affect, Appropriate Vital Signs Temp Pulse Resp BP Pulse Ox 98.4 F 89 20 H 155/79 H 98 04/30/19 10:07 04/30/19 10:07 04/30/19 10:07 04/30/19 10:07 04/30/19 10:07 Oxygen Delivery Method Room Air Weight: 96.6 kg Body Mass Index (BMI) 38.9 Intake and Output for Last 24 Hours 04/28/19 04/29/19 04/30/19 23:59 23:59 23:59 Intake Total 4111.7 / 4111.7 1970.8 / 1970.8 836.6 / 836.6 Output Total 1325 / 1325 1500 / 1500 Balance 2786.7 / 2786.7 470.8 / 470.8 836.6 / 836.6 Microbiology Past 72 Hours 04/29/19 16:00 Gram Stain - Final Tissue - Left Foot Wound Culture - Preliminary No growth-Final to follow 04/29/19 14:19 C. difficile DNA Amplification - Final Stool 04/26/19 14:25 Blood Culture - Preliminary Blood Culture (Wb) - Anticubital Left No growth in 48 hours. 04/26/19 17:15 Gram Stain - Final Wound Abcess - Aerobic & Anaerobic Swabs Wound Culture - Final Staphylococcus aureus Staphylococcus epidermidis Anaerobic Culture - Preliminary Checking for anaerobes, further studies to follow. 04/29/19 03:23 Stool Occult Blood (PEREZ) - Final Stool Occult Blood Positive 04/26/19 14:15 Gram Stain - Final Wound - Toe Wound Culture - Final Staphylococcus aureus Laboratory Tests Past 24 Hrs 04/26/19 04/30/19 04/30/19 18:32 06:00 06:00 WBC 7.9 RBC 2.75 L Hgb 8.3 L Hct 24.9 L MCV 90.5 MCH 30.2 MCHC 33.3 RDW 13.3 RDW Differential 43.5 Plt Count 271 MPV 8.9 Immature Gran % (Auto) 0.900 Neut % (Auto) 77.1 H Lymph % (Auto) 9.6 L [place] % (Auto) 8.1 Eos % (Auto) 4.0 Baso % (Auto) 0.3 Absolute Neuts (auto) 6.1 Absolute Lymphs (auto) 0.76 L Total Counted Not Reportable Sodium 136 Potassium 4.8 Chloride 108 H Carbon Dioxide 18.0 L Anion Gap 10 BUN 83 H Creatinine 4.82 H Estim Creat Clear Calc 10.85 Est GFR (MDRD) Af Amer 16 L Est GFR (MDRD) Non-Af 13 L BUN/Creatinine Ratio 17.2 Glucose 215 H Calcium 8.2 L Total Protein (PEP) IgG IgA IgM Albumin (FLORESITA) Albumin/Globulin (FLORESITA) Kbcqw-5-Bpazzonau FLORESITA Hvinc-4-Owrhbyafs FLORESITA Beta-Globulins (FLORESITA) Gamma Globulins (FLORESITA) FLORESITA M-Kale Crossmatch See Detail 04/30/19 06:00 WBC RBC Hgb Hct MCV MCH MCHC RDW RDW Differential Plt Count MPV Immature Gran % (Auto) Neut % (Auto) Lymph % (Auto) [place] % (Auto) Eos % (Auto) Baso % (Auto) Absolute Neuts (auto) Absolute Lymphs (auto) Total Counted Sodium Potassium Chloride Carbon Dioxide Anion Gap BUN Creatinine Estim Creat Clear Calc Est GFR (MDRD) Af Amer Est GFR (MDRD) Non-Af BUN/Creatinine Ratio Glucose Calcium Total Protein (PEP) Pending IgG Pending IgA Pending IgM Pending Albumin (FLORESITA) Pending Albumin/Globulin (FLORESITA) Pending Eepoe-3-Xkgipdiox FLORESITA Pending Icxwv-8-Mvkvezqer FLORESITA Pending Beta-Globulins (FLORESITA) Pending Gamma Globulins (FLORESITA) Pending FLORESITA M-Kale Pending Crossmatch POC Glucose 04/30/19 04/30/19 04/29/19 11:34 06:41 21:58 POC Glucose 292 H 199 H 341 H 04/29/19 17:21 POC Glucose 221 H Medical Necessity - Tobacco Use Smoking Status: Never smoker Tobacco Use: Non-smoker Assessment/Plan All Active Problems (Last Reviewed 04/29/19 @ 16:02 by Lakshmi Claudio PA-C) PAD (peripheral artery disease) (Acute) TYLOR (acute kidney injury) (Acute) Anemia (Acute) Heme positive stool (Acute) Osteomyelitis (Acute) Diabetes mellitus (Acute) Left foot infection (Acute) Gas gangrene (Acute) Non-pressure chronic ulcer of other part of left foot with fat layer exposed (Acute) Postoperative day #1 left partial hallux amputation secondary to osteomyelitis Small vessel disease and artery calcification; no vascular intervention planned at this time Diabetes with neuropathy Malnutrition Other comorbidities: TYLOR, CKD atrial fibrillation, chronic anemia, hypertension Reviewed and discussed his case. His labs were reviewed and he does not have le ukocytosis at this time; white blood cell count 7.9. He remains afebrile and his vital signs are stable. His postoperative site was evaluated and clinically looks stable and viable at this time. A new dry gauze dressing was applied; to leave in place for 1 week. To continue heel weight-bear for transfers with the left surgical shoe in place; to use assistive device as needed. His postoperative x-ray was also reviewed with adequate partial toe amputation noted without acute injuries. His wound microbiology previous reports are growing out Staphylococcus aureus and Staphylococcus epidermidis; this is preoperative. Bone was sent from surgery to microbiology and pathology. These results are pending. The infection appeared to be pretty distal to the hallux interphalangeal joint and the additional head of the proximal phalanx was resected to allow closure with a viable flap and to prevent bony prominence. This resection site was very clear and did not appear to be locally involved with the initial infection area of concern. Infectious disease on consultation is greatly appreciated. Is noted he continues on IV antibiotics; ceftezole and clindamycin. It is noted he had a Hemoccult positive and is tentatively scheduled for an upper and lower GI scope on Friday. Medical management and DVT prophylaxis per primary team is greatly appreciated. I will continue to follow on a weekly basis while in house. Please not hesitate to call if you have any questions or concerns. After discharge I recommend he follows up at the [facility]. It is noted the patient is interested in moving to [place] at this time there which I advised him to communicate this with his discharge planning team and I would recommend a podiatric surgical referral if he does move out of the state. Jael Paredes DPM, [facility] [phone]
--- NOTE | 2019-04-30 14:27 | PCM.PN.ID ---
Patient Problems: Active and Suspected Problems (Last Reviewed 04/29/19 @ 16:02 by Lakshmi Claudio PA-C) PAD (peripheral artery disease) (Acute) TYLOR (acute kidney injury) (Acute) Anemia (Acute) Heme positive stool (Acute) Diabetes mellitus (Acute) Left foot infection (Acute) Gas gangrene (Acute) Other specified peripheral vascular diseases (Suspected) Non-pressure chronic ulcer of other part of left foot with fat layer exposed (Acute) Subjective: Diarrhea improved, no fever, no abd pain - Physical Exam General: Alert, Cooperative, No apparent distress Lungs: Clear to auscultation, Normal air movement Cardiovascular: Regular rate, Regular Rhythm Abdomen: Soft, Non Tender, Non-Distended Skin: Ulcer/ Wound - foot wrapped Vital Signs Temp Pulse Resp BP Pulse Ox 98.4 F 89 20 H 155/79 H 98 04/30/19 10:07 04/30/19 10:07 04/30/19 10:07 04/30/19 10:07 04/30/19 10:07 Oxygen Delivery Method Room Air Weight: 96.6 kg Body Mass Index (BMI) 38.9 Intake and Output for Last 24 Hours 04/28/19 04/29/19 04/30/19 23:59 23:59 23:59 Intake Total 4111.7 / 4111.7 1970.8 / 1970.8 836.6 / 836.6 Output Total 1325 / 1325 1500 / 1500 Balance 2786.7 / 2786.7 470.8 / 470.8 836.6 / 836.6 Microbiology Past 72 Hours 04/29/19 16:00 Gram Stain - Final Tissue - Left Foot Wound Culture - Preliminary No growth-Final to follow 04/29/19 14:19 C. difficile DNA Amplification - Final Stool 04/26/19 14:25 Blood Culture - Preliminary Blood Culture (Wb) - Anticubital Left No growth in 48 hours. 04/26/19 17:15 Gram Stain - Final Wound Abcess - Aerobic & Anaerobic Swabs Wound Culture - Final Staphylococcus aureus Staphylococcus epidermidis Anaerobic Culture - Preliminary Checking for anaerobes, further studies to follow. 04/29/19 03:23 Stool Occult Blood (PEREZ) - Final Stool Occult Blood Positive 04/26/19 14:15 Gram Stain - Final Wound - Toe Wound Culture - Final Staphylococcus aureus Laboratory Tests Past 24 Hrs 0504/30/19 04/30/19 18:32 06:00 06:00 WBC 7.9 RBC 2.75 L Hgb 8.3 L Hct 24.9 L MCV 90.5 MCH 30.2 MCHC 33.3 RDW 13.3 RDW Differential 43.5 Plt Count 271 MPV 8.9 Immature Gran % (Auto) 0.900 Neut % (Auto) 77.1 H Lymph % (Auto) 9.6 L [place] % (Auto) 8.1 Eos % (Auto) 4.0 Baso % (Auto) 0.3 Absolute Neuts (auto) 6.1 Absolute Lymphs (auto) 0.76 L Total Counted Not Reportable Sodium 136 Potassium 4.8 Chloride 108 H Carbon Dioxide 18.0 L Anion Gap 10 BUN 83 H Creatinine 4.82 H Estim Creat Clear Calc 10.85 Est GFR (MDRD) Af Amer 16 L Est GFR (MDRD) Non-Af 13 L BUN/Creatinine Ratio 17.2 Glucose 215 H Calcium 8.2 L Total Protein (PEP) IgG IgA IgM Albumin (FLORESITA) Albumin/Globulin (FLORESITA) Esfaj-2-Jfxnvrhwr FLORESITA Wnept-7-Pmyuvquzk FLORESITA Beta-Globulins (FLORESITA) Gamma Globulins (FLORESITA) FLORESITA M-Kale Crossmatch See Detail 04/30/19 06:00 WBC RBC Hgb Hct MCV MCH MCHC RDW RDW Differential Plt Count MPV Immature Gran % (Auto) Neut % (Auto) Lymph % (Auto) [place] % (Auto) Eos % (Auto) Baso % (Auto) Absolute Neuts (auto) Absolute Lymphs (auto) Total Counted Sodium Potassium Chloride Carbon Dioxide Anion Gap BUN Creatinine Estim Creat Clear Calc Est GFR (MDRD) Af Amer Est GFR (MDRD) Non-Af BUN/Creatinine Ratio Glucose Calcium Total Protein (PEP) Pending IgG Pending IgA Pending IgM Pending Albumin (FLORESITA) Pending Albumin/Globulin (FLORESITA) Pending Adtfs-5-Ppnntecdu FLORESITA Pending Hkhjz-2-Scdkorgdc FLORESITA Pending Beta-Globulins (FLORESITA) Pending Gamma Globulins (FLORESITA) Pending FLORESITA M-Kale Pending Crossmatch POC Glucose 04/30/19 04/30/19 04/29/19 11:34 06:41 21:58 POC Glucose 292 H 199 H 341 H 04/29/19 17:21 POC Glucose 221 H Medical Necessity - Tobacco Use Smoking Status: Never smoker Tobacco Use: Non-smoker Route of nutrition/ use of supplements: [] Nutritional Intake: [] IV Site: [] Estrella Catheter: [] - Assessment/Plan Antibiotics: [] Assessment/Plan: [] Active and Suspected Problems (Last Reviewed 02/10/19 @ 13:22 by Yousif Clark MD) Diabetes mellitus (Acute) Left foot infection (Acute) Gas gangrene (Acute) Other specified peripheral vascular diseases (Suspected) Non-pressure chronic ulcer of other part of left foot with fat layer exposed (Acute) L 1st toe gas gangrene - had bedside I&D by Dr. Lezama 04/27. OR for amputation done 04/29. Wound cx with MSSA and MSSE. Stop clinda, continue cefazolin. Cdiff was neg, diarrhea improving. TYLOR on CKD - neph following Will follow
--- NOTE | 2019-04-30 15:07 | CASEMGMT ---
SW met with patient, introduced self and role at [facility]. Patient was finished eating SW helped him clear away his tray. SW asked patient how he was doing. He felt he was okay except he really misses his dogs. SW asked him about his dogs. He told SW all about them. He was a little tearful when talking about them. SW provided emotional support. Patient then told SW the doctor told him to tell SW that he wants to go to [place] to stay with a friend that will help him with his rehab. He said she helped her parents and other people. SW told him we will follow and assist with d/c planning and hopefully be able to work out all the details. Alicja FIELDS MSW
--- NOTE | 2019-04-30 17:11 | PCM.PN.HOSP ---
Patient Problems: Active and Suspected Problems (Last Reviewed 04/29/19 @ 16:02 by Lakshmi Claudio PA-C) PAD (peripheral artery disease) (Acute) TYLOR (acute kidney injury) (Acute) Anemia (Acute) Heme positive stool (Acute) Diabetes mellitus (Acute) Left foot infection (Acute) Gas gangrene (Acute) Other specified peripheral vascular diseases (Suspected) Non-pressure chronic ulcer of other part of left foot with fat layer exposed (Acute) Subjective: Patient had left first great toe amputation on 04/29. Cultures showing MSSA and MSSE. In by ID and bronze plater. Patient seen by bronze plater and ID. Patient also seen by surgeon for acute on chronic anemia. Hemoglobin running around 8. Patient is scheduled for EGD and colonoscopy on Friday. Vitals/I&O's: Vital Signs Temp Pulse Resp BP Pulse Ox 98.1 F 87 20 H 130/80 H 97 04/30/19 16:00 04/30/19 16:00 04/30/19 16:00 04/30/19 16:00 04/30/19 16:00 Oxygen Delivery Method Room Air Weight: 212 lb 15.465 oz Body Mass Index (BMI) 38.9 Intake and Output for Last 24 Hours 04/28/19 04/29/19 04/30/19 23:59 23:59 23:59 Intake Total 4111.7 / 4111.7 1970.8 / 1970.8 836.6 / 836.6 Output Total 1325 / 1325 1500 / 1500 Balance 2786.7 / 2786.7 470.8 / 470.8 836.6 / 836.6 General: Alert, Oriented x3, Cooperative HEENT: Atraumatic, PERRLA, EOMI, Normocephalic Neck: Supple, No JVD, Negative Carotid Bruits Lungs: Clear to auscultation, Normal air movement Cardiovascular: Regular rate, Regular Rhythm, Normal S1, Normal S2, No murmurs Abdomen: Bowel Sounds Present, Soft, Non Tender, Non-Distended Extremities: No edema, Capillary Refill Less than 3 Seconds Skin: Ulcer/ Wound - Left great toe amputation Musculoskeletal: Arthritic Changes, Tenderness, - Neurological: Cranial nerves II-XII grossly intact, Motor Exam 5/5 strength throughout Psych/Mental Status: Normal Affect, Appropriate Microbiology Past 72 Hours 04/29/19 16:00 Tissue - Left Foot Gram Stain - Final 04/29/19 16:00 Tissue - Left Foot Wound Culture - Preliminary No growth-Final to follow 04/29/19 14:19 Stool C. difficile DNA Amplification - Final 04/26/19 14:25 Blood Culture (Wb) - Anticubital Left Blood Culture - Preliminary No growth in 48 hours. 04/26/19 17:15 Wound Abcess - Aerobic & Anaerobic Swabs Gram Stain - Final 04/26/19 17:15 Wound Abcess - Aerobic & Anaerobic Swabs Wound Culture - Final Staphylococcus aureus Staphylococcus epidermidis 04/26/19 17:15 Wound Abcess - Aerobic & Anaerobic Swabs Anaerobic Culture - Preliminary Checking for anaerobes, further studies to follow. 04/29/19 03:23 Stool Stool Occult Blood (PEREZ) - Final Occult Blood Positive 04/26/19 14:15 Wound - Toe Gram Stain - Final 04/26/19 14:15 Wound - Toe Wound Culture - Final Staphylococcus aureus Laboratory Results 04/26/19 18:32: Crossmatch See Detail 04/29/19 17:21: POC Glucose 221 H 04/29/19 21:58: POC Glucose 341 H 04/30/19 06:00: WBC 7.9, RBC 2.75 L, Hgb 8.3 L, Hct 24.9 L, MCV 90.5, MCH 30.2, MCHC 33.3, RDW 13.3, RDW Differential 43.5, Plt Count 271, MPV 8.9, Immature Gran % (Auto) 0.900, Neut % (Auto) 77.1 H, Lymph % (Auto) 9.6 L, [place] % (Auto) 8.1, Eos % (Auto) 4.0, Baso % (Auto) 0.3, Absolute Neuts (auto) 6.1, Absolute Lymphs (auto) 0.76 L, Total Counted Not Reportable 04/30/19 06:00: Sodium 136, Potassium 4.8, Chloride 108 H, Carbon Dioxide 18.0 L, Anion Gap 10, BUN 83 H, Creatinine 4.82 H, Estim Creat Clear Calc 10.85, Est GFR (MDRD) Af Amer 16 L, Est GFR (MDRD) Non-Af 13 L, BUN/Creatinine Ratio 17.2, Glucose 215 H, Calcium 8.2 L 04/30/19 06:00: Total Protein (PEP) Pending, IgG Pending, IgA Pending, IgM Pending, Albumin (FLORESITA) Pending, Albumin/Globulin (FLORESITA) Pending, Tehqo-6-Dkdzxnhyo FLORESITA Pending, Pnnyi-8-Ojymxhuzl FLORESITA Pending, Beta-Globulins (FLORESITA) Pending, Gamma Globulins (FLORESITA) Pending, FLORESITA M-Kale Pending 04/30/19 06:41: POC Glucose 199 H 04/30/19 11:34: POC Glucose 292 H Current Medications Acetaminophen (Tylenol) 650 mg PO Q6H PRN PRN PRN Reason: Mild pain 1-3/Temp > 100.7 F Albuterol Sulfate (Ventolin Aerosols) 1.25 mg INHALATION Q4H PRN PRN Reason: SOB &/OR WHEEZING Amlodipine Besylate (Norvasc) 10 mg PO DAILY [facility] Last Admin: 04/30/19 08:17 Dose: 10 mg Clonidine (Catapres) 0.1 mg PO BID [facility] Last Admin: 04/30/19 08:17 Dose: 0.1 mg Dextrose (D50w Syringe) 0 gm IV X1 PRN; Protocol PRN Reason: Hypoglycemia Doxazosin Mesylate (Cardura) 8 mg PO DAILY [facility] Last Admin: 04/30/19 08:16 Dose: 8 mg Glucagon () 1 mg IM .X1 PRN PRN Reason: Hypoglycemia Cefazolin Sodium () 1 gm in 50 mls @ 100 mls/hr IV Q24 [facility] Last Admin: 04/30/19 10:58 Dose: 100 mls/hr Insulin Human Lispro (Humalog Kwikpen (Bkc)) 0 unit SQ ACHS [facility]; Protocol Last Admin: 04/30/19 16:12 Dose: 3 u Metoprolol Tartrate (Lopressor (Beta Ester)) 50 mg PO BID [facility] Last Admin: 04/30/19 08:17 Dose: 50 mg Morphine Sulfate () 1 mg IV Q4H PRN PRN PRN Reason: Severe Pain (7-10/10) Last Admin: 04/30/19 01:18 Dose: 1 mg Multivitamins (Multivitamin) 1 tablet PO DAILY@0800 [facility] Last Admin: 04/30/19 08:16 Dose: 1 tablet Nutritional Formula (Terry - [place]oult[place] Flavor) 1 packet PO BIDCM [facility] Last Admin: 04/30/19 16:12 Dose: 1 packet Ondansetron HCl (Zofran) 4 mg IV Q8H PRN PRN PRN Reason: NAUSEA/VOMITING Oxycodone HCl (Oxyir) 5 mg PO Q4H PRN PRN PRN Reason: Moderate Pain (4-6/10) Last Admin: 04/30/19 16:15 Dose: 5 mg Sodium Chloride () 5 - 15 ml IV UD PRN PRN Reason: SALINE FLUSH Last Admin: 04/30/19 01:20 Dose: 10 ml Sodium Chloride/Electrolytes (Nulytely) 4,000 ml PO X1 ONE Stop: 05/02/19 11:31 Medical Necessity - Tobacco Use Smoking Status: Never smoker Tobacco Use: Non-smoker Assessment/Plan All Active Problems (Last Reviewed 04/29/19 @ 16:02 by Lakshmi Claudio PA-C) PAD (peripheral artery disease) (Acute) TYLOR (acute kidney injury) (Acute) Anemia (Acute) Heme positive stool (Acute) Osteomyelitis (Acute) Diabetes mellitus (Acute) Left foot infection (Acute) Gas gangrene (Acute) Non-pressure chronic ulcer of other part of left foot with fat layer exposed (Acute) This is a 68-year-old gentleman with history of type II DM, hypertension, CKD stage III, paroxysmal atrial fibrillation on Coumadin, who fell off his trailer as he was trying to load a mower. Patient had left foot injury with continued pain for 2 weeks. Patient last A1c was 8.7. Denies any custodial complication of diabetes including peripheral neuropathy. 1. Acute left big toe infection and gas gangrene s/p bedside I&D by podiatry ID on board wound cultured MSSA nad MSSE: antibiotics narrowed to IV vancomycin and cefazolin. And then later on vancomycin was discontinued. MRI of foot: osteomyelitis of hte first distal phalanx with adjacent soft tissue ulcer. Left first toe partial amputation on 04/29. 2. Peripheral artery disease: PVRs done showed right ankle noncompressibility. He had a KEVIN of 1.23 on the left side. Right digital brachial index was 1.05. Vascular surgery consulted-Per vascular surgery note, to try to have an angiogram if there is poor bleeding or difficulty healing but per vascular surgery would be reluctant to do this on account of elevated creatinine. to follow up with vascular surgery on discharge 3. Tylor on CKD 3 baseline CR is ~ 3.2. Cr was 4.67 on admission, and 4.82. BUN 83. also has BPH, which could be contributing to TYLOR on CKD. lasix and HCTZ on hold renal USG: Minimal urinary bladder debris, simple appearing renal cyst, nonobstructing calyceal calculus of the right kidney and no hydronephrosis. Normal renal cortical thickness and echotexture. being hydrated with IVF Patient was seen by bronze plater and feels probably worsening of baseline creatinine. Patient also has proteinuria and SBEP was ordered. 4. Anemia of chronic disease iron panel showed anemia of chronic disease. Hemoglobin running around 8, baseline is ~ 10 stool for occult blood is positive. if Hb drops to <7, will transfuse with 2 units of pRBC Patient seen by surgeon Dr. Castellanos discussed with her and is scheduled for EGD and colonoscopy on Friday about 10:45 AM. 5. Non-anion gap acidosis: Bicarb is 17 anion gap is 12. This is likely due to TYLOR and CKD. Nephrology on board. 6. Type 2 diabetes mellitus: home meds on hold. ISS. Accuchecks ACHS 7. Hypertension: Fairly controlled. On metoprolol, amlodipine and clonidine. HCTZ on hold on account of TYLOR. 9. Paroxysmal A. fib: Rate controlled. On metoprolol. Coumadin on hold account of I&D. INR today is 2.5 Code Visit Inpatient E&M: 79761 Subs Hosp L3
--- NOTE | 2019-04-30 17:21 | PN_ITS ---
Patient Problems: Active and Suspected Problems (Last Reviewed 04/29/19 @ 16:02 by Lakshmi Claudio PA-C) PAD (peripheral artery disease) (Acute) TYLOR (acute kidney injury) (Acute) Anemia (Acute) Heme positive stool (Acute) Diabetes mellitus (Acute) Left foot infection (Acute) Gas gangrene (Acute) Other specified peripheral vascular diseases (Suspected) Non-pressure chronic ulcer of other part of left foot with fat layer exposed (Acute) Subjective: Patient had left first great toe amputation on 04/29. Cultures showing MSSA and MSSE. In by ID and youth agent. Patient seen by youth agent and ID. Patient also seen by surgeon for acute on chronic anemia. Hemoglobin running around 8. Patient is scheduled for EGD and colonoscopy on Friday. Vitals/I&O's: Vital Signs Temp Pulse Resp BP Pulse Ox 98.1 F 87 20 H 130/80 H 97 04/30/19 16:00 04/30/19 16:00 04/30/19 16:00 04/30/19 16:00 04/30/19 16:00 Oxygen Delivery Method Room Air Weight: 212 lb 15.465 oz Body Mass Index (BMI) 38.9 Intake and Output for Last 24 Hours 04/28/19 04/29/19 04/30/19 23:59 23:59 23:59 Intake Total 4111.7 / 4111.7 1970.8 / 1970.8 836.6 / 836.6 Output Total 1325 / 1325 1500 / 1500 Balance 2786.7 / 2786.7 470.8 / 470.8 836.6 / 836.6 General: Alert, Oriented x3, Cooperative HEENT: Atraumatic, PERRLA, EOMI, Normocephalic Neck: Supple, No JVD, Negative Carotid Bruits Lungs: Clear to auscultation, Normal air movement Cardiovascular: Regular rate, Regular Rhythm, Normal S1, Normal S2, No murmurs Abdomen: Bowel Sounds Present, Soft, Non Tender, Non-Distended Extremities: No edema, Capillary Refill Less than 3 Seconds Skin: Ulcer/ Wound - Left great toe amputation Musculoskeletal: Arthritic Changes, Tenderness, - Neurological: Cranial nerves II-XII grossly intact, Motor Exam 5/5 strength throughout Psych/Mental Status: Normal Affect, Appropriate Microbiology Past 72 Hours 04/29/19 16:00 Tissue - Left Foot Gram Stain - Final 04/29/19 16:00 Tissue - Left Foot Wound Culture - Preliminary No growth-Final to follow 04/29/19 14:19 Stool C. difficile DNA Amplification - Final 04/26/19 14:25 Blood Culture (Wb) - Anticubital Left Blood Culture - Prelim inary No growth in 48 hours. 04/26/19 17:15 Wound Abcess - Aerobic & Anaerobic Swabs Gram Stain - Final 04/26/19 17:15 Wound Abcess - Aerobic & Anaerobic Swabs Wound Culture - Final Staphylococcus aureus Staphylococcus epidermidis 04/26/19 17:15 Wound Abcess - Aerobic & Anaerobic Swabs Anaerobic Culture - Preliminary Checking for anaerobes, further studies to follow. 04/29/19 03:23 Stool Stool Occult Blood (PEREZ) - Final Occult Blood Positive 04/26/19 14:15 Wound - Toe Gram Stain - Final 04/26/19 14:15 Wound - Toe Wound Culture - Final Staphylococcus aureus Laboratory Results 04/26/19 18:32: Crossmatch See Detail 04/29/19 17:21: POC Glucose 221 H 04/29/19 21:58: POC Glucose 341 H 04/30/19 06:00: WBC 7.9, RBC 2.75 L, Hgb 8.3 L, Hct 24.9 L, MCV 90.5, MCH 30.2, MCHC 33.3, RDW 13.3, RDW Differential 43.5, Plt Count 271, MPV 8.9, Immature Gran % (Auto) 0.900, Neut % (Auto) 77.1 H, Lymph % (Auto) 9.6 L, Dare % (Auto) 8.1, Eos % (Auto) 4.0, Baso % (Auto) 0.3, Absolute Neuts (auto) 6.1, Absolute Lymphs (auto) 0.76 L, Total Counted Not Reportable 04/30/19 06:00: Sodium 136, Potassium 4.8, Chloride 108 H, Carbon Dioxide 18.0 L , Anion Gap 10, BUN 83 H, Creatinine 4.82 H, Estim Creat Clear Calc 10.85, Est GFR (MDRD) Af Amer 16 L, Est GFR (MDRD) Non-Af 13 L, BUN/Creatinine Ratio 17.2, Glucose 215 H, Calcium 8.2 L 04/30/19 06:00: Total Protein (PEP) Pending, IgG Pending, IgA Pending, IgM Pending, Albumin (FLORESITA) Pending, Albumin/Globulin (FLORESITA) Pending, [id number] FLORESITA Pending, Ndzsw-[id number] FLORESITA Pending, Beta-Globulins (FLORESITA) Pending, Gamma Globulins (FLORESITA) Pending, FLORESITA M-Kale Pending 04/30/19 06:41: POC Glucose 199 H 04/30/19 11:34: POC Glucose 292 H Current Medications Acetaminophen (Tylenol) 650 mg PO Q6H PRN PRN PRN Reason: Mild pain 1-3/Temp > 100.7 F Albuterol Sulfate (Ventolin Aerosols) 1.25 mg INHALATION Q4H PRN PRN Reason: SOB &/OR WHEEZING Amlodipine Besylate (Norvasc) 10 mg PO DAILY COUNTS [facility]CLUDE 234 BEDS AT THE [facility] Last Admin: 04/30/19 08:17 Dose: 10 mg Clonidine (Catapres) 0.1 mg PO BID COUNTS INCLUDE 234 BEDS AT THE [facility] Last Admin: 04/30/19 08:17 Dose: 0.1 mg Dextrose (D50w Syringe) 0 gm IV X1 PRN; Protocol PRN Reason: Hypoglycemia Doxazosin Mesylate (Cardura) 8 mg PO DAILY COUNTS INCLUDE 234 BEDS AT THE [facility] Last Admin: 04/30/19 08:16 Dose: 8 mg Glucagon () 1 mg IM .X1 PRN PRN Reason: Hypoglycemia Cefazolin Sodium () 1 gm in 50 mls @ 100 mls/hr IV Q24 COUNTS INCLUDE 234 BEDS AT THE [facility] Last Admin: 04/30/19 10:58 Dose: 100 mls/hr Insulin Human Lispro (Humalog Kwikpen (Bkc)) 0 unit SQ ACHS COUNTS INCLUDE 234 BEDS AT THE [facility]; Protocol Last Admin: 04/30/19 16:12 Dose: 3 u Metoprolol Tartrate (Lopressor (Beta Ester)) 50 mg PO BID COUNTS INCLUDE 234 BEDS AT THE [facility] Last Admin: 04/30/19 08:17 Dose: 50 mg Morphine Sulfate () 1 mg IV Q4H PRN PRN PRN Reason: Severe Pain (7-10/10) Last Admin: 04/30/19 01:18 Dose: 1 mg Multivitamins (Multivitamin) 1 tablet PO DAILY@0800 COUNTS INCLUDE 234 BEDS AT THE [facility] Last Admin: 04/30/19 08:16 Dose: 1 tablet Nutritional Formula (Terry - [place] Flavor) 1 packet PO BIDCM COUNTS INCLUDE 234 BEDS AT THE [facility] Last Admin: 04/30/19 16:12 Dose: 1 packet Ondansetron HCl (Zofran) 4 mg IV Q8H PRN PRN PRN Reason: NAUSEA/VOMITING Oxycodone HCl (Oxyir) 5 mg PO Q4H PRN PRN PRN Reason: Moderate Pain (4-6/10) Last Admin: 04/30/19 16:15 Dose: 5 mg Sodium Chloride () 5 - 15 ml IV UD PRN PRN Reason: SALINE FLUSH Last Admin: 04/30/19 01:20 Dose: 10 ml Sodium Chloride/Electrolytes (Nulytely) 4,000 ml PO X1 ONE Stop: 05/02/19 11:31 Medical Necessity - Tobacco Use Smoking Status: Never smoker Tobacco Use: Non-smoker Assessment/Plan All Active Problems (Last Reviewed 04/29/19 @ 16:02 by Lakshmi Claudio PA-C) PAD (peripheral artery disease) (Acute) TYLOR (acute kidney injury) (Acute) Anemia (Acute) Heme positive stool (Acute) Osteomyelitis (Acute) Diabetes mellitus (Acute) Left foot infection (Acute) Gas gangrene (Acute) Non-pressure chronic ulcer of other part of left foot with fat layer exposed (Acute) This is a 68-year-old gentleman with history of type II DM, hypertension, CKD stage III, paroxysmal atrial fibrillation on Coumadin, who fell off his trailer as he was trying to load a mower. Patient had left foot injury with continued pain for 2 weeks. Patient last A1c was 8.7. Denies any terminal worker complication of diabetes including peripheral neuropathy. 1. Acute left big toe infection and gas gangrene * s/p bedside I&D by podiatry * ID on board * wound cultured MSSA nad MSSE: antibiotics narrowed to IV vancomycin and cefazolin. And then later on vancomycin was discontinued. * MRI of foot: osteomyelitis of hte first distal phalanx with adjacent soft tissue ulcer. * Left first toe partial amputation on 04/29. 2. Peripheral artery disease: * PVRs done showed right ankle noncompressibility. * He had a KEVIN of 1.23 on the left side. Right digital brachial index was 1.05. * Vascular surgery consulted-Per vascular surgery note, to try to have an angiogram if there is poor bleeding or difficulty healing but per vascular surgery would be reluctant to do this on account of elevated creatinine. * to follow up with vascular surgery on discharge 3. Tylor on CKD 3 * baseline CR is ~ 3.2. Cr was 4.67 on admission, and 4.82. BUN 83. * also has BPH, which could be contributing to TYLOR on CKD. lasix and HCTZ on hold * renal USG: Minimal urinary bladder debris, simple appearing renal cyst, nonobstructing calyceal calculus of the right kidney and no hydronephrosis. Normal renal cortical thickness and echotexture. * being hydrated with IVF * Patient was seen by youth agent and feels probably worsening of baseline creatinine. Patient also has proteinuria and SBEP was ordered. 4. Anemia of chronic disease * iron panel showed anemia of chronic disease. * Hemoglobin running around 8, baseline is ~ 10 * stool for occult blood is positive. * if Hb drops to <7, will transfuse with 2 units of pRBC * Patient seen by surgeon Dr. Castellanos discussed with her and is scheduled for EGD and colonoscopy on Friday about 10:45 AM. 5. Non-anion gap acidosis: Bicarb is 17 anion gap is 12. This is likely due to TYLOR and CKD. Nephrology on board. 6. Type 2 diabetes mellitus: home meds on hold. ISS. Accuchecks ACHS 7. Hypertension: Fairly controlled. On metoprolol, amlodipine and clonidine. HCTZ on hold on account of TYLOR. 9. Paroxysmal A. fib: Rate controlled. On metoprolol. Coumadin on hold account of I&D. INR today is 2.5 Code Visit Inpatient E&M: 36621 Subs Hosp L3
[2019-04-30 17:50] LABS: Bedside Glucose 357 mg/dL (70-110)
[2019-04-30 23:16] LABS: Bedside Glucose 325 mg/dL (70-110)
[2019-05-01] VITALS (14 sets, daily range): BP systolic 142–165; BP diastolic 54–106; PULSE 60–115; RESP 16–20; TEMP 36.6–36.9; O2SAT 97–98
[2019-05-01] MEDS: Insulin Lispro 100 UNIT/ML INSULN.PEN SQ ×4 (06:53→21:06)
[2019-05-01 07:01] LABS: Bedside Glucose 251 mg/dL (70-110)
[2019-05-01] MEDS: oxyCODONE 5 MG Tablet PO ×2 (08:05→20:14)
[2019-05-01] MEDS: Multivitamins,Therapeutic Tablet 1 TABLET PO (08:05)
--- NOTE | 2019-05-01 09:40 | PCM.PN.SRG ---
Patient Problems: Active and Suspected Problems (Last Reviewed 04/29/19 @ 16:02 by Lakshmi Claudio PA-C) PAD (peripheral artery disease) (Acute) TYLOR (acute kidney injury) (Acute) Anemia (Acute) Heme positive stool (Acute) Diabetes mellitus (Acute) Left foot infection (Acute) Gas gangrene (Acute) Other specified peripheral vascular diseases (Suspected) Non-pressure chronic ulcer of other part of left foot with fat layer exposed (Acute) Subjective: No abdominal complaints at this time no melena no hematochezia Objective: Abdomen is soft and nontender - Physical Exam Vital Signs Temp Pulse Resp BP Pulse Ox 98.4 F 69 16 150/64 H 97 05/01/19 08:47 05/01/19 08:49 05/01/19 08:49 05/01/19 08:47 05/01/19 08:49 Oxygen Delivery Method Room Air Weight: 216 lb 0.848 oz Body Mass Index (BMI) 38.9 Intake and Output for Last 24 Hours 04/29/19 04/30/19 05/01/19 23:59 23:59 23:59 Intake Total 1970.8 / 1970.8 2081.6 / 2081.6 230 / 230 Output Total 1500 / 1500 0 / 0 Balance 470.8 / 470.8 2081.6 / 2081.6 230 / 230 Microbiology Past 72 Hours 04/26/19 17:15 Gram Stain - Final Wound Abcess - Aerobic & Anaerobic Swabs Wound Culture - Final Staphylococcus aureus Staphylococcus epidermidis Anaerobic Culture - Final Clostridium perfringens 04/29/19 16:00 Gram Stain - Final Tissue - Left Foot Wound Culture - Preliminary No growth-Final to follow 04/29/19 14:19 C. difficile DNA Amplification - Final Stool 04/26/19 14:25 Blood Culture - Preliminary Blood Culture (Wb) - Anticubital Left No growth in 48 hours. 04/29/19 03:23 Stool Occult Blood (PEREZ) - Final Stool Occult Blood Positive 04/26/19 14:15 Gram Stain - Final Wound - Toe Wound Culture - Final Staphylococcus aureus Laboratory Tests Past 24 Hrs 04/26/19 18:32 Crossmatch See Detail POC Glucose 05/01/19 04/30/19 04/30/19 06:51 22:18 16:10 POC Glucose 251 H 325 H 357 H 04/30/19 11:34 POC Glucose 292 H Medical Necessity - Tobacco Use Smoking Status: Never smoker Tobacco Use: Non-smoker Assessment/Plan All Active Problems (Last Reviewed 04/29/19 @ 16:02 by Lakshmi Claudio PA-C) PAD (peripheral artery disease) (Acute) TYLOR (acute kidney injury) (Acute) Anemia (Acute) Heme positive stool (Acute) Osteomyelitis (Acute) Diabetes mellitus (Acute) Left foot infection (Acute) Gas gangrene (Acute) Non-pressure chronic ulcer of other part of left foot with fat layer exposed (Acute) Plan for upper and lower scope on Friday
[2019-05-01] MEDS: Doxazosin 4 MG Tablet 8 MG PO (09:41)
[2019-05-01] MEDS: cloNIDine HCl 0.1 MG Tablet PO ×2 (09:42→21:05)
[2019-05-01] MEDS: Metoprolol Tartrate 50 MG Tablet PO ×2 (09:42→21:05)
[2019-05-01] MEDS: amLODIPine 10 MG Tablet PO (09:43)
[2019-05-01] MEDS: Cefazolin 1 GM/50 ML BAG IV (09:45)
[2019-05-01 11:15] LABS: Bedside Glucose 277 mg/dL (70-110)
--- NOTE | 2019-05-01 14:40 | PCM.PN.HOSP ---
Patient Problems: Active and Suspected Problems (Last Reviewed 04/29/19 @ 16:02 by Lakshmi Claudio PA-C) PAD (peripheral artery disease) (Acute) TYLOR (acute kidney injury) (Acute) Anemia (Acute) Heme positive stool (Acute) Diabetes mellitus (Acute) Left foot infection (Acute) Gas gangrene (Acute) Other specified peripheral vascular diseases (Suspected) Non-pressure chronic ulcer of other part of left foot with fat layer exposed (Acute) Subjective: Patient did not had hematemesis or melena. H&H is stable. Blood sugars are elevated. Insulin adjusted. Complain of pain on the left foot. Vitals/I&O's: Vital Signs Temp Pulse Resp BP Pulse Ox 98.4 F 69 16 150/64 H 97 05/01/19 08:47 05/01/19 14:00 05/01/19 14:00 05/01/19 09:42 05/01/19 14:00 Oxygen Delivery Method Room Air Weight: 216 lb 0.848 oz Body Mass Index (BMI) 38.9 Intake and Output for Last 24 Hours 04/29/19 04/30/19 05/01/19 23:59 23:59 23:59 Intake Total 1970.8 / 1970.8 2081.6 / 208.6 570 / 570 Output Total 1500 / 1500 0 / 0 Balance 470.8 / 470.8 2080. / 2080.6 570 / 570 General: Alert, Oriented x3, Cooperative HEENT: Atraumatic, PERRLA, EOMI, Normocephalic Neck: Supple, No JVD, Negative Carotid Bruits Lungs: Clear to auscultation, No rhonchi, No wheeze, No rales, Diminished Cardiovascular: Normal S1, Normal S2, Irregular Rate, Murmur Abdomen: Bowel Sounds Present, Soft, Non Tender, Non-Distended Extremities: Capillary Refill Less than 3 Seconds, Edema Skin: Ulcer/ Wound - Left great toe partial amputation Musculoskeletal: No Tenderness to Palpation of Joints or Extremities, Arthritic Changes Neurological: Cranial nerves II-XII grossly intact, Deep Tendon Reflexes 2+/4 and Symmetrical, Neuro grossly intact Psych/Mental Status: Normal Affect, Appropriate Microbiology Past 72 Hours 04/29/19 16:00 Tissue - Left Foot Gram Stain - Final 04/29/19 16:00 Tissue - Left Foot Wound Culture - Preliminary No growth-Final to follow 04/29/19 16:00 Tissue - Left Foot Anaerobic Culture - Preliminary No growth in 48 hours. 04/26/19 17:15 Wound Abcess - Aerobic & Anaerobic Swabs Gram Stain - Final 04/26/19 17:15 Wound Abcess - Aerobic & Anaerobic Swabs Wound Culture - Final Staphylococcus aureus Staphylococcus epidermidis 04/26/19 17:15 Wound Abcess - Aerobic & Anaerobic Swabs Anaerobic Culture - Final Clostridium perfringens 04/29/19 14:19 Stool C. difficile DNA Amplification - Final 04/26/19 14:25 Blood Culture (Wb) - Anticubital Left Blood Culture - Preliminary No growth in 48 hours. 04/29/19 03:23 Stool Stool Occult Blood (PEREZ) - Final Occult Blood Positive Laboratory Results 04/30/19 16:10: POC Glucose 357 H 04/30/19 22:18: POC Glucose 325 H 05/01/19 06:51: POC Glucose 251 H 05/01/19 11:03: POC Glucose 277 H Current Medications Acetaminophen (Tylenol) 650 mg PO Q6H PRN PRN PRN Reason: Mild pain 1-3/Temp > 100.7 F Albuterol Sulfate (Ventolin Aerosols) 1.25 mg INHALATION Q4H PRN PRN Reason: SOB &/OR WHEEZING Amlodipine Besylate (Norvasc) 10 mg PO DAILY [facility] Last Admin: 05/01/19 09:43 Dose: 10 mg Clonidine (Catapres) 0.1 mg PO BID [facility] Last Admin: 05/01/19 09:42 Dose: 0.1 mg Dextrose (D50w Syringe) 0 gm IV X1 PRN; Protocol PRN Reason: Hypoglycemia Doxazosin Mesylate (Cardura) 8 mg PO DAILY [facility] Last Admin: 05/01/19 09:41 Dose: 8 mg Glucagon () 1 mg IM .X1 PRN PRN Reason: Hypoglycemia Cefazolin Sodium () 1 gm in 50 mls @ 100 mls/hr IV Q24 [facility] Last Admin: 05/01/19 09:45 Dose: 100 mls/hr Metoprolol Tartrate (Lopressor (Beta Ester)) 50 mg PO BID [facility] Last Admin: 05/01/19 09:42 Dose: 50 mg Morphine Sulfate () 1 mg IV Q4H PRN PRN PRN Reason: Severe Pain (7-10/10) Last Admin: 05/31/19 01:18 Dose: 1 mg Multivitamins (Multivitamin) 1 tablet PO DAILY@0800 [facility] Last Admin: 05/01/19 08:05 Dose: 1 tablet Nutritional Formula (Terry - [place] Flavor) 1 packet PO BIDCM [facility] Last Admin: 05/01/19 08:05 Dose: 1 packet Ondansetron HCl (Zofran) 4 mg IV Q8H PRN PRN PRN Reason: NAUSEA/VOMITING Oxycodone HCl (Oxyir) 5 mg PO Q4H PRN PRN PRN Reason: Moderate Pain (4-6/10) Last Admin: 05/01/19 08:05 Dose: 5 mg Sodium Chloride () 5 - 15 ml IV UD PRN PRN Reason: SALINE FLUSH Last Admin: 04/30/19 01:20 Dose: 10 ml Sodium Chloride/Electrolytes (Nulytely) 4,000 ml PO X1 ONE Stop: 05/02/19 11:31 Medical Necessity - Tobacco Use Smoking Status: Never smoker Tobacco Use: Non-smoker Assessment/Plan All Active Problems (Last Reviewed 04/29/19 @ 16:02 by Lakshmi Claudio PA-C) PAD (peripheral artery disease) (Acute) TYLOR (acute kidney injury) (Acute) Anemia (Acute) Heme positive stool (Acute) Osteomyelitis (Acute) Diabetes mellitus (Acute) Left foot infection (Acute) Gas gangrene (Acute) Non-pressure chronic ulcer of other part of left foot with fat layer exposed (Acute) This is a 68-year-old gentleman with history of type II DM, hypertension, CKD stage III, paroxysmal atrial fibrillation on Coumadin, who fell off his trailer as he was trying to load a mower. Patient had left foot injury with continued pain for 2 weeks. Patient last A1c was 8.7. Denies any long term care pharmacist complication of diabetes including peripheral neuropathy. 1. Acute left big toe infection and gas gangrene s/p bedside I&D by podiatry ID on board wound cultured from 04/26 MSSA, MSSE and Clostridium perfringens: antibiotics narrowed to IV vancomycin and cefazolin. And then later on vancomycin was discontinued. Add metronidazole 500 mg 3 times daily. MRI of foot: osteomyelitis of hte first distal phalanx with adjacent soft tissue ulcer. Left first toe partial amputation on 04/29. 2. Peripheral artery disease: PVRs done showed right ankle noncompressibility. He had a KEVIN of 1.23 on the left side. Right digital brachial index was 1.05. Vascular surgery consulted-Per vascular surgery note, to try to have an angiogram if there is poor bleeding or difficulty healing but per vascular surgery would be reluctant to do this on account of elevated creatinine. to follow up with vascular surgery on discharge 3. Tylor on CKD 3 baseline CR is ~ 3.2. Cr was 4.67 on admission, and 4.82. BUN 83. also has BPH, which could be contributing to TYLOR on CKD. lasix and HCTZ on hold renal USG: Minimal urinary bladder debris, simple appearing renal cyst, nonobstructing calyceal calculus of the right kidney and no hydronephrosis. Normal renal cortical thickness and echotexture. being hydrated with IVF Patient was seen by material analyst and feels probably worsening of baseline creatinine. Patient also has proteinuria and SBEP was ordered. 4. Anemia of chronic disease iron panel showed anemia of chronic disease. Hemoglobin running around 8, baseline is ~ 10 stool for occult blood is positive. if Hb drops to <7, will transfuse with 2 units of pRBC Patient seen by surgeon Dr. Castellanos discussed with her and is scheduled for EGD and colonoscopy on Friday about 10:45 AM. 5. Non-anion gap acidosis: Bicarb is 17 anion gap is 12. This is likely due to TYLOR and CKD. Nephrology on board. 6. Type 2 diabetes mellitus: home meds on hold. ISS. Accuchecks ACHS. Dose of Lantus and Humulin insulin increased. 7. Hypertension: Fairly controlled. On metoprolol, amlodipine and clonidine. HCTZ on hold on account of TYLOR. 9. Paroxysmal A. fib: Rate controlled. On metoprolol. Coumadin on hold account of I&D. INR today is 2.5 Microbiology Past 72 Hours 04/29/19 16:00 Tissue - Left Foot Gram Stain - Final 04/29/19 16:00 Tissue - Left Foot Wound Culture - Preliminary No growth-Final to follow 04/29/19 16:00 Tissue - Left Foot Anaerobic Culture - Preliminary No growth in 48 hours. 04/26/19 17:15 Wound Abcess - Aerobic & Anaerobic Swabs Gram Stain - Final 04/26/19 17:15 Wound Abcess - Aerobic & Anaerobic Swabs Wound Culture - Final Staphylococcus aureus Staphylococcus epidermidis 04/26/19 17:15 Wound Abcess - Aerobic & Anaerobic Swabs Anaerobic Culture - Final Clostridium perfringens 04/29/19 14:19 Stool C. difficile DNA Amplification - Final 04/26/19 14:25 Blood Culture (Wb) - Anticubital Left Blood Culture - Preliminary No growth in 48 hours. 04/29/19 03:23 Stool Stool Occult Blood (PEREZ) - Final Occult Blood Positive Laboratory Results 04/30/19 16:10: POC Glucose 357 H 04/30/19 22:18: POC Glucose 325 H 05/01/19 06:51: POC Glucose 251 H 05/01/19 11:03: POC Glucose 277 H Active Medications Acetaminophen (Tylenol) 650 mg PO Q6H PRN PRN PRN Reason: Mild pain 1-3/Temp > 100.7 F Albuterol Sulfate (Ventolin Aerosols) 1.25 mg INHALATION Q4H PRN PRN Reason: SOB &/OR WHEEZING Amlodipine Besylate (Norvasc) 10 mg PO DAILY [facility] Last Admin: 05/01/19 09:43 Dose: 10 mg Clonidine (Catapres) 0.1 mg PO BID [facility] Last Admin: 05/01/19 09:42 Dose: 0.1 mg Dextrose (D50w Syringe) 0 gm IV X1 PRN; Protocol PRN Reason: Hypoglycemia Doxazosin Mesylate (Cardura) 8 mg PO DAILY [facility] Last Admin: 05/01/19 09:41 Dose: 8 mg Glucagon () 1 mg IM .X1 PRN PRN Reason: Hypoglycemia Cefazolin Sodium () 1 gm in 50 mls @ 100 mls/hr IV Q24 [facility] Last Admin: 05/01/19 09:45 Dose: 100 mls/hr Insulin Glargine (Lantus (Bkc)) 10 units SC BID [facility] Insulin Human Lispro (Humalog Kwikpen (Bkc)) 10 unit SC TIDAC [facility] Insulin Human Lispro (Humalog Kwikpen (Bkc)) 0 unit SQ ACHS [facility]; Protocol Metoprolol Tartrate (Lopressor (Beta Ester)) 50 mg PO BID [facility] Last Admin: 05/01/19 09:42 Dose: 50 mg Morphine Sulfate () 1 mg IV Q4H PRN PRN PRN Reason: Severe Pain (7-10/10) Last Admin: 04/30/19 01:18 Dose: 1 mg Multivitamins (Multivitamin) 1 tablet PO DAILY@0800 [facility] Last Admin: 05/01/19 08:05 Dose: 1 tablet Nutritional Formula (Terry - [place] Flavor) 1 packet PO BIDCM [facility] Last Admin: 05/01/19 08:05 Dose: 1 packet Ondansetron HCl (Zofran) 4 mg IV Q8H PRN PRN PRN Reason: NAUSEA/VOMITING Oxycodone HCl (Oxyir) 5 mg PO Q4H PRN PRN PRN Reason: Moderate Pain (4-6/10) Last Admin: 05/01/19 08:05 Dose: 5 mg Sodium Chloride () 5 - 15 ml IV UD PRN PRN Reason: SALINE FLUSH Last Admin: 04/30/19 01:20 Dose: 10 ml Sodium Chloride/Electrolytes (Nulytely) 4,000 ml PO X1 ONE Stop: 05/02/19 11:31 Code Visit Inpatient E&M: 57071 Subs Hosp L3
--- NOTE | 2019-05-01 14:46 | PN_ITS ---
Patient Problems: Active and Suspected Problems (Last Reviewed 04/29/19 @ 16:02 by Lakshmi Claudio PA-C) PAD (peripheral artery disease) (Acute) TYLOR (acute kidney injury) (Acute) Anemia (Acute) Heme positive stool (Acute) Diabetes mellitus (Acute) Left foot infection (Acute) Gas gangrene (Acute) Other specified peripheral vascular diseases (Suspected) Non-pressure chronic ulcer of other part of left foot with fat layer exposed (Acute) Subjective: Patient did not had hematemesis or melena. H&H is stable. Blood sugars are elevated. Insulin adjusted. Complain of pain on the left foot. Vitals/I&O's: Vital Signs Temp Pulse Resp BP Pulse Ox 98.4 F 69 16 150/64 H 97 05/01/19 08:47 05/01/19 14:00 05/01/19 14:00 05/01/19 09:42 05/01/19 14:00 Oxygen Delivery Method Room Air Weight: 216 lb 0.848 oz Body Mass Index (BMI) 38.9 Intake and Output for Last 24 Hours 04/29/19 04/30/19 05/01/19 23:59 23:59 23:59 Intake Total 1970.8 / 1970.8 2081.6 / 208.6 570 / 570 Output Total 1500 / 1500 0 / 0 Balance 470.8 / 470.8 2080. / 2080.6 570 / 570 General: Alert, Oriented x3, Cooperative HEENT: Atraumatic, PERRLA, EOMI, Normocephalic Neck: Supple, No JVD, Negative Carotid Bruits Lungs: Clear to auscultation, No rhonchi, No wheeze, No rales, Diminished Cardiovascular: Normal S1, Normal S2, Irregular Rate, Murmur Abdomen: Bowel Sounds Present, Soft, Non Tender, Non-Distended Extremities: Capillary Refill Less than 3 Seconds, Edema Skin: Ulcer/ Wound - Left great toe partial amputation Musculoskeletal: No Tenderness to Palpation of Joints or Extremities, Arthritic Changes Neurological: Cranial nerves II-XII grossly intact, Deep Tendon Reflexes 2+/4 and Symmetrical, Neuro grossly intact Psych/Mental Status: Normal Affect, Appropriate Microbiology Past 72 Hours 04/29/19 16:00 Tissue - Left Foot Gram Stain - Final 04/29/19 16:00 Tissue - Left Foot Wound Culture - Preliminary No growth-Final to follow 04/29/19 16:00 Tissue - Left Foot Anaerobic Culture - Preliminary No growth in 48 hours. 04/26/19 17:15 Wound Abcess - Aerobic & Anaerobic Swabs Gram Stain - Final 04/26/19 17:15 Wound Abcess - Aerobic & Anaerobic Swabs Wound Culture - Final Staphylococcus aureus Staphylococcus epidermidis 04/26/19 17:15 Wound Abcess - Aerobic & Anaerobic Swabs Anaerobic Culture - Final Clostridium perfringens 04/29/19 14:19 Stool C. difficile DNA Amplification - Final 04/26/19 14:25 Blood Culture (Wb) - Anticubital Left Blood Culture - Preliminary No growth in 48 hours. 04/29/19 03:23 Stool Stool Occult Blood (PEREZ) - Final Occult Blood Positive Laboratory Results 04/30/19 16:10: POC Glucose 357 H 04/30/19 22:18: POC Glucose 325 H 05/01/19 06:51: POC Glucose 251 H 05/01/19 11:03: POC Glucose 277 H Current Medications Acetaminophen (Tylenol) 650 mg PO Q6H PRN PRN PRN Reason: Mild pain 1-3/Temp > 100.7 F Albuterol Sulfate (Ventolin Aerosols) 1.25 mg INHALATION Q4H PRN PRN Reason: SOB &/OR WHEEZING Amlodipine Besylate (Norvasc) 10 mg PO DAILY [facility] Last Admin: 05/01/19 09:43 Dose: 10 mg Clonidine (Catapres) 0.1 mg PO BID [facility] Last Admin: 05/01/19 09:42 Dose: 0.1 mg Dextrose (D50w Syringe) 0 gm IV X1 PRN; Protocol PRN Reason: Hypoglycemia Doxazosin Mesylate (Cardura) 8 mg PO DAILY [facility] Last Admin: 05/01/19 09:41 Dose: 8 mg Glucagon () 1 mg IM .X1 PRN PRN Reason: Hypoglycemia Cefazolin Sodium () 1 gm in 50 mls @ 100 mls/hr IV Q24 [facility] Last Admin: 05/01/19 09:45 Dose: 100 mls/hr Metoprolol Tartrate (Lopressor (Beta Ester)) 50 mg PO BID [facility] Last Admin: 05/01/19 09:42 Dose: 50 mg Morphine Sulfate () 1 mg IV Q4H PRN PRN PRN Reason: Severe Pain (7-10/10) Last Admin: 05/31/19 01:18 Dose: 1 mg Multivitamins (Multivitamin) 1 tablet PO DAILY@0800 [facility] Last Admin: 05/01/19 08:05 Dose: 1 tablet Nutritional Formula (Terry - [place] Flavor) 1 packet PO BIDCM [facility] Last Admin: 05/01/19 08:05 Dose: 1 packet Ondansetron HCl (Zofran) 4 mg IV Q8H PRN PRN PRN Reason: NAUSEA/VOMITING Oxycodone HCl (Oxyir) 5 mg PO Q4H PRN PRN PRN Reason: Moderate Pain (4-6/10) Last Admin: 05/01/19 08:05 Dose: 5 mg Sodium Chloride () 5 - 15 ml IV UD PRN PRN Reason: SALINE FLUSH Last Admin: 04/30/19 01:20 Dose: 10 ml Sodium Chloride/Electrolytes (Nulytely) 4,000 ml PO X1 ONE Stop: 05/02/19 11:31 Medical Necessity - Tobacco Use Smoking Status: Never smoker Tobacco Use: Non-smoker Assessment/Plan All Active Problems (Last Reviewed 04/29/19 @ 16:02 by Lakshmi Claudio PA-C) PAD (peripheral artery disease) (Acute) TYLOR (acute kidney injury) (Acute) Anemia (Acute) Heme positive stool (Acute) Osteomyelitis (Acute) Diabetes mellitus (Acute) Left foot infection (Acute) Gas gangrene (Acute) Non-pressure chronic ulcer of other part of left foot with fat layer exposed (Acute) This is a 68-year-old gentleman with history of type II DM, hypertension, CKD stage III, paroxysmal atrial fibrillation on Coumadin, who fell off his trailer as he was trying to load a mower. Patient had left foot injury with continued pain for 2 weeks. Patient last A1c was 8.7. Denies any terminal computer operator complication of diabetes including peripheral neuropathy. 1. Acute left big toe infection and gas gangrene * s/p bedside I&D by podiatry * ID on board * wound cultured from 04/26 MSSA, MSSE and Clostridium perfringens: antibiotics narrowed to IV vancomycin and cefazolin. And then later on vancomycin was discontinued. Add metronidazole 500 mg 3 times daily. * MRI of foot: osteomyelitis of hte first distal phalanx with adjacent soft tissue ulcer. * Left first toe partial amputation on 04/29. 2. Peripheral artery disease: * PVRs done showed right ankle noncompressibility. * He had a KEVIN of 1.23 on the left side. Right digital brachial index was 1.05. * Vascular surgery consulted-Per vascular surgery note, to try to have an angiogram if there is poor bleeding or difficulty healing but per vascular surgery would be reluctant to do this on account of elevated creatinine. * to follow up with vascular surgery on discharge 3. Tylor on CKD 3 * baseline CR is ~ 3.2. Cr was 4.67 on admission, and 4.82. BUN 83. * also has BPH, which could be contributing to TYLOR on CKD. lasix and HCTZ on hold * renal USG: Minimal urinary bladder debris, simple appearing renal cyst, nonobstructing calyceal calculus of the right kidney and no hydronephrosis. Normal renal cortical thickness and echotexture. * being hydrated with IVF * Patient was seen by supplier development manager and feels probably worsening of baseline creatinine. Patient also has proteinuria and SBEP was ordered. 4. Anemia of chronic disease * iron panel showed anemia of chronic disease. * Hemoglobin running around 8, baseline is ~ 10 * stool for occult blood is positive. * if Hb drops to <7, will transfuse with 2 units of pRBC * Patient seen by surgeon Dr. Castellanos discussed with her and is scheduled for EGD and colonoscopy on Friday about 10:45 AM. 5. Non-anion gap acidosis: Bicarb is 17 anion gap is 12. This is likely due to TYLOR and CKD. Nephrology on board. 6. Type 2 diabetes mellitus: home meds on hold. ISS. Accuchecks ACHS. Dose of Lantus and Humulin insulin increased. 7. Hypertension: Fairly controlled. On metoprolol, amlodipine and clonidine. HCTZ on hold on account of TYLOR. 9. Paroxysmal A. fib: Rate controlled. On metoprolol. Coumadin on hold account of I&D. INR today is 2.5 Microbiology Past 72 Hours 04/29/19 16:00 Tissue - Left Foot Gram Stain - Final 04/29/19 16:00 Tissue - Left Foot Wound Culture - Preliminary No growth-Final to follow 04/29/19 16:00 Tissue - Left Foot Anaerobic Culture - Preliminary No growth in 48 hours. 04/26/19 17:15 Wound Abcess - Aerobic & Anaerobic Swabs Gram Stain - Final 04/26/19 17:15 Wound Abcess - Aerobic & Anaerobic Swabs Wound Culture - Final Staphylococcus aureus Staphylococcus epidermidis 04/26/19 17:15 Wound Abcess - Aerobic & Anaerobic Swabs Anaerobic Culture - Final Clostridium perfringens 04/29/19 14:19 Stool C. difficile DNA Amplification - Final 04/26/19 14:25 Blood Culture (Wb) - Anticubital Left Blood Culture - Preliminary No growth in 48 hours. 04/29/19 03:23 Stool Stool Occult Blood (PEREZ) - Final Occult Blood Positive Laboratory Results 04/30/19 16:10: POC Glucose 357 H 04/30/19 22:18: POC Glucose 325 H 05/01/19 06:51: POC Glucose 251 H 05/01/19 11:03: POC Glucose 277 H Active Medications Acetaminophen (Tylenol) 650 mg PO Q6H PRN PRN PRN Reason: Mild pain 1-3/Temp > 100.7 F Albuterol Sulfate (Ventolin Aerosols) 1.25 mg INHALATION Q4H PRN PRN Reason: SOB &/OR WHEEZING Amlodipine Besylate (Norvasc) 10 mg PO DAILY [facility] Last Admin: 05/01/19 09:43 Dose: 10 mg Clonidine (Catapres) 0.1 mg PO BID [facility] Last Admin: 05/01/19 09:42 Dose: 0.1 mg Dextrose (D50w Syringe) 0 gm IV X1 PRN; Protocol PRN Reason: Hypoglycemia Doxazosin Mesylate (Cardura) 8 mg PO DAILY [facility] Last Admin: 05/01/19 09:41 Dose: 8 mg Glucagon () 1 mg IM .X1 PRN PRN Reason: Hypoglycemia Cefazolin Sodium () 1 gm in 50 mls @ 100 mls/hr IV Q24 [facility] Last Admin: 05/01/19 09:45 Dose: 100 mls/hr Insulin Glargine (Lantus (Bkc)) 10 units SC BID [facility] Insulin Human Lispro (Humalog Kwikpen (Bkc)) 10 unit SC TIDAC [facility] Insulin Human Lispro (Humalog Kwikpen (Bkc)) 0 unit SQ ACHS [facility]; Protocol Metoprolol Tartrate (Lopressor (Beta Ester)) 50 mg PO BID [facility] Last Admin: 05/01/19 09:42 Dose: 50 mg Morphine Sulfate () 1 mg IV Q4H PRN PRN PRN Reason: Severe Pain (7-10/10) Last Admin: 04/30/19 01:18 Dose: 1 mg Multivitamins (Multivitamin) 1 tablet PO DAILY@0800 [facility] Last Admin: 05/01/19 08:05 Dose: 1 tablet Nutritional Formula (Terry - [place] Flavor) 1 packet PO BIDCM [facility] Last Admin: 05/01/19 08:05 Dose: 1 packet Ondansetron HCl (Zofran) 4 mg IV Q8H PRN PRN PRN Reason: NAUSEA/VOMITING Oxycodone HCl (Oxyir) 5 mg PO Q4H PRN PRN PRN Reason: Moderate Pain (4-6/10) Last Admin: 05/01/19 08:05 Dose: 5 mg Sodium Chloride () 5 - 15 ml IV UD PRN PRN Reason: SALINE FLUSH Last Admin: 04/30/19 01:20 Dose: 10 ml Sodium Chloride/Electrolytes (Nulytely) 4,000 ml PO X1 ONE Stop: 05/02/19 11:31 Code Visit Inpatient E&M: 11969 Subs Hosp L3
[2019-05-01] MEDS: metroNIDAZOLE 500 MG Tablet PO ×2 (15:33→21:05)
[2019-05-01] MEDS: Insulin Lispro 100 UNIT/ML INSULN.PEN 10 UNIT SC (16:54)
[2019-05-01 17:26] LABS: Bedside Glucose 367 mg/dL (70-110)
--- NOTE | 2019-05-01 20:03 | PCM.PN.REN ---
Patient Problems: Active and Suspected Problems (Last Reviewed 04/29/19 @ 16:02 by Lakshmi Claudio PA-C) PAD (peripheral artery disease) (Acute) TYLOR (acute kidney injury) (Acute) Anemia (Acute) Heme positive stool (Acute) Diabetes mellitus (Acute) Left foot infection (Acute) Gas gangrene (Acute) Other specified peripheral vascular diseases (Suspected) Non-pressure chronic ulcer of other part of left foot with fat layer exposed (Acute) Subjective: No complaints - Physical Exam General: Alert, Cooperative HEENT: Atraumatic Oral: Moist Mucosa Neck: Supple, No JVD Lungs: Clear to auscultation, Normal air movement Cardiovascular: Regular rate, Regular Rhythm, Normal S1, Normal S2 Abdomen: Bowel Sounds Present, Non Tender, Non-Distended Extremities: No clubbing, No cyanosis, Edema Skin: No rashes Musculoskeletal: No Tenderness to Palpation of Joints or Extremities Lymphatic: No Cervical, Supraclavicular, or Inguinal Adenopathy Neurological: Cranial nerves II-XII grossly intact Psych/Mental Status: Appropriate Vital Signs Temp Pulse Resp BP Pulse Ox 97.8 F 96 18 165/54 H 98 05/01/19 14:47 05/01/19 18:52 05/01/19 14:47 05/01/19 14:47 05/01/19 14:47 Oxygen Delivery Method Room Air Weight: 98 kg Body Mass Index (BMI) 38.9 Intake and Output for Last 24 Hours 04/29/19 04/30/19 05/01/19 23:59 23:59 23:59 Intake Total 1970.8 / 1970.8 2081.6 / 2081.6 810 / 810 Output Total 1500 / 1500 0 / 0 Balance 470.8 / 470.8 2081.6 / 2081.6 810 / 810 Microbiology Past 72 Hours 04/29/19 16:00 Gram Stain - Final Tissue - Left Foot Wound Culture - Preliminary No growth-Final to follow Anaerobic Culture - Preliminary No growth in 48 hours. 04/26/19 17:15 Gram Stain - Final Wound Abcess - Aerobic & Anaerobic Swabs Wound Culture - Final Staphylococcus aureus Staphylococcus epidermidis Anaerobic Culture - Final Clostridium perfringens 04/29/19 14:19 C. difficile DNA Amplification - Final Stool 04/26/19 14:25 Blood Culture - Preliminary Blood Culture (Wb) - Anticubital Left No growth in 48 hours. 04/29/19 03:23 Stool Occult Blood (PEREZ) - Final Stool Occult Blood Positive POC Glucose 05/01/19 05/01/19 05/01/19 16:52 11:03 06:51 POC Glucose 367 H 277 H 251 H 04/30/19 22:18 POC Glucose 325 H Medical Necessity - Tobacco Use Smoking Status: Never smoker Tobacco Use: Non-smoker Assessment/Plan All Active Problems (Last Reviewed 04/29/19 @ 16:02 by Lakshmi Claudio PA-C) PAD (peripheral artery disease) (Acute) TYLOR (acute kidney injury) (Acute) Anemia (Acute) Heme positive stool (Acute) Osteomyelitis (Acute) Diabetes mellitus (Acute) Left foot infection (Acute) Gas gangrene (Acute) Non-pressure chronic ulcer of other part of left foot with fat layer exposed (Acute) TYLOR CKD 4 baseline creatinine was in 2 as of 2017. early this year presented with creatinine of 3.2. now in mid 4s. proteinuria of about 3.5 gm. renal USG looks ok. will check SPEP. likely progression of kidney disease vs worsening in setting of infection. he is off vancomycin already. Cr continues to rise.Weight is increasing might use lasix if needed no acute indications for dialysis right now. will follow HTN. generally poorly controlled. values are ok now proteinuria. SPEP ordered
[2019-05-01] MEDS: 0.9% NaCl Peripheral Flush Adult/Peds IV (20:14)
[2019-05-01 21:46] LABS: Bedside Glucose 421 mg/dL (70-110)
[2019-05-02] VITALS (15 sets, daily range): BP systolic 140–170; BP diastolic 74–88; PULSE 56–115; RESP 16–22; TEMP 36.6–37; O2SAT 95–99
[2019-05-02] MEDS: metroNIDAZOLE 500 MG Tablet PO ×3 (06:04→21:40)
[2019-05-02 06:39] LABS: International Normalized Ratio 1.4; Prothrombin Time (Protime)PT. 16.5 SECONDS (11.7-14.9)
[2019-05-02 06:56] LABS: Bedside Glucose 241 mg/dL (70-110)
[2019-05-02 07:01] LABS: Anion Gap 10 (5-15); BUN 102 mg/dL (7-18); BUN/Creat Ratio 21.7 RATIO (10-20); Chloride 107 mmol/L (98-107); EST Glomerular Filtration Rate 13 mL/min (>60); Est Glom Filt Rate - Afr Amer 16 mL/min (>60); Estimated Creatinine Clearance 11.13 ml/min; Glucose 247 mg/dL (74-106); Potassium 5.4 mmol/L (3.5-5.1); Sodium Level 135 mmol/L (136-145)
[2019-05-02 07:20] LABS: Basophil% 0.8 % (0-1); Eosinophils% 4.3 % (0-5); Hematocrit 23.6 % (40-54); Hemoglobin 7.6 g/dl (13.0-16.5); Mean Corp Hgb Conc 32.2 g/gl (32-36); Mean Corpuscular Hgb 29.5 pg (27.0-32.0); Mean Corpuscular Volume 91.5 fL (80-94); Mean Platelet Vol. 10.2 fl (6.2-12.0); Monocyte% 8.7 % (0-10); Neutrophil # 5.47 X10^3/uL (2.7-7.7); Neutrophil % 72.9 % (47-70); POSITIVE COUNT NO; POSITIVE DIFFERENTIAL NO; POSITIVE MORPHOLOGY NO; Platelet Count 260 K/mm3 (150-450); RBC Distribution Width CV 12.6 % (11.6-14.6); RBC Distribution Width SD 40.6 fl (35.1-43.9); Red Blood Count 2.58 M/mm3 (4.6-6.2); White Blood Count 7.5 K/mm3 (4.4-11.0)
[2019-05-02 07:21] LABS: Absolute Neutrophil Count 5.5 X10^3/uL (2.0-7.7); Basophil# 0.06 X10^3/uL; Eosinophil# 0.32 X10^3/uL; Monocyte# 0.65 X10^3/uL
[2019-05-02] MEDS: Insulin Lispro 100 UNIT/ML INSULN.PEN SQ ×3 (07:35→21:40)
[2019-05-02] MEDS: Insulin Lispro 100 UNIT/ML INSULN.PEN 10 UNIT SC (07:35)
[2019-05-02] MEDS: Multivitamins,Therapeutic Tablet 1 TABLET PO (07:36)
[2019-05-02] MEDS: Electrolyte Solution/Peg's 4000 ML PO (09:04)
[2019-05-02] MEDS: cloNIDine HCl 0.1 MG Tablet PO ×2 (09:05→21:40)
[2019-05-02] MEDS: Doxazosin 4 MG Tablet 8 MG PO (09:05)
[2019-05-02] MEDS: Metoprolol Tartrate 50 MG Tablet PO ×2 (09:06→21:40)
[2019-05-02] MEDS: Cefazolin 1 GM/50 ML BAG IV (09:09)
[2019-05-02] MEDS: amLODIPine 10 MG Tablet PO (09:10)
--- NOTE | 2019-05-02 09:54 | NURSING ---
Pt started Nulytely bowel prep at 0900. Pt up in chair. Call light within reach.
--- NOTE | 2019-05-02 11:21 | PN.SURG_ITS ---
Patient Problems: Active and Suspected Problems (Last Reviewed 04/29/19 @ 16:02 by Lakshmi Claudio PA-C) PAD (peripheral artery disease) (Acute) TYLOR (acute kidney injury) (Acute) Anemia (Acute) Heme positive stool (Acute) Diabetes mellitus (Acute) Left foot infection (Acute) Gas gangrene (Acute) Other specified peripheral vascular diseases (Suspected) Non-pressure chronic ulcer of other part of left foot with fat layer exposed (Acute) Subjective: Patient starting his bowel prep. He is tolerating it well. Objective: Abdomen is soft - Physical Exam Vital Signs Temp Pulse Resp BP Pulse Ox 98.1 F 82 20 H 140/74 H 95 05/02/19 06:00 05/02/19 09:06 05/02/19 06:00 05/02/19 09:06 05/02/19 07:28 Oxygen Delivery Method Room Air Weight: 219 lb 5.759 oz Body Mass Index (BMI) 38.9 Intake and Output for Last 24 Hours 04/30/19 05/01/19 05/02/19 23:59 23:59 23:59 Intake Total 2081.6 / 2081.6 1050 / 1050 120 / 120 Output Total 0 / 0 350 / 350 Balance 2081.6 / 2081.6 700 / 700 120 / 120 Microbiology Past 72 Hours 04/26/19 14:25 Blood Culture - Final Blood Culture (Wb) - Anticubital Left No growth in 5 days. 04/29/19 16:00 Gram Stain - Final Tissue - Left Foot Wound Culture - Preliminary No growth-Final to follow Anaerobic Culture - Preliminary No growth in 48 hours. 04/26/19 17:15 Gram Stain - Final Wound Abcess - Aerobic & Anaerobic Swabs Wound Culture - Final Staphylococcus aureus Staphylococcus epidermidis Anaerobic Culture - Final Clostridium perfringens 04/29/19 14:19 C. difficile DNA Amplification - Final Stool Laboratory Tests Past 24 Hrs 05/02/19 05/02/19 05/02/19 06:00 06:00 06:00 WBC 7.5 RBC 2.58 L Hgb 7.6 L Hct 23.6 L MCV 91.5 MCH 29.5 MCHC 32.2 RDW 12.6 RDW Differential 40.6 Plt Count 260 MPV 10.2 Immature Gran % (Auto) 1.300 H Neut % (Auto) 72.9 H Lymph % (Auto) 12.0 L [place] % (Auto) 8.7 Eos % (Auto) 4.3 Baso % (Auto) 0.8 Absolute Neuts (auto) 5.5 Absolute Lymphs (auto) 0.90 Total Counted Not Reportable PT 16.5 H INR 1.4 Sodium 135 L Potassium 5.4 H Chloride 107 Carbon Dioxide 18.0 L Anion Gap 10 BUN 102 H* Creatinine 4.70 H Estim Creat Clear Calc 11.13 Est GFR (MDRD) Af Amer 16 L Est GFR (MDRD) Non-Af 13 L BUN/Creatinine Ratio 21.7 H Glucose 247 H Calcium 8.0 L POC Glucose 05/02/19 05/01/19 05/01/19 06:39 21:01 16:52 POC Glucose 241 H 421 H 367 H Medical Necessity - Tobacco Use Smoking Status: Never smoker Tobacco Use: Non-smoker Assessment/Plan All Active Problems (Last Reviewed 04/29/19 @ 16:02 by Lakshmi Claudio PA-C) PAD (peripheral artery disease) (Acute) TYLOR (acute kidney injury) (Acute) Anemia (Acute) Heme positive stool (Acute) Osteomyelitis (Acute) Diabetes mellitus (Acute) Left foot infection (Acute) Gas gangrene (Acute) Non-pressure chronic ulcer of other part of left foot with fat layer exposed (Acute) Plan for upper and lower scope on Friday
[2019-05-02 11:30] LABS: Bedside Glucose 225 mg/dL (70-110)
--- NOTE | 2019-05-02 14:00 | PCM.PN.HOSP ---
Patient Problems: Active and Suspected Problems (Last Reviewed 04/29/19 @ 16:02 by Lakshmi Claudio PA-C) PAD (peripheral artery disease) (Acute) TYLOR (acute kidney injury) (Acute) Anemia (Acute) Heme positive stool (Acute) Diabetes mellitus (Acute) Left foot infection (Acute) Gas gangrene (Acute) Other specified peripheral vascular diseases (Suspected) Non-pressure chronic ulcer of other part of left foot with fat layer exposed (Acute) Subjective: Patient denies any acute change in status. Left toe pain is much better. Had about 350 mL urine output on 05/01. Cumulative about 9 L of positive fluid balance since admission. Hemodynamically stable. Vitals/I&O's: Vital Signs Temp Pulse Resp BP Pulse Ox 98.3 F 73 18 143/75 H 99 05/02/19 11:55 05/02/19 11:55 05/02/19 11:55 05/02/19 11:55 05/02/19 11:55 Oxygen Delivery Method Room Air Weight: 219 lb 5.759 oz Body Mass Index (BMI) 38.9 Intake and Output for Last 24 Hours 04/30/19 05/01/19 05/02/19 23:59 23:59 23:59 Intake Total 2081.6 / 2081.6 1050 / 1050 2360 / 2360 Output Total 0 / 0 350 / 350 Balance 2081.6 / 2081.6 700 / 700 2360 / 2360 General: Alert, Oriented x3, Cooperative HEENT: Atraumatic, PERRLA, EOMI, Normocephalic Neck: Supple, No JVD, Negative Carotid Bruits Lungs: Clear to auscultation, No rhonchi, No wheeze, No rales, Diminished Cardiovascular: Regular rate, Regular Rhythm, Normal S1, Normal S2, No murmurs Abdomen: Bowel Sounds Present, Soft, Non Tender, Non-Distended Extremities: No edema, Capillary Refill Less than 3 Seconds Skin: Ulcer/ Wound - Left great toe partial amputation status post surgical dressing. Musculoskeletal: Arthritic Changes, Tenderness - On left great toe Neurological: Cranial nerves II-XII grossly intact Psych/Mental Status: Normal Affect, Appropriate Microbiology Past 72 Hours 04/26/19 14:25 Blood Culture (Wb) - Anticubital Left Blood Culture - Final No growth in 5 days. 04/29/19 16:00 Tissue - Left Foot Gram Stain - Final 04/29/19 16:00 Tissue - Left Foot Wound Culture - Preliminary No growth-Final to follow 04/29/19 16:00 Tissue - Left Foot Anaerobic Culture - Preliminary No growth in 48 hours. 04/26/19 17:15 Wound Abcess - Aerobic & Anaerobic Swabs Gram Stain - Final 04/26/19 17:15 Wound Abcess - Aerobic & Anaerobic Swabs Wound Culture - Final Staphylococcus aureus Staphylococcus epidermidis 04/26/19 17:15 Wound Abcess - Aerobic & Anaerobic Swabs Anaerobic Culture - Final Clostridium perfringens 04/29/19 14:19 Stool C. difficile DNA Amplification - Final Laboratory Results 05/01/19 16:52: POC Glucose 367 H 05/01/19 21:01: POC Glucose 421 H 05/02/19 06:00: WBC 7.5, RBC 2.58 L, Hgb 7.6 L, Hct 23.6 L, MCV 91.5, MCH 29.5, MCHC 32.2, RDW 12.6, RDW Differential 40.6, Plt Count 260, MPV 10.2, Immature Gran % (Auto) 1.300 H, Neut % (Auto) 72.9 H, Lymph % (Auto) 12.0 L, [place] % (Auto) 8.7, Eos % (Auto) 4.3, Baso % (Auto) 0.8, Absolute Neuts (auto) 5.5, Absolute Lymphs (auto) 0.90, Total Counted Not Reportable 05/02/19 06:00: PT 16.5 H, INR 1.4 05/02/19 06:00: Sodium 135 L, Potassium 5.4 H, Chloride 107, Carbon Dioxide 18.0 L, Anion Gap 10, BUN 102 H*, Creatinine 4.70 H, Estim Creat Clear Calc 11.13, Est GFR (MDRD) Af Amer 16 L, Est GFR (MDRD) Non-Af 13 L, BUN/Creatinine Ratio 21.7 H, Glucose 247 H, Calcium 8.0 L 05/02/19 06:39: POC Glucose 241 H 05/02/19 10:54: POC Glucose 225 H Current Medications Acetaminophen (Tylenol) 650 mg PO Q6H PRN PRN PRN Reason: Mild pain 1-3/Temp > 100.7 F Albuterol Sulfate (Ventolin Aerosols) 1.25 mg INHALATION Q4H PRN PRN Reason: SOB &/OR WHEEZING Amlodipine Besylate (Norvasc) 10 mg PO DAILY [facility] Last Admin: 05/02/19 09:10 Dose: 10 mg Clonidine (Catapres) 0.1 mg PO BID [facility] Last Admin: 05/02/19 09:05 Dose: 0.1 mg Dextrose (D50w Syringe) 0 gm IV X1 PRN; Protocol PRN Reason: Hypoglycemia Doxazosin Mesylate (Cardura) 8 mg PO DAILY [facility] Last Admin: 05/02/19 09:05 Dose: 8 mg Glucagon () 1 mg IM .X1 PRN PRN Reason: Hypoglycemia Cefazolin Sodium () 1 gm in 50 mls @ 100 mls/hr IV Q24 [facility] Last Admin: 05/02/19 09:09 Dose: 100 mls/hr Insulin Glargine (Lantus (Bkc)) 10 units SC BID [facility] Last Admin: 05/02/19 09:05 Dose: 10 units Insulin Human Lispro (Humalog Kwikpen (Bkc)) 10 unit SC TIDAC [facility] Last Admin: 05/02/19 10:58 Dose: Not Given Insulin Human Lispro (Humalog Kwikpen (Bkc)) 0 unit SQ ACHS [facility]; Protocol Last Admin: 05/02/19 10:58 Dose: Not Given Metoprolol Tartrate (Lopressor (Beta Ester)) 50 mg PO BID [facility] Last Admin: 05/02/19 09:06 Dose: 50 mg Metronidazole (Flagyl) 500 mg PO TID [facility] Last Admin: 05/02/19 13:29 Dose: 500 mg Morphine Sulfate () 1 mg IV Q4H PRN PRN PRN Reason: Severe Pain (7-10/10) Last Admin: 04/30/19 01:18 Dose: 1 mg Multivitamins (Multivitamin) 1 tablet PO DAILY@0800 [facility] Last Admin: 05/02/19 07:36 Dose: 1 tablet Nutritional Formula (Terry - Borden Flavor) 1 packet PO BIDCM [facility] Last Admin: 05/02/19 07:36 Dose: Not Given Ondansetron HCl (Zofran) 4 mg IV Q8H PRN PRN PRN Reason: NAUSEA/VOMITING Oxycodone HCl (Oxyir) 5 mg PO Q4H PRN PRN PRN Reason: Moderate Pain (4-6/10) Last Admin: 05/01/19 20:14 Dose: 5 mg Sodium Chloride () 5 - 15 ml IV UD PRN PRN Reason: SALINE FLUSH Last Admin: 05/01/19 20:14 Dose: 10 ml Medical Necessity - Tobacco Use Smoking Status: Never smoker Tobacco Use: Non-smoker Assessment/Plan All Active Problems (Last Reviewed 04/29/19 @ 16:02 by Lakshmi Claudio PA-C) PAD (peripheral artery disease) (Acute) TYLOR (acute kidney injury) (Acute) Anemia (Acute) Heme positive stool (Acute) Osteomyelitis (Acute) Diabetes mellitus (Acute) Left foot infection (Acute) Gas gangrene (Acute) Non-pressure chronic ulcer of other part of left foot with fat layer exposed (Acute) This is a 68-year-old gentleman with history of type II DM, hypertension, CKD stage III, paroxysmal atrial fibrillation on Coumadin, who fell off his trailer as he was trying to load a mower. Patient had left foot injury with continued pain for 2 weeks. Patient last A1c was 8.7. Denies any computer terminal operator complication of diabetes including peripheral neuropathy. 1. Acute left big toe infection and gas gangrene s/p bedside I&D by podiatry ID on board wound cultured from 04/26 MSSA, MSSE and Clostridium perfringens: antibiotics narrowed to IV vancomycin and cefazolin. And then later on vancomycin was discontinued. Add metronidazole 500 mg 3 times daily. MRI of foot: osteomyelitis of hte first distal phalanx with adjacent soft tissue ulcer. Left first toe partial amputation on 04/29. 2. Peripheral artery disease: PVRs done showed right ankle noncompressibility. He had a KEVIN of 1.23 on the left side. Right digital brachial index was 1.05. Vascular surgery consulted-Per vascular surgery note, to try to have an angiogram if there is poor bleeding or difficulty healing but per vascular surgery would be reluctant to do this on account of elevated creatinine. to follow up with vascular surgery on discharge 3. Tylor on CKD 3 baseline CR is ~ 3.2. Cr was 4.67 on admission, and 4.82, 4.7 on 05/02. BUN 83 increased 102 also has BPH, which could be contributing to TYLOR on CKD. lasix and HCTZ on hold renal USG: Minimal urinary bladder debris, simple appearing renal cyst, nonobstructing calyceal calculus of the right kidney and no hydronephrosis. Normal renal cortical thickness and echotexture. being hydrated with IVF Patient was seen by bank vault attendant and feels probably worsening of baseline creatinine. Patient also has proteinuria and SBEP was ordered. 4. Anemia of chronic disease iron panel showed anemia of chronic disease. Hemoglobin running about 8 but today 7.6. baseline is ~ 10 stool for occult blood is positive. if Hb drops to <7, will transfuse with 2 units of pRBC Patient seen by surgeon Dr. Castellanos discussed with her and is scheduled for EGD and colonoscopy on Friday about 10:45 AM. 5. Non-anion gap acidosis: Bicarb is 18. Anion gap 10. This is likely due to TYLOR and CKD. Nephrology on board. 6. Type 2 diabetes mellitus: home meds on hold. ISS. Accuchecks ACHS. Dose of Lantus and Humulin insulin increased. 7. Hypertension: Fairly controlled. On metoprolol, amlodipine and clonidine. HCTZ on hold on account of TYLOR. 9. Paroxysmal A. fib: Rate controlled. On metoprolol. Coumadin on hold account of I&D. INR 1.4. Microbiology Past 72 Hours 04/29/19 16:00 Tissue - Left Foot Gram Stain - Final 04/29/19 16:00 Tissue - Left Foot Wound Culture - Preliminary No growth-Final to follow 04/29/19 16:00 Tissue - Left Foot Anaerobic Culture - Preliminary No growth in 48 hours. 04/26/19 17:15 Wound Abcess - Aerobic & Anaerobic Swabs Gram Stain - Final 04/26/19 17:15 Wound Abcess - Aerobic & Anaerobic Swabs Wound Culture - Final Staphylococcus aureus Staphylococcus epidermidis 04/26/19 17:15 Wound Abcess - Aerobic & Anaerobic Swabs Anaerobic Culture - Final Clostridium perfringens 04/29/19 14:19 Stool C. difficile DNA Amplification - Final 04/26/19 14:25 Blood Culture (Wb) - Anticubital Left Blood Culture - Preliminary No growth in 48 hours. 04/29/19 03:23 Stool Stool Occult Blood (PEREZ) - Final Occult Blood Positive Laboratory Results 05/01/19 16:52: POC Glucose 367 H 05/01/19 21:01: POC Glucose 421 H 05/02/19 06:00: WBC 7.5, RBC 2.58 L, Hgb 7.6 L, Hct 23.6 L, MCV 91.5, MCH 29.5, MCHC 32.2, RDW 12.6, RDW Differential 40.6, Plt Count 260, MPV 10.2, Immature Gran % (Auto) 1.300 H, Neut % (Auto) 72.9 H, Lymph % (Auto) 12.0 L, [place] % (Auto) 8.7, Eos % (Auto) 4.3, Baso % (Auto) 0.8, Absolute Neuts (auto) 5.5, Absolute Lymphs (auto) 0.90, Total Counted Not Reportable 05/02/19 06:00: PT 16.5 H, INR 1.4 05/02/19 06:00: Sodium 135 L, Potassium 5.4 H, Chloride 107, Carbon Dioxide 18.0 L, Anion Gap 10, BUN 102 H*, Creatinine 4.70 H, Estim Creat Clear Calc 11.13, Est GFR (MDRD) Af Amer 16 L, Est GFR (MDRD) Non-Af 13 L, BUN/Creatinine Ratio 21.7 H, Glucose 247 H, Calcium 8.0 L 05/02/19 06:39: POC Glucose 241 H 05/02/19 10:54: POC Glucose 225 H Active Medications Acetaminophen (Tylenol) 650 mg PO Q6H PRN PRN PRN Reason: Mild pain 1-3/Temp > 100.7 F Albuterol Sulfate (Ventolin Aerosols) 1.25 mg INHALATION Q4H PRN PRN Reason: SOB &/OR WHEEZING Amlodipine Besylate (Norvasc) 10 mg PO DAILY [facility] Last Admin: 05/01/19 09:43 Dose: 10 mg Clonidine (Catapres) 0.1 mg PO BID [facility] Last Admin: 05/01/19 09:42 Dose: 0.1 mg Dextrose (D50w Syringe) 0 gm IV X1 PRN; Protocol PRN Reason: Hypoglycemia Doxazosin Mesylate (Cardura) 8 mg PO DAILY [facility] Last Admin: 05/01/19 09:41 Dose: 8 mg Glucagon () 1 mg IM .X1 PRN PRN Reason: Hypoglycemia Cefazolin Sodium () 1 gm in 50 mls @ 100 mls/hr IV Q24 [facility] Last Admin: 05/01/19 09:45 Dose: 100 mls/hr Insulin Glargine (Lantus (Bkc)) 10 units SC BID [facility] Insulin Human Lispro (Humalog Kwikpen (Bkc)) 10 unit SC TIDAC [facility] Insulin Human Lispro (Humalog Kwikpen (Bkc)) 0 unit SQ ACHS [facility]; Protocol Metoprolol Tartrate (Lopressor (Beta Ester)) 50 mg PO BID [facility] Last Admin: 05/01/19 09:42 Dose: 50 mg Morphine Sulfate () 1 mg IV Q4H PRN PRN PRN Reason: Severe Pain (7-10/10) Last Admin: 04/30/19 01:18 Dose: 1 mg Multivitamins (Multivitamin) 1 tablet PO DAILY@0800 [facility] Last Admin: 05/01/19 08:05 Dose: 1 tablet Nutritional Formula (Terry - Borden Flavor) 1 packet PO BIDCM [facility] Last Admin: 05/01/19 08:05 Dose: 1 packet Ondansetron HCl (Zofran) 4 mg IV Q8H PRN PRN PRN Reason: NAUSEA/VOMITING Oxycodone HCl (Oxyir) 5 mg PO Q4H PRN PRN PRN Reason: Moderate Pain (4-6/10) Last Admin: 05/01/19 08:05 Dose: 5 mg Sodium Chloride () 5 - 15 ml IV UD PRN PRN Reason: SALINE FLUSH Last Admin: 04/30/19 01:20 Dose: 10 ml Sodium Chloride/Electrolytes (Nulytely) 4,000 ml PO X1 ONE Stop: 05/02/19 11:31 Code Visit Inpatient E&M: 82946 Subs Hosp L3
--- NOTE | 2019-05-02 14:06 | PN_ITS ---
Patient Problems: Active and Suspected Problems (Last Reviewed 04/29/19 @ 16:02 by Lakshmi Claudio PA-C) PAD (peripheral artery disease) (Acute) TYLOR (acute kidney injury) (Acute) Anemia (Acute) Heme positive stool (Acute) Diabetes mellitus (Acute) Left foot infection (Acute) Gas gangrene (Acute) Other specified peripheral vascular diseases (Suspected) Non-pressure chronic ulcer of other part of left foot with fat layer exposed (Acute) Subjective: Patient denies any acute change in status. Left toe pain is much better. Had about 350 mL urine output on 05/01. Cumulative about 9 L of positive fluid balance since admission. Hemodynamically stable. Vitals/I&O's: Vital Signs Temp Pulse Resp BP Pulse Ox 98.3 F 73 18 143/75 H 99 05/02/19 11:55 05/02/19 11:55 05/02/19 11:55 05/02/19 11:55 05/02/19 11:55 Oxygen Delivery Method Room Air Weight: 219 lb 5.759 oz Body Mass Index (BMI) 38.9 Intake and Output for Last 24 Hours 04/30/19 05/01/19 05/02/19 23:59 23:59 23:59 Intake Total 2081.6 / 2081.6 1050 / 1050 2360 / 2360 Output Total 0 / 0 350 / 350 Balance 2081.6 / 2081.6 700 / 700 2360 / 2360 General: Alert, Oriented x3, Cooperative HEENT: Atraumatic, PERRLA, EOMI, Normocephalic Neck: Supple, No JVD, Negative Carotid Bruits Lungs: Clear to auscultation, No rhonchi, No wheeze, No rales, Diminished Cardiovascular: Regular rate, Regular Rhythm, Normal S1, Normal S2, No murmurs Abdomen: Bowel Sounds Present, Soft, Non Tender, Non-Distended Extremities: No edema, Capillary Refill Less than 3 Seconds Skin: Ulcer/ Wound - Left great toe partial amputation status post surgical dressing. Musculoskeletal: Arthritic Changes, Tenderness - On left great toe Neurological: Cranial nerves II-XII grossly intact Psych/Mental Status: Normal Affect, Appropriate Microbiology Past 72 Hours 04/26/19 14:25 Blood Culture (Wb) - Anticubital Left Blood Culture - Final No growth in 5 days. 04/29/19 16:00 Tissue - Left Foot Gram Stain - Final 04/29/19 16:00 Tissue - Left Foot Wound Culture - Preliminary No growth-Final to follow 04/29/19 16:00 Tissue - Left Foot Anaerobic Culture - Preliminary No growth in 48 hours. 04/26/19 17:15 Wound Abcess - Aerobic & Anaerobic Swabs Gram Stain - Final 04/26/19 17:15 Wound Abcess - Aerobic & Anaerobic Swabs Wound Culture - Final Staphylococcus aureus Staphylococcus epidermidis 04/26/19 17:15 Wound Abcess - Aerobic & Anaerobic Swabs Anaerobic Culture - Final Clostridium perfringens 04/29/19 14:19 Stool C. difficile DNA Amplification - Final Laboratory Results 05/01/19 16:52: POC Glucose 367 H 05/01/19 21:01: POC Glucose 421 H 05/02/19 06:00: WBC 7.5, RBC 2.58 L, Hgb 7.6 L, Hct 23.6 L, MCV 91.5, MCH 29.5, MCHC 32.2, RDW 12.6, RDW Differential 40.6, Plt Count 260, MPV 10.2, Immature Gran % (Auto) 1.300 H, Neut % (Auto) 72.9 H, Lymph % (Auto) 12.0 L, Marshall % ( Auto) 8.7, Eos % (Auto) 4.3, Baso % (Auto) 0.8, Absolute Neuts (auto) 5.5, Absolute Lymphs (auto) 0.90, Total Counted Not Reportable 05/02/19 06:00: PT 16.5 H, INR 1.4 05/02/19 06:00: Sodium 135 L, Potassium 5.4 H, Chloride 107, Carbon Dioxide 18.0 L, Anion Gap 10, BUN 102 H*, Creatinine 4.70 H, Estim Creat Clear Calc 11.13, Est GFR (MDRD) Af Amer 16 L, Est GFR (MDRD) Non-Af 13 L, BUN/Creatinine Ratio 21.7 H, Glucose 247 H, Calcium 8.0 L 05/02/19 06:39: POC Glucose 241 H 05/02/19 10:54: POC Glucose 225 H Current Medications Acetaminophen (Tylenol) 650 mg PO Q6H PRN PRN PRN Reason: Mild pain 1-3/Temp > 100.7 F Albuterol Sulfate (Ventolin Aerosols) 1.25 mg INHALATION Q4H PRN PRN Reason: SOB &/OR WHEEZING Amlodipine Besylate (Norvasc) 10 mg PO DAILY [facility] Last Admin: 05/02/19 09:10 Dose: 10 mg Clonidine (Catapres) 0.1 mg PO BID [facility] Last Admin: 05/02/19 09:05 Dose: 0.1 mg Dextrose (D50w Syringe) 0 gm IV X1 PRN; Protocol PRN Reason: Hypoglycemia Doxazosin Mesylate (Cardura) 8 mg PO DAILY [facility] Last Admin: 05/02/19 09:05 Dose: 8 mg Glucagon () 1 mg IM .X1 PRN PRN Reason: Hypoglycemia Cefazolin Sodium () 1 gm in 50 mls @ 100 mls/hr IV Q24 [facility] Last Admin: 05/02/19 09:09 Dose: 100 mls/hr Insulin Glargine (Lantus (Bkc)) 10 units SC BID [facility] Last Admin: 05/02/19 09:05 Dose: 10 units Insulin Human Lispro (Humalog Kwikpen (Bkc)) 10 unit SC TIDAC [facility] Last Admin: 05/02/19 10:58 Dose: Not Given Insulin Human Lispro (Humalog Kwikpen (Bkc)) 0 unit SQ ACHS [facility]; Protocol Last Admin: 05/02/19 10:58 Dose: Not Given Metoprolol Tartrate (Lopressor (Beta Ester)) 50 mg PO BID [facility] Last Admin: 05/02/19 09:06 Dose: 50 mg Metronidazole (Flagyl) 500 mg PO TID [facility] Last Admin: 05/02/19 13:29 Dose: 500 mg Morphine Sulfate () 1 mg IV Q4H PRN PRN PRN Reason: Severe Pain (7-10/10) Last Admin: 04/30/19 01:18 Dose: 1 mg Multivitamins (Multivitamin) 1 tablet PO DAILY@0800 [facility] Last Admin: 05/02/19 07:36 Dose: 1 tablet Nutritional Formula (Terry - [place] Flavor) 1 packet PO BIDCM [facility] Last Admin: 05/02/19 07:36 Dose: Not Given Ondansetron HCl (Zofran) 4 mg IV Q8H PRN PRN PRN Reason: NAUSEA/VOMITING Oxycodone HCl (Oxyir) 5 mg PO Q4H PRN PRN PRN Reason: Moderate Pain (4-6/10) Last Admin: 05/01/19 20:14 Dose: 5 mg Sodium Chloride () 5 - 15 ml IV UD PRN PRN Reason: SALINE FLUSH Last Admin: 05/01/19 20:14 Dose: 10 ml Medical Necessity - Tobacco Use Smoking Status: Never smoker Tobacco Use: Non-smoker Assessment/Plan All Active Problems (Last Reviewed 04/29/19 @ 16:02 by Lakshmi Claudio PA-C) PAD (peripheral artery disease) (Acute) TYLOR (acute kidney injury) (Acute) Anemia (Acute) Heme positive stool (Acute) Osteomyelitis (Acute) Diabetes mellitus (Acute) Left foot infection (Acute) Gas gangrene (Acute) Non-pressure chronic ulcer of other part of left foot with fat layer exposed (Acute) This is a 68-year-old gentleman with history of type II DM, hypertension, CKD stage III, paroxysmal atrial fibrillation on Coumadin, who fell off his trailer as he was trying to load a mower. Patient had left foot injury with continued pain for 2 weeks. Patient last A1c was 8.7. Denies any chcf complication of diabetes including peripheral neuropathy. 1. Acute left big toe infection and gas gangrene * s/p bedside I&D by podiatry * ID on board * wound cultured from 04/26 MSSA, MSSE and Clostridium perfringens: antibiotics narrowed to IV vancomycin and cefazolin. And then later on vancomycin was discontinued. Add metronidazole 500 mg 3 times daily. * MRI of foot: osteomyelitis of hte first distal phalanx with adjacent soft tissue ulcer. * Left first toe partial amputation on 04/29. 2. Peripheral artery disease: * PVRs done showed right ankle noncompressibility. * He had a KEVIN of 1.23 on the left side. Right digital brachial index was 1.05. * Vascular surgery consulted-Per vascular surgery note, to try to have an angiogram if there is poor bleeding or difficulty healing but per vascular surgery would be reluctant to do this on account of elevated creatinine. * to follow up with vascular surgery on discharge 3. Tylor on CKD 3 * baseline CR is ~ 3.2. Cr was 4.67 on admission, and 4.82, 4.7 on 05/02. BUN 83 increased 102 * also has BPH, which could be contributing to TYLOR on CKD. lasix and HCTZ on hold * renal USG: Minimal urinary bladder debris, simple appearing renal cyst, nonobstructing calyceal calculus of the right kidney and no hydronephrosis. Normal renal cortical thickness and echotexture. * being hydrated with IVF * Patient was seen by refractory worker and feels probably worsening of baseline creatinine. Patient also has proteinuria and SBEP was ordered. 4. Anemia of chronic disease * iron panel showed anemia of chronic disease. * Hemoglobin running about 8 but today 7.6. baseline is ~ 10 * stool for occult blood is positive. * if Hb drops to <7, will transfuse with 2 units of pRBC * Patient seen by surgeon Dr. Castellanos discussed with her and is scheduled for EGD and colonoscopy on Friday about 10:45 AM. 5. Non-anion gap acidosis: Bicarb is 18. Anion gap 10. This is likely due to TYLOR and CKD. Nephrology on board. 6. Type 2 diabetes mellitus: home meds on hold. ISS. Accuchecks ACHS. Dose of Lantus and Humulin insulin increased. 7. Hypertension: Fairly controlled. On metoprolol, amlodipine and clonidine. HCTZ on hold on account of TYLOR. 9. Paroxysmal A. fib: Rate controlled. On metoprolol. Coumadin on hold account of I&D. INR 1.4. Microbiology Past 72 Hours 04/29/19 16:00 Tissue - Left Foot Gram Stain - Final 04/29/19 16:00 Tissue - Left Foot Wound Culture - Preliminary No growth-Final to follow 04/29/19 16:00 Tissue - Left Foot Anaerobic Culture - Preliminary No growth in 48 hours. 04/26/19 17:15 Wound Abcess - Aerobic & Anaerobic Swabs Gram Stain - Final 04/26/19 17:15 Wound Abcess - Aerobic & Anaerobic Swabs Wound Culture - Final Staphylococcus aureus Staphylococcus epidermidis 04/26/19 17:15 Wound Abcess - Aerobic & Anaerobic Swabs Anaerobic Culture - Final Clostridium perfringens 04/29/19 14:19 Stool C. difficile DNA Amplification - Final 04/26/19 14:25 Blood Culture (Wb) - Anticubital Left Blood Culture - Preliminary No growth in 48 hours. 04/29/19 03:23 Stool Stool Occult Blood (PEREZ) - Final Occult Blood Positive Laboratory Results 05/01/19 16:52: POC Glucose 367 H 05/01/19 21:01: POC Glucose 421 H 05/02/19 06:00: WBC 7.5, RBC 2.58 L, Hgb 7.6 L, Hct 23.6 L, MCV 91.5, MCH 29.5, MCHC 32.2, RDW 12.6, RDW Differential 40.6, Plt Count 260, MPV 10.2, Immature Gran % (Auto) 1.300 H, Neut % (Auto) 72.9 H, Lymph % (Auto) 12.0 L, Marshall % (Auto) 8.7, Eos % (Auto) 4.3, Baso % (Auto) 0.8, Absolute Neuts (auto) 5.5, Absolute Lymphs (auto) 0.90, Total Counted Not Reportable 05/02/19 06:00: PT 16.5 H, INR 1.4 05/02/19 06:00: Sodium 135 L, Potassium 5.4 H, Chloride 107, Carbon Dioxide 18.0 L, Anion Gap 10, BUN 102 H*, Creatinine 4.70 H, Estim Creat Clear Calc 11.13, Est GFR (MDRD) Af Amer 16 L, Est GFR (MDRD) Non-Af 13 L, BUN/Creatinine Ratio 21.7 H, Glucose 247 H, Calcium 8.0 L 05/02/19 06:39: POC Glucose 241 H 05/02/19 10:54: POC Glucose 225 H Active Medications Acetaminophen (Tylenol) 650 mg PO Q6H PRN PRN PRN Reason: Mild pain 1-3/Temp > 100.7 F Albuterol Sulfate (Ventolin Aerosols) 1.25 mg INHALATION Q4H PRN PRN Reason: SOB &/OR WHEEZING Amlodipine Besylate (Norvasc) 10 mg PO DAILY [facility] Last Admin: 05/01/19 09:43 Dose: 10 mg Clonidine (Catapres) 0.1 mg PO BID [facility] Last Admin: 05/01/19 09:42 Dose: 0.1 mg Dextrose (D50w Syringe) 0 gm IV X1 PRN; Protocol PRN Reason: Hypoglycemia Doxazosin Mesylate (Cardura) 8 mg PO DAILY [facility] Last Admin: 05/01/19 09:41 Dose: 8 mg Glucagon () 1 mg IM .X1 PRN PRN Reason: Hypoglycemia Cefazolin Sodium () 1 gm in 50 mls @ 100 mls/hr IV Q24 [facility] Last Admin: 05/01/19 09:45 Dose: 100 mls/hr Insulin Glargine (Lantus (Bkc)) 10 units SC BID [facility] Insulin Human Lispro (Humalog Kwikpen (Bkc)) 10 unit SC TIDAC [facility] Insulin Human Lispro (Humalog Kwikpen (Bkc)) 0 unit SQ ACHS [facility]; Protocol Metoprolol Tartrate (Lopressor (Beta Ester)) 50 mg PO BID [facility] Last Admin: 05/01/19 09:42 Dose: 50 mg Morphine Sulfate () 1 mg IV Q4H PRN PRN PRN Reason: Severe Pain (7-10/10) Last Admin: 04/30/19 01:18 Dose: 1 mg Multivitamins (Multivitamin) 1 tablet PO DAILY@0800 [facility] Last Admin: 05/01/19 08:05 Dose: 1 tablet Nutritional Formula (Terry - [place] Flavor) 1 packet PO BIDCM [facility] Last Admin: 05/01/19 08:05 Dose: 1 packet Ondansetron HCl (Zofran) 4 mg IV Q8H PRN PRN PRN Reason: NAUSEA/VOMITING Oxycodone HCl (Oxyir) 5 mg PO Q4H PRN PRN PRN Reason: Moderate Pain (4-6/10) Last Admin: 05/01/19 08:05 Dose: 5 mg Sodium Chloride () 5 - 15 ml IV UD PRN PRN Reason: SALINE FLUSH Last Admin: 04/30/19 01:20 Dose: 10 ml Sodium Chloride/Electrolytes (Nulytely) 4,000 ml PO X1 ONE Stop: 05/02/19 11:31 Code Visit Inpatient E&M: 41591 Subs Hosp L3
[2019-05-02] MEDS: oxyCODONE 5 MG Tablet PO (15:27)
[2019-05-02 16:25] LABS: Bedside Glucose 287 mg/dL (70-110)
--- NOTE | 2019-05-02 17:49 | PN.RENAL_ITS ---
Patient Problems: Active and Suspected Problems (Last Reviewed 04/29/19 @ 16:02 by Lakshmi Claudio PA-C) PAD (peripheral artery disease) (Acute) TYLOR (acute kidney injury) (Acute) Anemia (Acute) Heme positive stool (Acute) Diabetes mellitus (Acute) Left foot infection (Acute) Gas gangrene (Acute) Other specified peripheral vascular diseases (Suspected) Non-pressure chronic ulcer of other part of left foot with fat layer exposed (Acute) Subjective: Pt said he is doing well Has some SOB No nausea No vomiting - Physical Exam General: Alert, Oriented x3 HEENT: Atraumatic Oral: Moist Mucosa Neck: Supple, No JVD Lungs: Diminished, - - decrease BS over both lungs bases Abdomen: Bowel Sounds Present, Soft, Non Tender Extremities: No clubbing, No cyanosis, Edema - +3 edema of LE Musculoskeletal: No Tenderness to Palpation of Joints or Extremities Lymphatic: No Cervical, Supraclavicular, or Inguinal Adenopathy Neurological: Cranial nerves II-XII grossly intact, Neuro grossly intact Vital Signs Temp Pulse Resp BP Pulse Ox 98 F 65 16 152/87 H 98 05/02/19 17:04 05/02/19 17:04 05/02/19 17:04 05/02/19 17:04 05/02/19 17:04 Oxygen Delivery Method Room Air Weight: 99.5 kg Body Mass Index (BMI) 38.9 Intake and Output for Last 24 Hours 04/30/19 05/01/19 05/02/19 23:59 23:59 23:59 Intake Total 2081.6 / 2081.6 1050 / 1050 3600 / 3600 Output Total 0 / 0 350 / 350 Balance 2081.6 / 2081.6 700 / 700 3600 / 3600 Microbiology Past 72 Hours 04/26/19 14:25 Blood Culture - Final Blood Culture (Wb) - Anticubital Left No growth in 5 days. 04/29/19 16:00 Gram Stain - Final Tissue - Left Foot Wound Culture - Preliminary No growth-Final to follow Anaerobic Culture - Preliminary No growth in 48 hours. 04/26/19 17:15 Gram Stain - Final Wound Abcess - Aerobic & Anaerobic Swabs Wound Culture - Final Staphylococcus aureus Staphylococcus epidermidis Anaerobic Culture - Final Clostridium perfringens 04/29/19 14:19 C. difficile DNA Amplification - Final Stool Laboratory Tests Past 24 Hrs 05/02/19 05/02/19 05/02/19 06:00 06:00 06:00 WBC 7.5 RBC 2.58 L Hgb 7.6 L Hct 23.6 L MCV 91.5 MCH 29.5 MCHC 32.2 RDW 12.6 RDW Differential 40.6 Plt Count 260 MPV 10.2 Immature Gran % (Auto) 1.300 H Neut % (Auto) 72.9 H Lymph % (Auto) 12.0 L [place] % (Auto) 8.7 Eos % (Auto) 4.3 Baso % (Auto) 0.8 Absolute Neuts (auto) 5.5 Absolute Lymphs (auto) 0.90 Total Counted Not Reportable PT 16.5 H INR 1.4 Sodium 135 L Potassium 5.4 H Chloride 107 Carbon Dioxide 18.0 L Anion Gap 10 BUN 102 H* Creatinine 4.70 H Estim Creat Clear Calc 11.13 Est GFR (MDRD) Af Amer 16 L Est GFR (MDRD) Non-Af 13 L BUN/Creatinine Ratio 21.7 H Glucose 247 H Calcium 8.0 L POC Glucose 05/02/19 05/02/19 05/02/19 16:05 10:54 06:39 POC Glucose 287 H 225 H 241 H 05/01/19 21:01 POC Glucose 421 H Medical Necessity - Tobacco Use Smoking Status: Never smoker Tobacco Use: Non-smoker Assessment/Plan All Active Problems (Last Reviewed 04/29/19 @ 16:02 by Lakshmi Claudio PA-C) PAD (peripheral artery disease) (Acute) TYLOR (acute kidney injury) (Acute) Anemia (Acute) Heme positive stool (Acute) Osteomyelitis (Acute) Diabetes mellitus (Acute) Left foot infection (Acute) Gas gangrene (Acute) Non-pressure chronic ulcer of other part of left foot with fat layer exposed (Acute) TYLOR on CKD stage 4 this year. Baseline Cr seems around 3.2 mg/dL. kidney function is worsening. BUN > 100 UA showed 500 protein. 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 Will do renal US Will check C3/C4 NIMESH, ANCA and hepatitis panel Will start lasix 60 BID No indication for HD today. Will revaluate the need of HD daily Keep MAP >65 Avoid ACEI/ARB Hyperkalemia: K is 5.2 Should improve with lasix Renal diet HTN. Better. Continue same BP meds Add lasix for volume Infected left big toe s/p amputation. Abx as per ID PVD. please avoid IV contrast Renal team will; continue to follow Please call if any question at [phone] Alyssa Tellez MD
[2019-05-02] MEDS: Furosemide 100 MG/10 ML Vial 60 MG IV (17:57)
[2019-05-02] MEDS: 0.9% NaCl Peripheral Flush Adult/Peds IV (17:58)
[2019-05-02 20:30] LABS: Urine Sodium 89 mmol/L (Not Establ.)
[2019-05-02 21:51] LABS: Bedside Glucose 313 mg/dL (70-110)
[2019-05-03] VITALS (18 sets, daily range): BP systolic 110–161; BP diastolic 71–99; PULSE 55–118; RESP 16–20; TEMP 36.4–37.1; O2SAT 97–100; BMI 40.4
--- NOTE | 2019-05-03 | IMM_PTH ---
PATIENT: LEANDER DRAKE LOC: [facility] U#:[id number] AGE/SX: 68/M ROOM: [facility] RE04/26/[address]: Dr. Leobardo Alonzo MD : 1950 BED: 1 DIS: 05/05/2019 SPEC #: [id number] RECD: 05/03/19 14:23 STATUS: DIAZ REQ #: [id number] ESTRELLITA: 05/03/19 00:[address]: Nina Castellanos DEPT: IMMUNOHISTOCHEMISTRY RECD BY: Barbra March ENTERED: 05/03/19 14:28 SP TYPE: IMMUNO OTHR DR: MD Dr. Omer Alcantar MD Dr. David Kittoe, MD Dr. Jeanna Fascione, EDIEM DO Dr. Abdoul Garcia MD Tissues: A - Stomach, NOS Procedures: H Pylori (initial) PHYSICIAN & INSTITUTION [place] [address] SPECIMEN INFORMATION: Tissue Source: A - Antrum biopsy Clinical Info: Anemia, heme-positive stool Specimen Number: [id number] CPT code: 08407 METHODOLOGY: Deparaffinized sections of prefer/formalin-fixed tissue or PAP/DQ stained slides are incubated with monoclonal/polyclonal antibodies/oligonucleotide probes. Localization is made via biotin free immunoperoxidase method. Appropriate controls are performed and reacted as expected. Results on target cell population are indicated in the following table: RESULTS: ANTIBODY / CLONE RESULT Block A H Pylori (polyclonal) negative These tests were developed and their performance characteristics determined by [facility]. They may not have been cleared or approved by the [place]. Food and Drug Administration. The FDA has determined that such clearance or approval is not necessary. INTERPRETATION: A. Antrum biopsy: Negative for Helicobacter pylori organisms. AM:silke 05/04/19
[2019-05-03] MEDS: oxyCODONE 5 MG Tablet PO (01:35)
[2019-05-03] MEDS: metroNIDAZOLE 500 MG Tablet PO ×3 (06:06→21:44)
[2019-05-03 06:08] LABS: Absolute Lymphocyte Count 0.87 X10^3/ul (0.83-4.51); Absolute Neutrophil Count 5.5 X10^3/uL (2.0-7.7); Basophil# 0.05 X10^3/uL; Basophil% 0.7 % (0-1); Eosinophil# 0.42 X10^3/uL; Eosinophils% 5.6 % (0-5); Hematocrit 23.7 % (40-54); Hemoglobin 7.9 g/dl (13.0-16.5); Lymphocyte # 0.87 X10^3/ul (4.0); Lymphocyte % 11.6 % (19-41); Mean Corp Hgb Conc 33.3 g/gl (32-36); Mean Corpuscular Hgb 29.9 pg (27.0-32.0); Mean Corpuscular Volume 89.8 fL (80-94); Mean Platelet Vol. 9.5 fl (6.2-12.0); Monocyte# 0.64 X10^3/uL; Monocyte% 8.6 % (0-10); Neutrophil # 5.45 X10^3/uL (2.7-7.7); Platelet Count 324 K/mm3 (150-450); RBC Distribution Width CV 13.3 % (11.6-14.6); RBC Distribution Width SD 43.7 fl (35.1-43.9); Red Blood Count 2.64 M/mm3 (4.6-6.2); White Blood Count 7.5 K/mm3 (4.4-11.0)
[2019-05-03 06:45] LABS: Bedside Glucose 122 mg/dL (70-110)
[2019-05-03 06:51] LABS: International Normalized Ratio 1.4
[2019-05-03 06:53] LABS: POSITIVE COUNT NO; POSITIVE DIFFERENTIAL NO; POSITIVE MORPHOLOGY NO
[2019-05-03 07:20] LABS: Anion Gap 8 (5-15); BUN 91 mg/dL (7-18); BUN/Creat Ratio 22.5 RATIO (10-20); Calcium,Total 8.6 mg/dL (8.5-10.1); Chloride 109 mmol/L (98-107); Creatinine, Serum 4.04 mg/dL (0.70-1.30); EST Glomerular Filtration Rate 16 mL/min (>60); Est Glom Filt Rate - Afr Amer 19 mL/min (>60); Estimated Creatinine Clearance 12.95 ml/min; Glucose 120 mg/dL (74-106); Potassium 4.8 mmol/L (3.5-5.1); Sodium Level 139 mmol/L (136-145)
[2019-05-03] MEDS: Cefazolin 1 GM/50 ML BAG IV (09:03)
--- NOTE | 2019-05-03 09:43 | PN_ITS ---
Patient Problems: Active and Suspected Problems (Last Reviewed 04/29/19 @ 16:02 by Lakshmi Claudio PA-C) PAD (peripheral artery disease) (Acute) TYLOR (acute kidney injury) (Acute) Anemia (Acute) Heme positive stool (Acute) Diabetes mellitus (Acute) Left foot infection (Acute) Gas gangrene (Acute) Other specified peripheral vascular diseases (Suspected) Non-pressure chronic ulcer of other part of left foot with fat layer exposed (Acute) Subjective: Patient is a 68-year-old gentleman with multiple comorbidities including diabet es mellitus type 2 chronic kidney disease stage III paroxysmal atrial for ablation on Coumadin who apparently fell off his trailer 2 weeks prior to his admission. He was admitted with acute left big toe infection with gas gangrene consultation was placed to podiatry patient underwent partial left hallux amputation on 04/29/2019 05/20/2019: Patient scheduled to undergo endoscopic evaluation as work-up of his anemia Objective: GENERAL: cooperative HEENT: Atraumatic; EYES; Anicteric, NECK; supple, normal thyroid, RESPIRATORY: Diminished to auscultation CARDIOVASCULAR: Irregular S1 S2, GI: soft, non-tender, normoactive bowel sounds, : No Renal angle tenderness; EXTREMITIES: No edema, no clubbing, MUSCULOSKELETAL: No Joint Tenderness; NEURO: Awake; no lateralizing signs. SKIN: No Rash PSYCH; Normal affect Vitals/I&O's: Vital Signs Temp Pulse Resp BP Pulse Ox 97.5 F L 90 18 160/90 H 97 05/03/19 09:14 05/03/19 09:14 05/03/19 09:14 05/03/19 09:14 05/03/19 09:14 Oxygen Delivery Method Room Air Weight: 95.3 kg Body Mass Index (BMI) 40.4 Intake and Output for Last 24 Hours 05/01/19 05/02/19 05/03/19 23:59 23:59 23:59 Intake Total 1050 / 1050 4600 / 4600 Output Total 350 / 350 Balance 700 / 700 4600 / 4600 Microbiology Past 72 Hours 04/29/19 16:00 Tissue - Left Foot Gram Stain - Final 04/29/19 16:00 Tissue - Left Foot Wound Culture - Final No growth aerobically. 04/29/19 16:00 Tissue - Left Foot Anaerobic Culture - Preliminary No growth in 48 hours. 04/26/19 14:25 Blood Culture (Wb) - Anticubital Left Blood Culture - Final No growth in 5 days. 04/26/19 17:15 Wound Abcess - Aerobic & Anaerobic Swabs Gram Stain - Final 04/26/19 17:15 Wound Abcess - Aerobic & Anaerobic Swabs Wound Culture - Final Staphylococcus aureus Staphylococcus epidermidis 04/26/19 17:15 Wound Abcess - Aerobic & Anaerobic Swabs Anaerobic Culture - Final Clostridium perfringens Laboratory Results 05/02/19 10:54: POC Glucose 225 H 05/02/19 16:05: POC Glucose 287 H 05/02/19 18:57: Ur Random Sodium 89, Urine Creatinine 20.90 05/02/19 21:33: POC Glucose 313 H 05/03/19 05:20: PT 17.0 H, INR 1.4 05/03/19 05:20: WBC 7.5, RBC 2.64 L, Hgb 7.9 L, Hct 23.7 L, MCV 89.8, MCH 29.9, MCHC 33.3, RDW 13.3, RDW Differential 43.7, Plt Count 324, MPV 9.5, Immature Gran % (Auto) 0.500, Neut % (Auto) 73.0 H, Lymph % (Auto) 11.6 L, Dorado % (Auto) 8.6, Eos % (Auto) 5.6 H, Baso % (Auto) 0.7, Absolute Neuts (auto) 5.5, Absolute Lymphs (auto) 0.87, Total Counted Not Reportable 05/03/19 05:20: Sodium 139, Potassium 4.8, Chloride 109 H, Carbon Dioxide 22.0, Anion Gap 8, BUN 91 H, Creatinine 4.04 H, Estim Creat Clear Calc 12.95, Est GFR (MDRD) Af Amer 19 L, Est GFR (MDRD) Non-Af 16 L, BUN/Creatinine Ratio 22.5 H, Glucose 120 H, Calcium 8.6 05/03/19 05:20: c-ANCA Antibody Pending, p-ANCA Antibody Pending, Complement C3 Pending, Complement C4 Pending, Hep Bs Antigen Pending, Hepatitis C Ab (EIA) Pending 05/03/19 05:20: NIMESH Screen Pending, MARIANGEL-1 Antibody Pending, SS-A/Ro IgG Antibody Pending, SS-B/La IgG Antibody Pending, Sm (Bell) Antibody Pending, CONVEYOR MAINTENANCE MECHANIC Antibody Pending, Scl-70 Scleroderma Ab Pending, Double Strand DNA Ab Pending, Centromere B Antibody Pending 05/03/19 06:39: POC Glucose 122 H Current Medications Acetaminophen (Tylenol) 650 mg PO Q6H PRN PRN PRN Reason: Mild pain 1-3/Temp > 100.7 F Albuterol Sulfate (Ventolin Aerosols) 1.25 mg INHALATION Q4H PRN PRN Reason: SOB &/OR WHEEZING Amlodipine Besylate (Norvasc) 10 mg PO DAILY [facility] Last Admin: 05/02/19 09:10 Dose: 10 mg Clonidine (Catapres) 0.1 mg PO BID [facility] Last Admin: 05/02/19 21:40 Dose: 0.1 mg Dextrose (D50w Syringe) 0 gm IV X1 PRN; Protocol PRN Reason: Hypoglycemia Doxazosin Mesylate (Cardura) 8 mg PO DAILY [facility] Last Admin: 05/02/19 09:05 Dose: 8 mg Furosemide (Lasix) 60 mg IV BIDLX [facility] Last Admin: 05/02/19 17:57 Dose: 60 mg Glucagon () 1 mg IM .X1 PRN PRN Reason: Hypoglycemia Cefazolin Sodium () 1 gm in 50 mls @ 100 mls/hr IV Q24 [facility] Last Admin: 05/03/19 09:03 Dose: 100 mls/hr Insulin Glargine (Lantus (Bkc)) 15 units SC BID [facility] Last Admin: 05/02/19 21:41 Dose: 15 u Insulin Human Lispro (Humalog Kwikpen (Bkc)) 0 unit SQ ACHS [facility]; Protocol Last Admin: 05/03/19 06:49 Dose: Not Given Insulin Human Lispro (Humalog Kwikpen (Bkc)) 15 unit SC TIDAC [facility] Last Admin: 05/03/19 06:50 Dose: Not Given Metoprolol Tartrate (Lopressor (Beta Ester)) 50 mg PO BID [facility] Last Admin: 05/02/19 21:40 Dose: 50 mg Metronidazole (Flagyl) 500 mg PO TID [facility] Last Admin: 05/03/19 06:06 Dose: 500 mg Morphine Sulfate () 1 mg IV Q4H PRN PRN PRN Reason: Severe Pain (7-10/10) Last Admin: 04/30/19 01:18 Dose: 1 mg Multivitamins (Multivitamin) 1 tablet PO DAILY@0800 [facility] Last Admin: 05/02/19 07:36 Dose: 1 tablet Nutritional Formula (Terry - [place] Flavor) 1 packet PO BIDCM [facility] Last Admin: 05/02/19 16:11 Dose: Not Given Ondansetron HCl (Zofran) 4 mg IV Q8H PRN PRN PRN Reason: NAUSEA/VOMITING Oxycodone HCl (Oxyir) 5 mg PO Q4H PRN PRN PRN Reason: Moderate Pain (4-6/10) Last Admin: 05/03/19 01:35 Dose: 5 mg Sodium Chloride () 5 - 15 ml IV UD PRN PRN Reason: SALINE FLUSH Last Admin: 05/02/19 17:58 Dose: 10 ml Medical Necessity - Tobacco Use Smoking Status: Never smoker Tobacco Use: Non-smoker Assessment/Plan All Active Problems (Last Reviewed 04/29/19 @ 16:02 by Lakshmi Claudio PA-C) PAD (peripheral artery disease) (Acute) TYLOR (acute kidney injury) (Acute) Anemia (Acute) Heme positive stool (Acute) Osteomyelitis (Acute) Diabetes mellitus (Acute) Left foot infection (Acute) Gas gangrene (Acute) Non-pressure chronic ulcer of other part of left foot with fat layer exposed (Acute) Patient is a 68-year-old gentleman with multiple comorbidities including diabetes mellitus type 2 chronic kidney disease stage III paroxysmal atrial for ablation on Coumadin who apparently fell off his trailer 2 weeks prior to his admission. He was admitted with acute left big toe infection with gas gangrene consultation was placed to podiatry patient underwent partial left hallux amputation on 04/29/2019 1. Acute left big toe infection and gas gangrene with osteomyelitis of the distal left phalanx with MSSA and MSSA the. Patient underwent Partial left hallux amputation 04/29/[address] Paredes. Consultation was also placed infectious disease patient has been seen by Dr. Gurrola his notes and recommendations reviewed 2. Acute kidney injury superimposed on chronic kidney disease stage IV. Patien t baseline creatinine between 3.5-4.5. Patient creatinine appears to be at baseline however had significant azotemia with BUN peaking at 102. Consultation placed to nephrology no indication for dialysis at this point 3. Peripheral vascular disease vascular surgery consulted with plans for patient to follow-up as outpatient 4. Diabetes mellitus type 2 with complications including diabetic nephropathy continue patient insulin regimen in addition to Accu-Cheks before meals and at bedtime with sliding scale coverage 5. Hypertension-blood pressure controlled, home medications except for HCTZ in view of worsening kidney function continued with dose adjustment as needed 6. Anemia secondary to anemia of chronic disorder. Patient underwent EGD and colonoscopy on 05/03/[address] Meyer findings included multiple polyps which were excised and sent for biopsy. 7. Non-anion gap metabolic acidosis secondary to TYLOR 8. Paroxysmal atrial fibrillation rate controlled on metoprolol Coumadin was held for his incision and drainage. Resumed on 05/03/2019 with subsequent monitoring of electrolytes 9. DVT prophylaxis on Coumadin no need for additional measures 10. Morbid obesity with BMI of 38.7 weight loss advised Active Medications Acetaminophen (Tylenol) 650 mg PO Q6H PRN PRN PRN Reason: Mild pain 1-3/Temp > 100.7 F Albuterol Sulfate (Ventolin Aerosols) 1.25 mg INHALATION Q4H PRN PRN Reason: SOB &/OR WHEEZING Amlodipine Besylate (Norvasc) 10 mg PO DAILY [facility] Last Admin: 05/02/19 09:10 Dose: 10 mg Clonidine (Catapres) 0.1 mg PO BID [facility] Last Admin: 05/02/19 21:40 Dose: 0.1 mg Dextrose (D50w Syringe) 0 gm IV X1 PRN; Protocol PRN Reason: Hypoglycemia Doxazosin Mesylate (Cardura) 8 mg PO DAILY [facility] Last Admin: 05/02/19 09:05 Dose: 8 mg Furosemide (Lasix) 60 mg IV BIDLX [facility] Last Admin: 05/02/19 17:57 Dose: 60 mg Glucagon () 1 mg IM .X1 PRN PRN Reason: Hypoglycemia Cefazolin Sodium () 1 gm in 50 mls @ 100 mls/hr IV Q24 [facility] Last Admin: 05/03/19 09:03 Dose: 100 mls/hr Insulin Glargine (Lantus (Bkc)) 15 units SC BID [facility] Last Admin: 05/02/19 21:41 Dose: 15 u Insulin Human Lispro (Humalog Kwikpen (Bk)) 0 unit SQ ACHS [facility]; Protocol Last Admin: 05/03/19 06:49 Dose: Not Given Insulin Human Lispro (Humalog Kwikpen (Bkc)) 15 unit SC TIDAC [facility] Last Admin: 05/03/19 06:50 Dose: Not Given Metoprolol Tartrate (Lopressor (Beta Ester)) 50 mg PO BID [facility] Last Admin: 05/02/19 21:40 Dose: 50 mg Metronidazole (Flagyl) 500 mg PO TID [facility] Last Admin: 05/03/19 06:06 Dose: 500 mg Morphine Sulfate () 1 mg IV Q4H PRN PRN PRN Reason: Severe Pain (7-10/10) Last Admin: 04/30/19 01:18 Dose: 1 mg Multivitamins (Multivitamin) 1 tablet PO DAILY@0800 [facility] Last Admin: 05/02/19 07:36 Dose: 1 tablet Nutritional Formula (Terry - [place] Flavor) [facility] Last Admin: 05/02/19 16:11 Dose: Not Given Ondansetron HCl (Zofran) 4 mg IV Q8H PRN PRN PRN Reason: NAUSEA/VOMITING Oxycodone HCl (Oxyir) 5 mg PO Q4H PRN PRN PRN Reason: Moderate Pain (4-6/10) Last Admin: 05/03/19 01:35 Dose: 5 mg Sodium Chloride () 5 - 15 ml IV UD PRN PRN Reason: SALINE FLUSH Last Admin: 05/02/19 17:58 Dose: 10 ml Code Visit Inpatient E&M: 14273 Subs Hosp L2
--- NOTE | 2019-05-03 10:23 | PCM.PN.SRG ---
Patient Problems: Active and Suspected Problems (Last Reviewed 04/29/19 @ 16:02 by Lakshmi Claudio PA-C) PAD (peripheral artery disease) (Acute) TYLOR (acute kidney injury) (Acute) Anemia (Acute) Heme positive stool (Acute) Diabetes mellitus (Acute) Left foot infection (Acute) Gas gangrene (Acute) Other specified peripheral vascular diseases (Suspected) Non-pressure chronic ulcer of other part of left foot with fat layer exposed (Acute) Subjective: Patient tolerated prep well, and states stool was clear/yellow in color denies any blood with the prep. Denies any abdominal pain - Physical Exam General: Alert, Oriented x3, Cooperative, No apparent distress Lungs: Normal air movement Cardiovascular: Regular rate Abdomen: Soft, Non Tender - No peritoneal signs, Non-Distended Neurological: Cranial nerves II-XII grossly intact Psych/Mental Status: Normal Affect Vital Signs Temp Pulse Resp BP Pulse Ox 97.5 F L 90 18 160/90 H 97 05/03/19 09:14 05/03/19 09:14 05/03/19 09:14 05/03/19 09:14 05/03/19 09:14 Oxygen Delivery Method Room Air Weight: 210 lb 1.608 oz Body Mass Index (BMI) 40.4 Intake and Output for Last 24 Hours 05/01/19 05/02/19 05/03/19 23:59 23:59 23:59 Intake Total 1050 / 1050 4600 / 4600 Output Total 350 / 350 Balance 700 / 700 4600 / 4600 Microbiology Past 72 Hours 04/29/19 16:00 Gram Stain - Final Tissue - Left Foot Wound Culture - Final No growth aerobically. Anaerobic Culture - Preliminary No growth in 48 hours. 04/26/19 14:25 Blood Culture - Final Blood Culture (Wb) - Anticubital Left No growth in 5 days. 04/26/19 17:15 Gram Stain - Final Wound Abcess - Aerobic & Anaerobic Swabs Wound Culture - Final Staphylococcus aureus Staphylococcus epidermidis Anaerobic Culture - Final Clostridium perfringens Laboratory Tests Past 24 Hrs 05/02/19 05/03/19 05/03/19 18:57 05:20 05:20 WBC 7.5 RBC 2.64 L Hgb 7.9 L Hct 23.7 L MCV 89.8 MCH 29.9 MCHC 33.3 RDW 13.3 RDW Differential 43.7 Plt Count 324 MPV 9.5 Immature Gran % (Auto) 0.500 Neut % (Auto) 73.0 H Lymph % (Auto) 11.6 L Clay % (Auto) 8.6 Eos % (Auto) 5.6 H Baso % (Auto) 0.7 Absolute Neuts (auto) 5.5 Absolute Lymphs (auto) 0.87 Total Counted Not Reportable PT 17.0 H INR 1.4 Sodium Potassium Chloride Carbon Dioxide Anion Gap BUN Creatinine Estim Creat Clear Calc Est GFR (MDRD) Af Amer Est GFR (MDRD) Non-Af BUN/Creatinine Ratio Glucose Calcium Ur Random Sodium 89 Urine Creatinine 20.90 NIMESH Screen c-ANCA Antibody p-ANCA Antibody MARIANGEL-1 Antibody SS-A/Ro IgG Antibody SS-B/La IgG Antibody Sm (Bell) Antibody ACCOUNTING MACHINE OPERATOR Antibody Scl-70 Scleroderma Ab Double Strand DNA Ab Centromere B Antibody Complement C3 Complement C4 Hep Bs Antigen Hepatitis C Ab (EIA) 05/03/19 05/03/19 05/03/19 05:20 05:20 05:20 WBC RBC Hgb Hct MCV MCH MCHC RDW RDW Differential Plt Count MPV Immature Gran % (Auto) Neut % (Auto) Lymph % (Auto) Clay % (Auto) Eos % (Auto) Baso % (Auto) Absolute Neuts (auto) Absolute Lymphs (auto) Total Counted PT INR Sodium 139 Potassium 4.8 Chloride 109 H Carbon Dioxide 22.0 Anion Gap 8 BUN 91 H Creatinine 4.04 H Estim Creat Clear Calc 12.95 Est GFR (MDRD) Af Amer 19 L Est GFR (MDRD) Non-Af 16 L BUN/Creatinine Ratio 22.5 H Glucose 120 H Calcium 8.6 Ur Random Sodium Urine Creatinine NIMESH Screen Pending c-ANCA Antibody Pending p-ANCA Antibody Pending MARIANGEL-1 Antibody Pending SS-A/Ro IgG Antibody Pending SS-B/La IgG Antibody Pending Sm (Bell) Antibody Pending ACCOUNTING MACHINE OPERATOR Antibody Pending Scl-70 Scleroderma Ab Pending Double Strand DNA Ab Pending Centromere B Antibody Pending Complement C3 Pending Complement C4 Pending Hep Bs Antigen Pending Hepatitis C Ab (EIA) Pending POC Glucose 05/03/19 05/02/19 05/02/19 06:39 21:33 16:05 POC Glucose 122 H 313 H 287 H 05/02/19 10:54 POC Glucose 225 H Medical Necessity - Tobacco Use Smoking Status: Never smoker Tobacco Use: Non-smoker Assessment/Plan All Active Problems (Last Reviewed 04/29/19 @ 16:02 by Lakshmi Claudio PA-C) PAD (peripheral artery disease) (Acute) TYLOR (acute kidney injury) (Acute) Anemia (Acute) Heme positive stool (Acute) Osteomyelitis (Acute) Diabetes mellitus (Acute) Left foot infection (Acute) Gas gangrene (Acute) Non-pressure chronic ulcer of other part of left foot with fat layer exposed (Acute) 68-year-old male with anemia/positive fecal occult blood, status post toe amputation due to gas gangrene on Coumadin for A. fib which has been held 1. We will proceed with EGD and colonoscopy. Patient had no further questions at this time. Nina Castellanos M.D. Pager: [phone] [facility] [address] [place] [address], [facility], [address] [place] [address] Office: [phone]
--- NOTE | 2019-05-03 11:36 | COLBX_PTH ---
PATIENT: LEANDER DRAKE LOC: [facility] U#:[id number] AGE/SX: 68/M ROOM: [facility] RE04/26/[address]: Dr. Leobardo Alonzo MD : 1950 BED: 1 DIS: 05/05/2019 SPEC #: [id number] RECD: 05/03/19 13:51 STATUS: DIAZ REQ #: [id number] ESTRELLITA: 05/03/19 11:[address]: Nina Castellanos DEPT: SURGICAL PATHOLOGY RECD BY: Pacheco Higgins ENTERED: 05/03/19 14:47 SP TYPE: COLON BX OTHR DR: MD Dr. Omer Alcantar MD Dr. David Kittoe, MD Dr. Jeanna Fascione, DPM DO Dr. Abdoul Garcia MD Tissues: A - Gastric mucous membrane B - Gastric mucous membrane C - POLYP D - Ascending colon E - Ascending colon F - Transverse colon G - Transverse colon H - Transverse colon I - Descending colon J - Descending colon K - Rectum, NOS L - Rectum, NOS Procedures: Special Stain Group II Surgery Specimen Level IV Alcian Blue/PAS (control) Comments: @ Ordering doctor for SUIV edited from to @ by RGOOD at 05/04/19822 @ Submitting doctor edited from to @ by RGOOD at 05/04/19822 HEADER OPERATION: Colonoscopy, EGD ([facility]) PRE-OP DIAGNOSIS: Anemia, heme positive stool TISSUE SUBMITTED: A - Antrum biopsy for H. Pylori and path, B - GE junction biopsy, C - Two cecal polyp biopsies, D - Biopsy proximal ascending colon polyp, E - Biopsy distal ascending colon polyp, F??Proximal transverse colon polyp, G - Biopsy proximal transverse colon polyp #2, H - Biopsy distal transverse colon polyp, I - Biopsy descending colon polyp, J - Distal descending piecemeal polyp, K??Biopsy distal rectal polyp, L - Polypectomy of rectal polyp MICROSCOPIC DIAGNOSIS A. Antrum, biopsy: Mild to moderate gastritis. See microscopic description and comment. B. GE junction, biopsy: A fragment of gastroesophageal mucosa with mild to moderate chronic inflammation. Intestinal metaplasia (goblet cell metaplasia) is not identified. See comment. C. Cecal polyp, biopsy: Fragments of hyperplastic polyp. D. Proximal ascending colon, biopsy: Tubular adenoma. E. Distal ascending colon polyp, biopsy: Fragments of tubular adenoma. F. Proximal transverse colon polyp, biopsy: Fragments of tubulovillous adenoma. G. Proximal transverse colon polyp #2, biopsy: Fragments of tubular adenoma. H. Distal transverse colon polyp, biopsy: Fragments of tubular adenoma. I. Descending colon polyp, biopsy: Fragments of tubulovillous adenoma. J. Distal descending colon polyp, biopsy: Fragments of hyperplastic polyp. K. Rectal polyp, biopsy: Fragments of tubular adenoma. Hyperplastic polyp. L. Rectal polyp, biopsy: Tubular adenoma. SJ:silke 05/04/19 COMMENT A. The results of immunohistochemistry for Helicobacter pylori will be reported separately ([id number]). B. Alcian blue/PAS stain with matched control is used in the evaluation of the specimen. The specimen predominantly consists of gastric mucosa. MICROSCOPIC DESCRIPTION Slides are reviewed. A. The specimen shows fragments of gastric mucosa with chronic inflammatory cell infiltrates in the lamina propria consisting of lymphocytes and plasma cells, consistent with mild to moderate chronic gastritis. GROSS DESCRIPTION A - Received in fixative is one container labeled with the patient's name and designated antrum biopsy. The specimen consists of two irregular fragments of light correa soft tissue that in aggregate measure 0.5 x 0.2 x 0.1 cm. The specimen is totally submitted in one cassette. B - Received in fixative is one container labeled with the patient's name and designated GE junction biopsy. The specimen consists of one irregular fragment of light correa soft tissue that measures 0.5 x 0.3 x 0.1 cm. The specimen is totally submitted in one cassette. C - Received in fixative is one container labeled with the patient's name and designated cecal polyp. The specimen consists of multiple irregular fragments of light correa soft tissue that in aggregate measure 1 x 0.3 x 0.1 cm. The specimen is totally submitted in one cassette. D - Received in fixative is one container labeled with the patient's name and designated proximal ascending colon biopsy. The specimen consists of two irregular fragments of light correa soft tissue that in aggregate measure 0.6 x 0.3 x 0.1 cm. The specimen is totally submitted in one cassette. E - Received in fixative is one container labeled with the patient's name and designated distal ascending polyp. The specimen consists of multiple irregular fragments of light correa soft tissue that in aggregate measure 0.6 x 0.3 x 0.1 cm. The specimen is totally submitted in one cassette. F - Received in fixative is one container labeled with the patient's name and designated proximal transverse. The specimen consists of multiple irregular fragments of light correa soft tissue that in aggregate measure 0.7 x 0.6 x 0.2 cm. The specimen is totally submitted in one cassette. G - Received in fixative is one container labeled with the patient's name and designated proximal colon biopsy. The specimen consists of multiple irregular fragments of light correa soft tissue that in aggregate measure 0.7 x 0.6 x 0.1 cm. The specimen is totally submitted in one cassette. H - Received in fixative is one container labeled with the patient's name and designated distal transverse colon polyp. The specimen consists of multiple irregular fragments of light correa soft tissue that in aggregate measure 1 x 0.5 x 0.1 cm. The specimen is totally submitted in one cassette. I - Received in fixative is one container labeled with the patient's name and designated descending colon polyp. The specimen consists of multiple irregular fragments of light correa soft tissue that in aggregate measure 0.7 x 0.5 x 0.1 cm. The specimen is totally submitted in one cassette. J - Received in fixative is one container labeled with the patient's name and designated distal descending polyp. The specimen consists of multiple irregular fragments of light correa soft tissue that in aggregate measure 1 x 0.7 x 0.1 cm. The specimen is totally submitted in one cassette. K - Received in fixative is one container labeled with the patient's name and designated rectal polyp. The specimen consists of multiple irregular fragments of light correa soft tissue that in aggregate measure 0.6 x 0.6 x 0.1 cm. The specimen is totally submitted in one cassette. L - Received in fixative is one container labeled with the patient's name and designated rectal polyp. The specimen consists of multiple irregular fragments of light correa soft tissue that in aggregate measure 0.5 x 0.5 x 0.1 cm. The specimen is totally submitted in one cassette. / AM:silke 05/03/19 TC:1 CPT: 29671 x12, [id number]
--- NOTE | 2019-05-03 11:40 | OP.ENDO_ITS ---
05/03/2019 Billy Jaramillo [address] [place] [address] Re : Upper GI endoscopy procedure for [place] Leticia Dear Dr. Jaramillo This procedure was performed on Friday, May 03, 2019. My impressions and recommendations are as follows: Impressions : - Z-line irregular, 40 cm from the incisors. Biopsied. - Erythematous mucosa in the antrum. Biopsied. - Normal examined duodenum. Recommendations : - Await pathology results. - Return patient to [facility] for ongoing care. - Post-Procedure Resumption of Anticoagulants: ok to Restart warfarin today [Dose] [Route] [Frequency] [Days Before INR] [Dosing] [INR Range]. My findings are described in the full procedure note, which is enclosed. If I can be of further assistance, please feel free to contact me at Doctor phone number(s): , Work: . Sincerely, MD Nina Amaral MD 05/03/2019 11:40:16 AM This report has been signed electronically.
--- NOTE | 2019-05-03 11:48 | OP.ENDO_ITS ---
05/03/2019 Billy Jaramillo [address] [place] [address] Re : Colonoscopy procedure for Vernoncampos Uriasgg Dear Dr. Jaramillo This procedure was performed on Friday, May 03, 2019. My impressions and recommendations are as follows: Impressions : - Hemorrhoids found on perianal exam. - Six 2 to 5 mm polyps in the rectum, in the proximal transverse colon, in the distal transverse colon, in the distal ascending colon and in the cecum, removed with a cold biopsy forceps. Resected and retrieved. - Three 3 to 9 mm polyps in the proximal transverse colon and in the proximal ascending colon, removed with a hot snare. Resected and retrieved. - One 4 to 7 mm polyp in the descending colon, removed with a cold biopsy forceps. Resected and retrieved. - The examination was otherwise normal. Recommendations : - Return patient to [facility] for ongoing care. - Cardiac diet. - Continue present medications. - Await pathology results. - Repeat colonoscopy in 1 year for surveillance after piecemeal polypectomy. My findings are described in the full procedure note, which is enclosed. If I can be of further assistance, please feel free to contact me at Doctor phone number(s): , Work: . Sincerely, MD Nina Amaral MD 05/03/2019 11:48:14 AM This report has been signed electronically.
[2019-05-03 11:51] LABS: Bedside Glucose 145 mg/dL (70-110)
--- NOTE | 2019-05-03 11:55 | PCM.PN.BLA ---
Progress Note patient is in procedure suite for EGD and colonoscopy today labs reviewed. cr better serologies pending still will follow
[2019-05-03] MEDS: Glucagon 1 MG/ML Syringe (12:58)
[2019-05-03] MEDS: Multivitamins,Therapeutic Tablet 1 TABLET PO (13:00)
[2019-05-03] MEDS: Doxazosin 4 MG Tablet 8 MG PO (13:00)
[2019-05-03] MEDS: Metoprolol Tartrate 50 MG Tablet PO ×2 (13:00→21:45)
[2019-05-03] MEDS: amLODIPine 10 MG Tablet PO (13:01)
[2019-05-03] MEDS: cloNIDine HCl 0.1 MG Tablet PO ×2 (13:02→21:43)
[2019-05-03] MEDS: Furosemide 100 MG/10 ML Vial 60 MG IV ×2 (13:04→18:05)
--- NOTE | 2019-05-03 13:40 | PN.ID_ITS ---
Patient Problems: Active and Suspected Problems (Last Reviewed 04/29/19 @ 16:02 by Lakshmi Claudio PA-C) PAD (peripheral artery disease) (Acute) TYLOR (acute kidney injury) (Acute) Anemia (Acute) Heme positive stool (Acute) Diabetes mellitus (Acute) Left foot infection (Acute) Gas gangrene (Acute) Other specified peripheral vascular diseases (Suspected) Non-pressure chronic ulcer of other part of left foot with fat layer exposed (Acute) - Physical Exam Vital Signs Temp Pulse Resp BP Pulse Ox 98.3 F 105 H 18 150/99 H 99 05/03/19 12:00 05/03/19 13:27 05/03/19 12:00 05/03/19 12:00 05/03/19 12:00 Oxygen Delivery Method Room Air Weight: 95.3 kg Body Mass Index (BMI) 40.4 Finger Stick Blood Glucose 145 Intake and Output for Last 24 Hours 05/01/19 05/02/19 05/03/19 23:59 23:59 23:59 Intake Total 1050 / 1050 4600 / 4600 500 / 500 Output Total 350 / 350 Balance 700 / 700 4600 / 4600 500 / 500 Microbiology Past 72 Hours 04/29/19 16:00 Gram Stain - Final Tissue - Left Foot Wound Culture - Final No growth aerobically. Anaerobic Culture - Preliminary No growth in 48 hours. 04/26/19 14:25 Blood Culture - Final Blood Culture (Wb) - Anticubital Left No growth in 5 days. 04/26/19 17:15 Gram Stain - Final Wound Abcess - Aerobic & Anaerobic Swabs Wound Culture - Final Staphylococcus aureus Staphylococcus epidermidis Anaerobic Culture - Final Clostridium perfringens Laboratory Tests Past 24 Hrs 05/02/19 05/03/19 05/03/19 18:57 05:20 05:20 WBC 7.5 RBC 2.64 L Hgb 7.9 L Hct 23.7 L MCV 89.8 MCH 29.9 MCHC 33.3 RDW 13.3 RDW Differential 43.7 Plt Count 324 MPV 9.5 Immature Gran % (Auto) 0.500 Neut % (Auto) 73.0 H Lymph % (Auto) 11.6 L [place] % (Auto) 8.6 Eos % (Auto) 5.6 H Baso % (Auto) 0.7 Absolute Neuts (auto) 5.5 Absolute Lymphs (auto) 0.87 Total Counted Not Reportable PT 17.0 H INR 1.4 Sodium Potassium Chloride Carbon Dioxide Anion Gap BUN Creatinine Estim Creat Clear Calc Est GFR (MDRD) Af Amer Est GFR (MDRD) Non-Af BUN/Creatinine Ratio Glucose Calcium Ur Random Sodium 89 Urine Creatinine 20.90 NIMESH Screen c-ANCA Antibody p-ANCA Antibody MARIANGEL-1 Antibody SS-A/Ro IgG Antibody SS-B/La IgG Antibody Sm (Bell) Antibody SAP TECH[employer]ICAL DEVELOPER Antibody Scl-70 Scleroderma Ab Double Strand DNA Ab Centromere B Antibody Complement C3 Complement C4 Hep Bs Antigen Hepatitis C Ab (EIA) 05/03/19 05/03/19 05/03/19 05:20 05:20 05:20 WBC RBC Hgb Hct MCV MCH MCHC RDW RDW Differential Plt Count MPV Immature Gran % (Auto) Neut % (Auto) Lymph % (Auto) [place] % (Auto) Eos % (Auto) Baso % (Auto) Absolute Neuts (auto) Absolute Lymphs (auto) Total Counted PT INR Sodium 139 Potassium 4.8 Chloride 109 H Carbon Dioxide 22.0 Anion Gap 8 BUN 91 H Creatinine 4.04 H Estim Creat Clear Calc 12.95 Est GFR (MDRD) Af Amer 19 L Est GFR (MDRD) Non-Af 16 L BUN/Creatinine Ratio 22.5 H Glucose 120 H Calcium 8.6 Ur Random Sodium Urine Creatinine NIMESH Screen Pending c-ANCA Antibody Pending p-ANCA Antibody Pending MARIANGEL-1 Antibody Pending SS-A/Ro IgG Antibody Pending SS-B/La IgG Antibody Pending Sm (Bell) Antibody Pending SAP TECHNICAL DEVELOPER Antibody Pending Scl-70 Scleroderma Ab Pending Double Strand DNA Ab Pending Centromere B Antibody Pending Complement C3 Pending Complement C4 Pending Hep Bs Antigen Pending Hepatitis C Ab (EIA) Pending POC Glucose 05/03/19 05/03/19 05/02/19 11:48 06:39 21:33 POC Glucose 145 H 122 H 313 H 05/02/19 16:05 POC Glucose 287 H Medical Necessity - Tobacco Use Smoking Status: Never smoker Tobacco Use: Non-smoker Route of nutrition/ use of supplements: [] Nutritional Intake: [] IV Site: [] Estrelal Catheter: [] - Assessment/Plan Antibiotics: [] Assessment/Plan: [] Active and Suspected Problems (Last Reviewed 02/10/19 @ 13:22 by Yousif Clark MD) Diabetes mellitus (Acute) Left foot infection (Acute) Gas gangrene (Acute) Other specified peripheral vascular diseases (Suspected) Non-pressure chronic ulcer of other part of left foot with fat layer exposed (Acute) L 1st toe gas gangrene - had bedside I&D by Dr. Lezama 04/27. OR for amputation done 04/29. Wound cx with MSSA and MSSE. Anaerobic cx with clostridium. Continue cefazolin and flagyl. In endoscopy today. Plan for discharge is for po abx with keflex and flagyl. Keflex will have to be adjusted for GFR. TYLOR on CKD - neph following Will follow
[2019-05-03 17:25] LABS: Bedside Glucose 101 mg/dL (70-110)
[2019-05-03] MEDS: 0.9% NaCl Peripheral Flush Adult/Peds IV (18:06)
--- NOTE | 2019-05-03 18:12 | NURSING ---
patient asked to use urinal for accurate measurement
[2019-05-03] MEDS: Insulin Lispro 100 UNIT/ML INSULN.PEN SQ (21:44)
[2019-05-03 22:26] LABS: Bedside Glucose 212 mg/dL (70-110)
[2019-05-04] VITALS (11 sets, daily range): BP systolic 110–172; BP diastolic 71–97; PULSE 61–117; RESP 18–20; TEMP 36.8–37.2; O2SAT 97–99
[2019-05-04] MEDS: oxyCODONE 5 MG Tablet PO ×2 (03:23→16:29)
[2019-05-04 05:36] LABS: Absolute Neutrophil Count 5.1 X10^3/uL (2.0-7.7); Basophil# 0.04 X10^3/uL; Basophil% 0.6 % (0-1); Eosinophil# 0.33 X10^3/uL; Eosinophils% 4.7 % (0-5); Hematocrit 26.9 % (40-54); Hemoglobin 8.6 g/dl (13.0-16.5); Lymphocyte % 14.2 % (19-41); Mean Corpuscular Hgb 29.2 pg (27.0-32.0); Mean Corpuscular Volume 91.2 fL (80-94); Mean Platelet Vol. 9.3 fl (6.2-12.0); Monocyte# 0.54 X10^3/uL; Monocyte% 7.7 % (0-10); Neutrophil # 5.07 X10^3/uL (2.7-7.7); Neutrophil % 71.9 % (47-70); Platelet Count 335 K/mm3 (150-450); RBC Distribution Width CV 13.1 % (11.6-14.6); RBC Distribution Width SD 41.9 fl (35.1-43.9); Red Blood Count 2.95 M/mm3 (4.6-6.2)
[2019-05-04 05:39] LABS: POSITIVE COUNT NO; POSITIVE DIFFERENTIAL NO; POSITIVE MORPHOLOGY NO
[2019-05-04 05:48] LABS: International Normalized Ratio 1.4; Prothrombin Time (Protime)PT. 16.8 SECONDS (11.7-14.9)
[2019-05-04 05:50] LABS: Anion Gap 10 (5-15); BUN 88 mg/dL (7-18); BUN/Creat Ratio 21.4 RATIO (10-20); Calcium,Total 8.5 mg/dL (8.5-10.1); Chloride 106 mmol/L (98-107); Creatinine, Serum 4.12 mg/dL (0.70-1.30); EST Glomerular Filtration Rate 15 mL/min (>60); Est Glom Filt Rate - Afr Amer 19 mL/min (>60); Estimated Creatinine Clearance 12.69 ml/min; Glucose 233 mg/dL (74-106); Potassium 4.8 mmol/L (3.5-5.1); Sodium Level 139 mmol/L (136-145)
[2019-05-04] MEDS: metroNIDAZOLE 500 MG Tablet PO ×3 (06:27→21:26)
[2019-05-04 06:35] LABS: Bedside Glucose 216 mg/dL (70-110)
[2019-05-04] MEDS: Insulin Lispro 100 UNIT/ML INSULN.PEN SQ ×3 (08:29→21:26)
[2019-05-04] MEDS: Insulin Lispro 100 UNIT/ML INSULN.PEN 15 UNIT SC ×2 (08:30→12:28)
[2019-05-04] MEDS: Multivitamins,Therapeutic Tablet 1 TABLET PO (08:31)
[2019-05-04] MEDS: Doxazosin 4 MG Tablet 8 MG PO (09:15)
[2019-05-04] MEDS: cloNIDine HCl 0.1 MG Tablet PO ×2 (09:15→21:26)
[2019-05-04] MEDS: Metoprolol Tartrate 50 MG Tablet PO ×2 (09:15→21:27)
[2019-05-04] MEDS: amLODIPine 10 MG Tablet PO (09:16)
[2019-05-04] MEDS: Furosemide 100 MG/10 ML Vial 60 MG IV ×2 (09:17→17:36)
[2019-05-04] MEDS: Cefazolin 1 GM/50 ML BAG IV (09:17)
[2019-05-04] MEDS: 0.9% NaCl Peripheral Flush Adult/Peds IV ×2 (09:17→17:36)
--- NOTE | 2019-05-04 10:10 | PCM.PN.HOSP ---
Patient Problems: Active and Suspected Problems (Last Reviewed 04/29/19 @ 16:02 by Lakshmi Claudio PA-C) PAD (peripheral artery disease) (Acute) TYLOR (acute kidney injury) (Acute) Anemia (Acute) Heme positive stool (Acute) Diabetes mellitus (Acute) Left foot infection (Acute) Gas gangrene (Acute) Other specified peripheral vascular diseases (Suspected) Non-pressure chronic ulcer of other part of left foot with fat layer exposed (Acute) Subjective: Patient underwent EGD and colonoscopy on 05/03/2019 with polypectomy. H&H so far stable. Patient complains of bilateral shoulder pain following his fall. His Coumadin was resumed starting 05/04/2019 with plans to observe patient for additional nights and if there is no bleeding per rectum plan will be for patient to be discharged home on 05/05/2019 Objective: GENERAL: cooperative HEENT: Atraumatic; EYES; Anicteric, NECK; supple, normal thyroid, RESPIRATORY: Diminished to auscultation CARDIOVASCULAR: Irregular S1 S2, GI: soft, non-tender, normoactive bowel sounds, : No Renal angle tenderness; EXTREMITIES: No edema, no clubbing, MUSCULOSKELETAL: No Joint Tenderness; NEURO: Awake; no lateralizing signs. SKIN: No Rash PSYCH; Normal affect Vitals/I&O's: Vital Signs Temp Pulse Resp BP Pulse Ox 98.2 F 117 H 20 H 122/84 H 99 05/04/19 09:15 05/04/19 09:15 05/04/19 09:15 05/04/19 09:15 05/04/19 09:15 Oxygen Delivery Method Room Air Weight: 92.3 kg Body Mass Index (BMI) 40.4 Finger Stick Blood Glucose 145 Intake and Output for Last 24 Hours 05/02/19 05/03/19 05/04/19 23:59 23:59 23:59 Intake Total 4600 / 4600 1760 / 1760 240 / 240 Output Total 1550 / 1550 1075 / 1075 Balance 4600 / 4600 210 / 210 -835 / -835 Microbiology Past 72 Hours 04/29/19 16:00 Tissue - Left Foot Gram Stain - Final 04/29/19 16:00 Tissue - Left Foot Wound Culture - Final No growth aerobically. 04/29/19 16:00 Tissue - Left Foot Anaerobic Culture - Final No growth in 5 days. 04/29/19 16:00 Tissue - Left Foot Acid Fast Bacilli Smear - Final 04/26/19 14:25 Blood Culture (Wb) - Anticubital Left Blood Culture - Final No growth in 5 days. 04/26/19 17:15 Wound Abcess - Aerobic & Anaerobic Swabs Gram Stain - Final 04/26/19 17:15 Wound Abcess - Aerobic & Anaerobic Swabs Wound Culture - Final Staphylococcus aureus Staphylococcus epidermidis 04/26/19 17:15 Wound Abcess - Aerobic & Anaerobic Swabs Anaerobic Culture - Final Clostridium perfringens Laboratory Results 05/03/19 11:48: POC Glucose 145 H 05/03/19 17:03: POC Glucose 101 05/03/19 21:40: POC Glucose 212 H 05/04/19 05:18: WBC 7.0, RBC 2.95 L, Hgb 8.6 L, Hct 26.9 L, MCV 91.2, MCH 29.2, MCHC 32.0, RDW 13.1, RDW Differential 41.9, Plt Count 335, MPV 9.3, Immature Gran % (Auto) 0.900, Neut % (Auto) 71.9 H, Lymph % (Auto) 14.2 L, [place] % (Auto) 7.7, Eos % (Auto) 4.7, Baso % (Auto) 0.6, Absolute Neuts (auto) 5.1, Absolute Lymphs (auto) 1.00, Total Counted Not Reportable 05/04/19 05:18: Sodium 139, Potassium 4.8, Chloride 106, Carbon Dioxide 23.0, Anion Gap 10, BUN 88 H, Creatinine 4.12 H, Estim Creat Clear Calc 12.69, Est GFR (MDRD) Af Amer 19 L, Est GFR (MDRD) Non-Af 15 L, BUN/Creatinine Ratio 21.4 H, Glucose 233 H, Calcium 8.5 05/04/19 05:18: PT 16.8 H, INR 1.4 05/04/19 06:31: POC Glucose 216 H Current Medications Acetaminophen (Tylenol) 650 mg PO Q6H PRN PRN PRN Reason: Mild pain 1-3/Temp > 100.7 F Albuterol Sulfate (Ventolin Aerosols) 1.25 mg INHALATION Q4H PRN PRN Reason: SOB &/OR WHEEZING Amlodipine Besylate (Norvasc) 10 mg PO DAILY [facility] Last Admin: 05/04/19 09:16 Dose: 10 mg Clonidine (Catapres) 0.1 mg PO BID [facility] Last Admin: 05/04/19 09:15 Dose: 0.1 mg Dextrose (D50w Syringe) 0 gm IV X1 PRN; Protocol PRN Reason: Hypoglycemia Doxazosin Mesylate (Cardura) 8 mg PO DAILY [facility] Last Admin: 05/04/19 09:15 Dose: 8 mg Furosemide (Lasix) 60 mg IV BIDLX [facility] Last Admin: 05/04/19 09:17 Dose: 60 mg Glucagon () 1 mg IM .X1 PRN PRN Reason: Hypoglycemia Cefazolin Sodium () 1 gm in 50 mls @ 100 mls/hr IV Q24 [facility] Last Admin: 05/04/19 09:17 Dose: 100 mls/hr Insulin Glargine (Lantus (Bkc)) 15 units SC BID [facility] Last Admin: 05/04/19 08:30 Dose: 15 u Insulin Human Lispro (Humalog Kwikpen (Bkc)) 0 unit SQ ACHS [facility]; Protocol Last Admin: 05/04/19 08:29 Dose: 4 u Insulin Human Lispro (Humalog Kwikpen (Bkc)) 15 unit SC TIDAC [facility] Last Admin: 05/04/19 08:30 Dose: 15 u Metoprolol Tartrate (Lopressor (Beta Ester)) 50 mg PO BID [facility] Last Admin: 05/04/19 09:15 Dose: 50 mg Metronidazole (Flagyl) 500 mg PO TID [facility] Last Admin: 05/04/19 06:27 Dose: 500 mg Morphine Sulfate () 1 mg IV Q4H PRN PRN PRN Reason: Severe Pain (7-10/10) Last Admin: 04/30/19 01:18 Dose: 1 mg Multivitamins (Multivitamin) 1 tablet PO DAILY@0800 [facility] Last Admin: 05/04/19 08:31 Dose: 1 tablet Nutritional Formula (Terry - [place] Flavor) 1 packet PO BIDCM [facility] Last Admin: 05/04/19 08:30 Dose: 1 packet Ondansetron HCl (Zofran) 4 mg IV Q8H PRN PRN PRN Reason: NAUSEA/VOMITING Oxycodone HCl (Oxyir) 5 mg PO Q4H PRN PRN PRN Reason: Moderate Pain (4-6/10) Last Admin: 05/04/19 03:23 Dose: 5 mg Sodium Chloride () 5 - 15 ml IV UD PRN PRN Reason: SALINE FLUSH Last Admin: 05/04/19 09:17 Dose: 10 ml Warfarin Sodium (Coumadin (Pbkc)) 2.5 mg PO .COMPLEX ROSLYN; Protocol Medical Necessity - Tobacco Use Smoking Status: Never smoker Tobacco Use: Non-smoker Assessment/Plan All Active Problems (Last Reviewed 04/29/19 @ 16:02 by Lakshmi Claudio PA-C) PAD (peripheral artery disease) (Acute) TYLOR (acute kidney injury) (Acute) Anemia (Acute) Heme positive stool (Acute) Osteomyelitis (Acute) Diabetes mellitus (Acute) Left foot infection (Acute) Gas gangrene (Acute) Non-pressure chronic ulcer of other part of left foot with fat layer exposed (Acute) Patient is a 68-year-old gentleman with multiple comorbidities including diabetes mellitus type 2 chronic kidney disease stage III paroxysmal atrial for ablation on Coumadin who apparently fell off his trailer 2 weeks prior to his admission. He was admitted with acute left big toe infection with gas gangrene consultation was placed to podiatry patient underwent partial left hallux amputation on 04/29/2019 1. Acute left big toe infection and gas gangrene with osteomyelitis of the distal left phalanx with MSSA and MSSA and Clostridium perfringens Patient underwent Partial left hallux amputation 04/29/[address] Paredes. Consultation was also placed infectious disease patient has been seen by Dr. Gurrola his notes and recommendations reviewed and will be for patient to be discharged home on Keflex and Flagyl when stable 2. Acute kidney injury superimposed on chronic kidney disease stage IV. Patient baseline creatinine between 3.5-4.5. Patient creatinine appears to be at baseline however had significant azotemia with BUN peaking at 102. Consultation placed to nephrology no indication for dialysis at this point per documentation from nephrology 3. Peripheral vascular disease vascular surgery consulted with plans for patient to follow-up as outpatient 4. Diabetes mellitus type 2 with complications including diabetic nephropathy continue patient insulin regimen in addition to Accu-Cheks before meals and at bedtime with sliding scale coverage 5. Hypertension-blood pressure controlled, home medications except for HCTZ in view of worsening kidney function continued with dose adjustment as needed 6. Anemia secondary to anemia of chronic disorder. Patient underwent EGD and colonoscopy on 05/03/[address] Meyer findings included multiple polyps which were excised and sent for biopsy. 7. Non-anion gap metabolic acidosis secondary to TYLOR 8. Paroxysmal atrial fibrillation rate controlled on metoprolol Coumadin was held for his incision and drainage. Resumed on 05/04/2019 with subsequent monitoring of INR 9. DVT prophylaxis on Coumadin no need for additional measures 10. Morbid obesity with BMI of 38.7 weight loss advised Microbiology 04/29/19 16:00 Tissue - Left Foot Gram Stain - Final 04/29/19 16:00 Tissue - Left Foot Wound Culture - Final No growth aerobically. 04/29/19 16:00 Tissue - Left Foot Anaerobic Culture - Final No growth in 5 days. 04/29/19 16:00 Tissue - Left Foot Acid Fast Bacilli Smear - Final 04/26/19 14:25 Blood Culture (Wb) - Anticubital Left Blood Culture - Final No growth in 5 days. 04/26/19 17:15 Wound Abcess - Aerobic & Anaerobic Swabs Gram Stain - Final 04/26/19 17:15 Wound Abcess - Aerobic & Anaerobic Swabs Wound Culture - Final Staphylococcus aureus Staphylococcus epidermidis 04/26/19 17:15 Wound Abcess - Aerobic & Anaerobic Swabs Anaerobic Culture - Final Clostridium perfringens 04/29/19 14:19 Stool C. difficile DNA Amplification - Final 04/29/19 03:23 Stool Stool Occult Blood (PEREZ) - Final Occult Blood Positive 04/26/19 14:15 Wound - Toe Gram Stain - Final 04/26/19 14:15 Wound - Toe Wound Culture - Final Staphylococcus aureus Code Visit Inpatient E&M: 56208 Subs Hosp L2
--- NOTE | 2019-05-04 10:13 | PN_ITS ---
Patient Problems: Active and Suspected Problems (Last Reviewed 04/29/19 @ 16:02 by Lakshmi Claudio PA-C) PAD (peripheral artery disease) (Acute) TYLOR (acute kidney injury) (Acute) Anemia (Acute) Heme positive stool (Acute) Diabetes mellitus (Acute) Left foot infection (Acute) Gas gangrene (Acute) Other specified peripheral vascular diseases (Suspected) Non-pressure chronic ulcer of other part of left foot with fat layer exposed (Acute) Subjective: Patient underwent EGD and colonoscopy on 05/03/2019 with polypectomy. H&H so far stable. Patient complains of bilateral shoulder pain following his fall. His Coumadin was resumed starting 05/04/2019 with plans to observe patient for additional nights and if there is no bleeding per rectum plan will be for patient to be discharged home on 05/05/2019 Objective: GENERAL: cooperative HEENT: Atraumatic; EYES; Anicteric, NECK; supple, normal thyroid, RESPIRATORY: Diminished to auscultation CARDIOVASCULAR: Irregular S1 S2, GI: soft, non-tender, normoactive bowel sounds, : No Renal angle tenderness; EXTREMITIES: No edema, no clubbing, MUSCULOSKELETAL: No Joint Tenderness; NEURO: Awake; no lateralizing signs. SKIN: No Rash PSYCH; Normal affect Vitals/I&O's: Vital Signs Temp Pulse Resp BP Pulse Ox 98.2 F 117 H 20 H 122/84 H 99 05/04/19 09:15 05/04/19 09:15 05/04/19 09:15 05/04/19 09:15 05/04/19 09:15 Oxygen Delivery Method Room Air Weight: 92.3 kg Body Mass Index (BMI) 40.4 Finger Stick Blood Glucose 145 Intake and Output for Last 24 Hours 05/02/19 05/03/19 05/04/19 23:59 23:59 23:59 Intake Total 4600 / 4600 1760 / 1760 240 / 240 Output Total 1550 / 1550 1075 / 1075 Balance 4600 / 4600 210 / 210 -835 / -835 Microbiology Past 72 Hours 04/29/19 16:00 Tissue - Left Foot Gram Stain - Final 04/29/19 16:00 Tissue - Left Foot Wound Culture - Final No growth aerobically. 04/29/19 16:00 Tissue - Left Foot Anaerobic Culture - Final No growth in 5 days. 04/29/19 16:00 Tissue - Left Foot Acid Fast Bacilli Smear - Final 04/26/19 14:25 Blood Culture (Wb) - Anticubital Left Blood Culture - Final No growth in 5 days. 04/26/19 17:15 Wound Abcess - Aerobic & Anaerobic Swabs Gram Stain - Final 04/26/19 17:15 Wound Abcess - Aerobic & Anaerobic Swabs Wound Culture - Final Staphylococcus aureus Staphylococcus epidermidis 04/26/19 17:15 Wound Abcess - Aerobic & Anaerobic Swabs Anaerobic Culture - Final Clostridium perfringens Laboratory Results 05/03/19 11:48: POC Glucose 145 H 05/03/19 17:03: POC Glucose 101 05/03/19 21:40: POC Glucose 212 H 05/04/19 05:18: WBC 7.0, RBC 2.95 L, Hgb 8.6 L, Hct 26.9 L, MCV 91.2, MCH 29.2, MCHC 32.0, RDW 13.1, RDW Differential 41.9, Plt Count 335, MPV 9.3, Immature Gr an % (Auto) 0.900, Neut % (Auto) 71.9 H, Lymph % (Auto) 14.2 L, [place] % (Auto) 7.7, Eos % (Auto) 4.7, Baso % (Auto) 0.6, Absolute Neuts (auto) 5.1, Absolute Lymphs (auto) 1.00, Total Counted Not Reportable 05/04/19 05:18: Sodium 139, Potassium 4.8, Chloride 106, Carbon Dioxide 23.0, Anion Gap 10, BUN 88 H, Creatinine 4.12 H, Estim Creat Clear Calc 12.69, Est GFR (MDRD) Af Amer 19 L, Est GFR (MDRD) Non-Af 15 L, BUN/Creatinine Ratio 21.4 H, Glucose 233 H, Calcium 8.5 05/04/19 05:18: PT 16.8 H, INR 1.4 05/04/19 06:31: POC Glucose 216 H Current Medications Acetaminophen (Tylenol) 650 mg PO Q6H PRN PRN PRN Reason: Mild pain 1-3/Temp > 100.7 F Albuterol Sulfate (Ventolin Aerosols) 1.25 mg INHALATION Q4H PRN PRN Reason: SOB &/OR WHEEZING Amlodipine Besylate (Norvasc) 10 mg PO DAILY [facility] Last Admin: 05/04/19 09:16 Dose: 10 mg Clonidine (Catapres) 0.1 mg PO BID [facility] Last Admin: 05/04/19 09:15 Dose: 0.1 mg Dextrose (D50w Syringe) 0 gm IV X1 PRN; Protocol PRN Reason: Hypoglycemia Doxazosin Mesylate (Cardura) 8 mg PO DAILY [facility] Last Admin: 05/04/19 09:15 Dose: 8 mg Furosemide (Lasix) 60 mg IV BIDLX [facility] Last Admin: 05/04/19 09:17 Dose: 60 mg Glucagon () 1 mg IM .X1 PRN PRN Reason: Hypoglycemia Cefazolin Sodium () 1 gm in 50 mls @ 100 mls/hr IV Q24 [facility] Last Admin: 05/04/19 09:17 Dose: 100 mls/hr Insulin Glargine (Lantus (Bkc)) 15 units SC BID [facility] Last Admin: 05/04/19 08:30 Dose: 15 u Insulin Human Lispro (Humalog Kwikpen (Bkc)) 0 unit SQ ACHS [facility]; Protocol Last Admin: 05/04/19 08:29 Dose: 4 u Insulin Human Lispro (Humalog Kwikpen (Bkc)) 15 unit SC TIDAC [facility] Last Admin: 05/04/19 08:30 Dose: 15 u Metoprolol Tartrate (Lopressor (Beta Ester)) 50 mg PO BID [facility] Last Admin: 05/04/19 09:15 Dose: 50 mg Metronidazole (Flagyl) 500 mg PO TID [facility] Last Admin: 05/04/19 06:27 Dose: 500 mg Morphine Sulfate () 1 mg IV Q4H PRN PRN PRN Reason: Severe Pain (7-10/10) Last Admin: 04/30/19 01:18 Dose: 1 mg Multivitamins (Multivitamin) 1 tablet PO DAILY@0800 [facility] Last Admin: 05/04/19 08:31 Dose: 1 tablet Nutritional Formula (Terry - [place] Flavor) 1 packet PO BIDCM [facility] Last Admin: 05/04/19 08:30 Dose: 1 packet Ondansetron HCl (Zofran) 4 mg IV Q8H PRN PRN PRN Reason: NAUSEA/VOMITING Oxycodone HCl (Oxyir) 5 mg PO Q4H PRN PRN PRN Reason: Moderate Pain (4-6/10) Last Admin: 05/04/19 03:23 Dose: 5 mg Sodium Chloride () 5 - 15 ml IV UD PRN PRN Reason: SALINE FLUSH Last Admin: 05/04/19 09:17 Dose: 10 ml Warfarin Sodium (Coumadin (Pbkc)) 2.5 mg PO .COMPLEX ROSLYN; Protocol Medical Necessity - Tobacco Use Smoking Status: Never smoker Tobacco Use: Non-smoker Assessment/Plan All Active Problems (Last Reviewed 04/29/19 @ 16:02 by Lakshmi Claudio PA-C) PAD (peripheral artery disease) (Acute) TYLOR (acute kidney injury) (Acute) Anemia (Acute) Heme positive stool (Acute) Osteomyelitis (Acute) Diabetes mellitus (Acute) Left foot infection (Acute) Gas gangrene (Acute) Non-pressure chronic ulcer of other part of left foot with fat layer exposed (Acute) Patient is a 68-year-old gentleman with multiple comorbidities including diabetes mellitus type 2 chronic kidney disease stage III paroxysmal atrial for ablation on Coumadin who apparently fell off his trailer 2 weeks prior to his admission. He was admitted with acute left big toe infection with gas gangrene consultation was placed to podiatry patient underwent partial left hallux amputation on 04/29/2019 1. Acute left big toe infection and gas gangrene with osteomyelitis of the distal left phalanx with MSSA and MSSA and Clostridium perfringens Patient underwent Partial left hallux amputation 04/29/[address] Paredes. Consultation was also placed infectious disease patient has been seen by Dr. Gurrola his notes and recommendations reviewed and will be for patient to be discharged home on Keflex and Flagyl when stable 2. Acute kidney injury superimposed on chronic kidney disease stage IV. Patient baseline creatinine between 3.5-4.5. Patient creatinine appears to be at baseline however had significant azotemia with BUN peaking at 102. Consultation placed to nephrology no indication for dialysis at this point per documentation from nephrology 3. Peripheral vascular disease vascular surgery consulted with plans for patient to follow-up as outpatient 4. Diabetes mellitus type 2 with complications including diabetic nephropathy continue patient insulin regimen in addition to Accu-Cheks before meals and at bedtime with sliding scale coverage 5. Hypertension-blood pressure controlled, home medications except for HCTZ in view of worsening kidney function continued with dose adjustment as needed 6. Anemia secondary to anemia of chronic disorder. Patient underwent EGD and colonoscopy on 05/03/[address] Meyer findings included multiple polyps which were excised and sent for biopsy. 7. Non-anion gap metabolic acidosis secondary to TYLOR 8. Paroxysmal atrial fibrillation rate controlled on metoprolol Coumadin was held for his incision and drainage. Resumed on 05/04/2019 with subsequent monitoring of INR 9. DVT prophylaxis on Coumadin no need for additional measures 10. Morbid obesity with BMI of 38.7 weight loss advised Microbiology 04/29/19 16:00 Tissue - Left Foot Gram Stain - Final 04/29/19 16:00 Tissue - Left Foot Wound Culture - Final No growth aerobically. 04/29/19 16:00 Tissue - Left Foot Anaerobic Culture - Final No growth in 5 days. 04/29/19 16:00 Tissue - Left Foot Acid Fast Bacilli Smear - Final 04/26/19 14:25 Blood Culture (Wb) - Anticubital Left Blood Culture - Final No growth in 5 days. 04/26/19 17:15 Wound Abcess - Aerobic & Anaerobic Swabs Gram Stain - Final 04/26/19 17:15 Wound Abcess - Aerobic & Anaerobic Swabs Wound Culture - Final Staphylococcus aureus Staphylococcus epidermidis 04/26/19 17:15 Wound Abcess - Aerobic & Anaerobic Swabs Anaerobic Culture - Final Clostridium perfringens 04/29/19 14:19 Stool C. difficile DNA Amplification - Final 04/29/19 03:23 Stool Stool Occult Blood (PEREZ) - Final Occult Blood Positive 04/26/19 14:15 Wound - Toe Gram Stain - Final 04/26/19 14:15 Wound - Toe Wound Culture - Final Staphylococcus aureus Code Visit Inpatient E&M: 08445 Subs Hosp L2
--- NOTE | 2019-05-04 11:22 | PN.ID_ITS ---
Patient Problems: Active and Suspected Problems (Last Reviewed 04/29/19 @ 16:02 by Lakshmi Claudio PA-C) PAD (peripheral artery disease) (Acute) TYLOR (acute kidney injury) (Acute) Anemia (Acute) Heme positive stool (Acute) Diabetes mellitus (Acute) Left foot infection (Acute) Gas gangrene (Acute) Other specified peripheral vascular diseases (Suspected) Non-pressure chronic ulcer of other part of left foot with fat layer exposed (Acute) Subjective: Feeling well, no diarrhea now, no fever. - Physical Exam General: Alert, Cooperative, No apparent distress Lungs: Clear to auscultation, Normal air movement Cardiovascular: Regular rate, Regular Rhythm Abdomen: Soft, Non Tender, Non-Distended Skin: Ulcer/ Wound - foot wrapped Vital Signs Temp Pulse Resp BP Pulse Ox 98.2 F 117 H 20 H 122/84 H 99 05/04/19 09:15 05/04/19 09:15 05/04/19 09:15 05/04/19 09:15 05/04/19 09:15 Oxygen Delivery Method Room Air Weight: 92.3 kg Body Mass Index (BMI) 40.4 Finger Stick Blood Glucose 145 Intake and Output for Last 24 Hours 05/02/19 05/03/19 05/04/19 23:59 23:59 23:59 Intake Total 4600 / 4600 1760 / 1760 240 / 240 Output Total 1550 / 1550 1075 / 1075 Balance 4600 / 4600 210 / 210 -835 / -835 Microbiology Past 72 Hours 04/29/19 16:00 Gram Stain - Final Tissue - Left Foot Wound Culture - Final No growth aerobically. Anaerobic Culture - Final No growth in 5 days. 04/29/19 16:00 Acid Fast Bacilli Smear - Final Tissue - Left Foot 04/26/19 14:25 Blood Culture - Final Blood Culture (Wb) - Anticubital Left No growth in 5 days. 04/26/19 17:15 Gram Stain - Final Wound Abcess - Aerobic & Anaerobic Swabs Wound Culture - Final Staphylococcus aureus Staphylococcus epidermidis Anaerobic Culture - Final Clostridium perfringens Laboratory Tests Past 24 Hrs 05/04/19 05/04/19 05/04/19 05:18 05:18 05:18 WBC 7.0 RBC 2.95 L Hgb 8.6 L Hct 26.9 L MCV 91.2 MCH 29.2 MCHC 32.0 RDW 13.1 RDW Differential 41.9 Plt Count 335 MPV 9.3 Immature Gran % (Auto) 0.900 Neut % (Auto) 71.9 H Lymph % (Auto) 14.2 L [place] % (Auto) 7.7 Eos % (Auto) 4.7 Baso % (Auto) 0.6 Absolute Neuts (auto) 5.1 Absolute Lymphs (auto) 1.00 Total Counted Not Reportable PT 16.8 H INR 1.4 Sodium 139 Potassium 4.8 Chloride 106 Carbon Dioxide 23.0 Anion Gap 10 BUN 88 H Creatinine 4.12 H Estim Creat Clear Calc 12.69 Est GFR (MDRD) Af Amer 19 L Est GFR (MDRD) Non-Af 15 L BUN/Creatinine Ratio 21.4 H Glucose 233 H Calcium 8.5 POC Glucose 05/04/19 05/03/19 05/03/19 06:31 21:40 17:03 POC Glucose 216 H 212 H 101 05/03/19 11:48 POC Glucose 145 H Medical Necessity - Tobacco Use Smoking Status: Never smoker Tobacco Use: Non-smoker Route of nutrition/ use of supplements: [] Nutritional Intake: [] IV Site: [] Estrella Catheter: [] - Assessment/Plan Antibiotics: [] Assessment/Plan: [] Active and Suspected Problems (Last Reviewed 02/10/19 @ 13:22 by Yousif Clark MD) Diabetes mellitus (Acute) Left foot infection (Acute) Gas gangrene (Acute) Other specified peripheral vascular diseases (Suspected) Non-pressure chronic ulcer of other part of left foot with fat layer exposed (Acute) L 1st toe gas gangrene - had bedside I&D by Dr. Lezama 04/27. OR for amputation done 04/29. Wound cx with MSSA and MSSE. Anaerobic cx with clostridium. Clearance fragment neg. Will change to keflex and flagyl, plan on d/c home on 5 more days of these. TYLOR on CKD - neph following Will follow, d/w Dr. Alonzo
[2019-05-04 11:25] LABS: Bedside Glucose 195 mg/dL (70-110)
--- NOTE | 2019-05-04 12:04 | PN.RENAL_ITS ---
Patient Problems: Active and Suspected Problems (Last Reviewed 04/29/19 @ 16:02 by Lakshmi Claudio PA-C) PAD (peripheral artery disease) (Acute) TYLOR (acute kidney injury) (Acute) Anemia (Acute) Heme positive stool (Acute) Diabetes mellitus (Acute) Left foot infection (Acute) Gas gangrene (Acute) Other specified peripheral vascular diseases (Suspected) Non-pressure chronic ulcer of other part of left foot with fat layer exposed (Acute) Subjective: No new complaints - Physical Exam General: Alert, Oriented x3, Cooperative HEENT: Atraumatic, PERRLA, EOMI, Normocephalic Neck: Supple, No JVD, Negative Carotid Bruits Lungs: Clear to auscultation, Normal air movement Cardiovascular: Regular rate, No murmurs Abdomen: Bowel Sounds Present, Soft, Non Tender Extremities: No edema, Capillary Refill Less than 3 Seconds Skin: No rashes, No breakdown Musculoskeletal: No Tenderness to Palpation of Joints or Extremities Neurological: Cranial nerves II-XII grossly intact Psych/Mental Status: Normal Affect, Appropriate Vital Signs Temp Pulse Resp BP Pulse Ox 98.2 F 117 H 20 H 122/84 H 99 05/04/19 09:15 05/04/19 09:15 05/04/19 09:15 05/04/19 09:15 05/04/19 09:15 Oxygen Delivery Method Room Air Weight: 92.3 kg Body Mass Index (BMI) 40.4 Finger Stick Blood Glucose 145 Intake and Output for Last 24 Hours 05/02/19 05/03/19 05/04/19 23:59 23:59 23:59 Intake Total 4600 / 4600 1760 / 1760 561.6 / 561.6 Output Total 1550 / 1550 1475 / 1475 Balance 4600 / 4600 210 / 210 -913.4 / -913.4 Microbiology Past 72 Hours 04/29/19 16:00 Gram Stain - Final Tissue - Left Foot Wound Culture - Final No growth aerobically. Anaerobic Culture - Final No growth in 5 days. 04/29/19 16:00 Acid Fast Bacilli Smear - Final Tissue - Left Foot 04/26/19 14:25 Blood Culture - Final Blood Culture (Wb) - Anticubital Left No growth in 5 days. 04/26/19 17:15 Gram Stain - Final Wound Abcess - Aerobic & Anaerobic Swabs Wound Culture - Final Staphylococcus aureus Staphylococcus epidermidis Anaerobic Culture - Final Clostridium perfringens Laboratory Tests Past 24 Hrs 05/04/19 05/04/19 05/04/19 05:18 05:18 05:18 WBC 7.0 RBC 2.95 L Hgb 8.6 L Hct 26.9 L MCV 91.2 MCH 29.2 MCHC 32.0 RDW 13.1 RDW Differential 41.9 Plt Count 335 MPV 9.3 Immature Gran % (Auto) 0.900 Neut % (Auto) 71.9 H Lymph % (Auto) 14.2 L [place] % (Auto) 7.7 Eos % (Auto) 4.7 Baso % (Auto) 0.6 Absolute Neuts (auto) 5.1 Absolute Lymphs (auto) 1.00 Total Counted Not Reportable PT 16.8 H INR 1.4 Sodium 139 Potassium 4.8 Chloride 106 Carbon Dioxide 23.0 Anion Gap 10 BUN 88 H Creatinine 4.12 H Estim Creat Clear Calc 12.69 Est GFR (MDRD) Af Amer 19 L Est GFR (MDRD) Non-Af 15 L BUN/Creatinine Ratio 21.4 H Glucose 233 H Calcium 8.5 POC Glucose 05/04/19 05/04/19 05/03/19 11:20 06:31 21:40 POC Glucose 195 H 216 H 212 H 05/03/19 17:03 POC Glucose 101 Medical Necessity - Tobacco Use Smoking Status: Never smoker Tobacco Use: Non-smoker Assessment/Plan All Active Problems (Last Reviewed 04/29/19 @ 16:02 by Lakshmi Claudio PA-C) PAD (peripheral artery disease) (Acute) TYLOR (acute kidney injury) (Acute) Anemia (Acute) Heme positive stool (Acute) Osteomyelitis (Acute) Diabetes mellitus (Acute) Left foot infection (Acute) Gas gangrene (Acute) Non-pressure chronic ulcer of other part of left foot with fat layer exposed (Acute) TYLOR CKD 4 baseline creatinine was in 2 as of 2017. early this year presented with creatinine of 3.2. now in mid 4s. proteinuria of about 3.5 gm. renal USG looks ok. Most of the serologies are pending. Renal ultrasound without any hydronephrosis. Current creatinine is likely progression of prior kidney disease. He is now in stage V. Currently does not have any uremic signs or symptoms. Does have significant azotemia. Today I discussed about low kidney function. There is no acute indications to start dialysis right now but he will likely need to start fairly soon. CHF. On Lasix 60 mg IV twice daily. Tolerating well so far. Edema is better. Will change to Lasix 80 twice daily at the time of discharge. HTN. generally poorly controlled. values are ok now proteinuria. SPEP ordered results pending., All questions answered.
[2019-05-04 14:06] LABS: ANTINUCLEAR ANTIBODIES DIRECT Positive (Negative); Anti-Centromere B Ab <0.2 AI (0.0-0.9); Anti-Chromatin <0.2 AI (0.0-0.9); Anti-Jo <0.2 AI (0.0-0.9); Anti-Scleroderma-70 AB <0.2 AI (0.0-0.9); RNP Ab 0.2 AI (0.0-0.9); SJOGREN'S Anti-SS-A test < 0.2 AI (0.0-0.9); SJOGREN'S Anti-SS-B test 6.5 AI (0.0-0.9); Smith Ab <0.2 AI (0.0-0.9)
[2019-05-04 15:20] LABS: Albumin 2.9 g/dL (2.9-4.4); Alpha-1-Globulins 0.3 g/dL (0.0-0.4); Alpha-2-Globulins 1.1 g/dL (0.4-1.0); Gamma Globulin 1.1 g/dL (0.4-1.8); Immunoglobulin A 202 mg/dL (61-437); Immunoglobulin G 999 mg/dL (700-1600); Immunoglobulin M 107 mg/dL (20-172); PROEL- TOTAL PROTEIN 6.1 g/dL (6.0-8.5)
[2019-05-04 16:25] LABS: Bedside Glucose 73 mg/dL (70-110)
[2019-05-04 16:27] LABS: Anti-dsDNA Ab 2 IU/mL (0-9)
--- NOTE | 2019-05-04 17:33 | PCM.PROGNOTE ---
Patient Problems: Active and Suspected Problems (Last Reviewed 04/29/19 @ 16:02 by Lakshmi Claudio PA-C) PAD (peripheral artery disease) (Acute) TYLOR (acute kidney injury) (Acute) Anemia (Acute) Heme positive stool (Acute) Diabetes mellitus (Acute) Left foot infection (Acute) Gas gangrene (Acute) Other specified peripheral vascular diseases (Suspected) Non-pressure chronic ulcer of other part of left foot with fat layer exposed (Acute) Subjective: Patient was seen today for follow up on left foot, s/p partial 1st toe amputation. Patient sitting up eating dinner, with no complaints. He relates he hopes to be discharged home tomorrow. He relates he will have a friend help him at home, he is also considering going to stay with a friend in [place]. - Physical Exam General: Alert, Oriented x3, Cooperative, No apparent distress Extremities: Capillary Refill Less than 3 Seconds, No Calf Tenderness, - - s/p partial left hallux amputation site, the sutures are intact with no dehiscence, no drainage, no maloder, no fluctuance, no crepitus present - flaps normal temperature with some dried blood and also dry eschar to the edges, CFT < 3 seconds to toes with no evidence of acute ischemia to the foot, there is some tenderness with palpation c/w surgery, DP pulse is palpable bilateral foot, no open lesions or new areas of breakdown bilateral foot or ankle. Vital Signs Temp Pulse Resp BP Pulse Ox 99.0 F 87 18 110/83 H 97 05/04/19 15:15 05/04/19 15:15 05/04/19 15:15 05/04/19 15:15 05/04/19 15:15 Oxygen Delivery Method Room Air Weight: 92.3 kg Body Mass Index (BMI) 40.4 Finger Stick Blood Glucose 145 Intake and Output for Last 24 Hours 05/02/19 05/03/19 05/04/19 23:59 23:59 23:59 Intake Total 4600 / 4600 1760 / 1760 561.6 / 561.6 Output Total 1550 / 1550 1475 / 1475 Balance 4600 / 4600 210 / 210 -913.4 / -913.4 Microbiology Past 72 Hours 04/29/19 16:00 Gram Stain - Final Tissue - Left Foot Wound Culture - Final No growth aerobically. Anaerobic Culture - Final No growth in 5 days. 04/29/19 16:00 Acid Fast Bacilli Smear - Final Tissue - Left Foot 04/26/19 14:25 Blood Culture - Final Blood Culture (Wb) - Anticubital Left No growth in 5 days. Laboratory Tests Past 24 Hrs 05/03/19 05/04/19 05/04/19 05:20 05:18 05:18 WBC 7.0 RBC 2.95 L Hgb 8.6 L Hct 26.9 L MCV 91.2 MCH 29.2 MCHC 32.0 RDW 13.1 RDW Differential 41.9 Plt Count 335 MPV 9.3 Immature Gran % (Auto) 0.900 Neut % (Auto) 71.9 H Lymph % (Auto) 14.2 L [place] % (Auto) 7.7 Eos % (Auto) 4.7 Baso % (Auto) 0.6 Absolute Neuts (auto) 5.1 Absolute Lymphs (auto) 1.00 Total Counted Not Reportable PT INR Sodium 139 Potassium 4.8 Chloride 106 Carbon Dioxide 23.0 Anion Gap 10 BUN 88 H Creatinine 4.12 H Estim Creat Clear Calc 12.69 Est GFR (MDRD) Af Amer 19 L Est GFR (MDRD) Non-Af 15 L BUN/Creatinine Ratio 21.4 H Glucose 233 H Calcium 8.5 NIMESH Screen Positive H MARIANGEL-1 Antibody <0.2 SS-A/Ro IgG Antibody < 0.2 SS-B/La IgG Antibody 6.5 H Sm (Bell) Antibody <0.2 PATIENT ACCESS Antibody 0.2 Scl-70 Scleroderma Ab <0.2 Double Strand DNA Ab 2 Centromere B Antibody <0.2 05/04/19 05:18 WBC RBC Hgb Hct MCV MCH MCHC RDW RDW Differential Plt Count MPV Immature Gran % (Auto) Neut % (Auto) Lymph % (Auto) [place] % (Auto) Eos % (Auto) Baso % (Auto) Absolute Neuts (auto) Absolute Lymphs (auto) Total Counted PT 16.8 H INR 1.4 Sodium Potassium Chloride Carbon Dioxide Anion Gap BUN Creatinine Estim Creat Clear Calc Est GFR (MDRD) Af Amer Est GFR (MDRD) Non-Af BUN/Creatinine Ratio Glucose Calcium NIMESH Screen MARIANGEL-1 Antibody SS-A/Ro IgG Antibody SS-B/La IgG Antibody Sm (Bell) Antibody PATIENT ACCESS Antibody Scl-70 Scleroderma Ab Double Strand DNA Ab Centromere B Antibody POC Glucose 05/04/19 05/04/19 05/04/19 16:20 11:20 06:31 POC Glucose 73 195 H 216 H 05/03/19 21:40 POC Glucose 212 H Medical Necessity - Tobacco Use Smoking Status: Never smoker Tobacco Use: Non-smoker Assessment/Plan All Active Problems (Last Reviewed 04/29/19 @ 16:02 by Lakshmi Claudio PA-C) PAD (peripheral artery disease) (Acute) TYLOR (acute kidney injury) (Acute) Anemia (Acute) Heme positive stool (Acute) Osteomyelitis (Acute) Diabetes mellitus (Acute) Left foot infection (Acute) Gas gangrene (Acute) Non-pressure chronic ulcer of other part of left foot with fat layer exposed (Acute) s/p left partial hallux amputation secondary to osteomyelitis on 04/29/19 Small vessel disease and artery calcification; no vascular intervention planned at this time per vascular service Diabetes with neuropathy Malnutrition Other comorbidities: TYLOR, CKD atrial fibrillation, chronic anemia, hypertension Re-evaluation performed. No evidence of residual infection to the left foot, including surgical site. Reviewed surgical cultures - no growth. He is completing course of antibiotic therapy per Infectious Disease. Continue with local care to the surgical site - today changed dressing - applied clean, dry, sterile gauze, alfredo and gayathri dressing - keep clean, dry and intact. No weightbearing to the left forefoot, ok to put weight on heel with use of walker and surgical shoe. Patient to limit activity on left foot as much as possible. Medical management and DVT prophylaxis per primary team is greatly appreciated. Patient to follow up with Dr. Paredes on 05/06/19 in office for foot check, sooner if needed. This was discussed with patient, he agreed with plan. All of his questions were answered.
--- NOTE | 2019-05-04 17:43 | DCINST_ITS ---
Weight Bearing Status: No weight bearing - No weight on ball of left foot, ok to put weight on left heel for transfers with use of walker and surgical shoe, otherwise limit activity on left foot as much as possible Call your doctor if your incision/area has: Continuous Slow Oozing, Sudden Increased Bleeding, Increased Redness, Foul Smelling Discharge Call your doctor if you observe: Fever of 101 or Higher, Coldness, Increased Pain, Shortness of breath, Chest pain, Calf discomfort, Uncontrolled pain Cleanse incision/area with: Do not get Incision Wet, Keep Dressing Clean & Dry Allergies/Adverse Reactions: Allergies No Known Allergies Allergy (Verified 04/26/19 13:56) Medications to take at Discharge albuterol sulfate 2.5 mg/3 mL (0.083 %) solution for nebulization 1.25 mg INHALATION Q4H PRN 01/30/19 clonidine HCl 0.1 mg tablet 0.1 mg PO BID 90 Days #180 tab 01/30/19 doxazosin 8 mg tablet 8 mg PO DAILY 30 Days #30 tab 01/30/19 furosemide 40 mg tablet 40 mg PO DAILY 90 Days #90 tab 01/30/19 glipizide 10 mg tablet 10 mg PO DAILY 01/30/19 hydrochlorothiazide 12.5 mg capsule 12.5 mg PO DAILY 30 Days #30 cap 01/30/19 hydrocodone 7.5 mg-acetaminophen 750 mg tablet 1 tab PO Q6H PRN 30 Days tab 01/30/19 metoprolol tartrate 50 mg tablet 50 mg PO BID 90 Days #180 tab 01/30/19 theophylline ER 400 mg capsule,extended release 24 hr 400 mg PO DAILY 01/30/19 amlodipine 5 mg tablet 5 mg PO DAILY #90 tab 02/10/19 multivitamin tablet 1 tab PO DAILY 02/10/19 saw palmetto 500 mg capsule 450 mg PO BID 02/10/19 warfarin 2.5 mg tablet 2.5 mg PO .COMPLEX 02/18/19 Primary Care Physician: Billy Jaramillo DO [Primary Care Provider] - Test Results: Test results from this visit will be discussed in further detail at your follow- up appointment, if applicable. Please Follow Up With: Jael Paredes DPM - Office address: [facility], [address] [place] [address], [place] [address]. When: 05/06/2019 - call office at [phone] to make appointment time
[2019-05-04 20:07] LABS: Complement C3 122 mg/dL (82-167); Cytoplasmic Ab (C-ANCA) <1:20 titer (Neg:<1:20)
[2019-05-04] MEDS: Cephalexin 250 MG Capsule PO (21:25)
[2019-05-04 22:06] LABS: Bedside Glucose 205 mg/dL (70-110)
[2019-05-05 03:03] VITALS: PULSE 75
[2019-05-05 03:15] VITALS: BP 124/77; PULSE 74; RESP 16; TEMP 36.6; O2SAT 98
[2019-05-05 06:19] LABS: International Normalized Ratio 1.3; Prothrombin Time (Protime)PT. 16.1 SECONDS (11.7-14.9)
[2019-05-05] MEDS: metroNIDAZOLE 500 MG Tablet PO (06:38)
[2019-05-05 06:56] LABS: Bedside Glucose 150 mg/dL (70-110)
[2019-05-05 07:00] VITALS: PULSE 74
[2019-05-05 09:05] VITALS: BP 121/92; PULSE 117; RESP 20; TEMP 36.6; O2SAT 99
[2019-05-05 09:08] VITALS: PULSE 117
[2019-05-05] MEDS: Insulin Lispro 100 UNIT/ML INSULN.PEN 15 UNIT SC (09:08)
[2019-05-05] MEDS: Furosemide 100 MG/10 ML Vial 60 MG IV (09:08)
[2019-05-05] MEDS: cloNIDine HCl 0.1 MG Tablet PO (09:08)
[2019-05-05] MEDS: Metoprolol Tartrate 50 MG Tablet PO (09:08)
[2019-05-05] MEDS: Multivitamins,Therapeutic Tablet 1 TABLET PO (09:08)
[2019-05-05] MEDS: 0.9% NaCl Peripheral Flush Adult/Peds IV (09:08)
[2019-05-05] MEDS: Doxazosin 4 MG Tablet 8 MG PO (09:08)
[2019-05-05] MEDS: amLODIPine 10 MG Tablet PO (09:08)
[2019-05-05] MEDS: Cephalexin 250 MG Capsule PO (09:09)
[2019-05-05] MEDS: Insulin Lispro 100 UNIT/ML INSULN.PEN SQ (09:09)
--- NOTE | 2019-05-05 09:53 | PCM.DC ---
- Discharge Diagnoses Current Active Problems: Current Active and Chronic Problems (Last Reviewed 04/29/19 @ 16:02 by Lakshmi Claudio PA-C) PAD (peripheral artery disease) (Acute) TYLOR (acute kidney injury) (Acute) Anemia (Acute) Heme positive stool (Acute) Diabetes mellitus (Acute) Left foot infection (Acute) Gas gangrene (Acute) Type 2 diabetes mellitus with diabetic polyneuropathy (Chronic) Non-pressure chronic ulcer of other part of left foot with fat layer exposed (Acute) You will use the following diet at home:: Calorie/Carbohydrate Controlled (specify 1200, 1400, etc) - 1800 Your food should be the consistency of: Regular Discharge Activity: Return to Normal Activity, May not drive while taking narcotic pain medications. Weight Bearing Status: No weight bearing - No weight on ball of left foot, ok to put weight on left heel for transfers with use of walker and surgical shoe, otherwise limit activity on left foot as much as possible Call your doctor if your incision/area has: Continuous Slow Oozing, Sudden Increased Bleeding, Increased Redness, Foul Smelling Discharge Call your doctor if you observe: Fever of 101 or Higher, Coldness, Increased Pain, Shortness of breath, Chest pain, Calf discomfort, Uncontrolled pain Cleanse incision/area with: Do not get Incision Wet, Keep Dressing Clean & Dry Allergies/Adverse Reactions: Allergies No Known Allergies Allergy (Verified 04/26/19 13:56) Medications to take at Discharge albuterol sulfate 2.5 mg/3 mL (0.083 %) solution for nebulization 1.25 mg INHALATION Q4H PRN 01/30/19 clonidine HCl 0.1 mg tablet 0.1 mg PO BID 90 Days #180 tab 01/30/19 doxazosin 8 mg tablet 8 mg PO DAILY 30 Days #30 tab 01/30/19 furosemide 40 mg tablet 40 mg PO DAILY 90 Days #90 tab 01/30/19 hydrocodone 7.5 mg-acetaminophen 750 mg tablet 1 tab PO Q6H PRN 30 Days tab 01/30/19 metoprolol tartrate 50 mg tablet 50 mg PO BID 90 Days #180 tab 01/30/19 theophylline ER 400 mg capsule,extended release 24 hr 400 mg PO DAILY 01/30/19 multivitamin tablet 1 tab PO DAILY 02/10/19 saw palmetto 500 mg capsule 450 mg PO BID 02/10/19 warfarin 2.5 mg tablet 2.5 mg PO .COMPLEX 02/18/19 Amlodipine Besylate 10 mg PO DAILY #90 tab 05/05/19 Cephalexin [Keflex] 250 mg PO Q12 #10 capsule 05/05/19 Insulin Glargine [Lantus SoloStar Pen] 15 units SC BID #1 pen 05/05/19 metroNIDAZOLE [Flagyl] 500 mg PO TID #15 tablet 05/05/19 The following prescriptions were given: Cephalexin [Keflex] 250 mg PO Q12 #10 capsule Insulin Glargine [Lantus SoloStar Pen] 15 units SC BID #1 pen metroNIDAZOLE [Flagyl] 500 mg PO TID #15 tablet Primary Care Physician: Billy Jaramillo DO [Primary Care Provider] - Please follow up with your Primary Care Physician in: on 05/10/2019 for INR check Test Results: Test results from this visit will be discussed in further detail at your follow-up appointment, if applicable. Please Follow Up With: Jael Paredes DPM - Office address: [facility], [address] [place] [address]. When: 05/06/2019 - call office at [phone] to make appointment time Proposed Discharge Date: 05/05/19
--- NOTE | 2019-05-05 09:57 | PCM.DC.SUM ---
Discharge Date and Diagnosis - Problem List Patient Problems: Active and Suspected Problems (Last Reviewed 04/29/19 @ 16:02 by Lakshmi Claudio PA-C) PAD (peripheral artery disease) (Acute) TYLOR (acute kidney injury) (Acute) Anemia (Acute) Heme positive stool (Acute) Osteomyelitis (Acute) Diabetes mellitus (Acute) Left foot infection (Acute) Gas gangrene (Acute) Other specified peripheral vascular diseases (Suspected) Non-pressure chronic ulcer of other part of left foot with fat layer exposed (Acute) Date of Admission: 04/26/19 Date of Discharge: 05/05/19 - Primary Discharge Diagnosis Active and Suspected Problems (Last Reviewed 04/29/19 @ 16:02 by Lakshmi Claudio PA-C) PAD (peripheral artery disease) (Acute) TYLOR (acute kidney injury) (Acute) Anemia (Acute) Heme positive stool (Acute) Osteomyelitis (Acute) Diabetes mellitus (Acute) Left foot infection (Acute) Gas gangrene (Acute) Other specified peripheral vascular diseases (Suspected) Non-pressure chronic ulcer of other part of left foot with fat layer exposed (Acute) - Secondary Discharge Diagnosis Chronic Problems (Last Reviewed 04/29/19 @ 16:02 by Lakshmi Claudio PA-C) Type 2 diabetes mellitus with diabetic polyneuropathy (Chronic) Right bundle branch block (RBBB) (Chronic) Essential (primary) hypertension (Chronic) exterminator (current) use of anticoagulants (Chronic) Paroxysmal atrial fibrillation (Chronic) Hyperlipidemia (Chronic) Hospital Course and Treatment Imaging Results: Clinical Impression(s) from Imaging Studies Chest X-Ray 04/26/19 14:33 IMPRESSION: No acute cardiopulmonary disease. Stable lower thoracic levoscoliosis. Electronically Signed: Jr Lynn MD at 15:17 EDT , Service support , Foot X-Ray 04/26/19 14:33 IMPRESSION: 1. Soft tissue swelling of the great toe with gas in the deep plantar soft tissues of the distal phalanx. There is no demonstrated acute fracture. 2. Atherosclerotic vascular calcifications noted. 3. 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 Electronically Signed: Jr Lynn MD at 15:15 EDT , Service support , Renal Ultrasound 04/27/19 05:55 IMPRESSION: Minimal urinary bladder debris. Correlate clinically for any evidence of microhematuria, or UTI. Bilateral sonographically simple appearing renal cysts. Nonobstructing calyceal calculus of the right kidney. Bilaterally no hydronephrosis, normal renal cortical thickness and echotexture. Electronically Signed: Donaldo Harp MD at 16:11 EDT Tel , Service support , Lower Extremity MRI 04/27/19 16:04 IMPRESSION: Osteomyelitis of the first distal phalanx with adjacent soft tissue ulcer. Electronically Signed: Daniel Patel MD at 21:27 EDT , Service support , Orbit X-Ray 04/27/19 17:00 IMPRESSION: No demonstrated metallic orbital foreign body. The patient is cleared for an MRI examination. Electronically Signed: Ervin Cleveland MD at 17:53 EDT , Service support , Foot X-Ray 04/29/19 14:10 IMPRESSION: Intraoperative views demonstrate partial amputation of the first toe at the level of the head of the proximal phalanx. Electronically Signed: Curtis Rey DO at 18:21 EDT Tel [phone], Service support , Microbiology 04/29/19 16:00 Tissue - Left Foot Gram Stain - Final 04/29/19 16:00 Tissue - Left Foot Wound Culture - Final No growth aerobically. 04/29/19 16:00 Tissue - Left Foot Anaerobic Culture - Final No growth in 5 days. 04/29/19 16:00 Tissue - Left Foot Acid Fast Bacilli Smear - Final 04/26/19 14:25 Blood Culture (Wb) - Anticubital Left Blood Culture - Final No growth in 5 days. 04/26/19 17:15 Wound Abcess - Aerobic & Anaerobic Swabs Gram Stain - Final 04/26/19 17:15 Wound Abcess - Aerobic & Anaerobic Swabs Wound Culture - Final Staphylococcus aureus Staphylococcus epidermidis 04/26/19 17:15 Wound Abcess - Aerobic & Anaerobic Swabs Anaerobic Culture - Final Clostridium perfringens 04/29/19 14:19 Stool C. difficile DNA Amplification - Final 04/29/19 03:23 Stool Stool Occult Blood (PEREZ) - Final Occult Blood Positive 04/26/19 14:15 Wound - Toe Gram Stain - Final 04/26/19 14:15 Wound - Toe Wound Culture - Final Staphylococcus aureus Consultations 04/27/19 11:19 Consult: Onc/Wound/media developer Routine Comment: Reason for Consult:: L 1st toe gangrene Summary of Care Provided: Patient is a 68-year-old gentleman with multiple comorbidities including diabetes mellitus type 2 chronic kidney disease stage III paroxysmal atrial for ablation on Coumadin who apparently fell off his trailer 2 weeks prior to his admission. He was admitted with acute left big toe infection with gas gangrene consultation was placed to podiatry patient underwent partial left hallux amputation on 04/29/2019 1. Acute left big toe infection and gas gangrene with osteomyelitis of the distal left phalanx with MSSA and MSSA and Clostridium perfringens Patient underwent Partial left hallux amputation 04/29/[address] Paredes. Consultation was also placed infectious disease patient has been seen by Dr. Gurrola his notes and recommendations reviewed. Patient was discharged home on Keflex and Flagyl 5 additional days. 2. Acute kidney injury superimposed on chronic kidney disease stage IV. Patient baseline creatinine between 3.5-4.5. Patient creatinine appears to be at baseline however had significant azotemia with BUN peaking at 102. Consultation placed to nephrology no indication for dialysis at this point per documentation from nephrology is for patient to follow-up with nephrology as outpatient 3. Peripheral vascular disease vascular surgery consulted with plans for patient to follow-up as outpatient 4. Diabetes mellitus type 2 with complications including diabetic nephropathy continue patient insulin regimen in addition to Accu-Cheks before meals and at bedtime with sliding scale coverage she was on glipizide this was discontinued on discharge prescription written for long-acting insulin patient to follow-up with PCP for subsequent care 5. Hypertension-blood pressure controlled, home medications except for HCTZ in view of worsening kidney function continued with dose adjustment as needed 6. Anemia secondary to anemia of chronic disorder. Patient underwent EGD and colonoscopy on 05/03/[address] Meyer findings included multiple polyps which were excised and sent for biopsy. Results pending at the time of discharge 7. Non-anion gap metabolic acidosis secondary to TYLOR 8. Paroxysmal atrial fibrillation rate controlled on metoprolol Coumadin was held for his incision and drainage. Resumed on 05/04/2019 with subsequent monitoring of INR Coumadin was held because of a positive Hemoccult. Resumed on discharge instructed to follow-up with Dr. Jaramillo patient PCP on 05/10/2019 for INR check 9. DVT prophylaxis on Coumadin no need for additional measures 10. Morbid obesity with BMI of 38.7 weight loss advised Patient Problems: Active and Suspected Problems (Last Reviewed 04/29/19 @ 16:02 by Lakshmi Claudio PA-C) PAD (peripheral artery disease) (Acute) TYLOR (acute kidney injury) (Acute) Anemia (Acute) Heme positive stool (Acute) Osteomyelitis (Acute) Diabetes mellitus (Acute) Left foot infection (Acute) Gas gangrene (Acute) Other specified peripheral vascular diseases (Suspected) Non-pressure chronic ulcer of other part of left foot with fat layer exposed (Acute) Objective: GENERAL: cooperative HEENT: Atraumatic; EYES; Anicteric, NECK; supple, normal thyroid, RESPIRATORY: Diminished to auscultation CARDIOVASCULAR: Irregular S1 S2, GI: soft, non-tender, normoactive bowel sounds, : No Renal angle tenderness; EXTREMITIES: Left foot in an Unna boot MUSCULOSKELETAL: No Joint Tenderness; NEURO: Awake; no lateralizing signs. SKIN: No Rash PSYCH; Normal affect - Physical Exam Vital Signs Temp Pulse Resp BP Pulse Ox 97.9 F 117 H 20 H 121/92 H 99 05/05/19 09:05 05/05/19 09:08 05/05/19 09:05 05/05/19 09:05 05/05/19 09:05 Oxygen Delivery Method Room Air Weight: 92.9 kg Body Mass Index (BMI) 40.4 Finger Stick Blood Glucose 145 Intake and Output for Last 24 Hours 05/03/19 05/04/19 05/05/19 23:59 23:59 23:59 Intake Total 1760 / 1760 1961.6 / 1960.6 Output Total 1550 / 1550 2475 / 2475 1000 / 1000 Balance 210 / 210 -513.4 / -513.4 -1000 / -1000 Microbiology Past 72 Hours 04/29/19 16:00 Gram Stain - Final Tissue - Left Foot Wound Culture - Final No growth aerobically. Anaerobic Culture - Final No growth in 5 days. 04/29/19 16:00 Acid Fast Bacilli Smear - Final Tissue - Left Foot 04/26/19 14:25 Blood Culture - Final Blood Culture (Wb) - Anticubital Left No growth in 5 days. Laboratory Tests Past 24 Hrs 05/03/19 05/05/19 05:20 05:50 PT 16.1 H INR 1.3 NIMESH Screen Positive H MARIANGEL-1 Antibody <0.2 SS-A/Ro IgG Antibody < 0.2 SS-B/La IgG Antibody 6.5 H Sm (Bell) Antibody <0.2 RIPRAP WORKER Antibody 0.2 Scl-70 Scleroderma Ab <0.2 Double Strand DNA Ab 2 Centromere B Antibody <0.2 POC Glucose 05/05/19 05/04/19 05/04/19 06:31 21:24 16:20 POC Glucose 150 H 205 H 73 05/04/19 11:20 POC Glucose 195 H Discharge Activity: Return to Normal Activity, May not drive while taking narcotic pain medications. Weight Bearing Status: No weight bearing - No weight on ball of left foot, ok to put weight on left heel for transfers with use of walker and surgical shoe, otherwise limit activity on left foot as much as possible Call your doctor if your incision/area has: Continuous Slow Oozing, Sudden Increased Bleeding, Increased Redness, Foul Smelling Discharge Call your doctor if you observe: Fever of 101 or Higher, Coldness, Increased Pain, Shortness of breath, Chest pain, Calf discomfort, Uncontrolled pain Cleanse incision/area with: Do not get Incision Wet, Keep Dressing Clean & Dry Home Medications: Medications to take at Discharge albuterol sulfate 2.5 mg/3 mL (0.083 %) solution for nebulization 1.25 mg INHALATION Q4H PRN 01/30/19 clonidine HCl 0.1 mg tablet 0.1 mg PO BID 90 Days #180 tab 01/30/19 doxazosin 8 mg tablet 8 mg PO DAILY 30 Days #30 tab 01/30/19 furosemide 40 mg tablet 40 mg PO DAILY 90 Days #90 tab 01/30/19 hydrocodone 7.5 mg-acetaminophen 750 mg tablet 1 tab PO Q6H PRN 30 Days tab 01/30/19 metoprolol tartrate 50 mg tablet 50 mg PO BID 90 Days #180 tab 01/30/19 theophylline ER 400 mg capsule,extended release 24 hr 400 mg PO DAILY 01/30/19 multivitamin tablet 1 tab PO DAILY 02/10/19 saw palmetto 500 mg capsule 450 mg PO BID 02/10/19 warfarin 2.5 mg tablet 2.5 mg PO .COMPLEX 02/18/19 Amlodipine Besylate 10 mg PO DAILY #90 tab 05/05/19 Cephalexin [Keflex] 250 mg PO Q12 #10 capsule 05/05/19 Insulin Glargine [Lantus SoloStar Pen] 15 units SC BID #1 pen 05/05/19 metroNIDAZOLE [Flagyl] 500 mg PO TID #15 tablet 05/05/19 Following Prescrptions Were Given to Patient: Cephalexin [Keflex] 250 mg PO Q12 #10 capsule Insulin Glargine [Lantus SoloStar Pen] 15 units SC BID #1 pen metroNIDAZOLE [Flagyl] 500 mg PO TID #15 tablet Primary Care Physician: Billy Jaramillo DO [Primary Care Provider] - Please follow up with your Primary Care Physician in: on 05/10/2019 for INR check Please Follow Up With: Jael Paredes DPM - Office address: [facility], [address] [place] [address], [place] [address]. When: 05/06/2019 - call office at [phone] to make appointment time Disposition: Home Minutes spent on discharge:: 50 Patient Condition:: Stable Medical Necessity - Tobacco Use Smoking Status: Never smoker Tobacco Use: Non-smoker Meaningful Use Info Meaningful Use Diagnoses (Choose all that apply): None applicable Code Visit Inpatient E&M: 82589 Disch Hosp
--- NOTE | 2019-05-05 10:01 | DS.PCM_ITS ---
Discharge Date and Diagnosis - Problem List Patient Problems: Active and Suspected Problems (Last Reviewed 04/29/19 @ 16:02 by Lakshmi Claudio PA-C) PAD (peripheral artery disease) (Acute) TYLOR (acute kidney injury) (Acute) Anemia (Acute) Heme positive stool (Acute) Osteomyelitis (Acute) Diabetes mellitus (Acute) Left foot infection (Acute) Gas gangrene (Acute) Other specified peripheral vascular diseases (Suspected) Non-pressure chronic ulcer of other part of left foot with fat layer exposed (Acute) Date of Admission: 04/26/19 Date of Discharge: 05/05/19 - Primary Discharge Diagnosis Active and Suspected Problems (Last Reviewed 04/29/19 @ 16:02 by Lakshmi Claudio PA-C) PAD (peripheral artery disease) (Acute) TYLOR (acute kidney injury) (Acute) Anemia (Acute) Heme positive stool (Acute) Osteomyelitis (Acute) Diabetes mellitus (Acute) Left foot infection (Acute) Gas gangrene (Acute) Other specified peripheral vascular diseases (Suspected) Non-pressure chronic ulcer of other part of left foot with fat layer exposed (Acute) - Secondary Discharge Diagnosis Chronic Problems (Last Reviewed 04/29/19 @ 16:02 by Lakshmi Claudio PA-C) Type 2 diabetes mellitus with diabetic polyneuropathy (Chronic) Right bundle branch block (RBBB) (Chronic) Essential (primary) hypertension (Chronic) long term care pharmacist (current) use of anticoagulants (Chronic) Paroxysmal atrial fibrillation (Chronic) Hyperlipidemia (Chronic) Hospital Course and Treatment Imaging Results: Clinical Impression(s) from Imaging Studies Chest X-Ray 04/26/19 14:33 IMPRESSION: No acute cardiopulmonary disease. Stable lower thoracic levoscoliosis. Electronically Signed: Jr Lynn MD at 15:17 EDT , Service support , Foot X-Ray 04/26/19 14:33 IMPRESSION: 1. Soft tissue swelling of the great toe with gas in the deep plantar soft tissues of the distal phalanx. There is no demonstrated acute fracture. 2. Atherosclerotic vascular calcifications noted. 3. 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 Electronically Signed: Jr Lynn MD at 15:15 EDT , Service support , Renal Ultrasound 04/27/19 05:55 IMPRESSION: Minimal urinary bladder debris. Correlate clinically for any evidence of microhematuria, or UTI. Bilateral sonographically simple appearing renal cysts. Nonobstructing calyceal calculus of the right kidney. Bilaterally no hydronephrosis, normal renal cortical thickness and echotexture. Electronically Signed: Donaldo Harp MD at 16:11 EDT Tel , Service support , Lower Extremity MRI 04/27/19 16:04 IMPRESSION: Osteomyelitis of the first distal phalanx with adjacent soft tissue ulcer. Electronically Signed: Daniel Patel MD at 21:27 EDT , Service support , Orbit X-Ray 04/27/19 17:00 IMPRESSION: No demonstrated metallic orbital foreign body. The patient is cleared for an MRI examination. Electronically Signed: Ervin Cleveland MD at 17:53 EDT , Service support , Foot X-Ray 04/29/19 14:10 IMPRESSION: Intraoperative views demonstrate partial amputation of the first toe at the level of the head of the proximal phalanx. Electronically Signed: Curtis Rey DO at 18:21 EDT Tel [phone], Service support , Microbiology 04/29/19 16:00 Tissue - Left Foot Gram Stain - Final 04/29/19 16:00 Tissue - Left Foot Wound Culture - Final No growth aerobically. 04/29/19 16:00 Tissue - Left Foot Anaerobic Culture - Final No growth in 5 days. 04/29/19 16:00 Tissue - Left Foot Acid Fast Bacilli Smear - Final 04/26/19 14:25 Blood Culture (Wb) - Anticubital Left Blood Culture - Final No growth in 5 days. 04/26/19 17:15 Wound Abcess - Aerobic & Anaerobic Swabs Gram Stain - Final 04/26/19 17:15 Wound Abcess - Aerobic & Anaerobic Swabs Wound Culture - Final Staphylococcus aureus Staphylococcus epidermidis 04/26/19 17:15 Wound Abcess - Aerobic & Anaerobic Swabs Anaerobic Culture - Final Clostridium perfringens 04/29/19 14:19 Stool C. difficile DNA Amplification - Final 04/29/19 03:23 Stool Stool Occult Blood (PEREZ) - Final Occult Blood Positive 04/26/19 14:15 Wound - Toe Gram Stain - Final 04/26/19 14:15 Wound - Toe Wound Culture - Final Staphylococcus aureus Consultations 04/27/19 11:19 Consult: Onc/Wound/heel emery buffer Routine Comment: Reason for Consult:: L 1st toe gangrene Summary of Care Provided: Patient is a 68-year-old gentleman with multiple comorbidities including diabetes mellitus type 2 chronic kidney disease stage III paroxysmal atrial for ablation on Coumadin who apparently fell off his trailer 2 weeks prior to his admission. He was admitted with acute left big toe infection with gas gangrene consultation was placed to podiatry patient underwent partial left hallux a mputation on 04/29/2019 1. Acute left big toe infection and gas gangrene with osteomyelitis of the distal left phalanx with MSSA and MSSA and Clostridium perfringens Patient underwent Partial left hallux amputation 04/29/[address] Paredes. Consultation was also placed infectious disease patient has been seen by Dr. Gurrola his notes and recommendations reviewed. Patient was discharged home on Keflex and Flagyl 5 additional days. 2. Acute kidney injury superimposed on chronic kidney disease stage IV. Patient baseline creatinine between 3.5-4.5. Patient creatinine appears to be at baseline however had significant azotemia with BUN peaking at 102. Consultation placed to nephrology no indication for dialysis at this point per documentation from nephrology is for patient to follow-up with nephrology as outpatient 3. Peripheral vascular disease vascular surgery consulted with plans for patient to follow-up as outpatient 4. Diabetes mellitus type 2 with complications including diabetic nephropathy continue patient insulin regimen in addition to Accu-Cheks before meals and at bedtime with sliding scale coverage she was on glipizide this was discontinued on discharge prescription written for long-acting insulin patient to follow-up with PCP for subsequent care 5. Hypertension-blood pressure controlled, home medications except for HCTZ in view of worsening kidney function continued with dose adjustment as needed 6. Anemia secondary to anemia of chronic disorder. Patient underwent EGD and colonoscopy on 05/03/[address] Meyer findings included multiple polyps which were excised and sent for biopsy. Results pending at the time of discharge 7. Non-anion gap metabolic acidosis secondary to TYLOR 8. Paroxysmal atrial fibrillation rate controlled on metoprolol Coumadin was held for his incision and drainage. Resumed on 05/04/2019 with subsequent monitoring of INR Coumadin was held because of a positive Hemoccult. Resumed on discharge instructed to follow-up with Dr. Jarmaillo patient PCP on 05/10/2019 for INR check 9. DVT prophylaxis on Coumadin no need for additional measures 10. Morbid obesity with BMI of 38.7 weight loss advised Patient Problems: Active and Suspected Problems (Last Reviewed 04/29/19 @ 16:02 by Lakshmi Claudio PA-C) PAD (peripheral artery disease) (Acute) TYLOR (acute kidney injury) (Acute) Anemia (Acute) Heme positive stool (Acute) Osteomyelitis (Acute) Diabetes mellitus (Acute) Left foot infection (Acute) Gas gangrene (Acute) Other specified peripheral vascular diseases (Suspected) Non-pressure chronic ulcer of other part of left foot with fat layer exposed (Acute) Objective: GENERAL: cooperative HEENT: Atraumatic; EYES; Anicteric, NECK; supple, normal thyroid, RESPIRATORY: Diminished to auscultation CARDIOVASCULAR: Irregular S1 S2, GI: soft, non-tender, normoactive bowel sounds, : No Renal angle tenderness; EXTREMITIES: Left foot in an Unna boot MUSCULOSKELETAL: No Joint Tenderness; NEURO: Awake; no lateralizing signs. SKIN: No Rash PSYCH; Normal affect - Physical Exam Vital Signs Temp Pulse Resp BP Pulse Ox 97.9 F 117 H 20 H 121/92 H 99 05/05/19 09:05 05/05/19 09:08 05/05/19 09:05 05/05/19 09:05 05/05/19 09:05 Oxygen Delivery Method Room Air Weight: 92.9 kg Body Mass Index (BMI) 40.4 Finger Stick Blood Glucose 145 Intake and Output for Last 24 Hours 05/03/19 05/04/19 05/05/19 23:59 23:59 23:59 Intake Total 1760 / 1760 1961.6 / 1961.6 Output Total 1550 / 1550 2475 / 2475 1000 / 1000 Balance 210 / 210 -513.4 / -513.4 -1000 / -1000 Microbiology Past 72 Hours 04/29/19 16:00 Gram Stain - Final Tissue - Left Foot Wound Culture - Final No growth aerobically. Anaerobic Culture - Final No growth in 5 days. 04/29/19 16:00 Acid Fast Bacilli Smear - Final Tissue - Left Foot 04/26/19 14:25 Blood Culture - Final Blood Culture (Wb) - Anticubital Left No growth in 5 days. Laboratory Tests Past 24 Hrs 05/03/19 05/05/19 05:20 05:50 PT 16.1 H INR 1.3 NIMESH Screen Positive H MARIANGEL-1 Antibody <0.2 SS-A/Ro IgG Antibody < 0.2 SS-B/La IgG Antibody 6.5 H Sm (Bell) Antibody <0.2 HEALTHCARE SOCIAL WORKER Antibody 0.2 Scl-70 Scleroderma Ab <0.2 Double Strand DNA Ab 2 Centromere B Antibody <0.2 POC Glucose 05/05/19 05/04/19 05/04/19 06:31 21:24 16:20 POC Glucose 150 H 205 H 73 05/04/19 11:20 POC Glucose 195 H Discharge Activity: Return to Normal Activity, May not drive while taking narcotic pain medications. Weight Bearing Status: No weight bearing - No weight on ball of left foot, ok to put weight on left heel for transfers with use of walker and surgical shoe, otherwise limit activity on left foot as much as possible Call your doctor if your incision/area has: Continuous Slow Oozing, Sudden Increased Bleeding, Increased Redness, Foul Smelling Discharge Call your doctor if you observe: Fever of 101 or Higher, Coldness, Increased Pain, Shortness of breath, Chest pain, Calf discomfort, Uncontrolled pain Cleanse incision/area with: Do not get Incision Wet, Keep Dressing Clean & Dry Home Medications: Medications to take at Discharge albuterol sulfate 2.5 mg/3 mL (0.083 %) solution for nebulization 1.25 mg INHALATION Q4H PRN 01/30/19 clonidine HCl 0.1 mg tablet 0.1 mg PO BID 90 Days #180 tab 01/30/19 doxazosin 8 mg tablet 8 mg PO DAILY 30 Days #30 tab 01/30/19 furosemide 40 mg tablet 40 mg PO DAILY 90 Days #90 tab 01/30/19 hydrocodone 7.5 mg-acetaminophen 750 mg tablet 1 tab PO Q6H PRN 30 Days tab 01/30/19 metoprolol tartrate 50 mg tablet 50 mg PO BID 90 Days #180 tab 01/30/19 theophylline ER 400 mg capsule,extended release 24 hr 400 mg PO DAILY 01/30/19 multivitamin tablet 1 tab PO DAILY 02/10/19 saw palmetto 500 mg capsule 450 mg PO BID 02/10/19 warfarin 2.5 mg tablet 2.5 mg PO .COMPLEX 02/18/19 Amlodipine Besylate 10 mg PO DAILY #90 tab 05/05/19 Cephalexin [Keflex] 250 mg PO Q12 #10 capsule 05/05/19 Insulin Glargine [Lantus SoloStar Pen] 15 units SC BID #1 pen 05/05/19 metroNIDAZOLE [Flagyl] 500 mg PO TID #15 tablet 05/05/19 Following Prescrptions Were Given to Patient: Cephalexin [Keflex] 250 mg PO Q12 #10 capsule Insulin Glargine [Lantus SoloStar Pen] 15 units SC BID #1 pen metroNIDAZOLE [Flagyl] 500 mg PO TID #15 tablet Primary Care Physician: Billy Jaramillo DO [Primary Care Provider] - Please follow up with your Primary Care Physician in: on 05/10/2019 for INR check Please Follow Up With: Jael Paredes DPM - Office address: [facility], [address] [place] [address], [place] [address]. When: 05/06/2019 - call office at [phone] to make appointment time Disposition: Home Minutes spent on discharge:: 50 Patient Condition:: Stable Medical Necessity - Tobacco Use Smoking Status: Never smoker Tobacco Use: Non-smoker Meaningful Use Info Meaningful Use Diagnoses (Choose all that apply): None applicable Code Visit Inpatient E&M: 13017 Disch Hosp
--- NOTE | 2019-05-05 10:33 | CASEMGMT ---
This RN CM to room to speak with pt regarding discharge plan and therapy recommendations. Pt declines HHC and OP therapy at this time. Pt is aware that if he needs any services once home to contact PCP, voices understanding. Pt voices no further questions/concerns/needs at this time. SStaten RN CM
[2019-05-05 12:22] LABS: HEPATITIS B SURFACE AG Negative (Negative); Hep C Antibodies 0.1 s/co ratio (0.0-0.9); Perinuclear Ab (P-ANCA) <1:20 titer (Neg:<1:20)
[2019-05-05 12:26] LABS: IMMUNOFIXATION RESULT,S Comment: (.)
--- NOTE | 2019-05-06 14:15 | CASEMGMT ---
Addendum entered by Bonnie Castro 05/07/19 13:37: Call placed to pt for discharge follow-up phone call. Pt answered and spoke with this JORDYN BAE. He states he is not doing too bad. He denies having any questions about the discharge instructions, medications, or appts. He states he was able to flower buncher or picker the prescriptions. States he went to Dr Paredes's appt yesterday and stated, she said my foot looks good. He states he also went to kidney doctor today. Pt states he plans on going to Dr Jaramillo's appt on Friday and then is leaving to go to [place] for a couple of weeks and plans on seeing a truck rental manager down there. Pt made aware that the [facility] will be calling him to set up an appt. Pt given the [facility]'s phone number and advised pt to call them so he can talk with them before leaving for [place]. Pt states he would do this. Pt denies having any other questions/needs/concerns. Dhara GLASGOW RN, CM Original Note: JORDYN BAE Discharge Follow-Up Phone Call. Lace: 13 Strata: 4 Discharge Date: 05/05/19 Adm Dx: 1st toe infection, gas gangrene Attempted discharge follow-up phone call. No answer. Unable to leave message. Phone kept ringing and no option to leave a message. Dhara GLASGOW RN, CM
--- NOTE | 2019-05-07 13:24 | CASEMGMT ---
Call to Dr. Paredes's office to verify that pt did f/u yesterday and to check on wound center f/u. Per office, pt did f/u yesterday but they are unsure if f/u in wound center and state pt made no further appt with Dr. Paredes. Call to Jadyn in wound center and she states that she does not have pt set up for appt yet but will place a call to pt. Stuart COBB CM
== END 2019-05-05 11:00 | disposition home or self-care (01) | DRG 255 ==
LOC: ED 16:24 → PCU 16:49
PROVIDERS: Internal Medicine; Internal Medicine Infectious Disease; Internal Medicine Nephrology; Obstetrics & Gynecology; Student in an Organized Health Care Education/Training Program; Surgery; Admitting Provider Internal Medicine; Emergency Provider Emergency Medicine; Family Provider Family Medicine; PCP Family Medicine; Referring Provider Podiatrist; Visit Provider Internal Medicine
PROC: 0Y6Q0Z3 Detachment at Left 1st Toe, Low, Open Approach (ICD-10-PCS; principal; 2019-04-29 15:15)
PROC: 0DJD8ZZ Inspection of Lower Intestinal Tract, Via Natural or Artificial Opening Endoscopic (ICD-10-PCS; CPT 45378; principal; 2019-05-03 10:45)
DX: E11.52 Type 2 diabetes mellitus with diabetic peripheral angiopathy with gangrene (principal); A48.0 Gas gangrene; M86.8X7 Other osteomyelitis, ankle and foot; N18.4 Chronic kidney disease, stage 4 (severe); N17.9 Acute kidney failure, unspecified; E11.69 Type 2 diabetes mellitus with other specified complication; I48.0 Paroxysmal atrial fibrillation; Z79.01 Long term (current) use of anticoagulants; Z79.84 Long term (current) use of oral hypoglycemic drugs; E11.22 Type 2 diabetes mellitus with diabetic chronic kidney disease; I45.10 Unspecified right bundle-branch block; E11.42 Type 2 diabetes mellitus with diabetic polyneuropathy; B95.61 Methicillin susceptible Staphylococcus aureus infection as the cause of diseases classified elsewhere; B96.7 Clostridium perfringens [C. perfringens] as the cause of diseases classified elsewhere; E66.01 Morbid (severe) obesity due to excess calories; Z68.36 Body mass index [BMI] 36.0-36.9, adult; L97.522 Non-pressure chronic ulcer of other part of left foot with fat layer exposed; N40.0 Benign prostatic hyperplasia without lower urinary tract symptoms; D63.8 Anemia in other chronic diseases classified elsewhere; I12.9 Hypertensive chronic kidney disease with stage 1 through stage 4 chronic kidney disease, or unspecified chronic kidney disease; B95.7 Other staphylococcus as the cause of diseases classified elsewhere; R19.5 Other fecal abnormalities
CPT/HCPCS: 36415; 70030; 71045; 73620; 73630; 73718; 76000; 76770; 80048; 80053; 80202; 81001; 82274; 82570; 82728; 82784; 82962; 83036; 83540; 83550; 83605; 84165; 84300; 84484; 85014; 85018; 85025; 85610; 85730; 86038; 86140; 86160; 86225; 86235; 86256; 86334; 86803; 86850; 86900; 86920; 86922; 87015; 87040; 87070; 87075; 87077; 87102; 87116; 87176; 87186; 87205; 87206; 87340; 87493; 87640; 88305; 88311; 88313; 88342; 93005; 93923; 97110; 97116; 97162; 97166; 97530; 97535; 97802; 99284; J7030; J7040; J7050; A4216; J1610; J1940; J2405

== ENCOUNTER 2019-05-10 11:45 | Outpatient (RCR) | payer MEDICARE, SELFPAY ==
[2019-05-01 07:27] VITALS: BMI 38.0
[2019-05-10 14:17] LABS: International Normalized Ratio 1.8; Prothrombin Time (Protime)PT. 21.1 SECONDS (11.7-14.9)
[2019-05-10 14:19] LABS: Anion Gap 12 (5-15); BUN 87 mg/dL (7-18); BUN/Creat Ratio 17.4 RATIO (10-20); Calcium,Total 8.4 mg/dL (8.5-10.1); Chloride 106 mmol/L (98-107); Creatinine, Serum 4.99 mg/dL (0.70-1.30); EST Glomerular Filtration Rate 12 mL/min (>60); Est Glom Filt Rate - Afr Amer 15 mL/min (>60); Glucose 256 mg/dL (74-106); Potassium 5.3 mmol/L (3.5-5.1); Sodium Level 140 mmol/L (136-145)
== END 2019-05-10 12:00 | disposition home or self-care (01) ==
LOC: MTLAB 11:45
PROVIDERS: Family Provider Family Medicine; PCP Family Medicine; Referring Provider Internal Medicine Cardiovascular Disease; Visit Provider Internal Medicine Cardiovascular Disease
DX: I48.0 Paroxysmal atrial fibrillation (principal); Z79.01 Long term (current) use of anticoagulants; N18.3 Chronic kidney disease, stage 3 (moderate)
CPT/HCPCS: 36415; 80048; 85610

== ENCOUNTER 2019-06-13 06:20 | Emergency (ER) | payer MEDICARE, SELFPAY ==
[2019-05-31 09:32] VITALS: BMI 38.9
[2019-06-13 06:22] VITALS: BP 192/108; PULSE 127; RESP 29; TEMP 36.9; O2SAT 99; BMI 37.5
[2019-06-13 06:23] VITALS: BP 192/108; PULSE 92; RESP 16; TEMP 36.9; O2SAT 99
--- NOTE | 2019-06-13 06:27 | ED.RN ---
medication list not updated at this time. patient medications have been changed. need to get into pcp to update
--- NOTE | 2019-06-13 06:53 | ED.DCSUM_ITS ---
- ER Visit Summary Date of Service: 06/13/19 Chief Complaint: Diarrhea History of Present Illness: The patient is a 68 M who presents with diarrhea that began yesterday. Patient states he was recently diagnosed with C. difficile. Patient states he took antibiotics for that. Patient states that yesterday he started with foul-smelling diarrhea and is concerned that his C. difficile has returned. Patient had a recent toe amputation and was placed on antibiotics afterwards. Patient went to [place] to recover and started having diarrhea. Patient went to the hospital there and was admitted for 2 weeks and was found to have C. difficile at that time. Patient denies any abdominal pain. Patient denies any melena or hematochezia. Patient denies any nausea or vomiting. Patient admits to some subjective chills. Physical Examination: Vital signs are stable except for an elevated blood pressure 192/108. Patient is afebrile. Patient is in no acute distress. Oral mucosa is pink and moist. Neck is supple. Trachea is midline. There is no JVD noted. Heart was regular rate and rhythm. Lungs are clear and equal bilaterally. Abdomen is soft. Bowel sounds are normal. There is no tenderness. Cranial nerves II through XII are intact. There are no focal motor or sensory deficits noted. Test Results: CBC, comprehensive metabolic profile, lipase, and urinalysis were ordered. Stool for C. difficile was ordered. These are pending. Emergency Department Course and Treatment: Hep-Lock was placed. Care of the patient was turned over to the oncoming physician. Disposition: [] Impression: [] This note was generated with [employer] dictation software. It may contain incorrect words, spelling, and punctuation that were not noted in review of the chart pr ior to signing <Elijah Nathan - Last Filed: 06/13/19 06:57> - ER Visit Summary Date of Service: 06/13/19 Addendum the patient was seen by the evening physician asked to reassess him his labs are generally unremarkable creatinine baseline for him to improved white count unremarkable reevaluation is resting comfortably in the bed his abdomen soft and nontender with a long conversation with him and basically he was discharged on antibiotics after being admitted to the [place] facility and found to have C. difficile indicates he stopped those antibiotics on he does not recall what the antibiotic was whether it was metronidazole or vancomycin, he does not recall which pharmacy he goes to get his prescriptions filled and is indicating he possibly got the medications when he left the hospital He is resting comfortably in bed this would be a recurrence of the C. difficile he has a very mild condition with it as he has no systemic signs of toxicity no abdominal pain no vomiting no fever no white count we discussed inpatient versus outpatient management he is comfortable with outpatient management, I explained to him to be started on vancomycin 125 daily 10 days and follow-up with his family physicians and return for change in symptoms but he agrees and understands not to stop antibiotics Home stable Impression Recurrent C. difficile history of recent toe amputation History of Present Illness: The patient is a 68 M [] Physical Examination: [] Test Results: [] Emergency Department Course and Treatment: [] Treatment Plan: [] Disposition: [] Impression: [] This note was generated with [employer] software. It may contain incorrect words, spelling, and punctuation that were not noted in review of the chart prior to signing <Anali Nichols - Last Filed: 06/13/19 10:20> ED Disposition <Elijah Nathan - Last Filed: 06/13/19 06:57> <Anali Nichols - Last Filed: 06/13/19 10:20> - Plan for ED Patient: Referrals: Billy Jaramillo [Primary Care Provider] -
[2019-06-13 07:33] LABS: Absolute Lymphocyte Count 0.48 X10^3/ul (0.83-4.51); Absolute Neutrophil Count 5.9 X10^3/uL (2.0-7.7); Basophil# 0.01 X10^3/uL; Basophil% 0.1 % (0-1); Eosinophils% 1.4 % (0-5); Hematocrit 26.1 % (40-54); Lymphocyte # 0.48 X10^3/ul (4.0); Lymphocyte % 6.5 % (19-41); Mean Corp Hgb Conc 30.7 g/gl (32-36); Mean Corpuscular Hgb 29.7 pg (27.0-32.0); Mean Platelet Vol. 9.1 fl (6.2-12.0); Monocyte% 10.9 % (0-10); Neutrophil # 5.93 X10^3/uL (2.7-7.7); Neutrophil % 80.8 % (47-70); Platelet Count 338 K/mm3 (150-450); RBC Distribution Width CV 13.3 % (11.6-14.6); RBC Distribution Width SD 46.9 fl (35.1-43.9); Red Blood Count 2.69 M/mm3 (4.6-6.2); White Blood Count 7.3 K/mm3 (4.4-11.0)
[2019-06-13 07:37] LABS: ALB/GLOB Ratio 0.5 RATIO (0.9-2.4); AST(SGOT) 17 U/L (15-37); Alanine Aminotransfer ALT/SGPT 21 U/L (16-61); Albumin, Serum 2.1 g/dL (3.2-5.0); Alkaline Phosphatase 89 U/L (45-117); Anion Gap 8 (5-15); BUN 19 mg/dL (7-18); BUN/Creat Ratio 7.5 RATIO (10-20); Calcium,Total 8.5 mg/dL (8.5-10.1); Chloride 108 mmol/L (98-107); Creatinine, Serum 2.53 mg/dL (0.70-1.30); Differential Indicated SCAN CRITERIA MET; EST Glomerular Filtration Rate 27 mL/min (>60); Est Glom Filt Rate - Afr Amer 33 mL/min (>60); Estimated Creatinine Clearance 21.58 ml/min; Globulin 4.2 g/dL (2.2-4.2); Glucose 164 mg/dL (74-106); Lipase 120 U/L (73-393); POSITIVE COUNT NO; POSITIVE DIFFERENTIAL YES; POSITIVE MORPHOLOGY NO; Potassium 4.4 mmol/L (3.5-5.1); Protein, Total 6.3 g/dL (6.4-8.2); Sodium Level 141 mmol/L (136-145)
[2019-06-13 07:59] LABS: Hypochromasia 1+
--- NOTE | 2019-06-13 10:20 | ED.DEP ---
ED Disposition - Plan for ED Patient: Instructions: Clostridium Difficile Toxin Stool Prescriptions: Vancomcyin 125mg/5mL PO Liquid 125 mg PO [id number] PRN 10 Days #60 po.syringe PRN Reason: Agitation Prescription Printed Referrals: Billy Jaramillo [Primary Care Provider] -
[2019-06-13 10:45] VITALS: BP 141/77; PULSE 90; RESP 20; O2SAT 99
[2019-06-13 11:49] VITALS: BP 170/86; RESP 18
== END 2019-06-13 11:57 | disposition home or self-care (01) ==
PROVIDERS: Emergency Provider Emergency Medicine; Family Provider Family Medicine; PCP Family Medicine
DX: A04.71 Enterocolitis due to Clostridium difficile, recurrent (principal); Z89.429 Acquired absence of other toe(s), unspecified side
CPT/HCPCS: 80053; 83690; 85025; 87493; 96360; 99285; J7030; J7040; A4216

== ENCOUNTER → 2019-07-08 14:17 | Outpatient (CLI) | payer MEDICARE, SELFPAY ==
[2019-06-13 06:22] VITALS: BMI 37.5
[2019-07-08 15:38] LABS: Absolute Lymphocyte Count 1.36 X10^3/uL (0.83-4.51); Basophil# 0.05 X10^3/uL; Basophil% 0.3 % (0-1); Eosinophil# 0.12 X10^3/uL; Eosinophils% 0.8 % (0-5); Hematocrit 34.1 % (40-54); Hemoglobin 10.9 g/dL (13.0-16.5); Lymphocyte # 1.36 X10^3/ul (4.0); Lymphocyte % 9.1 % (19-41); Mean Corpuscular Hgb 28.8 pg (27.0-32.0); Mean Corpuscular Volume 90.2 fL (80-94); Mean Platelet Vol. 10.2 fl (6.2-12.0); Monocyte# 1.18 X10^3/uL; Monocyte% 7.9 % (0-10); NRBC Flagged by Analyzer 0 % (0-5); Neutrophil # 11.96 X10^3/uL (2.7-7.7); Neutrophil % 80.6 % (47-70); Platelet Count 403 K/mm3 (150-450); RBC Distribution Width CV 13.1 % (11.6-14.6); RBC Distribution Width SD 42.6 fl (35.1-43.9); Red Blood Count 3.78 M/mm3 (4.6-6.2); White Blood Count 14.9 K/mm3 (4.4-11.0)
[2019-07-08 16:18] LABS: ALB/GLOB Ratio 0.6 RATIO (0.9-2.4); AST(SGOT) 20 U/L (15-37); Alanine Aminotransfer ALT/SGPT 28 U/L (16-61); Albumin, Serum 2.5 g/dL (3.2-5.0); Alkaline Phosphatase 97 U/L (45-117); Anion Gap 11 (5-15); BUN 47 mg/dL (7-18); BUN/Creat Ratio 12.8 RATIO (10-20); Calcium,Total 8.2 mg/dL (8.5-10.1); Chloride 104 mmol/L (98-107); Creatinine, Serum 3.67 mg/dL (0.70-1.30); EST Glomerular Filtration Rate 18 mL/min (>60); Est Glom Filt Rate - Afr Amer 21 mL/min (>60); Glucose 101 mg/dL (74-106); Potassium 3.5 mmol/L (3.5-5.1); Protein, Total 6.5 g/dL (6.4-8.2); Sodium Level 137 mmol/L (136-145)
== END ==
PROVIDERS: Family Provider Family Medicine; PCP Family Medicine; Visit Provider Family Medicine
DX: K52.9 Noninfective gastroenteritis and colitis, unspecified (principal); E11.22 Type 2 diabetes mellitus with diabetic chronic kidney disease; N18.5 Chronic kidney disease, stage 5; R19.7 Diarrhea, unspecified
CPT/HCPCS: 36415; 80053; 85025; 87177; 87209; 87493

== ENCOUNTER 2019-07-13 09:17 | Emergency (ER) | payer MEDICARE, SELFPAY ==
[2019-07-13 09:18] VITALS: BP 154/93; PULSE 114; RESP 16; TEMP 36.4; O2SAT 98
[2019-07-13] MEDS: Lidocaine Jelly 2% 20 ML Syringe (URO-JET) 20 APPLIC TOPICAL (10:03)
--- NOTE | 2019-07-13 10:20 | NURSING ---
DR YVETTE CONROY
--- NOTE | 2019-07-13 10:29 | NURSING ---
DR CRAWFORD IN ER
--- NOTE | 2019-07-13 10:34 | ED.RN ---
DORSAL SIDE OF PENIS IS BLACKENED, SKIN IS SLOATHING OFF PENIS. DIFFICULT TO FIND OPENING. SKIN IS TEARING AROUND PENIS, MINIMAL BLEEDING, STRONG ODOR.
--- NOTE | 2019-07-13 10:35 | ED.RN ---
PER HOLD ON STRAIGHT CATH AT THIS TIME.
[2019-07-13 10:57] LABS: Mucous, Urine 0 SEEN /hpf (<or=2+); Red Blood Cells-Urine 0 SEEN /hpf (0-5); Squamous Epithelial Cells - UA 0 SEEN /hpf (0-5)
[2019-07-13 11:00] LABS: Color, Urine Straw (Yellow); Glucose, Dipstick 100 mg/dl (Normal); Ketone-Dipstick Negative (Negative); Leukocyte Esterase-Dipstick 100 /ul (Negative); Nitrite-Dipstick Negative (Negative); Occult Blood-Urine 150 /ul (Negative); Protein-Dipstick 500 mg/dl (Negative); Specific Gravity, Urine 1.015 (1.002-1.030); Urine Bilirubin Dipstick Negative (Negative); Urine Clarity Sl. Cloudy (Clear); Urine Urobilinogen Normal (Normal)
--- NOTE | 2019-07-13 11:11 | NURSING ---
DR GUTIERREZ FOR DR BAPTISTE
[2019-07-13 11:17] LABS: Coarse Granular Cast 0-5 SEEN /lpf (0-5 /lpf)
[2019-07-13 11:17] LABS: Absolute Lymphocyte Count 1.06 X10^3/uL (0.83-4.51); Basophil# 0.06 X10^3/uL; Basophil% 0.4 % (0-1); Eosinophil# 0.11 X10^3/uL; Eosinophils% 0.7 % (0-5); Hematocrit 33.9 % (40-54); Hemoglobin 11.2 g/dL (13.0-16.5); Lymphocyte # 1.06 X10^3/ul (4.0); Lymphocyte % 6.8 % (19-41); Mean Corpuscular Hgb 29.8 pg (27.0-32.0); Mean Corpuscular Volume 90.2 fL (80-94); Mean Platelet Vol. 9.4 fl (6.2-12.0); Monocyte# 1.08 X10^3/uL; Monocyte% 6.9 % (0-10); NRBC Flagged by Analyzer 0 % (0-5); Neutrophil # 12.98 X10^3/uL (2.7-7.7); Platelet Count 387 K/mm3 (150-450); RBC Distribution Width CV 12.9 % (11.6-14.6); RBC Distribution Width SD 42.8 fl (35.1-43.9); Red Blood Count 3.76 M/mm3 (4.6-6.2); White Blood Count 15.6 K/mm3 (4.4-11.0)
[2019-07-13 11:18] LABS: Bacteria 1+ /hpf (None Seen)
[2019-07-13 11:19] LABS: White Blood Cells 50-100 SEEN /hpf (0-5)
[2019-07-13 11:27] LABS: International Normalized Ratio 2.1; Prothrombin Time (Protime)PT. 23.4 SECONDS (11.7-14.9)
--- NOTE | 2019-07-13 11:27 | ED.DCSUM_ITS ---
- ER Visit Summary Date of Service: 07/13/19 Chief Complaint: Penile pain History of Present Illness: The patient is a 68 M who comes in today stating that his penis hurts. He tells me that about 1 month ago he was in [place] and had a catheter placed for unknown reason a few days later removed. Since that time his penis is been hurting he has been able to urinate. States he has not been able to retract his foreskin to clean. He has a history of peripheral artery disease, atrial fibrillation on Coumadin, diabetes, chronic kidney disease not on dialysis, and is currently being treated for C. difficile. He is uncircumcised. Physical Examination: Afebrile vital signs stable The patient's foreskin is able to be retracted. The glans is dusky white-cunningham area of black skin presumably necrotic on the dorsal surface of the glans. On the ventral aspect is a area of blood appears that the glans is from the shaft. The skin of the glans is sloughing off. Emergency Department Course and Treatment: I spoke with Dr. Diggs from urology avascular necrosis and recommends tertiary care. I spoke with Arcadiajames Osullivan and patient has been accepted to the emergency department. Dr. Bautista from the emergency department who is the attending on duty there was notified by myself. Impression: 1. Penile necrosis This note was generated with [employer] dictation software. It may contain incorrect words, spelling, and punctuation that were not noted in review of the chart prior to signing ED Disposition - Plan for ED Patient: Referrals: Billy Jaramillo [Primary Care Provider] -
[2019-07-13 11:29] LABS: ALB/GLOB Ratio 0.5 RATIO (0.9-2.4); AST(SGOT) 28 U/L (15-37); Alanine Aminotransfer ALT/SGPT 31 U/L (16-61); Albumin, Serum 2.3 g/dL (3.2-5.0); Alkaline Phosphatase 106 U/L (45-117); Anion Gap 8 (5-15); BUN 51 mg/dL (7-18); BUN/Creat Ratio 15.6 RATIO (10-20); Calcium,Total 8.6 mg/dL (8.5-10.1); Chloride 103 mmol/L (98-107); Creatinine, Serum 3.26 mg/dL (0.70-1.30); EST Glomerular Filtration Rate 20 mL/min (>60); Est Glom Filt Rate - Afr Amer 24 mL/min (>60); Estimated Creatinine Clearance 23.24 ml/min; Globulin 4.6 g/dL (2.2-4.2); Glucose 82 mg/dL (74-106); Partial Thromboplast Time 55.2 Seconds (24.1-36.2); Potassium 3.8 mmol/L (3.5-5.1); Protein, Total 6.9 g/dL (6.4-8.2); Sodium Level 136 mmol/L (136-145)
--- NOTE | 2019-07-13 11:43 | ED.RN ---
called report at 1142 to JORDYN Alicea in ED.
[2019-07-13 11:44] VITALS: BP 156/93; PULSE 100; RESP 17; O2SAT 99
--- NOTE | 2019-07-13 11:47 | NURSING ---
CALLED [facility] FOR TRANSPORT, ETA IS 1400 CALLED [facility] FOR TRANSPORT. COMING FROM [place]
== END 2019-07-13 13:46 | disposition short-term general hospital (02) ==
LOC: ED 09:54
PROVIDERS: Emergency Provider Emergency Medicine; Family Provider Family Medicine; PCP Family Medicine
DX: I96 Gangrene, not elsewhere classified (principal); A04.72 Enterocolitis due to Clostridium difficile, not specified as recurrent; I48.91 Unspecified atrial fibrillation; I12.9 Hypertensive chronic kidney disease with stage 1 through stage 4 chronic kidney disease, or unspecified chronic kidney disease; N18.9 Chronic kidney disease, unspecified; E11.9 Type 2 diabetes mellitus without complications; Z79.01 Long term (current) use of anticoagulants
CPT/HCPCS: 80053; 81001; 85025; 85610; 85730; 99284; J7030; A4216